=== PATIENT | male | born 1965 | race African-American/Black ===

== ENCOUNTER 2020-02-23 09:53 | Inpatient (IN) | payer OTHER ==
[2020-02-23] MEDS ORDERED: SODIUM CHLORIDE 1,000 ML IV STA (10:05)
--- NOTE | 2020-02-23 10:27 | PDOC ---
History of Present Illness - General Chief Complaint: Syncope/Near Syncope Stated Complaint: AMS Time Seen by Provider: 02/23/20 10:04 History Source: Patient, EMS Exam Limitations: No Limitations - History of Present Illness Initial Comments: 02/23/20 10:18 54M PMH HTN, CKD BIBEMS for dizziness and collapse. Pt states he was sitting at a bus stop when he experienced dizziness and nausea. Denies sob, chest pain. Denies f/c, cough, abd pain, vomiting. Per EMS, pt had collapsed. NKDA. Denies illicit drug use, etoh. PCP Dr. Lennon. Past History - Medical History Allergies/Adverse Reactions: Allergies Allergy/AdvReac Type Severity Reaction Status Date / Time No Known Allergies Allergy Verified 02/23/20 10:01 Home Medications: Ambulatory Orders Clopidogrel Bisulfate [Clopidogrel] 75 mg PO DAILY 01/20/20 Pravastatin Sodium [Pravachol -] 40 mg PO DAILY 01/20/20 Isosorbide Mononitrate [Imdur -] 30 mg PO DAILY #30 tab.sr.24h MDD one 01/24/20 hydrALAZINE HCL [Apresoline -] 25 mg PO TID #90 tablet MDD three 01/24/20 Metoprolol Succinate [Toprol Xl] 50 mg PO DAILY 02/23/20 COPD: No HTN: Yes Other medical history: CKD - Surgical History Abdominal Surgery: Yes - Immunization History Immunization Up to Date: No - Psycho-Social/Smoking History Smoking Status: No Smoking History: Current some day smoker Have you smoked in the past 12 months: Yes Number of Cigarettes Smoked Daily: 0 If you are a former smoker, when did you quit?: 2003 Information on smoking cessation initiated: No - Substance Abuse Hx (Audit-C & DAST Scrn) How often the patient has a drink containing alcohol: Never Score: In Men: 4 or > Positive; In Women: 3 or > Positive: 0 Screen Result (Pos requires Nsg. Audit-10AR): Negative In the last yr the pt used illegal drug/Rx for NonMed reason: No Score: Yes response is considered Positive: 0 Screen Result (Positive result requires Nsg. DAST-10): Negative Review of Systems - Review of Systems Comments:: 02/24/20 00:24 CONSTITUTIONAL: Denies F / C HEENT: endorses dizziness (unsteady). Denies changes in vision / hearing, diplopia, blurry vision, sore throat, rhinorrhea RESP: Denies cough, orthopnea, SLOAN. CARD: Denies chest pain GI: Endorses nausea. Denies V / D, abdominal pain, inability to tolerate PO : Denies dysuria NEURO: Denies new numbness, tingling, weakness. has chronic LE numbness x years. MSK: Denies back pain SKIN: Denies rashes *Physical Exam - Vital Signs Last Vital Signs Temp Pulse Resp BP Pulse Ox 98.1 F 83 18 106/68 98 02/23/20 10:02 02/23/20 10:02 02/23/20 10:02 02/23/20 10:02 02/23/20 10:02 - Physical Exam 02/24/20 00:24 GEN: Fatigued appearing but NAD, eyes closed, readily responsive. AAOx3. HEENT: NC/AT, CN II-XII intact, EOMI, PERRL. No facial asymmetry. Moist mucous membranes. Normal voice. Supple neck w/ FROM. CV: S1/S2, RRR, no m/r/g LUNG: CTAB, no wheezes, crackles, rales, rhonchi. GI: Old midline scar. Soft, ndnt, +BS, no guarding, no rebound. MSK: No LE edema. No obvious deformities of all extremities. SKIN: Warm, dry, no rashes appreciated. PSYCH: Normal mood and affect. NEURO: Moving all extremities well. 5/5 strength UE and LE b/l. ED Treatment Course - LABORATORY CBC & Chemistry Diagram: 02/23/20 10:05 02/23/20 10:05 - ADDITIONAL ORDERS Additional order review: Laboratory Results 02/23/20 10:02 POC Glucometer 117 02/23/20 10:02 POC Glucometer 117 Medical Decision Making - Medical Decision Making 02/24/20 00:24 54M BIBEMS for syncope and dizziness. Fatigued appearing in NAD, neuro intact. BP borderline low. - cbc, cmp, cardiac - cxr - ekg on arrival demonstrating HR 85, NSR, prolonged QTc 476, TWI V4-6, HEATH V2- 3; grossly unchanged when compared to prior EKG on - IVF - BGM 112 on arrival 02/23/20 11:01 Cardiac POCUS w/ reduced EF labs reviewed admit to tele-obs Discharge - Discharge Information Problems reviewed: Yes Clinical Impression/Diagnosis: Dizziness, Near syncope Condition: Fair - Admission Yes - Follow up/Referral - Patient Discharge Instructions - Post Discharge Activity
[2020-02-23 10:35] LABS: BASO % 0.7 % (0-2.0); EOS % 1.1 % (0-4.5); HEMATOCRIT 36.2 % (35.4-49); HEMOGLOBIN 11.8 GM/dL (11.7-16.9); LYMPH % 35.1 % (8-40); MCH 31.3 pg (25.7-33.7); MCHC 32.4 g/dl (32.0-35.9); MEAN CELL VOLUME 96.5 fl (80-96); MEAN PLT VOLUME 9.9 fl (7.5-11.1); MONO % 13.7 % (3.8-10.2); NEUT % 49.4 % (42.8-82.8); PLATELET COUNT 147 K/MM3 (134-434); RBC 3.76 M/mm3 (4.00-5.60); RDW 15.3 % (11.9-15.9); WHITE BLOOD COUNT 5.8 K/mm3 (4.0-10.0)
[2020-02-23 10:44] LABS: INR 0.97 (0.83-1.09); PROTHROMBIN TIME (PATIENT) 11.5 SEC (9.7-13.0)
[2020-02-23 10:47] LABS: ACTIVATED PTT 25.7 SECONDS (25.2-36.5)
[2020-02-23 11:06] LABS: ALBUMIN 3.3 g/dl (3.4-5.0); ALK PHOS 102 U/L (45-117); ANION GAP 8 MMOL/L (8-16); BILIRUBIN,TOTAL 0.3 mg/dL (0.2-1); BLOOD UREA NITROGEN 61.2 mg/dL (7-18); CHLORIDE 112 mmol/L (98-107); CO2 21 mmol/L (21-32); CREATININE 3.3 mg/dL (0.55-1.3); GLUCOSE,RANDOM 136 mg/dL (74-106); MAGNESIUM 1.8 mg/dL (1.8-2.4); POTASSIUM 5.4 mmol/L (3.5-5.1); SGOT/AST 18 U/L (15-37); SGPT/ALT 16 U/L (13-61); SODIUM 141 mmol/L (136-145); TOT PROT 6.8 g/dl (6.4-8.2)
[2020-02-23 11:11] LABS: EPI CELLS 3 /uL (0-25.1); HYALINE CASTS 1 /uL (0-3.1); URINE APPEARANCE CLEAR; URINE BACTERIA 2 /uL (0-1359); URINE BILIRUBIN NEGATIVE (NEGATIVE); URINE COLOR YELLOW; URINE GLUCOSE (UA) NEGATIVE (NEGATIVE); URINE KETONE NEGATIVE (NEGATIVE); URINE LEUK ESTERASE NEGATIVE (NEGATIVE); URINE NITRITE NEGATIVE (NEGATIVE); URINE PROTEIN 2+ (NEGATIVE); URINE RBC 10 /uL (0-23.9); URINE UROBILINOGEN 0.2 mg/dL (0.2-1.0); URINE WBC 5 /uL (0-25.8)
--- NOTE | 2020-02-23 11:17 | PDOC ---
Attending Attestation - Resident Resident Name: Diogenes Avila - ED Attending Attestation I have performed the following: I have examined & evaluated the patient, The case was reviewed & discussed with the resident, I agree w/resident's findings & plan - HPI HPI: 02/23/20 11:13 54 year old male with history of CAD s/p PCI and stenting, CHF, CVA (with residual right facial droop), peripheral artery disease, hypertension, gout who presented with dizziness, near syncope and diaphoresis this morning. he woke up in the AM with dizziness - Physicial Exam PE: 02/23/20 11:14 Agree with the resident's HPI and PE as documented in the electronic medical record. NAD, well appearing, EOMI, PERRL, nl conjunctiva, anicteric; neck supple. lungs clear, RRR, abdomen soft nontender. ex lap scar well healed. no rebound, guarding. Back nontender. PARADA x4, no focal neuro deficits. No peripheral edema. normal color for ethnicity, WWP. no calf tenderness - Medical Decision Making 02/23/20 11:15 Vital Signs Temp Pulse Resp BP Pulse Ox 98.1 F 86 20 120/75 100 02/23/20 10:02 02/23/20 10:20 02/23/20 10:20 02/23/20 10:20 02/23/20 10:27 DDx chest pain: ACS, coronary vasospasm, NSTEMI, arrhythmia, unstable angina, PE, dissection, PUD, esophageal spasm, GERD, gastritis, costochondritis, pneumonia, pleurisy, pericarditis/myocarditis. dehydration, electrolyte/metabolic derangements. Considered but clinically doubt based on HPI and PE: Low suspicion for pulmonary embolism or dissection. Interpreted by ED Physician: CXR (1 view): no acute abnormality: no infiltrates, bones appear intact and structures normal alignment, cardiac silhouette within normal limits. no free air under diaphragm, no pneumothorax. EKG normal sinus rhythm, no interval abnormalities, narrow QRS, ST and T wave segments and morphology normal. TWI in lateral leads. unchanged from prior Plan for admit observation for syncope, to r/o ischemia, serial trops and EKG/tele monitoring. no cp or sob. discussion with patient and family at bedside, made aware of impression and plan, questions answered. Heart Score/ECG Review #1 ECG reviewed & interpreted by me at: 10:10 General ECG Interpretation: Sinus Rhythm, Normal Rate, Normal Intervals Compared to previous ECG there are: No significant change 02/23/20 11:15 EKG normal sinus rhythm 85 bpm, no interval abnormalities, narrow QRS, ST and T wave segments and morphology normal. TWI in V4-6 and latearl leads I, AVL, unchanged from prior no ST elevations or depressions Discharge - Discharge Information Problems reviewed: Yes Clinical Impression/Diagnosis: Dizziness Condition: Fair - Admission Yes - Follow up/Referral - Patient Discharge Instructions - Post Discharge Activity
[2020-02-23] MEDS ORDERED: HEPARIN NA (PORCINE) 5,000 UNITS/ML 1ML VIAL ONE ×2 (13:15→22:38)
[2020-02-23] MEDS: HEPARIN NA (PORCINE) 5,000 UNITS/ML 1ML VIAL SQ SCH ×2 (13:18→22:42)
--- NOTE | 2020-02-23 13:29 | HP ---
CHIEF COMPLAINT: syncope PCP: Dr. Lennon HISTORY OF PRESENT ILLNESS: 54M w/ pmhx of CAD s/p PCI and stenting, CHF, CVA (with residual right facial droop), peripheral artery disease, hypertension presents in the ED after a syncopal episode. States he was sitting on the bus stop bench waiting for the bus, when he passed out. Only prior prodomal symptom was nausea. Denied berrios/d, f/c, n/v, blurry vision, chest pain, sob, abd pain, or urinary/bowel incontinence. Denies having an episode like this before. Says he did feel hot while waiting for the bus since it was hot outside. Denies hitting his head, but admits to loss of consciousness. Decent any recent changes to his medications. Was recently admitted here last month for MACY, but was not able to follow up with his PCP, cardio, nephro since then. States his next appt with is PCP is 04/08/20. ER course was notable for: (1) Hypotensive with systolic ~90s. HR 85, 100% on RA (2) IV NS x1L given, CXR neg, EKG showed HR 85, NSR, QTc 476, TWI V4-6, HEATH V2- 3; unchanged from previous EKG (3) Previous echo (01/30) showed EF 15-20%, severe global hypokinesis, LV mod dil, mod MR, trace TR, mild AR, trace pulm valv regurg Recent Travel: Denies PAST MEDICAL HISTORY: As per HPI PAST SURGICAL HISTORY: PAD-related surgery on abdomen (pt does not know specific procedure) Social History: Smoking: Denies Alcohol: Denies Drugs: Denies Allergies No Known Allergies Allergy (Verified 02/23/20 10:01) HOME MEDICATIONS: Home Medications Medication Instructions Recorded Allopurinol 300 mg PO DAILY 01/20/20 Clopidogrel Bisulfate [Clopidogrel] 75 mg PO DAILY 01/20/20 Metoprolol Tartrate [Lopressor -] 50 mg PO DAILY 01/20/20 Pravastatin Sodium [Pravachol -] 40 mg PO DAILY 01/20/20 Isosorbide Mononitrate [Imdur -] 30 mg PO DAILY #30 tab.sr.24h MDD 01/24/20 one hydrALAZINE HCL [Apresoline -] 25 mg PO TID #90 tablet MDD three 01/24/20 REVIEW OF SYSTEMS CONSTITUTIONAL: Absent: fever, chills, diaphoresis, generalized weakness, malaise, loss of appetite, weight change HEENT: Absent: rhinorrhea, nasal congestion, throat pain, throat swelling, difficulty swallowing, mouth swelling, ear pain, eye pain, visual changes CARDIOVASCULAR: Absent: chest pain, syncope, palpitations, irregular heart rate, lightheadedness, peripheral edema RESPIRATORY: Absent: cough, shortness of breath, dyspnea with exertion, orthopnea, wheezing, stridor, hemoptysis GASTROINTESTINAL: nausea Absent: abdominal pain, abdominal distension, vomiting, diarrhea, constipation, melena, hematochezia GENITOURINARY: Absent: dysuria, frequency, urgency, hesitancy, hematuria, flank pain, genital pain MUSCULOSKELETAL: Absent: myalgia, arthralgia, joint swelling, back pain, neck pain SKIN: Absent: rash, itching, pallor HEMATOLOGIC/IMMUNOLOGIC: Absent: easy bleeding, easy bruising, lymphadenopathy, frequent infections ENDOCRINE: Absent: unexplained weight gain, unexplained weight loss, heat intolerance, cold intolerance NEUROLOGIC: Absent: headache, focal weakness or paresthesias, dizziness, unsteady gait, seizure, mental status changes, bladder or bowel incontinence PSYCHIATRIC: Absent: anxiety, depression, suicidal or homicidal ideation, hallucinations. PHYSICAL EXAMINATION Vital Signs - 24 hr 02/23/20 02/23/20 02/23/20 10:02 10:20 10:27 Temperature 98.1 F Pulse Rate 83 Pulse Rate [ 86 Left Radial] Respiratory 18 20 Rate Blood Pressure 106/68 Blood Pressure 120/75 [Left Arm] O2 Sat by Pulse 98 100 100 Oximetry (%) 02/23/20 10:40 Temperature Pulse Rate Pulse Rate [ 85 Left Radial] Respiratory 18 Rate Blood Pressure Blood Pressure 123/75 [Left Arm] O2 Sat by Pulse 100 Oximetry (%) GENERAL: Pleasant, well-appearing -Swazi male, NAD. Resting comfortably in bed eating. HEENT: AT/NC. EOMI. MMM. Chronic R sided facial droop. NECK: Supple, no JVD. LUNGS: CTA B/L. No wheezes/rales noted. HEART: RRR. S1, S2. No murmurs noted. ABDOMEN: Soft, NT/ND. +well-healed vertical abdominal scar. normoactive bs. No rebound tenderess or guarding. MUSCULOSKELETAL: Moves all extremities. EXTREMITIES: No peripheral edema noted. NEUROLOGICAL: Cranial nerves II-XII intact. Normal speech. SKIN: Warm, dry, normal turgor, no rashes or lesions noted, normal capillary refill. CBCD WBC 5.8 K/mm3 (4.0-10.0) 02/23/20 10:05 RBC 3.76 M/mm3 (4.00-5.60) L 02/23/20 10:05 Hgb 11.8 GM/dL (11.7-16.9) 02/23/20 10:05 Hct 36.2 % (35.4-49) 02/23/20 10:05 MCV 96.5 fl (80-96) H 02/23/20 10:05 MCHC 32.4 g/dl (32.0-35.9) 02/23/20 10:05 RDW 15.3 % (11.9-15.9) 02/23/20 10:05 Plt Count 147 K/MM3 (134-434) D 02/23/20 10:05 MPV 9.9 fl (7.5-11.1) 02/23/20 10:05 CMP Sodium 141 mmol/L (136-145) 02/23/20 10:05 Potassium 5.4 mmol/L (3.5-5.1) H 02/23/20 10:05 Chloride 112 mmol/L (98-107) H 02/23/20 10:05 Carbon Dioxide 21 mmol/L (21-32) 02/23/20 10:05 Anion Gap 8 MMOL/L (8-16) 02/23/20 10:05 BUN 61.2 mg/dL (7-18) H 02/23/20 10:05 Creatinine 3.3 mg/dL (0.55-1.3) H 02/23/20 10:05 Calcium 9.0 mg/dL (8.5-10.1) 02/23/20 10:05 Total Bilirubin 0.3 mg/dL (0.2-1) 02/23/20 10:05 AST 18 U/L (15-37) 02/23/20 10:05 ALT 16 U/L (13-61) 02/23/20 10:05 Alkaline Phosphatase 102 U/L (45-117) 02/23/20 10:05 Total Protein 6.8 g/dl (6.4-8.2) 02/23/20 10:05 Albumin 3.3 g/dl (3.4-5.0) L 02/23/20 10:05 IMAGING: * Echo (01/30): LV mod dilated, LVSF severely reduced. EF 15-20%. LA mild dilated, mod MR, trace TR, mild AR, trace pulmonic valvular regurg ASSESSMENT/PLAN: 54M w/ pmhx of CAD s/p PCI and stenting, CHF, CVA (with residual right facial droop), peripheral artery disease, hypertension presents in the ED after a syncopal episode. #Syncope; likely 2/2 dehydration. -IV NS x1L given -Orthostatics neg -Trop neg x1, will repeat one more time -EKG showed HR 85, NSR, QTc 476, TWI V4-V6; unchanged from previous -Previous echo noted above. -Oral hydration -Monitor on tele #Hyperkalemia; 5.3 -No significant EKG changes (TWI), can cont to trend -If K continues to rise, can give Lokelma -Low potassium diet -OP follow up with nephro #Hx of systolic CHF; Euvolemic. No acute issues. Echo noted above. Cont home meds: Toprol XL 50, Hydralazine 25 TID -Entresto was recently discontinued due to MACY; will need close outpatient follow up with cardio #CKD; Cr 3.3 -Recently seen by nephro during last admission 01/30; ANCA, hepatitis, M-spike, HIV, RPR all neg -Will need OP follow up with nephro #CAD s/p PCI/stents. No acute issues. Cont home meds: Clopidogrel 75, Pravastatin 40 #HTN/HLD; Stable. Cont home meds: Pravastatin 40, Hydralazine 25 TID, Imdur 30, Toprol XL 50 #Hx of CVA. Stable, w/ residual R sided facial droop. No new deficits. Cont statin. #PAD. Stable. #Prophylaxis DVT: SQH #FEN -PO hydration -recheck lytes in AM -Low potassium diet Dispo -Admit to tele obs Visit type - Emergency Visit Emergency Visit: Yes ED Registration Date: 02/23/20 Care time: The patient presented to the Emergency Department on the above date and was hospitalized for further evaluation of their emergent condition. - New Patient This patient is new to me today: Yes Date on this admission: 02/23/20 - Critical Care Critical Care patient: No ATTENDING PHYSICIAN STATEMENT I saw and evaluated the patient. I reviewed the resident's note and discussed the case with the resident. I agree with the resident's findings and plan as documented. SUBJECTIVE: OBJECTIVE: ASSESSMENT AND PLAN:
--- NOTE | 2020-02-23 13:33 | EKG ---
Test Reason : Blood Pressure : / mmHG Vent. Rate : 085 BPM Atrial Rate : 085 BPM P-R Int : 164 ms QRS Dur : 094 ms QT Int : 400 ms P-R-T Axes : 035 003 115 degrees QTc Int : 476 ms POOR DATA QUALITY, INTERPRETATION MAY BE ADVERSELY AFFECTED NORMAL SINUS RHYTHM POSSIBLE LEFT ATRIAL ENLARGEMENT LEFT VENTRICULAR HYPERTROPHY with repolarization changes T WAVE ABNORMALITY, CONSIDER LATERAL ISCHEMIA PROLONGED QT ABNORMAL ECG WHEN COMPARED WITH ECG OF 20-JAN-2020 13:25, T WAVE INVERSION NO LONGER EVIDENT IN INFERIOR LEADS Confirmed by Ernestina Greene ([id number]) on 02/23/2020 1:32:36 PM Referred By: Confirmed By:Ernestina Greene
[2020-02-23] MEDS ORDERED: hydrALAZINE HCL 25 MG TABLET (FP) PO SCH (15:00)
--- NOTE | 2020-02-23 15:02 | PN ---
Teaching Attending Note Name of Resident: Stephany Alvarado ATTENDING PHYSICIAN STATEMENT I saw and evaluated the patient. I reviewed the resident's note and discussed the case with the resident. I agree with the resident's findings and plan as documented. SUBJECTIVE: This is a 54 y/o M with extensive PMH notable for CAD s/p PCI and stenting, CHF, CVA (with residual right facial droop), peripheral artery disease, hypertension presents in the ED after a syncopal episode. Patient states that he was sitting at a bus stop when he passed out; he reports experiencing some nausea, but did not vomit. Patient denies hitting his head. Currently patient feels well and has no complaints. Of note patient states that he did not eat anything this morning, which is not normal for him. Social Hx/ PSH / All as per residents note ROS: REVIEW OF SYSTEMS CONSTITUTIONAL: Absent: fever, chills, diaphoresis, generalized weakness, malaise, loss of appetite, weight change HEENT: Absent: rhinorrhea, nasal congestion, throat pain, throat swelling, difficulty swallowing, mouth swelling, ear pain, eye pain, visual changes CARDIOVASCULAR: Absent: chest pain, syncope, palpitations, irregular heart rate, lightheadedness, peripheral edema RESPIRATORY: Absent: cough, shortness of breath, dyspnea with exertion, orthopnea, wheezing, stridor, hemoptysis GASTROINTESTINAL: Absent: abdominal pain, abdominal distension, vomiting, diarrhea, constipation, melena, hematochezia GENITOURINARY: Absent: dysuria, frequency, urgency, hesitancy, hematuria, flank pain, genital pain MUSCULOSKELETAL: Absent: myalgia, arthralgia, joint swelling, back pain, neck pain SKIN: Absent: rash, itching, pallor HEMATOLOGIC/IMMUNOLOGIC: Absent: easy bleeding, easy bruising, lymphadenopathy, frequent infections ENDOCRINE: Absent: unexplained weight gain, unexplained weight loss, heat intolerance, cold intolerance NEUROLOGIC: Absent: headache, focal weakness or paresthesias, dizziness, unsteady gait, seizure, mental status changes, bladder or bowel incontinence PSYCHIATRIC: Absent: anxiety, depression, suicidal or homicidal ideation, hallucinations. OBJECTIVE: Vital Signs Period Temp Pulse Resp BP Sys/Adames Pulse Ox Last 24 Hr 98.1 F 83-99 18-20 106-141/68-88 98-100 GENERAL: Awake, alert, and fully oriented, in no acute distress. HEAD: Normal with no signs of trauma. EYES: Pupils equal, round and reactive to light, extraocular movements intact, sclera anicteric, conjunctiva clear. No lid lag. EARS, NOSE, THROAT: Ears normal, nares patent, oropharynx clear without exudates. Moist mucous membranes. NECK: Normal range of motion, supple without lymphadenopathy, JVD, or masses. LUNGS: Breath sounds equal, clear to auscultation bilaterally. No wheezes, and no crackles. No accessory muscle use. HEART: Regular rate and rhythm, normal S1 and S2 without murmur, rub or gallop. ABDOMEN: Soft, nontender, not distended, normoactive bowel sounds, no guarding, no rebound, no masses. No hepatomegaly or splenomegaly. MUSCULOSKELETAL: Normal range of motion at all joints. No bony deformities or tenderness. No CVA tenderness. UPPER EXTREMITIES: 2+ pulses, warm, well-perfused. No cyanosis. No clubbing. Cap refill <2 seconds. No peripheral edema. LOWER EXTREMITIES: 2+ pulses, warm, well-perfused. No calf tenderness. No peripheral edema. NEUROLOGICAL: R Facial droop noted, PEERLA, 5/5 x 4 PSYCHIATRIC: Cooperative. Good eye contact. Appropriate mood and affect. SKIN: Warm, dry, normal turgor, no rashes or lesions noted. ASSESSMENT AND PLAN: 54 y/o M with PMH as noted who presents after a syncopal episode: Syncope: Admit to Obs Monitor on Tele No signs of ACS on EKG Repeat Troponin Check Orthostatic Vitals Restart BP medications as BP allows Hyperkalemia in setting of CKD No EKG changes Continue to monitor Heart Failure w/ Reduced EF; CAD Patient appears Euvolemic Echo from 01/2020 reviewed Continue Plavix, Statin, B Magdalene Not on Entresto 2/2 MACY; patient needs outpatient Cardiology follow up Pt likely needs additional cardiac workup, however given his advanced kidney disease, he is a poor candidate for catheterization at this time Unclear why patient is on Aspirin or Diuretic Caution with Imdur/Hydralazine in setting of syncope Rest of plan as per resident note
[2020-02-23] MEDS ORDERED: hydrALAZINE HCL 25 MG TABLET (FP) ONE (22:37)
[2020-02-23] MEDS: hydrALAZINE HCL 25 MG TABLET (FP) PO SCH (22:41)
[2020-02-24] MEDS: HEPARIN NA (PORCINE) 5,000 UNITS/ML 1ML VIAL SQ SCH ×2 (05:32→13:35)
[2020-02-24] MEDS: hydrALAZINE HCL 25 MG TABLET (FP) PO SCH ×3 (05:32→21:02)
[2020-02-24 06:34] LABS: BASO % 0.7 % (0-2.0); EOS % 0.3 % (0-4.5); HEMATOCRIT 35.2 % (35.4-49); HEMOGLOBIN 11.7 GM/dL (11.7-16.9); LYMPH % 28.1 % (8-40); MCH 31.2 pg (25.7-33.7); MCHC 33.1 g/dl (32.0-35.9); MEAN CELL VOLUME 94.1 fl (80-96); MEAN PLT VOLUME 9.7 fl (7.5-11.1); MONO % 12.7 % (3.8-10.2); NEUT % 58.2 % (42.8-82.8); PLATELET COUNT 152 K/MM3 (134-434); RBC 3.74 M/mm3 (4.00-5.60); RDW 15.1 % (11.9-15.9); WHITE BLOOD COUNT 6.8 K/mm3 (4.0-10.0)
[2020-02-24 07:48] LABS: ALBUMIN 3.4 g/dl (3.4-5.0); BILIRUBIN,TOTAL 0.5 mg/dL (0.2-1); BLOOD UREA NITROGEN 52.1 mg/dL (7-18); CALCIUM 9.1 mg/dL (8.5-10.1); CREATININE 3.2 mg/dL (0.55-1.3); MAGNESIUM 1.7 mg/dL (1.8-2.4); POTASSIUM 4.5 mmol/L (3.5-5.1)
--- NOTE | 2020-02-24 09:52 | CON.CARD ---
Consult Consult Specialty:: cardiology Reason for Consultation:: dizziness, near-syncope - History of Present Illness Chief Complaint: Pt A&Ox3; denies chest pain; c/o right calf swelling and tightness when he walks more than 1/2 block (recurrent for months) History of Present Illness: 54 year old male with history of CAD s/p PCI and stent ([facility] ? 2018[facility] denies hx HI; systolic CHF (severely reduced LVEF on 01/2020 ECHO), CVA (with residual right facial droop), renal dysfunction (? acute as of early January,), peripheral artery disease, hypertension, gout, cigarettes, who presented with dizziness, near syncope and diaphoresis this morning. he woke up in the AM with dizziness - History Source History Provided By: Patient, Medical Record Limitations to Obtaining History: No Limitations - Past Medical History Cardio/Vascular: Yes: CAD, CHF, HTN. No: [place] Renal/: Yes: Renal Failure Psych: Yes: Anxiety Musculoskeletal: Yes: Other - Past Surgical History Past Surgical History: Yes: Bypass - Alcohol/Substance Use Hx Alcohol Use: No - Smoking History Smoking history: Current some day smoker Have you smoked in the past 12 months: Yes Aproximately how many cigarettes per day: 0 If you are a former smoker, when did you quit?: 2003 Home Medications - Allergies Allergies/Adverse Reactions: Allergies Allergy/AdvReac Type Severity Reaction Status Date / Time No Known Allergies Allergy Verified 02/23/20 10:01 - Home Medications Home Medications: Ambulatory Orders Clopidogrel Bisulfate [Clopidogrel] 75 mg PO DAILY 01/20/20 Pravastatin Sodium [Pravachol -] 40 mg PO DAILY 01/20/20 Isosorbide Mononitrate [Imdur -] 30 mg PO DAILY #30 tab.sr.24h MDD one 01/24/20 hydrALAZINE HCL [Apresoline -] 25 mg PO TID #90 tablet MDD three 01/24/20 Metoprolol Succinate [Toprol Xl] 50 mg PO DAILY 02/23/20 Allopurinol 300 mg PO DAILY 02/24/20 Ondansetron [Zofran -] 4 mg PO BID PRN 02/24/20 Family Medical History Family History: Denies Review of Systems - Review of Systems Constitutional: reports: Weakness Eyes: reports: No Symptoms Neck: reports: No Symptoms Cardiovascular: reports: Shortness of Breath Respiratory: reports: SOB Gastrointestinal: reports: No Symptoms Genitourinary: reports: No Symptoms Breasts: reports: No Symptoms Reported Musculoskeletal: reports: Muscle Weakness Integumentary: reports: No Symptoms Neurological: reports: Weakness Endocrine: reports: No Symptoms Hematology/Lymphatic: reports: No Symptoms Psychiatric: reports: Other - Risk Factors Known Risk Factors: Yes: Age, Gender, Hypercholesterolemia, Hypertension, Physical Inactivity, Race, Other Vital Signs: Vital Signs Temperature 98.9 F 02/24/20 06:00 Pulse Rate 116 H 02/24/20 06:00 Respiratory Rate 18 02/24/20 06:00 Blood Pressure 136/78 02/24/20 06:00 O2 Sat by Pulse Oximetry (%) 94 L 02/24/20 05:00 Abnormal Lab Results 02/25/20 02/26/20 02/26/20 23:45 06:20 06:20 RBC 3.94 L Monocytes % 12.7 H PTT (Actin FS) 55.7 H 117.7 H Chloride Carbon Dioxide BUN Creatinine Random Glucose Calcium Troponin I Albumin 02/26/20 06:20 RBC Monocytes % PTT (Actin FS) Chloride 112 H Carbon Dioxide 19 L BUN 52.0 H Creatinine 3.0 H Random Glucose 129 H Calcium 7.8 L Troponin I 0.34 H Albumin 3.1 L Constitutional: Yes: Anxious Eyes: Yes: WNL HENT: Yes: WNL Neck: Yes: WNL Respiratory: Yes: SOB on Exertion Gastrointestinal: Yes: Soft Renal/: No: Anuria Cardiovascular: Yes: Tachycardia JVD: No Carotid Bruit: No PMI: Displaced Heart Sounds: Yes: S1, Split S2 Murmur: Yes: Systolic Murmur, Grade 2 Musculoskeletal: Yes: Muscle Weakness Extremities: Yes: Cool Edema: No Peripheral Pulses WNL: Yes Integumentary: Yes: WNL Neurological: Yes: Alert, Oriented Psychiatric: Yes: Other - Other Data Labs, Other Data: CBC, BMP 02/24/20 06:15 02/24/20 06:15 INR, PTT INR 0.97 (0.83-1.09) 02/23/20 10:05 Troponin, BNP 02/23/20 02/23/20 10:05 23:45 Troponin I < 0.02 0.04 Troponin, BNP 02/23/20 02/23/20 10:05 23:45 Troponin I < 0.02 0.04 Abnormal Lab Results 02/25/20 02/26/20 02/26/20 23:45 06:20 06:20 RBC 3.94 L Monocytes % 12.7 H PTT (Actin FS) 55.7 H 117.7 H Chloride Carbon Dioxide BUN Creatinine Random Glucose Calcium Troponin I Albumin 02/26/20 06:20 RBC Monocytes % PTT (Actin FS) Chloride 112 H Carbon Dioxide 19 L BUN 52.0 H Creatinine 3.0 H Random Glucose 129 H Calcium 7.8 L Troponin I 0.34 H Albumin 3.1 L Echo: Report Reviewed Ejection Fraction %: LVEF < 40 % Imaging - Results Chest X-ray: Image Reviewed EKG: Image Reviewed Assessment/Plan Dilated ischemic cardiomyopathy: Acute/chronic systolic CHF (severely reduced LVEF) CAD-->coronary stent [facility] ? 2018 (denies hx HI) renal dysfunction s/p CVA right residual right facial droop ?hyperlipidemia HTN hyperkalemia; hypomagnesemia dizziness sinus tachycardia cigarettes (does not want patch or pill to help stop smoking) PAD;intermittent claudication Plan: Maintain hydration (though total daily fluids are limited due to dilated cardiomyopathy). Continue hydralazine + Imdur, metoprolol. Unable to use ARB, ACEI, Entresto, spironolactone, or SGLT-2 inhibitor unless renal function improves. Serial TNis BNP BUN/Cr, electrolytes, daily weight, Is and Os. Replete magnesium LE doppler; consider r/o PE F/u cardiac report regarding coronary stent (pt has not had a stress test since the procedure). Will require workup for ICD once medications are optimized. Addendum: pt's TNi brandyn from 0.04-->0.95. R/o NSTEMI: Start ASA, IV heparin Atorvastatin 80 mg daily Continue metoprolol Serial EKG (presently NSR: T wave inversions; prolonged QTc; telemetry. 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
[2020-02-24] MEDS: ISOSORBIDE MONONITRATE 30 MG TAB.SR.24H (FP) PO SCH (10:24)
[2020-02-24] MEDS: CLOPIDOGREL BISULFATE 75 MG TABLET (FP) PO SCH (10:24)
[2020-02-24] MEDS ORDERED: MAGNESIUM OXIDE 400 MG TABLET (FP) PO ONE (12:00)
--- NOTE | 2020-02-24 12:32 | PN ---
Physical Exam: SUBJECTIVE: Patient seen and examined at the bedside. Denies any chest pain, tells me he feels ok but when he walks, he gets chest discomfort and is unable to work long distances. Since recent admission on 01/2020 he has not followed up with loading dock hand or any PCP. He denies ETOH use, no drug use. does smoke a few cigarrettes per day, did not quantify. does not have a loading dock hand. OBJECTIVE: Patient is a 54 year old male with a significant past medical history of CAD s/p PCI and stenting, CHF, CVA (with residual right facial droop), peripheral artery disease, hypertension presents in the ED on 02/23/2020 after a syncopal episode. States he was sitting on the bus stop bench waiting for the bus, when he passed out. Only prior prodormal symptom was nausea. Denied berrios/d, f/c, n/v, blurry vision, chest pain, sob, abd pain, or urinary/bowel incontinence. Was recently admitted here last month at [facility] for MACY, but was not able to follow up with his PCP, cardio, nephro since then. echo with EF 15-20%, will likely need life vest, cardiology following ----- troponons now elevated to 0.95, ekg pending - heparin drip for NSTEMI continue to trend tropnins, ck, ckmb for head ct doppler of legs patient noted to be tachycardic while sleeping @ 111, metoprolol increased covid negative Vital Signs Period Temp Pulse Resp BP Sys/Adames Pulse Ox Last 24 Hr 98 F-99.8 F 98-119 18-18 132-148/73-105 94-99 GENERAL: The patient is awake, alert, and fully oriented, in no acute distress. HEAD: Normal with no signs of trauma. EYES: PERRL, extraocular movements intact, sclera anicteric, conjunctiva clear. No ptosis. ENT: Ears normal, nares patent, oropharynx clear without exudates, moist mucous membranes. NECK: Trachea midline, full range of motion, supple. LUNGS: Breath sounds equal, clear to auscultation bilaterally, no wheezes, no crackles, no accessory muscle use. HEART: sinus tachycardia 112s, repeating ekg ABDOMEN: Soft, nontender, nondistended, normoactive bowel sounds, no guarding, no rebound, no hepatosplenomegaly, no masses. EXTREMITIES: no edema. NEUROLOGICAL: Normal speech, gait not observed. Laboratory Results - last 24 hr 02/23/20 02/23/20 02/23/20 10:05 10:05 23:45 WBC RBC Hgb Hct MCV MCH MCHC RDW Plt Count MPV Absolute Neuts (auto) Neutrophils % Lymphocytes % Monocytes % Eosinophils % Basophils % Nucleated RBC % Sodium 141 Potassium 5.4 H Chloride 112 H Carbon Dioxide 21 Anion Gap 8 BUN 61.2 H Creatinine 3.3 H Est GFR (CKD-EPI)AfAm 22.92 Est GFR (CKD-EPI)NonAf 19.78 Random Glucose 136 H Calcium 9.0 Phosphorus Magnesium 1.8 Total Bilirubin 0.3 AST 18 ALT 16 Alkaline Phosphatase 102 Creatine Kinase 92 Troponin I < 0.02 0.04 B-Natriuretic Peptide Total Protein 6.8 Albumin 3.3 L Triglycerides Cholesterol Total LDL Cholesterol HDL Cholesterol TSH 0.62 COVID-19 (DIOMEDES) Not detected 02/24/20 02/24/20 06:15 06:15 WBC 6.8 RBC 3.74 L Hgb 11.7 Hct 35.2 L MCV 94.1 MCH 31.2 MCHC 33.1 RDW 15.1 Plt Count 152 MPV 9.7 Absolute Neuts (auto) 3.9 Neutrophils % 58.2 Lymphocytes % 28.1 Monocytes % 12.7 H Eosinophils % 0.3 Basophils % 0.7 Nucleated RBC % 0 Sodium 141 Potassium 4.5 Chloride 112 H Carbon Dioxide 21 Anion Gap 8 BUN 52.1 H Creatinine 3.2 H Est GFR (CKD-EPI)AfAm 23.79 Est GFR (CKD-EPI)NonAf 20.53 Random Glucose 107 H Calcium 9.1 Phosphorus 4.0 Magnesium 1.7 L Total Bilirubin 0.5 AST 16 ALT 18 Alkaline Phosphatase 106 Creatine Kinase Troponin I B-Natriuretic Peptide 6262.0 H Total Protein 7.0 Albumin 3.4 Triglycerides 98 Cholesterol 165 Total LDL Cholesterol 106 H HDL Cholesterol 47 TSH COVID-19 (DIOMEDES) Active Medications Generic Name Dose Route Start Last Admin Trade Name Freq PRN Reason Stop Dose Admin Atorvastatin Calcium 10 mg 02/24/20 22:00 Lipitor - PO HS HUI Clopidogrel Bisulfate 75 mg 02/24/20 10:00 02/24/20 10:24 Plavix - PO 75 mg DAILY HUI Administration Heparin Sodium (Porcine) 5,000 unit 02/23/20 14:00 02/24/20 05:32 Heparin - SQ 5,000 unit TID HUI Administration Hydralazine HCl 25 mg 02/23/20 15:14 02/24/20 05:32 Apresoline - PO 25 mg TID HUI Administration Isosorbide Mononitrate 30 mg 02/24/20 10:00 02/24/20 10:24 Imdur - PO 30 mg DAILY HUI Administration Metoprolol Succinate 50 mg 02/24/20 10:00 02/24/20 10:24 Toprol Xl - PO 50 mg DAILY HUI Administration ASSESSMENT/PLAN: Problem List - Problems (1) NSTEMI (non-ST elevated myocardial infarction) Assessment/Plan: troponins increased to 0.95 today, no shortness of breath, chest discomfort. discussed with loading dock hand, start heparin drip, trend troponins repeat ekg pending echo EF 15-20% will likely need life vest - echo shows lv severely reduced, severe global hypok. of LV, LV mod dilated, LA mildly dilated. start on low dose asa monitor on tele. Code(s): I21.4 - NON-ST ELEVATION (NSTEMI) MYOCARDIAL INFARCTION (2) CKD (chronic kidney disease) Assessment/Plan: creat 3.2, creatinine similar to recent admission on 01/2020 Code(s): N18.9 - CHRONIC KIDNEY DISEASE, UNSPECIFIED (3) Near syncope Assessment/Plan: for head ct physical therapy Code(s): R55 - SYNCOPE AND COLLAPSE (4) Hypertension Assessment/Plan: metoplol increased 2/2 to tachycardia Code(s): I10 - ESSENTIAL (PRIMARY) HYPERTENSION (5) Noncompliance w/medication treatment due to intermit use of medication Assessment/Plan: will need outpatient follow up Code(s): Z91.14 - PATIENT'S OTHER NONCOMPLIANCE WITH MEDICATION REGIMEN (6) CAD (coronary artery disease) Assessment/Plan: CAD s/p coronary stent [facility] ?2018 (denies hx [place]) on plavix, asa Code(s): I25.10 - ATHSCL HEART DISEASE OF [place] CORONARY ARTERY W/O ANG PCTRS (7) DVT prophylaxis Assessment/Plan: on heparin drip Code(s): Z29.9 - ENCOUNTER FOR PROPHYLACTIC MEASURES, UNSPECIFIED Visit type - Emergency Visit Emergency Visit: Yes ED Registration Date: 02/23/20 Care time: The patient presented to the Emergency Department on the above date and was hospitalized for further evaluation of their emergent condition. - New Patient This patient is new to me today: Yes Date on this admission: 02/24/20 - Critical Care Critical Care patient: No - Discharge Referral Referred to [facility] Med P.C.: No
[2020-02-24] MEDS ORDERED: HEPARIN NA (PORCINE) 5,000 UNITS/ML 1ML VIAL IVPUSH PRN (16:53)
--- NOTE | 2020-02-24 17:03 | CON.NEP ---
Consult Consult Specialty:: Nephrology Referred by:: Medicine Reason for Consultation:: acute kidney injury vs. CKD - History of Present Illness Chief Complaint: dizziness History of Present Illness: This is a 54 year old male with history of acute kidney injury/CKD (CR was 1.7 in 2019), CAD s/p PCI, systolic heart failure, CVA, PVD, hypertension who presented s/p dizziness and admitted for r/o CVA and ACS with Cr of 3.2. Seen and examined at the bedside. Awake and alert. He offers no acute complaints. Denies any fever, chills, N/V/D. No chest pain or palpitations. No flank pain, abd pain. No leg swelling. No cough or shortness of breath. Dizziness now resolved after being in the hospital. - History Source History Provided By: Patient Limitations to Obtaining History: No Limitations - Past Medical History Cardio/Vascular: Yes: CAD, CHF, HTN. No: [place] Renal/: Yes: Renal Failure Psych: Yes: Anxiety Musculoskeletal: Yes: Other - Past Surgical History Past Surgical History: Yes: Bypass - Alcohol/Substance Use Hx Alcohol Use: No - Smoking History Smoking history: Current some day smoker Have you smoked in the past 12 months: Yes Aproximately how many cigarettes per day: 0 If you are a former smoker, when did you quit?: 2003 Home Medications - Allergies Allergies/Adverse Reactions: Allergies Allergy/AdvReac Type Severity Reaction Status Date / Time No Known Allergies Allergy Verified 02/23/20 10:01 - Home Medications Home Medications: Ambulatory Orders Clopidogrel Bisulfate [Clopidogrel] 75 mg PO DAILY 01/20/20 Pravastatin Sodium [Pravachol -] 40 mg PO DAILY 01/20/20 Isosorbide Mononitrate [Imdur -] 30 mg PO DAILY #30 tab.sr.24h MDD one 01/24/20 hydrALAZINE HCL [Apresoline -] 25 mg PO TID #90 tablet MDD three 01/24/20 Metoprolol Succinate [Toprol Xl] 50 mg PO DAILY 02/23/20 Allopurinol 300 mg PO DAILY 02/24/20 Ondansetron [Zofran -] 4 mg PO BID PRN 02/24/20 Family Medical History Family History: Unremarkable Review of Systems - Review of Systems Constitutional: reports: No Symptoms Eyes: reports: No Symptoms HENT: reports: No Symptoms Neck: reports: No Symptoms Cardiovascular: reports: No Symptoms Respiratory: reports: No Symptoms Gastrointestinal: reports: No Symptoms Genitourinary: reports: No Symptoms Musculoskeletal: reports: No Symptoms Integumentary: reports: No Symptoms Neurological: reports: No Symptoms Endocrine: reports: No Symptoms Nephrology Consult - Height Height: 5 ft 5 in - Weight Weight: 66.134 kg - BMI Body Mass Index (BMI): 24.3 - Lab Results CBC,BMP: CBC, BMP 02/24/20 06:15 02/24/20 06:15 Anion Gap: Anion Gap Anion Gap 8 MMOL/L (8-16) 02/24/20 06:15 - Imaging Chest X-ray: Report Reviewed, Image Reviewed - Physical Examination Vital Signs: Vital Signs Temperature 99 F 02/24/20 13:00 Pulse Rate 110 H 02/24/20 13:00 Respiratory Rate 20 02/24/20 13:00 Blood Pressure 133/78 02/24/20 13:00 O2 Sat by Pulse Oximetry (%) 98 02/24/20 09:00 Constitutional: Yes: Well Nourished, No Distress, Calm Eyes: Yes: Conjunctiva Clear HENT: Yes: Atraumatic, Normocephalic Neck: Yes: Supple Cardiovascular: Yes: Tachycardia. No: Murmur, Rub Respiratory: Yes: Regular, CTA Bilaterally Gastrointestinal: Yes: Normal Bowel Sounds, Soft Extremities: No: Cold, Cool, Cyanosis Edema: No Neurological: Yes: Alert, Oriented Assessment/Plan 54 year old male with history of acute kidney injury/CKD (CR was 1.7 in 2019), CAD s/p PCI, systolic heart failure, CVA, PVD, hypertension who presented s/p dizziness and admitted for r/o CVA and ACS with Cr of 3.2. 1. Dizziness r/o CVA/ACS 2. Acute kidney injury vs. CKD 3. Hypertension 4. CAD s/p PCI 5. Systolic heart failure 6. Hx of CVA Renal function stable from last admission and from his recent outpatient visit in our office. No overt electrolyte or acid/base disturbances noted. 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 Can consider a renal biopsy as an outpatient to determine etiology of MACY/CKD but unlikely that he has a acute GN. Check CT of the head as pt had prior history of CVA. Cardiac enzymes up trending. Cardiology aware and likely will need anticoagulation. Check doppler of lower extremities to r/o thrombosis give persistent tachycardia Pt is euvolemic at the present time, no diuretics needed Would defer starting ANGELIA/ARB given low eGFR Case discussed with Cardiology and primary team. Thank you Piotr Junior DO
[2020-02-24] MEDS: HEPARIN - 25,000 UNIT in SODIUM CHLORIDE 495 ML IV SCH (18:14)
[2020-02-24] MEDS: ASPIRIN COATED 81 MG TABLET.EC PO SCH (18:14)
[2020-02-24] MEDS: ATORVASTATIN CA 40 MG TABLET (FP) PO SCH (21:02)
[2020-02-24] MEDS: HEPARIN NA (PORCINE) 5,000 UNITS/ML 1ML VIAL IVPUSH PRN (21:02)
[2020-02-24] MEDS ORDERED: ATORVASTATIN CA 10 MG TABLET (FP) PO SCH (22:00)
--- NOTE | 2020-02-25 01:15 | PN ---
Progress Note (short form) - Note Progress Note: @ 11pm Called by nurse that venous doppler of legs showed a RLE DVT from the common femoral down to popliteal vein with some flow seen. Report reviewed and noted as above in top portion of report by Radiologist, no mention of significant finding in Impression. Patient is continued on IV heparin gtt and likely will be transitioned to retirement oral anticoagulation upon discharge. Jorge WestN.Shivani. Visit type - Emergency Visit Emergency Visit: No - New Patient This patient is new to me today: Yes Date on this admission: 02/25/20 - Critical Care Critical Care patient: No - Discharge Referral Referred to [facility] Med P.C.: No
[2020-02-25] MEDS: HEPARIN NA (PORCINE) 5,000 UNITS/ML 1ML VIAL IVPUSH PRN ×3 (03:56→17:17)
[2020-02-25] MEDS: hydrALAZINE HCL 25 MG TABLET (FP) PO SCH ×3 (06:07→21:43)
--- NOTE | 2020-02-25 09:33 | PN ---
Progress Note, Physician History of Present Illness: 54 year old male with history of CAD s/p PCI and stent ([facility] 2018); denies hx [place]; systolic CHF (severely reduced LVEF on 01/2020 ECHO), CVA (with residual right facial droop), renal dysfunction (? acute as of early January,), peripheral artery disease, hypertension, gout, cigarettes, who presented with dizziness, near syncope and diaphoresis this morning. he woke up in the AM with dizziness - Current Medication List Current Medications: Active Medications Aspirin (Ecotrin -) 81 mg PO DAILY [facility] Last Admin: 02/24/20 18:14 Dose: 81 mg Documented by: Atorvastatin Calcium (Lipitor -) 40 mg PO HS [facility] Last Admin: 02/24/20 21:02 Dose: 40 mg Documented by: Clopidogrel Bisulfate (Plavix -) 75 mg PO DAILY [facility] Last Admin: 02/24/20 10:24 Dose: 75 mg Documented by: Heparin Sodium (Porcine) (Heparin -) 1,000 unit IVPUSH PRN PRN PRN Reason: Heparin Heparin Sodium (Porcine) (Heparin -) 5,000 unit IVPUSH PRN PRN PRN Reason: Heparin Last Admin: 02/25/20 03:56 Dose: 5,000 unit Documented by: Hydralazine HCl (Apresoline -) 25 mg PO TID [facility] Last Admin: 02/25/20 06:07 Dose: 25 mg Documented by: Heparin Sodium (Porcine) 25, (000 unit/ Sodium Chloride) 500 mls @ 16 mls/hr IV TITR [facility]; Protocol Last Titration: 02/25/20 03:56 Dose: 1,100 unit/hr, 22 mls/hr Documented by: Isosorbide Mononitrate (Imdur -) 30 mg PO DAILY [facility] Last Admin: 02/24/20 10:24 Dose: 30 mg Documented by: Metoprolol Succinate (Toprol Xl -) 100 mg PO DAILY [facility] - Objective Vital Signs: Vital Signs Temperature 98.4 F 02/25/20 06:00 Pulse Rate 99 H 02/25/20 06:00 Respiratory Rate 16 02/25/20 09:00 Blood Pressure 115/75 02/25/20 06:00 O2 Sat by Pulse Oximetry (%) 97 02/25/20 09:00 Eyes: Yes: WNL, Conjunctiva Clear, EOM Intact HENT: Yes: WNL, Atraumatic, Normocephalic Neck: Yes: WNL, Supple, Trachea Midline Cardiovascular: Yes: WNL, Regular Rate and Rhythm Respiratory: Yes: WNL, Regular, CTA Bilaterally Gastrointestinal: Yes: WNL, Normal Bowel Sounds Genitourinary: Yes: WNL Musculoskeletal: Yes: WNL Extremities: Yes: WNL Edema: No Integumentary: Yes: WNL Neurological: Yes: WNL, Alert, Oriented ...Motor Strength: WNL Psychiatric: Yes: WNL Labs: CBC, BMP 02/24/20 06:15 02/24/20 06:15 INR, PTT INR 0.97 (0.83-1.09) 02/23/20 10:05 Assessment/Plan Dilated ischemic cardiomyopathy: Acute/chronic systolic CHF (severely reduced LVEF) CAD-->coronary stent [facility] ? 2018 (denies hx [place]) renal dysfunction s/p CVA right residual right facial droop ?hyperlipidemia HTN hyperkalemia; hypomagnesemia dizziness sinus tachycardia cigarettes (does not want patch or pill to help stop smoking) PAD;intermittent claudication Plan: Maintain hydration (though total daily fluids are limited due to dilated cardiomyopathy). Continue hydralazine + Imdur, metoprolol. Unable to use ARB, ACEI, Entresto, spironolactone, or SGLT-2 inhibitor unless renal function improves. Serial TNis BNP BUN/Cr, electrolytes, daily weight, Is and Os. Replete magnesium LE doppler; consider r/o PE F/u cardiac report regarding coronary stent (pt has not had a stress test since the procedure). Will require workup for ICD once medications are optimized. TNi brandyn from 0.04-->0.95. R/o NSTEMI: Start ASA, IV heparin Atorvastatin 80 mg daily Continue metoprolol Serial EKG (presently NSR: T wave inversions; prolonged QTc; telemetry. 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
--- NOTE | 2020-02-25 09:39 | EKG ---
Test Reason : Blood Pressure : / mmHG Vent. Rate : 097 BPM Atrial Rate : 097 BPM P-R Int : 158 ms QRS Dur : 102 ms QT Int : 352 ms P-R-T Axes : 044 007 167 degrees QTc Int : 447 ms NORMAL SINUS RHYTHM LEFT VENTRICULAR HYPERTROPHY WITH REPOLARIZATION ABNORMALITY ABNORMAL ECG Confirmed by MD ENZO, REMINGTON ([id number]) on 02/25/2020 9:39:37 AM Referred By: Confirmed By:REMINGTON GIRALDO MD
[2020-02-25] MEDS: ASPIRIN COATED 81 MG TABLET.EC PO SCH (09:53)
[2020-02-25] MEDS: CLOPIDOGREL BISULFATE 75 MG TABLET (FP) PO SCH (09:53)
[2020-02-25] MEDS: ISOSORBIDE MONONITRATE 30 MG TAB.SR.24H (FP) PO SCH (09:53)
[2020-02-25 10:36] LABS: ALBUMIN 3.4 g/dl (3.4-5.0); BILIRUBIN,TOTAL 0.8 mg/dL (0.2-1); BLOOD UREA NITROGEN 48.6 mg/dL (7-18); CALCIUM 10.2 mg/dL (8.5-10.1); CREATININE 3.1 mg/dL (0.55-1.3); MAGNESIUM 1.9 mg/dL (1.8-2.4); POTASSIUM 4.8 mmol/L (3.5-5.1)
--- NOTE | 2020-02-25 10:44 | EKG ---
Test Reason : Blood Pressure : / mmHG Vent. Rate : 096 BPM Atrial Rate : 096 BPM P-R Int : 152 ms QRS Dur : 104 ms QT Int : 360 ms P-R-T Axes : 044 006 155 degrees QTc Int : 454 ms NORMAL SINUS RHYTHM LEFT ATRIAL ENLARGEMENT LEFT VENTRICULAR HYPERTROPHY WITH REPOLARIZATION ABNORMALITY ABNORMAL ECG WHEN COMPARED WITH ECG OF 24-FEB-2020 17:54, NO SIGNIFICANT CHANGE WAS FOUND Confirmed by MD ENZO, REMINGTON ([id number]) on 02/25/2020 10:43:40 AM Referred By: YIN BOOTHE DR Confirmed By:REMINGTON GIRALDO MD
--- NOTE | 2020-02-25 16:05 | PN ---
Progress Note, Physician Chief Complaint: Seen and examined at the bedside offers no acute complaints no sob, cp, fever, chills, abd pain making urine on IV heparin gtt - Current Medication List Current Medications: Active Medications Aspirin (Ecotrin -) 81 mg PO DAILY [facility] Last Admin: 02/25/20 09:53 Dose: 81 mg Documented by: Atorvastatin Calcium (Lipitor -) 40 mg PO HS [facility] Last Admin: 02/24/20 21:02 Dose: 40 mg Documented by: Clopidogrel Bisulfate (Plavix -) 75 mg PO DAILY [facility] Last Admin: 02/25/20 09:53 Dose: 75 mg Documented by: Heparin Sodium (Porcine) (Heparin -) 1,000 unit IVPUSH PRN PRN PRN Reason: Heparin Heparin Sodium (Porcine) (Heparin -) 5,000 unit IVPUSH PRN PRN PRN Reason: Heparin Last Admin: 02/25/20 03:56 Dose: 5,000 unit Documented by: Hydralazine HCl (Apresoline -) 25 mg PO TID [facility] Last Admin: 02/25/20 14:30 Dose: 25 mg Documented by: Heparin Sodium (Porcine) 25, (000 unit/ Sodium Chloride) 500 mls @ 16 mls/hr IV TITR [facility]; Protocol Last Titration: 02/25/20 03:56 Dose: 1,100 unit/hr, 22 mls/hr Documented by: Isosorbide Mononitrate (Imdur -) 30 mg PO DAILY [facility] Last Admin: 02/25/20 09:53 Dose: 30 mg Documented by: Metoprolol Succinate (Toprol Xl -) 100 mg PO DAILY [facility] Last Admin: 02/25/20 09:53 Dose: 100 mg Documented by: - Objective Vital Signs: Vital Signs Temperature 98.2 F 02/25/20 13:35 Pulse Rate 102 H 02/25/20 13:35 Respiratory Rate 18 02/25/20 13:35 Blood Pressure 127/71 02/25/20 13:35 O2 Sat by Pulse Oximetry (%) 99 02/25/20 10:00 Constitutional: Yes: No Distress, Calm HENT: Yes: Atraumatic Neck: Yes: Supple Cardiovascular: Yes: Regular Rate and Rhythm Respiratory: Yes: Regular, Diminished. No: Rales, Rhonchi Gastrointestinal: Yes: Soft. No: Tenderness Extremities: No: Cold, Cool, Cyanosis Edema: No Neurological: Yes: Alert, Oriented Labs: CBC, BMP 02/24/20 06:15 02/25/20 09:42 INR, PTT INR 0.97 (0.83-1.09) 02/23/20 10:05 Assessment/Plan 54 year old male with history of acute kidney injury/CKD (CR was 1.7 in 2019), CAD s/p PCI, systolic heart failure, CVA, PVD, hypertension who presented s/p dizziness and admitted for r/o CVA and ACS with Cr of 3.2. 1. Dizziness r/o CVA/ACS 2. Acute kidney injury vs. CKD 3. Hypertension 4. CAD s/p PCI 5. Systolic heart failure 6. Hx of CVA Renal function stable. No overt electrolyte or acid/base disturbances noted. No acute need for [employer] CT head shows leukomalacia and possible sub acute infarct. MRI was recommended. Cardiology follow up. May need cardiac cath. Will need fluids pre-cath as pt is at [place] of contrast nephropathy. Doppler of lower extremity showed no DVT. Pt is euvolemic at the present time, no diuretics needed Would defer starting ANGELIA/ARB given low eGFR Thank you Piotr Junior DO
--- NOTE | 2020-02-25 16:55 | PN ---
Physical Exam: SUBJECTIVE: Patient seen and examined. denies any pain, or malaise. OBJECTIVE: patient does have right leg dvt. clarification of us/vascular duplex, discussed with Dr. Acosta: Right leg DVT. LEFT leg, no DVT but occlusion of left sup fem. artery. radiology report to be amended ----- Patient is a 54 year old male with a significant past medical history of CAD s/p PCI and stenting, CHF, CVA (with residual right facial droop), peripheral artery disease, hypertension presents in the ED on 02/23/2020 after a syncopal episode. States he was sitting on the bus stop bench waiting for the bus, when he passed out. Only prior prodormal symptom was nausea. Denied berrios/d, f/c, n/v, blurry vision, chest pain, sob, abd pain, or urinary/bowel incontinence. Was recently admitted here last month at [facility] for MACY, but was not able to follow up with his PCP, cardio, nephro since then. echo with EF 15-20%, will likely need life vest, cardiology following ----- troponons now elevated to 0.95>70 - heparin drip for NSTEMI/DVT continue to trend tropnins, ck, ckmb covid negative Vital Signs Period Temp Pulse Resp BP Sys/Adames Pulse Ox Last 24 Hr 98.1 F-98.7 F 96-106 16-20 115-150/71-88 97-99 GENERAL: The patient is awake, alert, and fully oriented, in no acute distress. HEAD: Normal with no signs of trauma. EYES: PERRL, extraocular movements intact, sclera anicteric, conjunctiva clear. No ptosis. ENT: Ears normal, nares patent, oropharynx clear without exudates, moist mucous membranes. NECK: Trachea midline, full range of motion, supple. LUNGS: Breath sounds equal, clear to auscultation bilaterally, no wheezes, no crackles, no accessory muscle use. HEART: sinus tachycardia 100s, repeating ekg ABDOMEN: Soft, nontender, nondistended, normoactive bowel sounds, no guarding, no rebound, no hepatosplenomegaly, no masses. EXTREMITIES: no edema. NEUROLOGICAL: Normal speech, gait not observed. Laboratory Results - last 24 hr 02/24/20 02/24/20 02/24/20 18:15 18:15 21:15 PTT (Actin FS) 28.8 Sodium Potassium Chloride Carbon Dioxide Anion Gap BUN Creatinine Est GFR (CKD-EPI)AfAm Est GFR (CKD-EPI)NonAf Random Glucose Calcium Magnesium Total Bilirubin AST ALT Alkaline Phosphatase Creatine Kinase 86 CK-MB (CK-2) 2.7 Troponin I 0.70 H* Total Protein Albumin 02/25/20 02/25/20 02/25/20 02:45 09:42 09:42 PTT (Actin FS) 30.4 28.3 Sodium 141 Potassium 4.8 Chloride 111 H Carbon Dioxide 20 L Anion Gap 9 BUN 48.6 H Creatinine 3.1 H Est GFR (CKD-EPI)AfAm 24.72 Est GFR (CKD-EPI)NonAf 21.33 Random Glucose 146 H Calcium 10.2 H Magnesium 1.9 Total Bilirubin 0.8 AST 17 ALT 22 Alkaline Phosphatase 113 Creatine Kinase CK-MB (CK-2) Troponin I Total Protein 7.0 Albumin 3.4 Active Medications Generic Name Dose Route Start Last Admin Trade Name Freq PRN Reason Stop Dose Admin Aspirin 81 mg 02/24/20 17:00 02/25/20 09:53 Ecotrin - PO 81 mg DAILY [facility] Administration Atorvastatin Calcium 40 mg 02/24/20 22:00 02/24/20 21:02 Lipitor - PO 40 mg HS [facility] Administration Clopidogrel Bisulfate 75 mg 02/24/20 10:00 02/25/20 09:53 Plavix - PO 75 mg DAILY [facility] Administration Heparin Sodium (Porcine) 1,000 unit 02/24/20 16:53 Heparin - IVPUSH PRN PRN Heparin Heparin Sodium (Porcine) 5,000 unit 02/24/20 16:53 02/25/20 03:56 Heparin - IVPUSH 5,000 unit PRN PRN Administration Heparin Hydralazine HCl 25 mg 02/23/20 15:14 02/25/20 14:30 Apresoline - PO 25 mg TID [facility] Administration Heparin Sodium (Porcine) 25, 500 mls @ 16 mls/hr 02/24/20 17:00 02/25/20 0 3:56 000 unit/ Sodium Chloride IV 1,100 unit/hr TITR [facility] 22 mls/hr Titration Protocol 800 UNIT/HR Isosorbide Mononitrate 30 mg 02/24/20 10:00 02/25/20 09:53 Imdur - PO 30 mg DAILY [facility] Administration Metoprolol Succinate 100 mg 02/24/20 13:12 02/25/20 09:53 Toprol Xl - PO 100 mg DAILY [facility] Administration ASSESSMENT/PLAN: Problem List - Problems (1) NSTEMI (non-ST elevated myocardial infarction) Assessment/Plan: troponins increased to 0.95 today, no shortness of breath, chest discomfort. discussed with mainspring torque tester, start heparin drip, trend troponins repeat ekg pending echo EF 15-20% will likely need life vest - echo shows lv severely reduced, severe global hypok. of LV, LV mod dilated, LA mildly dilated. start on low dose asa monitor on tele. Code(s): I21.4 - NON-ST ELEVATION (NSTEMI) MYOCARDIAL INFARCTION (2) CKD (chronic kidney disease) Assessment/Plan: creat 3.2, creatinine similar to recent admission on 01/2020 Code(s): N18.9 - CHRONIC KIDNEY DISEASE, UNSPECIFIED (3) Near syncope Assessment/Plan: for head ct physical therapy Code(s): R55 - SYNCOPE AND COLLAPSE (4) Hypertension Assessment/Plan: metoplol increased 2/2 to tachycardia Code(s): I10 - ESSENTIAL (PRIMARY) HYPERTENSION (5) Noncompliance w/medication treatment due to intermit use of medication Assessment/Plan: will need outpatient follow up Code(s): Z91.14 - PATIENT'S OTHER NONCOMPLIANCE WITH MEDICATION REGIMEN (6) CAD (coronary artery disease) Assessment/Plan: CAD s/p coronary stent [facility] ?2018 (denies hx [place]) on plavix, asa Code(s): I25.10 - ATHSCL HEART DISEASE OF [place] CORONARY ARTERY W/O ANG PCTRS (7) DVT prophylaxis Assessment/Plan: on heparin drip Code(s): Z29.9 - ENCOUNTER FOR PROPHYLACTIC MEASURES, UNSPECIFIED (8) Right leg DVT Assessment/Plan: clarification of us/vascular duplex, discussed with Dr. Acosta: Right leg DVT. LEFT leg, no DVT but occlusion of left sup fem. artery. radiology report to be amended. on heparin gtt Code(s): I82.401 - ACUTE EMBOLISM AND THOMBOS UNSP DEEP VEINS OF R LOW EXTREM Visit type - Emergency Visit Emergency Visit: Yes ED Registration Date: 07/14/20 Care time: The patient presented to the Emergency Department on the above date and was hospitalized for further evaluation of their emergent condition. - New Patient This patient is new to me today: No - Critical Care Critical Care patient: No - Discharge Referral Referred to [facility] No
[2020-02-25] MEDS: HEPARIN - 25,000 UNIT in SODIUM CHLORIDE 495 ML IV SCH ×2 (17:17→18:30)
[2020-02-25] MEDS: ATORVASTATIN CA 40 MG TABLET (FP) PO SCH (21:43)
[2020-02-26] MEDS: hydrALAZINE HCL 25 MG TABLET (FP) PO SCH ×3 (05:44→21:26)
[2020-02-26 07:21] LABS: BASO % 0.6 % (0-2.0); EOS % 1.3 % (0-4.5); HEMATOCRIT 37.3 % (35.4-49); HEMOGLOBIN 12.4 GM/dL (11.7-16.9); MCH 31.4 pg (25.7-33.7); MCHC 33.1 g/dl (32.0-35.9); MEAN CELL VOLUME 94.8 fl (80-96); MONO % 12.7 % (3.8-10.2); NEUT % 63.4 % (42.8-82.8); PLATELET COUNT 151 K/MM3 (134-434); RBC 3.94 M/mm3 (4.00-5.60); RDW 14.9 % (11.9-15.9); WHITE BLOOD COUNT 7.6 K/mm3 (4.0-10.0)
[2020-02-26 08:34] LABS: ALBUMIN 3.1 g/dl (3.4-5.0); BILIRUBIN,TOTAL 0.4 mg/dL (0.2-1); CALCIUM 7.8 mg/dL (8.5-10.1); MAGNESIUM 1.8 mg/dL (1.8-2.4); POTASSIUM 4.6 mmol/L (3.5-5.1); TOT PROT 6.6 g/dl (6.4-8.2)
[2020-02-26] MEDS: ISOSORBIDE MONONITRATE 30 MG TAB.SR.24H (FP) PO SCH (10:10)
[2020-02-26] MEDS: ASPIRIN COATED 81 MG TABLET.EC PO SCH (10:10)
[2020-02-26] MEDS: CLOPIDOGREL BISULFATE 75 MG TABLET (FP) PO SCH (10:10)
--- NOTE | 2020-02-26 12:27 | PN ---
Physical Exam: SUBJECTIVE: Patient seen and examined OBJECTIVE: Patient is a 54 year old male with a significant past medical history of CAD s/p PCI and stenting, CHF, CVA (with residual right facial droop), peripheral artery disease, hypertension presents in the ED on 02/23/2020 after a syncopal episode. States he was sitting on the bus stop bench waiting for the bus, when he passed out. Only prior prodormal symptom was nausea. Denied berrios/d, f/c, n/v, blurry vision, chest pain, sob, abd pain, or urinary/bowel incontinence. Was recently admitted here last month at [facility] for MACY, but was not able to follow up with his PCP, cardio, nephro since then. echo with EF 15-20%, will likely need life vest, cardiology following ----- covid negative +dvt, for echo today. on heparin gtt pulm consulted as patient may need vq scan to rule out pe, unable to order cta due to elevated creatinine. Vital Signs Period Temp Pulse Resp BP Sys/Adames Pulse Ox Last 24 Hr 98.2 F-98.6 F 99-104 16-20 103-154/65-92 95-100 GENERAL: The patient is awake, alert, and fully oriented, in no acute distress. HEAD: Normal with no signs of trauma. EYES: PERRL, extraocular movements intact, sclera anicteric, conjunctiva clear. No ptosis. ENT: Ears normal, nares patent, oropharynx clear without exudates, moist mucous membranes. NECK: Trachea midline, full range of motion, supple. LUNGS: Breath sounds equal, clear to auscultation bilaterally, no wheezes, no crackles, no accessory muscle use. HEART: sinus tachycardia 100s ABDOMEN: Soft, nontender, nondistended, normoactive bowel sounds, no guarding, no rebound, no hepatosplenomegaly, no masses. EXTREMITIES: no edema. NEUROLOGICAL: Normal speech, gait not observed. Laboratory Results - last 24 hr 02/25/20 02/25/20 02/26/20 16:30 23:45 06:20 WBC RBC Hgb Hct MCV MCH MCHC RDW Plt Count MPV Absolute Neuts (auto) Neutrophils % Lymphocytes % Monocytes % Eosinophils % Basophils % Nucleated RBC % PTT (Actin FS) 29.3 55.7 H 117.7 H Sodium Potassium Chloride Carbon Dioxide Anion Gap BUN Creatinine Est GFR (CKD-EPI)AfAm Est GFR (CKD-EPI)NonAf Random Glucose Calcium Magnesium Total Bilirubin AST ALT Alkaline Phosphatase Troponin I Total Protein Albumin 02/26/20 02/26/20 06:20 06:20 WBC 7.6 RBC 3.94 L Hgb 12.4 Hct 37.3 MCV 94.8 MCH 31.4 MCHC 33.1 RDW 14.9 Plt Count 151 MPV 10.0 Absolute Neuts (auto) 4.8 Neutrophils % 63.4 Lymphocytes % 22.0 D Monocytes % 12.7 H Eosinophils % 1.3 D Basophils % 0.6 Nucleated RBC % 0 PTT (Actin FS) Sodium 141 Potassium 4.6 Chloride 112 H Carbon Dioxide 19 L Anion Gap 10 BUN 52.0 H Creatinine 3.0 H Est GFR (CKD-EPI)AfAm 25.72 Est GFR (CKD-EPI)NonAf 22.19 Random Glucose 129 H Calcium 7.8 L Magnesium 1.8 Total Bilirubin 0.4 AST 21 ALT 24 Alkaline Phosphatase 106 Troponin I 0.34 H Total Protein 6.6 Albumin 3.1 L Active Medications Generic Name Dose Route Start Last Admin Trade Name Freq PRN Reason Stop Dose Admin Aspirin 81 mg 02/24/20 17:00 02/26/20 10:10 Ecotrin - PO 81 mg DAILY [facility] Administration Atorvastatin Calcium 40 mg 02/24/20 22:00 02/25/20 21:43 Lipitor - PO 40 mg HS [facility] Administration Clopidogrel Bisulfate 75 mg 02/24/20 10:00 02/26/20 10:10 Plavix - PO 75 mg DAILY [facility] Administration Heparin Sodium (Porcine) 1,000 unit 02/24/20 16:53 Heparin - IVPUSH PRN PRN Heparin Heparin Sodium (Porcine) 5,000 unit 02/24/20 16:53 02/25/20 17:17 Heparin - IVPUSH 5,000 unit PRN PRN Administration Heparin Hydralazine HCl 25 mg 02/23/20 15:14 02/26/20 05:44 Apresoline - PO 25 mg TID [facility] Administration Heparin Sodium (Porcine) 25, 500 mls @ 16 mls/hr 02/24/20 17:00 02/26/20 10:13 000 unit/ Sodium Chloride IV 1,250 unit/hr TITR [facility] 25 mls/hr Titration Protocol 800 UNIT/HR Isosorbide Mononitrate 30 mg 02/24/20 10:00 02/26/20 10:10 Imdur - PO 30 mg DAILY [facility] Administration Metoprolol Succinate 100 mg 02/24/20 13:12 02/26/20 10:11 Toprol Xl - PO 100 mg DAILY [facility] Administration ASSESSMENT/PLAN: Problem List - Problems (1) NSTEMI (non-ST elevated myocardial infarction) Assessment/Plan: troponins peaked a 0.95, no shortness of breath, chest discomfort. on heparin drip echo EF 15-20% will likely need life vest - echo 01/22/2020 shows lv severely reduced, severe global hypok. of LV, LV mod dilated, LA mildly dilated. repeating echo to evaluate RV, LV to rule out PE start on low dose asa monitor on tele. Code(s): I21.4 - NON-ST ELEVATION (NSTEMI) MYOCARDIAL INFARCTION (2) CKD (chronic kidney disease) Assessment/Plan: creat 3.0, creatinine similar to recent admission on 01/2020 Code(s): N18.9 - CHRONIC KIDNEY DISEASE, UNSPECIFIED (3) Near syncope Assessment/Plan: physical therapy Code(s): R55 - SYNCOPE AND COLLAPSE (4) Hypertension Assessment/Plan: metoplol increased 2/2 to tachycardia Code(s): I10 - ESSENTIAL (PRIMARY) HYPERTENSION (5) Noncompliance w/medication treatment due to intermit use of medication Assessment/Plan: will need outpatient follow up Code(s): Z91.14 - PATIENT'S OTHER NONCOMPLIANCE WITH MEDICATION REGIMEN (6) CAD (coronary artery disease) Assessment/Plan: CAD s/p coronary stent [place] ?2018 (denies hx [place]) on plavix, asa Code(s): I25.10 - ATHSCL HEART DISEASE OF [place] CORONARY ARTERY W/O ANG PCTRS (7) DVT prophylaxis Assessment/Plan: on heparin drip Code(s): Z29.9 - ENCOUNTER FOR PROPHYLACTIC MEASURES, UNSPECIFIED (8) Right leg DVT Assessment/Plan: clarification of us/vascular duplex, discussed with Dr. Acosta: Right leg DVT. LEFT leg, no DVT but occlusion of left sup fem. artery. radiology report to be amended. on heparin gtt Code(s): I82.401 - ACUTE EMBOLISM AND THOMBOS UNSP DEEP VEINS OF R LOW EXTREM Visit type - Emergency Visit Emergency Visit: Yes ED Registration Date: 02/24/20 Care time: The patient presented to the Emergency Department on the above date and was hospitalized for further evaluation of their emergent condition. - New Patient This patient is new to me today: No - Critical Care Critical Care patient: No - Discharge Referral Referred to [facility] No
--- NOTE | 2020-02-26 12:44 | PN ---
Progress Note, Physician Chief Complaint: Pt ambulated slowly in the hallway with assistance. Weak; intermittent anterior chest pressure (mild-moderate) almost daily for the past few weeks. History of Present Illness: 54 year old male with history of CAD s/p PCI and stent ([facility] ? 2018); denies hx [place]; systolic CHF (severely reduced LVEF on 01/2020 ECHO), CVA (with residual right facial droop), renal dysfunction (? acute as of early January,), peripheral artery disease, hypertension, gout, cigarettes, who presented with dizziness, near syncope and diaphoresis this morning. he woke up in the AM with dizziness. - Current Medication List Current Medications: Active Medications Aspirin (Ecotrin -) 81 mg PO DAILY ON [facility] OF [facility] Last Admin: 02/26/20 10:10 Dose: 81 mg Documented by: Atorvastatin Calcium (Lipitor -) 40 mg PO HS ON [facility] OF [facility] Last Admin: 02/25/20 21:43 Dose: 40 mg Documented by: Clopidogrel Bisulfate (Plavix -) 75 mg PO DAILY ON [facility] OF [facility] Last Admin: 02/26/20 10:10 Dose: 75 mg Documented by: Heparin Sodium (Porcine) (Heparin -) 1,000 unit IVPUSH PRN PRN PRN Reason: Heparin Heparin Sodium (Porcine) (Heparin -) 5,000 unit IVPUSH PRN PRN PRN Reason: Heparin Last Admin: 02/25/20 17:17 Dose: 5,000 unit Documented by: Hydralazine HCl (Apresoline -) 25 mg PO TID ON LICENSE OF [facility] Last Admin: 02/26/20 05:44 Dose: 25 mg Documented by: Heparin Sodium (Porcine) 25, (000 unit/ Sodium Chloride) 500 mls @ 16 mls/hr IV TITR ON LICENSE OF [facility]; Protocol Last Titration: 02/26/20 10:13 Dose: 1,250 unit/hr, 25 mls/hr Documented by: Isosorbide Mononitrate (Imdur -) 30 mg PO DAILY ON [facility] OF [facility] Last Admin: 02/26/20 10:10 Dose: 30 mg Documented by: Metoprolol Succinate (Toprol Xl -) 100 mg PO DAILY ON [facility] OF [facility] Last Admin: 02/26/20 10:11 Dose: 100 mg Documented by: - Objective Vital Signs: Vital Signs Temperature 98.2 F 02/26/20 09:00 Pulse Rate 104 H 02/26/20 09:00 Respiratory Rate 18 02/26/20 09:00 Blood Pressure 134/81 02/26/20 09:00 O2 Sat by Pulse Oximetry (%) 95 02/26/20 09:00 Constitutional: Yes: Anxious Eyes: Yes: WNL HENT: Yes: WNL Neck: Yes: WNL Cardiovascular: Yes: S1, S2, S4 Respiratory: Yes: Regular Gastrointestinal: Yes: Soft ...Rectal Exam: Yes: Deferred Genitourinary: No: Anuria Breast(s): Yes: WNL Musculoskeletal: Yes: Muscle Weakness Extremities: Yes: Cool, Other (right calf tenderness) Edema: No Peripheral Pulses WNL: Yes Integumentary: Yes: WNL Neurological: Yes: Alert, Oriented Psychiatric: Yes: Alert, Oriented Labs: CBC, BMP 02/26/20 06:20 02/26/20 06:20 INR, PTT INR 0.97 (0.83-1.09) 02/23/20 10:05 Abnormal Lab Results 02/25/20 02/26/20 02/26/20 23:45 06:20 06:20 RBC 3.94 L Monocytes % 12.7 H PTT (Actin FS) 55.7 H 117.7 H Chloride Carbon Dioxide BUN Creatinine Random Glucose Calcium Troponin I Albumin 02/26/20 06:20 RBC Monocytes % PTT (Actin FS) Chloride 112 H Carbon Dioxide 19 L BUN 52.0 H Creatinine 3.0 H Random Glucose 129 H Calcium 7.8 L Troponin I 0.34 H Albumin 3.1 L - ....Imaging Chest X-ray: Image Reviewed EKG: Image Reviewed Assessment/Plan Dilated ischemic cardiomyopathy: Acute/chronic systolic CHF (severely reduced LVEF) + DVT CAD-->coronary stent [facility] ? 2018 (denies hx [place]) right carotid stent at ? [facility] renal dysfunction s/p CVA right residual right facial droop ?hyperlipidemia HTN hyperkalemia; hypomagnesemia dizziness sinus tachycardia: acute/chronic systolic CHF, anemia, respiatory compromise cigarettes (does not want patch or pill to help stop smoking) PAD;intermittent claudication Plan: COVID negative. On IV heparin; f/u pulmonary w/u regarding r/o PE (negative DVT). Continue hydralazine + Imdur, metoprolol (increase doses as tolerated: will i ncrease imdur and metoprolol today). 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 Unable to use ARB, ACEI, Entresto, spironolactone, or SGLT-2 inhibitor unless renal function improves. Serial TNis: 0.04-->0.95--> 0.7-->0.3 BNP 6,262. EKG noted; QT improved, and now WNL. BUN/Cr, electrolytes, daily weight, Is and Os. Repleted magnesium; now 1.8 (ideally, keep 2.0-2.4). Will require coronary artery evaluation when stable (stress MIBI and/or coronary angiogram). F/u renal, pulmonary w/u. ECHO for biventricular EF, size, wall motion; valve status. Contacted Dr. Beard, lab assistant:Pt had LVEF 10-20% on 08/2018; no ischemia on stress MIBI; Entresto started at that time; last seen 05/2019, when ECHO planned to see if qualified for ICD, but pt did not return for ECHO or further f/u.
[2020-02-26] MEDS ORDERED: ISOSORBIDE MONONITRATE 60 MG TAB.SR.24H (FP) PO ONE (12:49)
--- NOTE | 2020-02-26 12:57 | CON.PULM ---
Consult Consult Specialty:: PULMONARY Referred by:: HAWA De Los Santos Reason for Consultation:: r/o PE - History of Present Illness Chief Complaint: syncope History of Present Illness: 54yo male with h/o HTN, PAD, severe LV systolic dysfunction, h/o CVA who was admitted after syncopal event. Does report some anterior chest pain described as squeezing sensation. No shortness of breath or palpitations. No fever, chills or sweats. Denies cough or wheezing. He is a current smoker but denies history of asthma or COPD. - Past Medical History Cardio/Vascular: Yes: CAD, CHF, HTN. No: [place] Renal/: Yes: Renal Failure Psych: Yes: Anxiety Musculoskeletal: Yes: Other - Past Surgical History Past Surgical History: Yes: Bypass - Alcohol/Substance Use Hx Alcohol Use: No - Smoking History Smoking history: Current some day smoker Have you smoked in the past 12 months: Yes Aproximately how many cigarettes per day: 0 If you are a former smoker, when did you quit?: 2003 Home Medications - Allergies Allergies/Adverse Reactions: Allergies Allergy/AdvReac Type Severity Reaction Status Date / Time No Known Allergies Allergy Verified 02/23/20 10:01 - Home Medications Home Medications: Ambulatory Orders Clopidogrel Bisulfate [Clopidogrel] 75 mg PO DAILY 01/20/20 Pravastatin Sodium [Pravachol -] 40 mg PO DAILY 01/20/20 Isosorbide Mononitrate [Imdur -] 30 mg PO DAILY #30 tab.sr.24h MDD one 01/24/20 hydrALAZINE HCL [Apresoline -] 25 mg PO TID #90 tablet MDD three 01/24/20 Metoprolol Succinate [Toprol Xl] 50 mg PO DAILY 02/23/20 Allopurinol 300 mg PO DAILY 02/24/20 Ondansetron [Zofran -] 4 mg PO BID PRN 02/24/20 Review of Systems - Review of Systems Constitutional: denies: Chills, Fever Eyes: denies: Recent Change in Vision HENT: denies: Nasal Congestion, Throat Pain Neck: denies: Stiffness, Tenderness Cardiovascular: reports: Chest Pain. denies: Edema, Palpitations, Shortness of Breath Respiratory: denies: Cough, Wheezing Gastrointestinal: denies: Abdominal Pain, Nausea, Vomiting Genitourinary: denies: Dysuria, Hematuria Neurological: denies: Dizziness, Headache Endocrine: denies: Unexplained Weight Loss Physical Exam Vital Sings: Vital Signs Temperature 98.2 F 02/26/20 09:00 Pulse Rate 104 H 02/26/20 09:00 Respiratory Rate 18 02/26/20 09:00 Blood Pressure 134/81 02/26/20 09:00 O2 Sat by Pulse Oximetry (%) 95 02/26/20 09:00 Constitutional: Yes: Calm Eyes: Yes: Conjunctiva Clear, EOM Intact HENT: Yes: Atraumatic, Normocephalic Neck: Yes: Supple, Trachea Midline Cardiovascular: Yes: Regular Rate and Rhythm Respiratory: Yes: Diminished ...Clubbing: No Gastrointestinal: Yes: Normal Bowel Sounds, Soft. No: Tenderness Edema: No Neurological: Yes: Alert, Oriented Labs: CBC, BMP 02/26/20 06:20 02/26/20 06:20 Imaging - Results Chest X-ray: Report Reviewed, Image Reviewed (no infiltrates) Assessment/Plan Syncope Acute NSTEMI RLE DVT Likely PE Severe LV Systolic Dysfunction CAD PAD HTN CKD - continue anticoagulation - pt will need anticoagulation and V/Q at this time would not exchange specialist - check echocardiogram - if right heart changes, then will reconsider V/Q scan - if no right heart changes, can start DOAC Thank you for this consult Clifford Sinha MD
--- NOTE | 2020-02-26 13:10 | PN ---
Progress Note, Physician Chief Complaint: Seen and examined at the bedside offers no acute complaints no sob, cp, fever, chills, abd pain making urine on IV heparin gtt History of Present Illness: Seen and examined at the bedside. awake and alert offers no acute complaints no sob, cp, fever, chills, abd pain, N/V/D making urine Noted to have DVT - Current Medication List Current Medications: Active Medications Aspirin (Ecotrin -) 81 mg PO DAILY [facility] Last Admin: 02/26/20 10:10 Dose: 81 mg Documented by: Atorvastatin Calcium (Lipitor -) 80 mg PO HS [facility] Clopidogrel Bisulfate (Plavix -) 75 mg PO DAILY [facility] Last Admin: 02/26/20 10:10 Dose: 75 mg Documented by: Heparin Sodium (Porcine) (Heparin -) 1,000 unit IVPUSH PRN PRN PRN Reason: Heparin Heparin Sodium (Porcine) (Heparin -) 5,000 unit IVPUSH PRN PRN PRN Reason: Heparin Last Admin: 02/25/20 17:17 Dose: 5,000 unit Documented by: Hydralazine HCl (Apresoline -) 25 mg PO TID [facility] Last Admin: 02/26/20 05:44 Dose: 25 mg Documented by: Heparin Sodium (Porcine) 25, (000 unit/ Sodium Chloride) 500 mls @ 16 mls/hr IV TITR [facility]; Protocol Last Titration: 02/26/20 10:13 Dose: 1,250 unit/hr, 25 mls/hr Documented by: Isosorbide Mononitrate (Imdur -) 60 mg PO DAILY [facility] Isosorbide Mononitrate (Imdur -) 30 mg PO ONCE ONE Stop: 02/26/20 12:50 Metoprolol Succinate (Toprol Xl -) 150 mg PO DAILY [facility] Metoprolol Succinate (Toprol Xl -) 50 mg PO ONCE ONE Stop: 02/26/20 12:49 - Objective Vital Signs: Vital Signs Temperature 98.2 F 02/26/20 09:00 Pulse Rate 104 H 02/26/20 09:00 Respiratory Rate 18 02/26/20 09:00 Blood Pressure 134/81 02/26/20 09:00 O2 Sat by Pulse Oximetry (%) 95 02/26/20 09:00 Constitutional: Yes: No Distress Eyes: Yes: Conjunctiva Clear HENT: Yes: Atraumatic Neck: Yes: Supple Cardiovascular: Yes: Regular Rate and Rhythm Respiratory: Yes: Regular Extremities: No: Cyanosis Edema: No Labs: CBC, BMP 02/26/20 06:20 02/26/20 06:20 INR, PTT INR 0.97 (0.83-1.09) 02/23/20 10:05 Assessment/Plan 54 year old male with history of acute kidney injury/CKD (CR was 1.7 in 2019), CAD s/p PCI, systolic heart failure, CVA, PVD, hypertension who presented s/p dizziness and admitted for r/o CVA and ACS with Cr of 3.2. 1. Dizziness r/o CVA/ACS 2. Acute kidney injury vs. CKD 3. Hypertension 4. CAD s/p PCI 5. Systolic heart failure 6. Hx of CVA Renal function stable. No overt electrolyte or acid/base disturbances noted. No acute need for [employer] at this time CT head shows leukomalacia and possible sub acute infarct. MRI was recommended. Cardiac cath being deferred for now. Check VQ Scan as LE doppler did show DVT (negatvie DVT report was a error) Pt is euvolemic at the present time, no diuretics needed Would defer starting ANGELIA/ARB given low eGFR Thank you Piotr Junior DO
--- NOTE | 2020-02-26 16:31 | ECHO ---
Name: AUGIE MORALES Exam:Adult Echocardiogram Study Date: 02/26/2020 02:25 PM Age: 54 yrs Reason For Study: r/o PE; look at RV/LV Height: 65 in Weight: 142 lb BSA: 1.7 m2 MMode/2D Measurements & Calculations RVDd: 2.9 cm Ao root diam: 3.3 cm IVSd: 1.2 cm LA dimension: 3.7 cm LVIDd: 5.7 cm ACS: 1.8 cm LVIDs: 5.0 cm LVPWd: 1.3 cm EDV(Teich): 162.3 ml EPSS: 2.3 cm ESV(Teisac): 119.0 ml LVOT diam: 2.1 cm LVLd ap4: 8.4 cm EDV(MOD-sp4): 153.0 ml LVLs ap4: 8.0 cm ESV(MOD-sp4): 117.0 ml SV(MOD-sp4): 36.0 ml LAV (MOD-bp): 42.0 ml TAPSE: 1.7 cm RV S [place]: 11.2 cm/sec Doppler Measurements & Calculations MV E max chino: 39.5 cm/sec Ao V2 max: 97.7 cm/sec MV A max chino: 95.3 cm/sec Ao max P.8 mmHg MV E/A: 0.41 Ao V2 mean: 67.1 cm/sec MV dec time: 0.16 sec Ao mean P.1 mmHg Ao V2 VTI: 13.9 cm THAD(I,D): 2.5 cm2 THAD(V,D): 2.7 cm2 LV V1 max P.2 mmHg SV(LVOT): 35.6 ml LV V1 mean P.1 mmHg LV V1 max: 74.0 cm/sec LV V1 mean: 46.7 cm/sec LV V1 VTI: 9.9 cm PA V2 max: 73.3 cm/sec PI end-d chino: 141.2 cm/sec PA max P.1 mmHg PA acc slope: 585.1 cm/sec2 PA acc time: 0.08 sec Med Peak E' [place]: 6.6 cm/sec PA pr(Accel): 42.6 mmHg Med E/e': 6.0 Lat Peak E' [place]: 7.0 cm/sec Lat E/e': 5.6 Procedure A complete two-dimensional transthoracic echocardiogram was performed (2D, M-mode, Doppler and color flow Doppler). Left Ventricle The left ventricle is moderately dilated. Left ventricular systolic function is severely reduced. Eje ction Fraction = 15-20%. There is severe global hypokinesis of the left ventricle. Right Ventricle The right ventricle is normal in size and function. Atria Normal left and right atrial size and function. Mitral Valve There is no mitral regurgitation noted. Tricuspid Valve There is trace tricuspid regurgitation. There was insufficient TR detected to calculate RV systolic p ressure. Aortic Valve The aortic valve is trileaflet. No hemodynamically significant valvular aortic stenosis. No aortic regurgitation is present. Pulmonic Valve There is no pulmonic valvular regurgitation. Great Vessels The aortic root is normal size. Pericardium/Pleura There is no pericardial effusion. Interpretation Summary The left ventricle is moderately dilated. Left ventricular systolic function is severely reduced. The right ventricle is normal in size and function. There is trace tricuspid regurgitation. MD Augie Benson 02/26/2020 04:31 PM
[2020-02-26] MEDS: HEPARIN - 25,000 UNIT in SODIUM CHLORIDE 495 ML IV SCH ×2 (18:11→21:27)
[2020-02-26] MEDS: ATORVASTATIN CA 80 MG TABLET (FP) PO SCH (21:26)
[2020-02-27] MEDS: hydrALAZINE HCL 25 MG TABLET (FP) PO SCH ×3 (06:42→21:30)
[2020-02-27 07:11] LABS: BASO % 0.8 % (0-2.0); EOS % 1.6 % (0-4.5); HEMATOCRIT 36.2 % (35.4-49); LYMPH % 36.7 % (8-40); MCH 31.2 pg (25.7-33.7); MCHC 33.1 g/dl (32.0-35.9); MEAN CELL VOLUME 94.4 fl (80-96); MONO % 19.8 % (3.8-10.2); NEUT % 41.1 % (42.8-82.8); PLATELET COUNT 157 K/MM3 (134-434); RBC 3.84 M/mm3 (4.00-5.60); WHITE BLOOD COUNT 4.9 K/mm3 (4.0-10.0)
[2020-02-27 08:37] LABS: BILIRUBIN,TOTAL 0.3 mg/dL (0.2-1); BLOOD UREA NITROGEN 54.4 mg/dL (7-18); CALCIUM 9.6 mg/dL (8.5-10.1); CREATININE 3.1 mg/dL (0.55-1.3); MAGNESIUM 1.9 mg/dL (1.8-2.4); POTASSIUM 4.7 mmol/L (3.5-5.1); TOT PROT 6.5 g/dl (6.4-8.2)
--- NOTE | 2020-02-27 10:33 | PN ---
Progress Note, Physician History of Present Illness: PULMONARY ALERT,COMFORTABLE,-SOB,-CP.ECHO SEVERE LV SYSTOLIC DYSFUNCTION WITH GLOBAL HYPOKINESIA,LVEF 15-20%.RV NORMAL - Current Medication List Current Medications: Active Medications Aspirin (Ecotrin -) 81 mg PO DAILY [facility] Last Admin: 02/26/20 10:10 Dose: 81 mg Documented by: Atorvastatin Calcium (Lipitor -) 80 mg PO HS [facility] Last Admin: 02/26/20 21:26 Dose: 80 mg Documented by: Clopidogrel Bisulfate (Plavix -) 75 mg PO DAILY [facility] Last Admin: 02/26/20 10:10 Dose: 75 mg Documented by: Heparin Sodium (Porcine) (Heparin -) 1,000 unit IVPUSH PRN PRN PRN Reason: Heparin Heparin Sodium (Porcine) (Heparin -) 5,000 unit IVPUSH PRN PRN PRN Reason: Heparin Last Admin: 02/25/20 17:17 Dose: 5,000 unit Documented by: Hydralazine HCl (Apresoline -) 25 mg PO TID [facility] Last Admin: 02/27/20 06:42 Dose: 25 mg Documented by: Heparin Sodium (Porcine) 25, (000 unit/ Sodium Chloride) 500 mls @ 16 mls/hr IV TITR [facility]; Protocol Last Titration: 02/27/20 00:39 Dose: 1,100 unit/hr, 22 mls/hr Documented by: Isosorbide Mononitrate (Imdur -) 60 mg PO DAILY [facility] Metoprolol Succinate (Toprol Xl -) 150 mg PO DAILY [facility] - Objective Vital Signs: Vital Signs Temperature 98.3 F 02/27/20 06:00 Pulse Rate 90 02/27/20 06:00 Respiratory Rate 19 02/27/20 06:00 Blood Pressure 130/72 02/27/20 06:00 O2 Sat by Pulse Oximetry (%) 98 02/26/20 23:00 Constitutional: Yes: Well Nourished, Calm Eyes: Yes: WNL HENT: Yes: WNL Neck: Yes: WNL Cardiovascular: Yes: Regular Rate and Rhythm, S1, S2 Respiratory: Yes: Diminished Gastrointestinal: Yes: Normal Bowel Sounds, Soft Extremities: Yes: WNL Edema: No Labs: CBC, BMP 02/27/20 05:52 02/27/20 05:52 INR, PTT INR 0.97 (0.83-1.09) 02/23/20 10:05 Problem List - Problems (1) CAD (coronary artery disease) Code(s): I25.10 - ATHSCL HEART DISEASE OF [place] CORONARY ARTERY W/O ANG PCTRS (2) CKD (chronic kidney disease) Code(s): N18.9 - CHRONIC KIDNEY DISEASE, UNSPECIFIED (3) NSTEMI (non-ST elevated myocardial infarction) Code(s): I21.4 - NON-ST ELEVATION (NSTEMI) MYOCARDIAL INFARCTION (4) Heart failure with reduced ejection fraction Code(s): I50.20 - UNSPECIFIED SYSTOLIC (CONGESTIVE) HEART FAILURE (5) History of CVA (cerebrovascular accident) Code(s): Z86.73 - PRSNL HX OF TIA (TIA), AND CEREB INFRC W/O RESID DEFICITS (6) Syncope Code(s): R55 - SYNCOPE AND COLLAPSE (7) Near syncope Code(s): R55 - SYNCOPE AND COLLAPSE (8) Right leg DVT Code(s): I82.401 - ACUTE EMBOLISM AND THOMBOS UNSP DEEP VEINS OF R LOW EXTREM Assessment/Plan Assessment/Plan Syncope Acute NSTEMI RLE DVT Likely PE Severe LV Systolic Dysfunction LVEF 15-20% CAD PAD HTN CKD - anticoagulation - pt will need anticoagulation and V/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
[2020-02-27] MEDS: CLOPIDOGREL BISULFATE 75 MG TABLET (FP) PO SCH (10:42)
[2020-02-27] MEDS: ASPIRIN COATED 81 MG TABLET.EC PO SCH (10:42)
[2020-02-27] MEDS: ISOSORBIDE MONONITRATE 60 MG TAB.SR.24H (FP) PO SCH (10:42)
--- NOTE | 2020-02-27 13:49 | PN ---
Progress Note, Physician History of Present Illness: 54 year old male with history of CAD s/p PCI and stent ([facility] ? 2018); denies hx [place]; systolic CHF (severely reduced LVEF on 01/2020 ECHO), CVA (with residual right facial droop), renal dysfunction (? acute as of early January,), peripheral artery disease, hypertension, gout, cigarettes, who presented with dizziness, near syncope and diaphoresis this morning. he woke up in the AM with dizziness - Current Medication List Current Medications: Active Medications Aspirin (Ecotrin -) 81 mg PO DAILY [facility] Last Admin: 02/27/20 10:42 Dose: 81 mg Documented by: Atorvastatin Calcium (Lipitor -) 80 mg PO HS [facility] Last Admin: 02/26/20 21:26 Dose: 80 mg Documented by: Clopidogrel Bisulfate (Plavix -) 75 mg PO DAILY [facility] Last Admin: 02/27/20 10:42 Dose: 75 mg Documented by: Heparin Sodium (Porcine) (Heparin -) 1,000 unit IVPUSH PRN PRN PRN Reason: Heparin Heparin Sodium (Porcine) (Heparin -) 5,000 unit IVPUSH PRN PRN PRN Reason: Heparin Last Admin: 02/25/20 17:17 Dose: 5,000 unit Documented by: Hydralazine HCl (Apresoline -) 25 mg PO TID [facility] Last Admin: 02/27/20 06:42 Dose: 25 mg Documented by: Heparin Sodium (Porcine) 25, (000 unit/ Sodium Chloride) 500 mls @ 16 mls/hr IV TITR [facility]; Protocol Last Titration: 02/27/20 00:39 Dose: 1,100 unit/hr, 22 mls/hr Documented by: Isosorbide Mononitrate (Imdur -) 60 mg PO DAILY [facility] Last Admin: 02/27/20 10:42 Dose: 60 mg Documented by: Metoprolol Succinate (Toprol Xl -) 150 mg PO DAILY [facility] Last Admin: 02/27/20 10:42 Dose: 150 mg Documented by: - Objective Vital Signs: Vital Signs Temperature 98.3 F 02/27/20 06:00 Pulse Rate 90 02/27/20 06:00 Respiratory Rate 19 02/27/20 06:00 Blood Pressure 130/72 02/27/20 06:00 O2 Sat by Pulse Oximetry (%) 98 02/26/20 23:00 Eyes: Yes: WNL, Conjunctiva Clear, EOM Intact HENT: Yes: WNL, Atraumatic, Normocephalic Neck: Yes: WNL, Supple, Trachea Midline Cardiovascular: Yes: WNL, Regular Rate and Rhythm Respiratory: Yes: WNL, Regular, CTA Bilaterally Gastrointestinal: Yes: WNL, Normal Bowel Sounds Genitourinary: Yes: WNL Musculoskeletal: Yes: WNL Extremities: Yes: WNL Edema: No Integumentary: Yes: WNL Neurological: Yes: WNL, Alert, Oriented ...Motor Strength: WNL Psychiatric: Yes: WNL Labs: CBC, BMP 02/27/20 05:52 02/27/20 05:52 INR, PTT INR 0.97 (0.83-1.09) 02/23/20 10:05 Assessment/Plan Dilated ischemic cardiomyopathy: Acute/chronic systolic CHF (severely reduced LVEF) + DVT CAD-->coronary stent [facility] ? 2018 (denies hx [place]) right carotid stent at ? [facility] renal dysfunction s/p CVA right residual right facial droop ?hyperlipidemia HTN hyperkalemia; hypomagnesemia dizziness sinus tachycardia: acute/chronic systolic CHF, anemia, respiatory compromise cigarettes (does not want patch or pill to help stop smoking) PAD;intermittent claudication Plan: COVID negative. On IV heparin; f/u pulmonary w/u regarding r/o PE (negative DVT). Continue hydralazine + Imdur, metoprolol (increase doses as tolerated: will increase imdur and metoprolol today). 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 Unable to use ARB, ACEI, Entresto, spironolactone, or SGLT-2 inhibitor unless renal function improves. Serial TNis: 0.04-->0.95--> 0.7-->0.3 BNP 6,262. EKG noted; QT improved, and now WNL. BUN/Cr, electrolytes, daily weight, Is and Os. Repleted magnesium; now 1.8 (ideally, keep 2.0-2.4). Will require coronary artery evaluation when stable (stress MIBI and/or coronary angiogram). F/u renal, pulmonary w/u. ECHO for biventricular EF, size, wall motion; valve status. 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
--- NOTE | 2020-02-27 13:56 | PN ---
Progress Note (short form) - Note Progress Note: 1. Dizziness r/o CVA/ACS 2. Acute kidney injury vs. CKD 3. Hypertension 4. CAD s/p PCI 5. Systolic heart failure 6. Hx of CVA Active Medications Aspirin (Ecotrin -) 81 mg PO DAILY [facility] Last Admin: 02/27/20 10:42 Dose: 81 mg Documented by: Atorvastatin Calcium (Lipitor -) 80 mg PO HS [facility] Last Admin: 02/26/20 21:26 Dose: 80 mg Documented by: Clopidogrel Bisulfate (Plavix -) 75 mg PO DAILY [facility] Last Admin: 02/27/20 10:42 Dose: 75 mg Documented by: Heparin Sodium (Porcine) (Heparin -) 1,000 unit IVPUSH PRN PRN PRN Reason: Heparin Heparin Sodium (Porcine) (Heparin -) 5,000 unit IVPUSH PRN PRN PRN Reason: Heparin Last Admin: 02/25/20 17:17 Dose: 5,000 unit Documented by: Hydralazine HCl (Apresoline -) 25 mg PO TID [facility] Last Admin: 02/27/20 06:42 Dose: 25 mg Documented by: Heparin Sodium (Porcine) 25, (000 unit/ Sodium Chloride) 500 mls @ 16 mls/hr IV TITR [facility]; Protocol Last Titration: 02/27/20 00:39 Dose: 1,100 unit/hr, 22 mls/hr Documented by: Isosorbide Mononitrate (Imdur -) 60 mg PO DAILY [facility] Last Admin: 02/27/20 10:42 Dose: 60 mg Documented by: Metoprolol Succinate (Toprol Xl -) 150 mg PO DAILY [facility] Last Admin: 02/27/20 10:42 Dose: 150 mg Documented by: Last Vital Signs Temp Pulse Resp BP Pulse Ox 98.3 F 90 19 130/72 98 02/27/20 06:00 02/27/20 06:00 02/27/20 06:00 02/27/20 06:00 02/26/20 23:00 CBC, BMP 02/27/20 05:52 02/27/20 05:52 IMP Syncope r/o PE DVT +TNI Plan- monitor renal function
--- NOTE | 2020-02-27 16:55 | PN ---
Physical Exam: SUBJECTIVE: Patient seen and examined. feels well, ambulating without leg pain. denies shortness of breath or chest pain. OBJECTIVE: Patient is a 54 year old male with a significant past medical history of CAD s/p PCI and stenting, CHF, CVA (with residual right facial droop), peripheral artery disease, hypertension presents in the ED on 02/23/2020 after a syncopal episode. States he was sitting on the bus stop bench waiting for the bus, when he passed out. Only prior prodormal symptom was nausea. Denied berrios/d, f/c, n/v, blurry vision, chest pain, sob, abd pain, or urinary/bowel incontinence. echo with EF 15-20%, will likely need life vest, cardiology following. He was found to have NSTEM and right leg DVT. on heparin gtt. ----- covid negative pulm following for possible vq scan to rule out pe, unable to order cta due to elevated creatinine. Vital Signs Period Temp Pulse Resp BP Sys/Adames Pulse Ox Last 24 Hr 97.7 F-99.2 F 83-100 16-19 113-132/61-78 97-100 GENERAL: The patient is awake, alert, and fully oriented, in no acute distress. HEAD: Normal with no signs of trauma. EYES: PERRL, extraocular movements intact, sclera anicteric, conjunctiva clear. No ptosis. ENT: Ears normal, nares patent, oropharynx clear without exudates, moist mucous membranes. NECK: Trachea midline, full range of motion, supple. LUNGS: Breath sounds equal, clear to auscultation bilaterally, no wheezes, no crackles, no accessory muscle use. HEART: sinus tachycardia 100s ABDOMEN: Soft, nontender, nondistended, normoactive bowel sounds, no guarding, no rebound, no hepatosplenomegaly, no masses. EXTREMITIES: no edema. NEUROLOGICAL: Normal speech, gait not observed. Laboratory Results - last 24 hr 02/26/20 02/26/20 02/27/20 16:25 23:30 05:52 WBC RBC Hgb Hct MCV MCH MCHC RDW Plt Count MPV Absolute Neuts (auto) Neutrophils % Lymphocytes % Monocytes % Eosinophils % Basophils % Nucleated RBC % PTT (Actin FS) 88.8 H 81.8 H 49.7 H Sodium Potassium Chloride Carbon Dioxide Anion Gap BUN Creatinine Est GFR (CKD-EPI)AfAm Est GFR (CKD-EPI)NonAf Random Glucose Calcium Magnesium Total Bilirubin AST ALT Alkaline Phosphatase Total Protein Albumin 02/27/20 02/27/20 05:52 05:52 WBC 4.9 RBC 3.84 L Hgb 12.0 Hct 36.2 MCV 94.4 MCH 31.2 MCHC 33.1 RDW 15.0 Plt Count 157 MPV 10.0 Absolute Neuts (auto) 2.0 Neutrophils % 41.1 L D Lymphocytes % 36.7 D Monocytes % 19.8 H Eosinophils % 1.6 Basophils % 0.8 Nucleated RBC % 0 PTT (Actin FS) Sodium 141 Potassium 4.7 Chloride 113 H Carbon Dioxide 17 L Anion Gap 11 BUN 54.4 H Creatinine 3.1 H Est GFR (CKD-EPI)AfAm 24.72 Est GFR (CKD-EPI)NonAf 21.33 Random Glucose 111 H Calcium 9.6 Magnesium 1.9 Total Bilirubin 0.3 AST 20 ALT 28 Alkaline Phosphatase 108 Total Protein 6.5 Albumin 3.0 L Active Medications Generic Name Dose Route Start Last Admin Trade Name Freq PRN Reason Stop Dose Admin Aspirin 81 mg 02/24/20 17:00 02/27/20 10:42 Ecotrin - PO 81 mg DAILY [facility] Administration Atorvastatin Calcium 80 mg 02/26/20 12:54 02/26/20 21:26 Lipitor - PO 80 mg HS [facility] Administration Clopidogrel Bisulfate 75 mg 02/24/20 10:00 02/27/20 10:42 Plavix - PO 75 mg DAILY [facility] Administration Heparin Sodium (Porcine) 1,000 unit 02/24/20 16:53 Heparin - IVPUSH PRN PRN Heparin Heparin Sodium (Porcine) 5,000 unit 02/24/20 16:53 02/25/20 17:17 Heparin - IVPUSH 5,000 unit PRN PRN Administration Heparin Hydralazine HCl 25 mg 02/23/20 15:14 02/27/20 15:39 Apresoline - PO 25 mg TID [facility] Administration Heparin Sodium (Porcine) 25, 500 mls @ 16 mls/hr 02/24/20 17:00 02/27/20 00:39 000 unit/ Sodium Chloride IV 1,100 unit/hr TITR [facility] 22 mls/hr Titration Protocol 800 UNIT/HR Isosorbide Mononitrate 60 mg 02/26/20 12:49 02/27/20 10:42 Imdur - PO 60 mg DAILY [facility] Administration Metoprolol Succinate 150 mg 02/26/20 12:47 02/27/20 10:42 Toprol Xl - PO 150 mg DAILY [facility] Administration ASSESSMENT/PLAN: Problem List - Problems (1) NSTEMI (non-ST elevated myocardial infarction) Assessment/Plan: troponins peaked a 0.95, no shortness of breath, chest discomfort. on heparin drip echo EF 15-20% will likely need life vest - echo 01/22/2020 shows lv severely reduced, severe global hypok. of LV, LV mod dilated, LA mildly dilated. repeat echo 02/26/2020 shows LV mod dilated, lv systolic fx severely reduced. rv normal in size and function. ef 15-20% on low dose asa monitor on tele. Code(s): I21.4 - NON-ST ELEVATION (NSTEMI) MYOCARDIAL INFARCTION (2) CKD (chronic kidney disease) Assessment/Plan: creat 3.0, creatinine similar to recent admission on 01/2020 Code(s): N18.9 - CHRONIC KIDNEY DISEASE, UNSPECIFIED (3) Near syncope Assessment/Plan: physical therapy Code(s): R55 - SYNCOPE AND COLLAPSE (4) Hypertension Assessment/Plan: metoplol increased 2/2 to tachycardia Code(s): I10 - ESSENTIAL (PRIMARY) HYPERTENSION (5) Noncompliance w/medication treatment due to intermit use of medication Assessment/Plan: will need outpatient follow up Code(s): Z91.14 - PATIENT'S OTHER NONCOMPLIANCE WITH MEDICATION REGIMEN (6) CAD (coronary artery disease) Assessment/Plan: CAD s/p coronary stent [facility] ?2018 (denies hx [place]) on plavix, asa Code(s): I25.10 - ATHSCL HEART DISEASE OF [place] CORONARY ARTERY W/O ANG PCTRS (7) DVT prophylaxis Assessment/Plan: on heparin drip Code(s): Z29.9 - ENCOUNTER FOR PROPHYLACTIC MEASURES, UNSPECIFIED (8) Right leg DVT Assessment/Plan: clarification of us/vascular duplex, discussed with Dr. Acosta: Right leg DVT. LEFT leg, no DVT but occlusion of left sup fem. artery. radiology report to be amended. on heparin gtt Code(s): I82.401 - ACUTE EMBOLISM AND THOMBOS UNSP DEEP VEINS OF R LOW EXTREM Visit type - Emergency Visit Emergency Visit: Yes ED Registration Date: 02/24/20 Care time: The patient presented to the Emergency Department on the above date and was hospitalized for further evaluation of their emergent condition. - New Patient This patient is new to me today: No - Critical Care Critical Care patient: No - Discharge Referral Referred to [facility] Med [facility] No
[2020-02-27] MEDS: HEPARIN - 25,000 UNIT in SODIUM CHLORIDE 495 ML IV SCH ×2 (19:47→21:30)
[2020-02-27] MEDS: ATORVASTATIN CA 80 MG TABLET (FP) PO SCH (21:30)
[2020-02-28] MEDS: hydrALAZINE HCL 25 MG TABLET (FP) PO SCH ×3 (06:12→21:06)
--- NOTE | 2020-02-28 06:27 | PN ---
Progress Note (short form) - Note Progress Note: Coverage for Dr. Jeramy Montgomery Chief Complaint: Events noted, notes reviewed, resting comfortably in bed denies any chest discomfort or dyspnea History of Present Illness: Seen and examined on telemetry. Events noted, notes reviewed, resting comfortably in bed denies any chest discomfort or dyspnea Medications: Current Medications Generic Name Dose Route Start Last Admin Trade Name Freq PRN Reason Stop Dose Admin Aspirin 81 mg 02/24/20 17:00 02/28/20 10:27 Ecotrin - PO 81 mg DAILY [facility] Administration Atorvastatin Calcium 80 mg 02/26/20 12:54 02/27/20 21:30 Lipitor - PO 80 mg HS [facility] Administration Clopidogrel Bisulfate 75 mg 02/24/20 10:00 02/28/20 10:27 Plavix - PO 75 mg DAILY [facility] Administration Heparin Sodium (Porcine) 1,000 unit 02/24/20 16:53 Heparin - IVPUSH PRN PRN Heparin Heparin Sodium (Porcine) 5,000 unit 02/24/20 16:53 02/25/20 17:17 Heparin - IVPUSH 5,000 unit PRN PRN Administration Heparin Hydralazine HCl 25 mg 02/23/20 15:14 02/28/20 06:12 Apresoline - PO 25 mg TID [facility] Administration Heparin Sodium (Porcine) 25, 500 mls @ 16 mls/hr 02/24/20 17:00 02/27/20 21:30 000 unit/ Sodium Chloride IV 1,200 unit/hr TITR [facility] 24 mls/hr Administration Protocol 800 UNIT/HR Isosorbide Mononitrate 60 mg 02/26/20 12:49 02/28/20 10:27 Imdur - PO 60 mg DAILY [facility] Administration Metoprolol Succinate 150 mg 02/26/20 12:47 02/28/20 10:28 Toprol Xl - PO 150 mg DAILY [facility] Administration Review of Systems Constitutional: denies Chills or Fever Respiratory: denies: Dyspnea Cardiovascular: As noted above Gastrointestinal: denies Nausea, Vomiting, Diarrhea or Constipation or Abdominal Discomfort Genitourinary: No Symptoms Reported Musculoskeletal: No Symptoms Reported Vital Signs: Last Vital Signs Temp Pulse Resp BP Pulse Ox 90 F L 90 19 132/78 98 02/28/20 02:00 02/28/20 02:00 02/28/20 02:00 02/28/20 02:00 02/27/20 23:00 Intake & Output 02/25/20 02/26/20 02/27/20 02/28/20 23:59 23:59 23:59 23:59 Intake Total 1784 1563 756 Output Total 1075 1050 575 Balance 709 513 181 Weight 145 lb 142 lb Neck: Supple Negative JVD Respiratory: Diminished Breath Sounds at the Bases Cardiovascular: S1 S2 Regular Rate Rhythm Gastrointestinal: Soft Benign Normal Bowel Sounds Ext: Trace Edema Bilaterally Labs: CBC, BMP 02/28/20 05:35 02/28/20 05:35 CBC, BMP 02/27/20 05:52 02/27/20 05:52 Hepatic Panel Total Bilirubin 0.3 mg/dL (0.2-1) 02/27/20 05:52 AST 20 U/L (15-37) 02/27/20 05:52 ALT 28 U/L (13-61) 02/27/20 05:52 Alkaline Phosphatase 108 U/L (45-117) 02/27/20 05:52 Albumin 3.0 g/dl (3.4-5.0) L 02/27/20 05:52 INR, PTT INR 0.97 (0.83-1.09) 02/23/20 10:05 Assessment/Plan ASSESSMENT: 1. Clinical presentation consistent with acute on chronic class II-III NYHA classification related to severe systolic LV dysfunction/Dilated ischemic cardiomyopathy 2. CAD post PCI/stent angina pectoris 3. HTN 4. Hypercholesterolemia 5. History of CVA with residual deficit 6. Carotid stenosis post intervention/post carotid stent 7. PAD/symptomatic 8. DVT, pulmonary thromboembolism to be excluded 9. CKD 10. Tobacco abuse PLAN: 1. Continue B-Blockers/Toprol XL or consider Coreg, dose titration hemodynamics permitting 2. Continue Hydralazine, dose titration hemodynamics permitting 3. Continue Imdur 4. Diuretics as per renal service with close monitoring of renal function and electrolytes 5. Ideally patient should be initiated on Entresto and Spironolactone once renal function at baseline unless absolutely contraindicated, hemodynamics permitting 6. Heparin Pending further evaluation of the above noted possible pulmonary thromboembolism 7. Continue Ecotrin and Plavix therapies Sydnie Rai MD
[2020-02-28 07:02] LABS: BASO % 0.9 % (0-2.0); EOS % 2.5 % (0-4.5); HEMATOCRIT 37.3 % (35.4-49); HEMOGLOBIN 12.2 GM/dL (11.7-16.9); LYMPH % 33.1 % (8-40); MCH 30.9 pg (25.7-33.7); MCHC 32.8 g/dl (32.0-35.9); MEAN CELL VOLUME 94.2 fl (80-96); MEAN PLT VOLUME 10.1 fl (7.5-11.1); MONO % 17.9 % (3.8-10.2); NEUT % 45.6 % (42.8-82.8); PLATELET COUNT 166 K/MM3 (134-434); RBC 3.96 M/mm3 (4.00-5.60); WHITE BLOOD COUNT 5.2 K/mm3 (4.0-10.0)
[2020-02-28 07:48] LABS: ALBUMIN 3.1 g/dl (3.4-5.0); BILIRUBIN,TOTAL 0.2 mg/dL (0.2-1); CALCIUM 9.8 mg/dL (8.5-10.1); CREATININE 2.8 mg/dL (0.55-1.3); MAGNESIUM 2.1 mg/dL (1.8-2.4); POTASSIUM 5.3 mmol/L (3.5-5.1); TOT PROT 6.9 g/dl (6.4-8.2)
[2020-02-28] MEDS: ISOSORBIDE MONONITRATE 60 MG TAB.SR.24H (FP) PO SCH (10:27)
[2020-02-28] MEDS: CLOPIDOGREL BISULFATE 75 MG TABLET (FP) PO SCH (10:27)
[2020-02-28] MEDS: ASPIRIN COATED 81 MG TABLET.EC PO SCH (10:27)
--- NOTE | 2020-02-28 13:43 | PN ---
Progress Note, Physician Chief Complaint: Stable no acute events overnight History of Present Illness: 54 year old male with a significant past medical history of CAD s/p PCI and stenting, CHF, CVA (with residual right facial droop), peripheral artery disease, hypertension presents in the ED on 02/23/2020 after a syncopal episode. States he was sitting on the bus stop bench waiting for the bus, when he passed out. Only prior prodormal symptom was nausea. Denied headache, fevers/chills, n/v, blurry vision, chest pain, sob, abd pain, or urinary/bowel incontinence. 2D Echo with EF 15-20%, will likely need life vest, cardiology following. He was found to have NSTEM and right leg DVT. on heparin gtt. ----- pulm following for possible vq scan to rule out pe, unable to order cta due to elevated creatinine. - Current Medication List Current Medications: Active Medications Aspirin (Ecotrin -) 81 mg PO DAILY [facility] Last Admin: 02/28/20 10:27 Dose: 81 mg Documented by: Atorvastatin Calcium (Lipitor -) 80 mg PO HS [facility] Last Admin: 02/27/20 21:30 Dose: 80 mg Documented by: Clopidogrel Bisulfate (Plavix -) 75 mg PO DAILY [facility] Last Admin: 02/28/20 10:27 Dose: 75 mg Documented by: Heparin Sodium (Porcine) (Heparin -) 1,000 unit IVPUSH PRN PRN PRN Reason: Heparin Heparin Sodium (Porcine) (Heparin -) 5,000 unit IVPUSH PRN PRN PRN Reason: Heparin Last Admin: 02/25/20 17:17 Dose: 5,000 unit Documented by: Hydralazine HCl (Apresoline -) 25 mg PO TID [facility] Last Admin: 02/28/20 06:12 Dose: 25 mg Documented by: Heparin Sodium (Porcine) 25, (000 unit/ Sodium Chloride) 500 mls @ 16 mls/hr IV TITR [facility]; Protocol Last Admin: 02/27/20 21:30 Dose: 1,200 unit/hr, 24 mls/hr Documented by: Isosorbide Mononitrate (Imdur -) 60 mg PO DAILY [facility] Last Admin: 02/28/20 10:27 Dose: 60 mg Documented by: Metoprolol Succinate (Toprol Xl -) 150 mg PO DAILY [facility] Last Admin: 02/28/20 10:28 Dose: 150 mg Documented by: - Objective Vital Signs: Vital Signs Temperature 98.7 F 02/28/20 09:00 Pulse Rate 92 H 02/28/20 09:00 Respiratory Rate 18 02/28/20 09:00 Blood Pressure 145/84 02/28/20 09:00 O2 Sat by Pulse Oximetry (%) 99 02/28/20 09:00 Constitutional: Yes: Well Nourished, No Distress, Calm Eyes: Yes: WNL, Conjunctiva Clear, EOM Intact HENT: Yes: WNL, Atraumatic, Normocephalic Neck: Yes: WNL, Supple, Trachea Midline Cardiovascular: Yes: WNL, Regular Rate and Rhythm Respiratory: Yes: WNL, Regular, CTA Bilaterally Gastrointestinal: Yes: WNL, Normal Bowel Sounds, Soft Musculoskeletal: Yes: WNL Extremities: Yes: WNL Edema: No Peripheral Pulses WNL: Yes Integumentary: Yes: WNL Neurological: Yes: WNL, Alert, Oriented ...Motor Strength: WNL Psychiatric: Yes: WNL, Alert, Oriented Labs: CBC, BMP 02/28/20 05:35 02/28/20 05:35 INR, PTT INR 0.97 (0.83-1.09) 02/23/20 10:05 Impression/Plan Impression/Plan: - Problems (1) NSTEMI (non-ST elevated myocardial infarction) Assessment/Plan: Cardiology following troponins peaked a 0.95, no shortness of breath, chest discomfort. on heparin drip echo EF 15-20% will likely need life vest - echo 01/22/2020 shows lv severely reduced, severe global hypok. of LV, LV mod dilated, LA mildly dilated. repeat echo 02/26/2020 shows LV mod dilated, lv systolic fx severely reduced. Right Ventricle normal in size and function. EF 15-20% on low dose asa as well sa plavix As per cardiology continue B-Blockers/Toprol XL or consider Coreg, dose titration hemodynamics permitting Continue Hydralazine, dose titration hemodynamics permitting Continue Imdur Diuretics as per renal service with close monitoring of renal function and electrolytes As per cardiolgoy Ideally patient should be initiated on Entresto and Spironolactone once renal function at baseline unless absolutely contraindicated, hemodynamics permitting Heparin Pending further evaluation of the above noted possible pulmonary thromboembolism monitor on tele. Code(s): I21.4 - NON-ST ELEVATION (NSTEMI) MYOCARDIAL INFARCTION (2) CKD (chronic kidney disease) Assessment/Plan: creat 3.0, creatinine similar to recent admission on 01/2020 Code(s): N18.9 - CHRONIC KIDNEY DISEASE, UNSPECIFIED (3) Near syncope Assessment/Plan: physical therapy Code(s): R55 - SYNCOPE AND COLLAPSE (4) Noncompliance w/medication treatment due to intermit use of medication Assessment/Plan: will need outpatient follow up Code(s): Z91.14 - PATIENT'S OTHER NONCOMPLIANCE WITH MEDICATION REGIMEN (5) CAD (coronary artery disease) Assessment/Plan: CAD s/p coronary stent [place] ?2018 (denies hx [place]) on plavix, asa Code(s): I25.10 - ATHSCL HEART DISEASE OF [place] CORONARY ARTERY W/O ANG PCTRS (6) DVT prophylaxis Assessment/Plan: on heparin drip Code(s): Z29.9 - ENCOUNTER FOR PROPHYLACTIC MEASURES, UNSPECIFIED (7) Right leg DVT Assessment/Plan: clarification of us/vascular duplex, discussed with Dr. Acosta: Right leg DVT. LEFT leg, no DVT but occlusion of left sup fem. artery. radiology report to be amended. on heparin gtt Code(s): I82.401 - ACUTE EMBOLISM AND THOMBOS UNSP DEEP VEINS OF R LOW EXTREM V Visit type - Emergency Visit Emergency Visit: Yes ED Registration Date: 02/24/20 Care time: The patient presented to the Emergency Department on the above date and was hospitalized for further evaluation of their emergent condition. - New Patient This patient is new to me today: Yes Date on this admission: 02/28/20 - Critical Care Critical Care patient: No - Discharge Referral Referred to [facility] No
--- NOTE | 2020-02-28 14:15 | PN ---
Progress Note (short form) - Note Progress Note: 1. Dizziness r/o CVA/ACS 2. Acute kidney injury vs. CKD 3. Hypertension 4. CAD s/p PCI 5. Systolic heart failure 6. Hx of CVA Active Medications Aspirin (Ecotrin -) 81 mg PO DAILY [facility] Last Admin: 02/28/20 10:27 Dose: 81 mg Documented by: Atorvastatin Calcium (Lipitor -) 80 mg PO HS [facility] Last Admin: 02/27/20 21:30 Dose: 80 mg Documented by: Clopidogrel Bisulfate (Plavix -) 75 mg PO DAILY [facility] Last Admin: 02/28/20 10:27 Dose: 75 mg Documented by: Heparin Sodium (Porcine) (Heparin -) 1,000 unit IVPUSH PRN PRN PRN Reason: Heparin Heparin Sodium (Porcine) (Heparin -) 5,000 unit IVPUSH PRN PRN PRN Reason: Heparin Last Admin: 02/25/20 17:17 Dose: 5,000 unit Documented by: Hydralazine HCl (Apresoline -) 25 mg PO TID [facility] Last Admin: 02/28/20 13:48 Dose: 25 mg Documented by: Heparin Sodium (Porcine) 25, (000 unit/ Sodium Chloride) 500 mls @ 16 mls/hr IV TITR [facility]; Protocol Last Admin: 02/27/20 21:30 Dose: 1,200 unit/hr, 24 mls/hr Documented by: Isosorbide Mononitrate (Imdur -) 60 mg PO DAILY [facility] Last Admin: 02/28/20 10:27 Dose: 60 mg Documented by: Metoprolol Succinate (Toprol Xl -) 150 mg PO DAILY [facility] Last Admin: 02/28/20 10:28 Dose: 150 mg Documented by: Last Vital Signs Temp Pulse Resp BP Pulse Ox 98.2 F 79 18 123/77 99 02/28/20 14:00 02/28/20 14:00 02/28/20 14:00 02/28/20 14:00 02/28/20 14:00 CBC, BMP 02/28/20 05:35 02/28/20 05:35 CBC, BMP 02/27/20 05:52 02/27/20 05:52 IMP Syncope r/o PE DVT +TNI Plan- monitor renal function
--- NOTE | 2020-02-28 14:42 | PN ---
Progress Note (short form) - Note Progress Note: Reports breathing feels little better today. Still with some SLOAN. No acute events overnight. Intake & Output 02/25/20 02/26/20 02/27/20 02/28/20 23:59 23:59 23:59 23:59 Intake Total 1784 7280 800 2775 Output Total 1075 1050 575 Balance 709 742 604 5830 Weight 145 lb 142 lb Last Vital Signs Temp Pulse Resp BP Pulse Ox 98.2 F 79 18 123/77 99 02/28/20 14:00 02/28/20 14:00 02/28/20 14:00 02/28/20 14:00 02/28/20 14:00 Active Medications Aspirin (Ecotrin -) 81 mg PO DAILY [facility] Last Admin: 02/28/20 10:27 Dose: 81 mg Documented by: Atorvastatin Calcium (Lipitor -) 80 mg PO HS [facility] Last Admin: 02/27/20 21:30 Dose: 80 mg Documented by: Clopidogrel Bisulfate (Plavix -) 75 mg PO DAILY [facility] Last Admin: 02/28/20 10:27 Dose: 75 mg Documented by: Heparin Sodium (Porcine) (Heparin -) 1,000 unit IVPUSH PRN PRN PRN Reason: Heparin Heparin Sodium (Porcine) (Heparin -) 5,000 unit IVPUSH PRN PRN PRN Reason: Heparin Last Admin: 02/25/20 17:17 Dose: 5,000 unit Documented by: Hydralazine HCl (Apresoline -) 25 mg PO TID [facility] Last Admin: 02/28/20 13:48 Dose: 25 mg Documented by: Heparin Sodium (Porcine) 25, (000 unit/ Sodium Chloride) 500 mls @ 16 mls/hr IV TITR [facility]; Protocol Last Admin: 02/27/20 21:30 Dose: 1,200 unit/hr, 24 mls/hr Documented by: Isosorbide Mononitrate (Imdur -) 60 mg PO DAILY [facility] Last Admin: 02/28/20 10:27 Dose: 60 mg Documented by: Metoprolol Succinate (Toprol Xl -) 150 mg PO DAILY [facility] Last Admin: 02/28/20 10:28 Dose: 150 mg Documented by: Constitutional: Yes: Well Nourished, Calm Eyes: Yes: WNL HENT: Yes: WNL Neck: Yes: WNL Cardiovascular: Yes: Regular Rate and Rhythm, S1, S2 Respiratory: Yes: Diminished Gastrointestinal: Yes: Normal Bowel Sounds, Soft Extremities: Yes: WNL Edema: No Labs: Laboratory Results - last 24 hr 02/26/20 02/27/20 02/28/20 06:20 17:25 05:35 WBC RBC Hgb Hct MCV MCH MCHC RDW Plt Count MPV Absolute Neuts (auto) Neutrophils % Lymphocytes % Monocytes % Eosinophils % Basophils % Nucleated RBC % PTT (Actin FS) 62.3 H 70.0 H Sodium Potassium Chloride Carbon Dioxide Anion Gap BUN Creatinine Est GFR (CKD-EPI)AfAm Est GFR (CKD-EPI)NonAf Random Glucose Calcium Magnesium Total Bilirubin AST ALT Alkaline Phosphatase Total Protein Albumin PTH Intact 133 H 02/28/20 02/28/20 05:35 05:35 WBC 5.2 RBC 3.96 L Hgb 12.2 Hct 37.3 MCV 94.2 MCH 30.9 MCHC 32.8 RDW 15.0 Plt Count 166 MPV 10.1 Absolute Neuts (auto) 2.4 Neutrophils % 45.6 Lymphocytes % 33.1 Monocytes % 17.9 H Eosinophils % 2.5 Basophils % 0.9 Nucleated RBC % 0 PTT (Actin FS) Sodium 140 Potassium 5.3 H Chloride 112 H Carbon Dioxide 17 L Anion Gap 11 BUN 59.0 H Creatinine 2.8 H Est GFR (CKD-EPI)AfAm 27.96 Est GFR (CKD-EPI)NonAf 24.12 Random Glucose 112 H Calcium 9.8 Magnesium 2.1 Total Bilirubin 0.2 AST 23 ALT 32 Alkaline Phosphatase 117 Total Protein 6.9 Albumin 3.1 L PTH Intact Problem List - Problems (1) CAD (coronary artery disease) Code(s): I25.10 - ATHSCL HEART DISEASE OF [place] CORONARY ARTERY W/O ANG PCTRS (2) CKD (chronic kidney disease) Code(s): N18.9 - CHRONIC KIDNEY DISEASE, UNSPECIFIED (3) NSTEMI (non-ST elevated myocardial infarction) Code(s): I21.4 - NON-ST ELEVATION (NSTEMI) MYOCARDIAL INFARCTION (4) Heart failure with reduced ejection fraction Code(s): I50.20 - UNSPECIFIED SYSTOLIC (CONGESTIVE) HEART FAILURE (5) History of CVA (cerebrovascular accident) Code(s): Z86.73 - PRSNL HX OF TIA (TIA), AND CEREB INFRC W/O RESID DEFICITS (6) Syncope Code(s): R55 - SYNCOPE AND COLLAPSE (7) Near syncope Code(s): R55 - SYNCOPE AND COLLAPSE (8) Right leg DVT Code(s): I82.401 - ACUTE EMBOLISM AND THOMBOS UNSP DEEP VEINS OF R LOW EXTREM Assessment/Plan Assessment/Plan Syncope Acute NSTEMI RLE DVT Likely PE Severe LV Systolic Dysfunction LVEF 15-20% CAD PAD HTN CKD - AC - Cardiac wokup ongoing - monitor lytes,renal function Dr Leigh
[2020-02-28] MEDS: HEPARIN - 25,000 UNIT in SODIUM CHLORIDE 495 ML IV SCH ×2 (17:15→21:06)
[2020-02-28] MEDS: ATORVASTATIN CA 80 MG TABLET (FP) PO SCH (21:06)
[2020-02-29] MEDS: hydrALAZINE HCL 25 MG TABLET (FP) PO SCH ×3 (06:31→21:17)
--- NOTE | 2020-02-29 06:40 | PN ---
Progress Note (short form) - Note Progress Note: Coverage for Dr. Jeramy Montgomery Chief Complaint: Events noted, notes reviewed, resting comfortably in bed denies any chest discomfort or dyspnea History of Present Illness: Seen and examined on telemetry. 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, patient has to demonstrate compliance with medical therapy administration and follow-up prior to planning further evaluation/intervention specifically proceeding with a prophylactic ICD implantation Medications: Current Medications Generic Name Dose Route Start Last Admin Trade Name Freq PRN Reason Stop Dose Admin Aspirin 81 mg 02/24/20 17:00 02/28/20 10:27 Ecotrin - PO 81 mg DAILY [facility] Administration Atorvastatin Calcium 80 mg 02/26/20 12:54 02/28/20 21:06 Lipitor - PO 80 mg HS [facility] Administration Clopidogrel Bisulfate 75 mg 02/24/20 10:00 02/28/20 10:27 Plavix - PO 75 mg DAILY [facility] Administration Heparin Sodium (Porcine) 1,000 unit 02/24/20 16:53 Heparin - IVPUSH PRN PRN Heparin Heparin Sodium (Porcine) 5,000 unit 02/24/20 16:53 02/25/20 17:17 Heparin - IVPUSH 5,000 unit PRN PRN Administration Heparin Hydralazine HCl 25 mg 02/23/20 15:14 02/29/20 06:31 Apresoline - PO 25 mg TID [facility] Administration Heparin Sodium (Porcine) 25, 500 mls @ 16 mls/hr 02/24/20 17:00 02/28/20 21:06 000 unit/ Sodium Chloride IV 1,200 unit/hr TITR [facility] 24 mls/hr Administration Protocol 800 UNIT/HR Isosorbide Mononitrate 60 mg 02/26/20 12:49 02/28/20 10:27 Imdur - PO 60 mg DAILY [facility] Administration Metoprolol Succinate 150 mg 02/26/20 12:47 02/28/20 10:28 Toprol Xl - PO 150 mg DAILY [facility] Administration Review of Systems Constitutional: denies Chills or Fever Respiratory: denies: Dyspnea Cardiovascular: As noted above Gastrointestinal: denies Nausea, Vomiting, Diarrhea or Constipation or Abdominal Discomfort Genitourinary: No Symptoms Reported Musculoskeletal: No Symptoms Reported Vital Signs: Last Vital Signs Temp Pulse Resp BP Pulse Ox 98.2 F 89 20 163/95 97 02/28/20 22:00 02/28/20 22:00 02/28/20 22:00 02/28/20 22:00 02/29/20 01:00 Intake & Output 02/26/20 02/27/20 02/28/20 02/29/20 23:59 23:59 23:59 23:59 Intake Total 9097 776 3786 Output Total 1050 575 500 Balance 513 181 777 Weight 142 lb Neck: Supple Negative JVD Respiratory: Diminished Breath Sounds at the Bases Cardiovascular: S1 S2 Regular Rate Rhythm Gastrointestinal: Soft Benign Normal Bowel Sounds Ext: Trace Edema Bilaterally Labs: CBC, BMP 02/29/20 07:15 02/29/20 07:15 CBC, BMP 02/28/20 05:35 02/28/20 18:05 Hepatic Panel Total Bilirubin 0.2 mg/dL (0.2-1) 02/28/20 05:35 AST 23 U/L (15-37) 02/28/20 05:35 ALT 32 U/L (13-61) 02/28/20 05:35 Alkaline Phosphatase 117 U/L (45-117) 02/28/20 05:35 Albumin 3.1 g/dl (3.4-5.0) L 02/28/20 05:35 INR, PTT INR 0.97 (0.83-1.09) 02/23/20 10:05 Assessment/Plan ASSESSMENT: 1. Clinical presentation consistent with acute on chronic class II-III NYHA classification related to severe systolic LV dysfunction/Dilated ischemic cardiomyopathy 2. CAD post PCI/stent angina pectoris 3. HTN 4. Hypercholesterolemia 5. History of CVA with residual deficit 6. Carotid stenosis post intervention/post carotid stent 7. PAD/symptomatic 8. DVT, pulmonary thromboembolism to be excluded 9. CKD with Hyperkalemia 10. Tobacco abuse PLAN: 1. Continue B-Blockers/Toprol XL or consider Coreg, dose titration hemodynamics permitting 2. Continue Hydralazine, dose titration hemodynamics permitting 3. Continue Imdur 4. Diuretics as per renal service with close monitoring of renal function and electrolytes 5. Ideally patient should be initiated on Entresto and Spironolactone once renal function at baseline unless absolutely contraindicated, hemodynamics permitting 6. Heparin Pending further evaluation of the above noted possible pulmonary thromboembolism 7. Continue Ecotrin and Plavix therapies Sydnie Rai MD
--- NOTE | 2020-02-29 07:36 | PN ---
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 Found to have elevated troponins in ER, started on Heparin drip. Sleeping at the moment - Current Medication List Current Medications: Active Medications Aspirin (Ecotrin -) 81 mg PO DAILY [facility] Last Admin: 02/28/20 10:27 Dose: 81 mg Documented by: Atorvastatin Calcium (Lipitor -) 80 mg PO HS [facility] Last Admin: 02/28/20 21:06 Dose: 80 mg Documented by: Clopidogrel Bisulfate (Plavix -) 75 mg PO DAILY [facility] Last Admin: 02/28/20 10:27 Dose: 75 mg Documented by: Heparin Sodium (Porcine) (Heparin -) 1,000 unit IVPUSH PRN PRN PRN Reason: Heparin Heparin Sodium (Porcine) (Heparin -) 5,000 unit IVPUSH PRN PRN PRN Reason: Heparin Last Admin: 02/25/20 17:17 Dose: 5,000 unit Documented by: Hydralazine HCl (Apresoline -) 25 mg PO TID [facility] Last Admin: 02/29/20 06:31 Dose: 25 mg Documented by: Heparin Sodium (Porcine) 25, (000 unit/ Sodium Chloride) 500 mls @ 16 mls/hr IV TITR [facility]; Protocol Last Admin: 02/28/20 21:06 Dose: 1,200 unit/hr, 24 mls/hr Documented by: Isosorbide Mononitrate (Imdur -) 60 mg PO DAILY [facility] Last Admin: 02/28/20 10:27 Dose: 60 mg Documented by: Metoprolol Succinate (Toprol Xl -) 150 mg PO DAILY [facility] Last Admin: 02/28/20 10:28 Dose: 150 mg Documented by: - Objective Vital Signs: Vital Signs Temperature 97.6 F 02/29/20 06:48 Pulse Rate 83 02/29/20 06:48 Respiratory Rate 20 02/29/20 06:48 Blood Pressure 137/83 02/29/20 06:48 O2 Sat by Pulse Oximetry (%) 97 02/29/20 01:00 Constitutional: Yes: Well Nourished, No Distress, Calm Cardiovascular: Yes: Regular Rate and Rhythm Respiratory: Yes: Regular, CTA Bilaterally Gastrointestinal: Yes: Normal Bowel Sounds, Soft Genitourinary: Yes: WNL Musculoskeletal: Yes: WNL Extremities: Yes: WNL Edema: No Peripheral Pulses WNL: Yes Neurological: Yes: Alert, Oriented Psychiatric: Yes: Alert, Oriented Labs: CBC, BMP 02/28/20 05:35 02/28/20 18:05 INR, PTT INR 0.97 (0.83-1.09) 02/23/20 10:05 Problem List - Problems (1) Right leg DVT Assessment/Plan: -On Heparin Drip -Seen by Pulmonary -V/Q scan would not meter changes records clerk -Echo done and reviewed Problems reviewed: Yes Code(s): I82.401 - ACUTE EMBOLISM AND THOMBOS UNSP DEEP VEINS OF R LOW EXTREM (2) Renal impairment Assessment/Plan: -Seen by Nephrology -Monitor trend -U/S renal- medical renal disease Problems reviewed: Yes Code(s): N28.9 - DISORDER OF KIDNEY AND URETER, UNSPECIFIED (3) Near syncope Assessment/Plan: -Seen by Cardiology -Pt is non compliant outpatient -Ideally needs to have a ICD Problems reviewed: Yes Code(s): R55 - SYNCOPE AND COLLAPSE (4) CAD (coronary artery disease) Problems reviewed: Yes Code(s): I25.10 - ATHSCL HEART DISEASE OF [place] CORONARY ARTERY W/O ANG PCTRS (5) Heart failure with reduced ejection fraction Assessment/Plan: -Continue BB -Cardiology on board -Echo reviewed -Unable to start ANGELIA or ARB due to renal function Problems reviewed: Yes Code(s): I50.20 - UNSPECIFIED SYSTOLIC (CONGESTIVE) HEART FAILURE (6) Noncompliance w/medication treatment due to intermit use of medication Problems reviewed: Yes Code(s): Z91.14 - PATIENT'S OTHER NONCOMPLIANCE WITH MEDICATION REGIMEN (7) Ischemic dilated cardiomyopathy Assessment/Plan: -as above Problems reviewed: Yes Code(s): I25.5 - ISCHEMIC CARDIOMYOPATHY; I42.0 - DILATED CARDIOMYOPATHY Assessment/Plan See problem list
[2020-02-29 08:26] LABS: BASO % 0.8 % (0-2.0); EOS % 2.1 % (0-4.5); HEMATOCRIT 35.8 % (35.4-49); HEMOGLOBIN 11.8 GM/dL (11.7-16.9); LYMPH % 37.2 % (8-40); MCH 30.9 pg (25.7-33.7); MCHC 32.9 g/dl (32.0-35.9); MEAN CELL VOLUME 93.7 fl (80-96); MEAN PLT VOLUME 9.9 fl (7.5-11.1); MONO % 12.4 % (3.8-10.2); NEUT % 47.5 % (42.8-82.8); PLATELET COUNT 163 K/MM3 (134-434); RBC 3.82 M/mm3 (4.00-5.60); WHITE BLOOD COUNT 4.9 K/mm3 (4.0-10.0)
[2020-02-29] MEDS: HEPARIN - 25,000 UNIT in SODIUM CHLORIDE 495 ML IV SCH ×2 (08:40→21:17)
[2020-02-29 09:29] LABS: BILIRUBIN,TOTAL 0.3 mg/dL (0.2-1); BLOOD UREA NITROGEN 57.3 mg/dL (7-18); CALCIUM 9.7 mg/dL (8.5-10.1); CREATININE 2.9 mg/dL (0.55-1.3); MAGNESIUM 1.9 mg/dL (1.8-2.4); POTASSIUM 5.6 mmol/L (3.5-5.1); TOT PROT 6.3 g/dl (6.4-8.2)
[2020-02-29] MEDS: ISOSORBIDE MONONITRATE 60 MG TAB.SR.24H (FP) PO SCH (10:25)
[2020-02-29] MEDS: CLOPIDOGREL BISULFATE 75 MG TABLET (FP) PO SCH (10:25)
[2020-02-29] MEDS: ASPIRIN COATED 81 MG TABLET.EC PO SCH (10:25)
[2020-02-29] MEDS: SODIUM ZIRCONIUM CYCLOSILICATE (LOKELMA) 5 GM PACKET PO SCH (10:25)
--- NOTE | 2020-02-29 13:15 | PN ---
Progress Note (short form) - Note Progress Note: 1. Dizziness r/o CVA/ACS 2. Acute kidney injury vs. CKD 3. Hypertension 4. CAD s/p PCI 5. Systolic heart failure 6. Hx of CVA Active Medications Aspirin (Ecotrin -) 81 mg PO DAILY [facility] Last Admin: 02/29/20 10:25 Dose: 81 mg Documented by: Atorvastatin Calcium (Lipitor -) 80 mg PO HS [facility] Last Admin: 02/28/20 21:06 Dose: 80 mg Documented by: Clopidogrel Bisulfate (Plavix -) 75 mg PO DAILY [facility] Last Admin: 02/29/20 10:25 Dose: 75 mg Documented by: Heparin Sodium (Porcine) (Heparin -) 1,000 unit IVPUSH PRN PRN PRN Reason: Heparin Heparin Sodium (Porcine) (Heparin -) 5,000 unit IVPUSH PRN PRN PRN Reason: Heparin Last Admin: 02/25/20 17:17 Dose: 5,000 unit Documented by: Hydralazine HCl (Apresoline -) 50 mg PO TID [facility] Heparin Sodium (Porcine) 25, (000 unit/ Sodium Chloride) 500 mls @ 16 mls/hr IV TITR [facility]; Protocol Last Admin: 02/29/20 08:40 Dose: 1,200 unit/hr, 24 mls/hr Documented by: Isosorbide Mononitrate (Imdur -) 60 mg PO DAILY [facility] Last Admin: 02/29/20 10:25 Dose: 60 mg Documented by: Metoprolol Succinate (Toprol Xl -) 200 mg PO DAILY [facility] Sodium Zirconium Cyclosilicate (Lokelma) 5 gm PO DAILY [facility] Last Admin: 02/29/20 10:25 Dose: 5 gm Documented by: Last Vital Signs Temp Pulse Resp BP Pulse Ox 97.9 F 79 18 121/79 98 02/29/20 08:52 02/29/20 08:52 02/29/20 09:00 02/29/20 08:52 02/29/20 09:00 alert in nad Lungs clear Heart reg Abd soft nontender Ext no edema CBC, BMP 02/29/20 07:15 02/29/20 07:15 CBC, BMP 02/28/20 05:35 02/28/20 05:35 CBC, BMP 02/27/20 05:52 02/27/20 05:52 IMP CKD fluctuating azotemia related to fluid status metabolic acidosis hyperkalemia started on lokelma Syncope r/o PE DVT +TNI Plan- starte sodium bicarbonate monitor renal function
--- NOTE | 2020-02-29 14:15 | PN ---
Progress Note (short form) - Note Progress Note: Reports breathing feels better today. Still with some SLOAN. No acute events overnight. Intake & Output 02/26/20 02/27/20 02/28/20 02/29/20 23:59 23:59 23:59 23:59 Intake Total 2602 389 4255 918 Output Total 1050 575 500 500 Balance 513 181 777 418 Weight 142 lb Last Vital Signs Temp Pulse Resp BP Pulse Ox 97.9 F 79 18 121/79 98 02/29/20 08:52 02/29/20 08:52 02/29/20 09:00 02/29/20 08:52 02/29/20 09:00 Active Medications Aspirin (Ecotrin -) 81 mg PO DAILY [facility] Last Admin: 02/29/20 10:25 Dose: 81 mg Documented by: Atorvastatin Calcium (Lipitor -) 80 mg PO HS [facility] Last Admin: 02/28/20 21:06 Dose: 80 mg Documented by: Clopidogrel Bisulfate (Plavix -) 75 mg PO DAILY [facility] Last Admin: 02/29/20 10:25 Dose: 75 mg Documented by: Heparin Sodium (Porcine) (Heparin -) 1,000 unit IVPUSH PRN PRN PRN Reason: Heparin Heparin Sodium (Porcine) (Heparin -) 5,000 unit IVPUSH PRN PRN PRN Reason: Heparin Last Admin: 02/25/20 17:17 Dose: 5,000 unit Documented by: Hydralazine HCl (Apresoline -) 50 mg PO TID [facility] Last Admin: 02/29/20 13:30 Dose: 50 mg Documented by: Heparin Sodium (Porcine) 25, (000 unit/ Sodium Chloride) 500 mls @ 16 mls/hr IV TITR [facility]; Protocol Last Admin: 02/29/20 08:40 Dose: 1,200 unit/hr, 24 mls/hr Documented by: Isosorbide Mononitrate (Imdur -) 60 mg PO DAILY [facility] Last Admin: 02/29/20 10:25 Dose: 60 mg Documented by: Metoprolol Succinate (Toprol Xl -) 200 mg PO DAILY [facility] Sodium Bicarbonate (Sodium Bicarbonate -) 650 mg PO BID [facility] Sodium Zirconium Cyclosilicate (Lokelma) 5 gm PO DAILY [facility] Last Admin: 02/29/20 10:25 Dose: 5 gm Documented by: Constitutional: Yes: Well Nourished, Calm Eyes: Yes: WNL HENT: Yes: WNL Neck: Yes: WNL Cardiovascular: Yes: Regular Rate and Rhythm, S1, S2 Respiratory: Yes: Diminished Gastrointestinal: Yes: Normal Bowel Sounds, Soft Extremities: Yes: WNL Edema: No Labs: Laboratory Results - last 24 hr 02/28/20 02/29/20 02/29/20 18:05 07:15 07:15 WBC 4.9 RBC 3.82 L Hgb 11.8 Hct 35.8 MCV 93.7 MCH 30.9 MCHC 32.9 RDW 15.0 Plt Count 163 MPV 9.9 Absolute Neuts (auto) 2.3 Neutrophils % 47.5 Lymphocytes % 37.2 Monocytes % 12.4 H Eosinophils % 2.1 Basophils % 0.8 Nucleated RBC % 0 PTT (Actin FS) 68.2 H Sodium Potassium 5.3 H Chloride Carbon Dioxide Anion Gap BUN Creatinine Est GFR (CKD-EPI)AfAm Est GFR (CKD-EPI)NonAf Random Glucose Calcium Magnesium Total Bilirubin AST ALT Alkaline Phosphatase Total Protein Albumin 02/29/20 07:15 WBC RBC Hgb Hct MCV MCH MCHC RDW Plt Count MPV Absolute Neuts (auto) Neutrophils % Lymphocytes % Monocytes % Eosinophils % Basophils % Nucleated RBC % PTT (Actin FS) Sodium 141 Potassium 5.6 H Chloride 114 H Carbon Dioxide 17 L Anion Gap 9 BUN 57.3 H Creatinine 2.9 H Est GFR (CKD-EPI)AfAm 26.80 Est GFR (CKD-EPI)NonAf 23.12 Random Glucose 103 Calcium 9.7 Magnesium 1.9 Total Bilirubin 0.3 AST 26 ALT 33 Alkaline Phosphatase 103 Total Protein 6.3 L Albumin 3.0 L Problem List - Problems (1) CAD (coronary artery disease) Code(s): I25.10 - ATHSCL HEART DISEASE OF [place] CORONARY ARTERY W/O ANG PCTRS (2) CKD (chronic kidney disease) Code(s): N18.9 - CHRONIC KIDNEY DISEASE, UNSPECIFIED (3) NSTEMI (non-ST elevated myocardial infarction) Code(s): I21.4 - NON-ST ELEVATION (NSTEMI) MYOCARDIAL INFARCTION (4) Heart failure with reduced ejection fraction Code(s): I50.20 - UNSPECIFIED SYSTOLIC (CONGESTIVE) HEART FAILURE (5) History of CVA (cerebrovascular accident) Code(s): Z86.73 - PRSNL HX OF TIA (TIA), AND CEREB INFRC W/O RESID DEFICITS (6) Syncope Code(s): R55 - SYNCOPE AND COLLAPSE (7) Near syncope Code(s): R55 - SYNCOPE AND COLLAPSE (8) Right leg DVT Code(s): I82.401 - ACUTE EMBOLISM AND THOMBOS UNSP DEEP VEINS OF R LOW EXTREM Assessment/Plan Syncope Acute NSTEMI RLE DVT Likely PE Severe LV Systolic Dysfunction LVEF 15-20% CAD PAD HTN CKD - AC - Cardiac wokup ongoing - monitor lytes,renal function Dr Leigh
[2020-02-29] MEDS ORDERED: PT OWN MED DRAWER 7, Y5N ONE (20:18)
[2020-02-29] MEDS: ATORVASTATIN CA 80 MG TABLET (FP) PO SCH (21:17)
[2020-02-29] MEDS: SODIUM BICARBONATE 650 MG TABLET PO SCH (21:17)
[2020-03-01] MEDS: hydrALAZINE HCL 25 MG TABLET (FP) PO SCH ×3 (06:57→20:59)
[2020-03-01 07:44] LABS: HEMATOCRIT 35.9 % (35.4-49); HEMOGLOBIN 11.7 GM/dL (11.7-16.9); MCH 30.9 pg (25.7-33.7); MCHC 32.7 g/dl (32.0-35.9); MEAN CELL VOLUME 94.5 fl (80-96); PLATELET COUNT 176 K/MM3 (134-434); RDW 14.6 % (11.9-15.9)
[2020-03-01 08:15] LABS: BLOOD UREA NITROGEN 58.2 mg/dL (7-18); CALCIUM 9.6 mg/dL (8.5-10.1); CREATININE 2.8 mg/dL (0.55-1.3); POTASSIUM 5.2 mmol/L (3.5-5.1)
--- NOTE | 2020-03-01 09:16 | PN ---
Progress Note, Physician History of Present Illness: 54 year old male with history of CAD s[facility]p [facility]; systolic CHF (severely reduced LVEF on 01/2020 ECHO), CVA (with residual right facial droop), renal dysfunction (? acute as of early January,), peripheral artery disease, hypertension, gout, cigarettes, who presented with dizziness, near syncope and diaphoresis this morning. he woke up in the AM with dizziness - Current Medication List Current Medications: Active Medications Aspirin (Ecotrin -) 81 mg PO DAILY [facility] Last Admin: 02/29/20 10:25 Dose: 81 mg Documented by: Atorvastatin Calcium (Lipitor -) 80 mg PO HS [facility] Last Admin: 02/29/20 21:17 Dose: 80 mg Documented by: Clopidogrel Bisulfate (Plavix -) 75 mg PO DAILY [facility] Last Admin: 02/29/20 10:25 Dose: 75 mg Documented by: Heparin Sodium (Porcine) (Heparin -) 1,000 unit IVPUSH PRN PRN PRN Reason: Heparin Heparin Sodium (Porcine) (Heparin -) 5,000 unit IVPUSH PRN PRN PRN Reason: Heparin Last Admin: 02/25/20 17:17 Dose: 5,000 unit Documented by: Hydralazine HCl (Apresoline -) 50 mg PO TID [facility] Last Admin: 03/01/20 06:57 Dose: 50 mg Documented by: Heparin Sodium (Porcine) 25, (000 unit/ Sodium Chloride) 500 mls @ 16 mls/hr IV TITR [facility]; Protocol Last Admin: 02/29/20 21:17 Dose: 1,200 unit/hr, 24 mls/hr Documented by: Isosorbide Mononitrate (Imdur -) 60 mg PO DAILY [facility] Last Admin: 02/29/20 10:25 Dose: 60 mg Documented by: Metoprolol Succinate (Toprol Xl -) 200 mg PO DAILY [facility] Sodium Bicarbonate (Sodium Bicarbonate -) 650 mg PO BID [facility] Last Admin: 02/29/20 21:17 Dose: 650 mg Documented by: Sodium Zirconium Cyclosilicate (Lokelma) 5 gm PO DAILY [facility] Last Admin: 02/29/20 10:25 Dose: 5 gm Documented by: - Objective Vital Signs: Vital Signs Temperature 98.0 F 03/01/20 06:59 Pulse Rate 79 03/01/20 06:59 Respiratory Rate 20 03/01/20 06:59 Blood Pressure 149/90 03/01/20 06:59 O2 Sat by Pulse Oximetry (%) 97 02/29/20 23:00 Eyes: Yes: WNL, Conjunctiva Clear, EOM Intact HENT: Yes: WNL, Atraumatic, Normocephalic Neck: Yes: WNL, Supple, Trachea Midline Cardiovascular: Yes: WNL, Regular Rate and Rhythm Respiratory: Yes: WNL, Regular, CTA Bilaterally Gastrointestinal: Yes: WNL, Normal Bowel Sounds Genitourinary: Yes: WNL Musculoskeletal: Yes: WNL Extremities: Yes: WNL Edema: No Integumentary: Yes: WNL Neurological: Yes: WNL, Alert, Oriented ...Motor Strength: WNL Psychiatric: Yes: WNL Labs: CBC, BMP 03/01/20 06:13 03/01/20 06:13 INR, PTT INR 0.97 (0.83-1.09) 02/23/20 10:05 Assessment/Plan Dilated ischemic cardiomyopathy: Acute/chronic systolic CHF (severely reduced LVEF) + DVT CAD-->coronary stent [facility] ? 2018 ([facility]ies [facility]) Negative [facility]IBI right carotid stent at ? [facility] renal dysfunction s/p CVA right residual right facial droop ?hyperlipidemia HTN hyperkalemia; hypomagnesemia dizziness sinus tachycardia: acute/chronic systolic CHF, anemia, respiatory compromise cigarettes (does not want patch or pill to help stop smoking) PAD;intermittent claudication Plan: COVID negative. On IV heparin; f/u pulmonary w/u regarding r/o PE (negative DVT). Continue hydralazine + Imdur, metoprolol (increase doses as tolerated: will increase imdur and metoprolol today). Diuretics per silicator. Unable to use ARB, ACEI, Entresto, spironolactone, or SGLT-2 inhibitor unless renal function improves. Serial TNis: 0.04-->0.95--> 0.7-->0.3 BNP 6,262. EKG noted; QT improved, and now WNL. BUN/Cr, electrolytes, daily weight, Is and Os. Repleted magnesium; now 1.8 (ideally, keep 2.0-2.4). Will require coronary artery evaluation when stable (stress MIBI and/or coronary angiogram). F/u renal, pulmonary w/u. ECHO severely reduced EF 15-20% NSVT on Telemetry Will transfer to [facility] for AICD placement. C
[2020-03-01] MEDS: ASPIRIN COATED 81 MG TABLET.EC PO SCH (09:30)
[2020-03-01] MEDS: CLOPIDOGREL BISULFATE 75 MG TABLET (FP) PO SCH (09:30)
[2020-03-01] MEDS: ISOSORBIDE MONONITRATE 60 MG TAB.SR.24H (FP) PO SCH (09:30)
[2020-03-01] MEDS: SODIUM BICARBONATE 650 MG TABLET PO SCH ×2 (09:31→20:59)
[2020-03-01] MEDS: SODIUM ZIRCONIUM CYCLOSILICATE (LOKELMA) 5 GM PACKET PO SCH (09:31)
--- NOTE | 2020-03-01 13:04 | PN ---
Physical Exam: SUBJECTIVE: Patient seen and examined at bedside, denies chest pain or dyspnea OBJECTIVE: Vital Signs Period Temp Pulse Resp BP Sys/Adames Pulse Ox Last 24 Hr 97.6 F-98.1 F 78-82 19-20 110-149/69-90 97-99 GENERAL: The patient is awake, alert, and fully oriented, in no acute distress. HEAD: Normal with no signs of trauma. EYES: PERRL, extraocular movements intact, sclera anicteric, conjunctiva clear. No ptosis. ENT: Ears normal, nares patent, oropharynx clear without exudates, moist mucous membranes. NECK: Trachea midline, full range of motion, supple. LUNGS: Breath sounds equal, clear to auscultation bilaterally, no wheezes, no crackles, no accessory muscle use. HEART: Regular rate and rhythm, S1, S2 without murmur, rub or gallop. ABDOMEN: Soft, nontender, nondistended, normoactive bowel sounds, no guarding, no rebound, no hepatosplenomegaly, no masses. EXTREMITIES: 2+ pulses, warm, well-perfused, no edema. NEUROLOGICAL: Cranial nerves II through XII grossly intact. Normal speech, gait not observed. PSYCH: Normal mood, normal affect. SKIN: Warm, dry, normal turgor, no rashes or lesions noted Laboratory Results - last 24 hr 03/01/20 03/01/20 03/01/20 06:13 06:13 06:13 WBC 6.0 RBC 3.80 L Hgb 11.7 Hct 35.9 MCV 94.5 MCH 30.9 MCHC 32.7 RDW 14.6 Plt Count 176 MPV 10.0 PTT (Actin FS) 71.5 H Sodium 141 Potassium 5.2 H Chloride 113 H Carbon Dioxide 19 L Anion Gap 10 BUN 58.2 H Creatinine 2.8 H Est GFR (CKD-EPI)AfAm 27.96 Est GFR (CKD-EPI)NonAf 24.12 Random Glucose 88 Calcium 9.6 Active Medications Generic Name Dose Route Start Last Admin Trade Name Freq PRN Reason Stop Dose Admin Aspirin 81 mg 02/24/20 17:00 03/01/20 09:30 Ecotrin - PO 81 mg DAILY [facility] Administration Atorvastatin Calcium 80 mg 02/26/20 12:54 02/29/20 21:17 Lipitor - PO 80 mg HS [facility] Administration Clopidogrel Bisulfate 75 mg 02/24/20 10:00 03/01/20 09:30 Plavix - PO 75 mg DAILY [facility] Administration Heparin Sodium (Porcine) 1,000 unit 02/24/20 16:53 Heparin - IVPUSH PRN PRN Heparin Heparin Sodium (Porcine) 5,000 unit 02/24/20 16:53 02/25/20 17:17 Heparin - IVPUSH 5,000 unit PRN PRN Administration Heparin Hydralazine HCl 50 mg 02/29/20 14:00 03/01/20 06:57 Apresoline - PO 50 mg TID [facility] Administration Heparin Sodium (Porcine) 25, 500 mls @ 16 mls/hr 02/24/20 17:00 02/29/20 21:17 000 unit/ Sodium Chloride IV 1,200 unit/hr TITR [facility] 24 mls/hr Administration Protocol 800 UNIT/HR Isosorbide Mononitrate 60 mg 02/26/20 12:49 03/01/20 09:30 Imdur - PO 60 mg DAILY [facility] Administration Metoprolol Succinate 200 mg 03/01/20 10:00 03/01/20 09:30 Toprol Xl - PO 200 mg DAILY [facility] Administration Sodium Bicarbonate 650 mg 02/29/20 22:00 03/01/20 09:31 Sodium Bicarbonate - PO 650 mg BID [facility] Administration Sodium Zirconium Cyclosilicate 5 gm 02/29/20 10:00 03/01/20 09:31 Lokelma PO 5 gm DAILY [facility] Administration ASSESSMENT/PLAN: 54 YOM BIBA after syncope, HFrEF, # Rt LE DVT: - confirmed by US, started on heparin drip - no dyspnea, but plan to rule out PE - CTA not possible due to poor kidney function, will discuss V/Q scan with pulmonary - ECHO reviewed # MACY vs MACY on CKD - trend creatinine, monitor I/O - Nephrology consult # Syncope with acute on chronic HFrEF - CT head noted - pt non compliant with meds, will need to demonstrate compliance prior to ICD placement - will continue BB, ACEi if creatinine improves - not volume overloaded today # hyperkalemia - likely due to heparin - 5.2 today, will monitor closely Visit type - Emergency Visit Emergency Visit: Yes ED Registration Date: 02/24/20 Care time: The patient presented to the Emergency Department on the above date and was hospitalized for further evaluation of their emergent condition. - New Patient This patient is new to me today: Yes Date on this admission: 03/01/20 - Critical Care Critical Care patient: No - Discharge Referral Referred to [facility] Med P.C.: No
--- NOTE | 2020-03-01 13:21 | PN ---
Progress Note, Physician Chief Complaint: Seen and examined at the bedside offers no acute complaints no sob, cp, fever, chills, abd pain making urine on IV heparin gtt History of Present Illness: Seen and examined at the bedside. awake and alert offers no acute complaints no sob, cp, fever, chills, abd pain, N/V/D wants to go home - Current Medication List Current Medications: Active Medications Aspirin (Ecotrin -) 81 mg PO DAILY [facility] Last Admin: 03/01/20 09:30 Dose: 81 mg Documented by: Atorvastatin Calcium (Lipitor -) 80 mg PO HS [facility] Last Admin: 02/29/20 21:17 Dose: 80 mg Documented by: Clopidogrel Bisulfate (Plavix -) 75 mg PO DAILY [facility] Last Admin: 03/01/20 09:30 Dose: 75 mg Documented by: Heparin Sodium (Porcine) (Heparin -) 1,000 unit IVPUSH PRN PRN PRN Reason: Heparin Heparin Sodium (Porcine) (Heparin -) 5,000 unit IVPUSH PRN PRN PRN Reason: Heparin Last Admin: 02/25/20 17:17 Dose: 5,000 unit Documented by: Hydralazine HCl (Apresoline -) 50 mg PO TID [facility] Last Admin: 03/01/20 06:57 Dose: 50 mg Documented by: Heparin Sodium (Porcine) 25, (000 unit/ Sodium Chloride) 500 mls @ 16 mls/hr IV TITR [facility]; Protocol Last Admin: 02/29/20 21:17 Dose: 1,200 unit/hr, 24 mls/hr Documented by: Isosorbide Mononitrate (Imdur -) 60 mg PO DAILY [facility] Last Admin: 03/01/20 09:30 Dose: 60 mg Documented by: Metoprolol Succinate (Toprol Xl -) 200 mg PO DAILY [facility] Last Admin: 03/01/20 09:30 Dose: 200 mg Documented by: Sodium Bicarbonate (Sodium Bicarbonate -) 650 mg PO BID [facility] Last Admin: 03/01/20 09:31 Dose: 650 mg Documented by: Sodium Zirconium Cyclosilicate (Lokelma) 5 gm PO DAILY [facility] Last Admin: 03/01/20 09:31 Dose: 5 gm Documented by: - Objective Vital Signs: Vital Signs Temperature 97.6 F 03/01/20 09:29 Pulse Rate 80 03/01/20 09:29 Respiratory Rate 19 03/01/20 09:29 Blood Pressure 139/86 03/01/20 09:29 O2 Sat by Pulse Oximetry (%) 99 03/01/20 09:29 Constitutional: Yes: No Distress, Calm Eyes: Yes: Conjunctiva Clear HENT: Yes: Atraumatic Neck: Yes: Supple Cardiovascular: Yes: Regular Rate and Rhythm Respiratory: Yes: Regular. No: Rales, Rhonchi Gastrointestinal: Yes: Soft Extremities: No: Cyanosis Edema: No Neurological: Yes: Alert, Oriented Labs: CBC, BMP 03/01/20 06:13 03/01/20 06:13 INR, PTT INR 0.97 (0.83-1.09) 02/23/20 10:05 Assessment/Plan 54 year old male with history of acute kidney injury/CKD (CR was 1.7 in 2019), CAD s/p PCI, systolic heart failure, CVA, PVD, hypertension who presented s/p dizziness and admitted for r/o CVA and ACS with Cr of 3.2. 1. Dizziness r/o CVA/ACS 2. Acute kidney injury vs. CKD 3. Hypertension 4. CAD s/p PCI 5. Systolic heart failure 6. Hx of CVA Renal function remains stable. Hyperkalemia noted, etiology likely multifactorial (CKD +/- heparin) Continue kelar for now Will prescribe it as an outpatient, will typically need prior authorzation (will have office sent [place]) Would defer starting Aldactone and Entresto until potassium is controlled No acute need for [facility] at this time CT head shows leukomalacia and possible sub acute infarct. Cardiac cath being deferred for now. Continue anticoagulation as per primary team for DVT. Pt is euvolemic at the present time Thank you Piotr Junior DO
--- NOTE | 2020-03-01 13:57 | PN ---
Progress Note (short form) - Note Progress Note: Reports breathing continues to improve. No CP or SOB. No acute events overnight. Intake & Output 02/27/20 02/28/20 02/29/20 03/01/20 23:59 23:59 23:59 23:59 Intake Total 756 1277 1422 638 Output Total 730 678 1822 1500 Balance 181 777 422 -862 Weight 143 lb 3.2 oz Last Vital Signs Temp Pulse Resp BP Pulse Ox 98.2 F 79 19 111/45 L 98 03/01/20 13:00 03/01/20 13:00 03/01/20 13:00 03/01/20 13:00 03/01/20 13:00 Active Medications Aspirin (Ecotrin -) 81 mg PO DAILY [facility] Last Admin: 03/01/20 09:30 Dose: 81 mg Documented by: Atorvastatin Calcium (Lipitor -) 80 mg PO HS [facility] Last Admin: 02/29/20 21:17 Dose: 80 mg Documented by: Clopidogrel Bisulfate (Plavix -) 75 mg PO DAILY [facility] Last Admin: 03/01/20 09:30 Dose: 75 mg Documented by: Heparin Sodium (Porcine) (Heparin -) 1,000 unit IVPUSH PRN PRN PRN Reason: Heparin Heparin Sodium (Porcine) (Heparin -) 5,000 unit IVPUSH PRN PRN PRN Reason: Heparin Last Admin: 02/25/20 17:17 Dose: 5,000 unit Documented by: Hydralazine HCl (Apresoline -) 50 mg PO TID [facility] Last Admin: 03/01/20 13:26 Dose: 50 mg Documented by: Heparin Sodium (Porcine) 25, (000 unit/ Sodium Chloride) 500 mls @ 16 mls/hr IV TITR [facility]; Protocol Last Admin: 02/29/20 21:17 Dose: 1,200 unit/hr, 24 mls/hr Documented by: Isosorbide Mononitrate (Imdur -) 60 mg PO DAILY [facility] Last Admin: 03/01/20 09:30 Dose: 60 mg Documented by: Metoprolol Succinate (Toprol Xl -) 200 mg PO DAILY [facility] Last Admin: 03/01/20 09:30 Dose: 200 mg Documented by: Sodium Bicarbonate (Sodium Bicarbonate -) 650 mg PO BID [facility] Last Admin: 03/01/20 09:31 Dose: 650 mg Documented by: Sodium Zirconium Cyclosilicate (Lokelma) 5 gm PO DAILY [facility] Last Admin: 03/01/20 09:31 Dose: 5 gm Documented by: Constitutional: Yes: Well Nourished, Calm Eyes: Yes: WNL HENT: Yes: WNL Neck: Yes: WNL Cardiovascular: Yes: Regular Rate and Rhythm, S1, S2 Respiratory: Yes: Diminished Gastrointestinal: Yes: Normal Bowel Sounds, Soft Extremities: Yes: WNL Edema: No Labs: Laboratory Results - last 24 hr 03/01/20 03/01/20 03/01/20 06:13 06:13 06:13 WBC 6.0 RBC 3.80 L Hgb 11.7 Hct 35.9 MCV 94.5 MCH 30.9 MCHC 32.7 RDW 14.6 Plt Count 176 MPV 10.0 PTT (Actin FS) 71.5 H Sodium 141 Potassium 5.2 H Chloride 113 H Carbon Dioxide 19 L Anion Gap 10 BUN 58.2 H Creatinine 2.8 H Est GFR (CKD-EPI)AfAm 27.96 Est GFR (CKD-EPI)NonAf 24.12 Random Glucose 88 Calcium 9.6 Problem List - Problems (1) CAD (coronary artery disease) Code(s): I25.10 - ATHSCL HEART DISEASE OF [place] CORONARY ARTERY W/O ANG PCTRS (2) CKD (chronic kidney disease) Code(s): N18.9 - CHRONIC KIDNEY DISEASE, UNSPECIFIED (3) NSTEMI (non-ST elevated myocardial infarction) Code(s): I21.4 - NON-ST ELEVATION (NSTEMI) MYOCARDIAL INFARCTION (4) Heart failure with reduced ejection fraction Code(s): I50.20 - UNSPECIFIED SYSTOLIC (CONGESTIVE) HEART FAILURE (5) History of CVA (cerebrovascular accident) Code(s): Z86.73 - PRSNL HX OF TIA (TIA), AND CEREB INFRC W/O RESID DEFICITS (6) Syncope Code(s): R55 - SYNCOPE AND COLLAPSE (7) Near syncope Code(s): R55 - SYNCOPE AND COLLAPSE (8) Right leg DVT Code(s): I82.401 - ACUTE EMBOLISM AND THOMBOS UNSP DEEP VEINS OF R LOW EXTREM Assessment/Plan Syncope Acute NSTEMI RLE DVT Likely PE Severe LV Systolic Dysfunction LVEF 15-20% CAD PAD HTN CKD - AC - Cardiac wokup ongoing - monitor lytes,renal function Dr Leigh
[2020-03-01] MEDS: HEPARIN - 25,000 UNIT in SODIUM CHLORIDE 495 ML IV SCH (18:58)
[2020-03-01] MEDS: ATORVASTATIN CA 80 MG TABLET (FP) PO SCH (20:59)
[2020-03-02] MEDS: hydrALAZINE HCL 25 MG TABLET (FP) PO SCH ×3 (06:06→21:28)
[2020-03-02 08:08] LABS: BLOOD UREA NITROGEN 62.4 mg/dL (7-18); CALCIUM 9.5 mg/dL (8.5-10.1); MAGNESIUM 1.9 mg/dL (1.8-2.4); PHOSPHOROUS 3.6 mg/dL (2.5-4.9)
[2020-03-02] MEDS ORDERED: PT OWN MED DRAWER 7, Y5N ONE ×2 (09:02→09:04)
[2020-03-02] MEDS: ASPIRIN COATED 81 MG TABLET.EC PO SCH (09:30)
[2020-03-02] MEDS: CLOPIDOGREL BISULFATE 75 MG TABLET (FP) PO SCH ×2 (09:30→09:53)
[2020-03-02] MEDS: SODIUM ZIRCONIUM CYCLOSILICATE (LOKELMA) 5 GM PACKET PO SCH (09:30)
[2020-03-02] MEDS: SODIUM BICARBONATE 650 MG TABLET PO SCH ×2 (09:31→21:28)
[2020-03-02] MEDS: ISOSORBIDE MONONITRATE 60 MG TAB.SR.24H (FP) PO SCH (09:31)
--- NOTE | 2020-03-02 09:53 | PN ---
Progress Note, Physician History of Present Illness: pulmonary alert,comfortable,-resp distress,-cp - Current Medication List Current Medications: Active Medications Aspirin (Ecotrin -) 81 mg PO DAILY [facility] Last Admin: 03/02/20 09:30 Dose: 81 mg Documented by: Atorvastatin Calcium (Lipitor -) 80 mg PO HS [facility] Last Admin: 03/01/20 20:59 Dose: 80 mg Documented by: Clopidogrel Bisulfate (Plavix -) 75 mg PO DAILY [facility] Last Admin: 03/02/20 09:30 Dose: 75 mg Documented by: Heparin Sodium (Porcine) (Heparin -) 1,000 unit IVPUSH PRN PRN PRN Reason: Heparin Heparin Sodium (Porcine) (Heparin -) 5,000 unit IVPUSH PRN PRN PRN Reason: Heparin Last Admin: 02/25/20 17:17 Dose: 5,000 unit Documented by: Hydralazine HCl (Apresoline -) 50 mg PO TID [facility] Last Admin: 03/02/20 06:06 Dose: 50 mg Documented by: Heparin Sodium (Porcine) 25, (000 unit/ Sodium Chloride) 500 mls @ 16 mls/hr IV TITR [facility]; Protocol Last Titration: 03/02/20 07:17 Dose: 1,150 unit/hr, 23 mls/hr Documented by: Isosorbide Mononitrate (Imdur -) 60 mg PO DAILY [facility] Last Admin: 03/02/20 09:31 Dose: 60 mg Documented by: Metoprolol Succinate (Toprol Xl -) 200 mg PO DAILY [facility] Last Admin: 03/02/20 09:31 Dose: 200 mg Documented by: Sodium Bicarbonate (Sodium Bicarbonate -) 650 mg PO BID [facility] Last Admin: 03/02/20 09:31 Dose: 650 mg Documented by: Sodium Zirconium Cyclosilicate (Lokelma) 5 gm PO DAILY [facility] Last Admin: 03/02/20 09:30 Dose: 5 gm Documented by: - Objective Vital Signs: Vital Signs Temperature 98.0 F 03/02/20 09:37 Pulse Rate 69 03/02/20 09:37 Respiratory Rate 16 03/02/20 09:37 Blood Pressure 135/77 03/02/20 09:37 O2 Sat by Pulse Oximetry (%) 99 03/02/20 09:37 Constitutional: Yes: Well Nourished, Calm Eyes: Yes: WNL HENT: Yes: WNL Neck: Yes: WNL Cardiovascular: Yes: Regular Rate and Rhythm, S1, S2 Respiratory: Yes: CTA Bilaterally Gastrointestinal: Yes: Normal Bowel Sounds, Soft Extremities: Yes: WNL Edema: No Labs: CBC, BMP 03/01/20 06:13 03/02/20 05:40 INR, PTT INR 0.97 (0.83-1.09) 02/23/20 10:05 Problem List - Problems (1) CAD (coronary artery disease) Code(s): I25.10 - ATHSCL HEART DISEASE OF [place] CORONARY ARTERY W/O ANG PCTRS (2) CKD (chronic kidney disease) Code(s): N18.9 - CHRONIC KIDNEY DISEASE, UNSPECIFIED (3) NSTEMI (non-ST elevated myocardial infarction) Code(s): I21.4 - NON-ST ELEVATION (NSTEMI) MYOCARDIAL INFARCTION (4) Heart failure with reduced ejection fraction Code(s): I50.20 - UNSPECIFIED SYSTOLIC (CONGESTIVE) HEART FAILURE (5) History of CVA (cerebrovascular accident) Code(s): Z86.73 - PRSNL HX OF TIA (TIA), AND CEREB INFRC W/O RESID DEFICITS (6) Syncope Code(s): R55 - SYNCOPE AND COLLAPSE (7) Near syncope Code(s): R55 - SYNCOPE AND COLLAPSE (8) Right leg DVT Code(s): I82.401 - ACUTE EMBOLISM AND THOMBOS UNSP DEEP VEINS OF R LOW EXTREM Assessment/Plan Assessment/Plan Syncope Acute NSTEMI RLE DVT Likely PE Severe LV Systolic Dysfunction LVEF 15-20% CAD PAD HTN CKD - anticoagulation - further w/u as per Cardiology - monitor lytes,renal function - AICD as per cardiology DR STALEY
--- NOTE | 2020-03-02 10:01 | PN ---
Progress Note, Physician Chief Complaint: Pt ambulated hallway with assistance today; no chest pain or dyspnea. History of Present Illness: 54 year old male with history of CAD s/p PCI and stent ([facility] ? 2018); [place]x [place]; systolic CHF (severely reduced LVEF on 01/2020 ECHO), CVA (with residual right facial droop), renal dysfunction (? acute as of early January,), peripheral artery disease, hypertension, gout, cigarettes, who presented with dizziness, near syncope and diaphoresis this morning. he woke up in the AM with dizziness. - Current Medication List Current Medications: Active Medications Aspirin (Ecotrin -) 81 mg PO DAILY [facility] Last Admin: 03/02/20 09:30 Dose: 81 mg Documented by: Atorvastatin Calcium (Lipitor -) 80 mg PO HS [facility] Last Admin: 03/01/20 20:59 Dose: 80 mg Documented by: Clopidogrel Bisulfate (Plavix -) 75 mg PO DAILY [facility] Last Admin: 03/02/20 09:53 Dose: Not Given Documented by: Heparin Sodium (Porcine) (Heparin -) 1,000 unit IVPUSH PRN PRN PRN Reason: Heparin Heparin Sodium (Porcine) (Heparin -) 5,000 unit IVPUSH PRN PRN PRN Reason: Heparin Last Admin: 02/25/20 17:17 Dose: 5,000 unit Documented by: Hydralazine HCl (Apresoline -) 50 mg PO TID [facility] Last Admin: 03/02/20 06:06 Dose: 50 mg Documented by: Heparin Sodium (Porcine) 25, (000 unit/ Sodium Chloride) 500 mls @ 16 mls/hr IV TITR [facility]; Protocol Last Titration: 03/02/20 07:17 Dose: 1,150 unit/hr, 23 mls/hr Documented by: Isosorbide Mononitrate (Imdur -) 60 mg PO DAILY [facility] Last Admin: 03/02/20 09:31 Dose: 60 mg Documented by: Metoprolol Succinate (Toprol Xl -) 200 mg PO DAILY [facility] Last Admin: 03/02/20 09:31 Dose: 200 mg Documented by: Sodium Bicarbonate (Sodium Bicarbonate -) 650 mg PO BID [facility] Last Admin: 03/02/20 09:31 Dose: 650 mg Documented by: Sodium Zirconium Cyclosilicate (Lokelma) 5 gm PO DAILY [facility] Last Admin: 03/02/20 09:30 Dose: 5 gm Documented by: - Objective Vital Signs: Vital Signs Temperature 98.0 F 03/02/20 09:37 Pulse Rate 69 03/02/20 09:37 Respiratory Rate 16 03/02/20 09:37 Blood Pressure 135/77 03/02/20 09:37 O2 Sat by Pulse Oximetry (%) 99 03/02/20 09:37 Constitutional: Yes: Calm Eyes: Yes: WNL HENT: Yes: WNL Neck: Yes: WNL Cardiovascular: Yes: S1, S2 Respiratory: Yes: Regular Gastrointestinal: Yes: Soft ...Rectal Exam: Yes: Deferred Genitourinary: No: Anuria Musculoskeletal: Yes: Muscle Weakness Extremities: Yes: Cool Edema: No Peripheral Pulses WNL: Yes Integumentary: Yes: WNL Neurological: Yes: Alert, Oriented, Unsteady Gait Psychiatric: Yes: WNL Labs: CBC, BMP 03/01/20 06:13 03/02/20 05:40 INR, PTT INR 0.97 (0.83-1.09) 02/23/20 10:05 Abnormal Lab Results 03/02/20 03/02/20 05:40 05:40 PTT (Actin FS) 82.1 H Chloride 114 H Carbon Dioxide 20 L BUN 62.4 H Creatinine 3.0 H - ....Imaging Chest X-ray: Image Reviewed EKG: Image Reviewed Assessment/Plan Dilated ischemic cardiomyopathy: Acute/chronic systolic CHF (severely reduced LVEF) + DVT CAD-->coronary stent [facility] ? 2018 ([place]ies [place]) Stress MIBI 08/2018: no myocardial ischemia right carotid stent at ? [place] renal dysfunction s/p CVA right residual right facial droop ?hyperlipidemia HTN hyperkalemia; hypomagnesemia dizziness sinus tachycardia: acute/chronic systolic CHF, anemia, respiatory compromise cigarettes (does not want patch or pill to help stop smoking) PAD;intermittent claudication Plan: Pt agrees for transfer to [facility] for ICD implantation. I spoke with Dr. Charly Gil, who will arrange the transfer. Repeat COVID test is necessary prior to him being given a floor bed there. Contacted Dr. Beard, rn maternal child:Pt had LVEF 10-20% on 08/2018 and no ischemia on stress MIBI 08/2018; Entresto started at that time; last seen in o [place] by him 05/2019, when ECHO planned to see if qualified for ICD, but pt did not return for ECHO or further f/u. Received documents from [facility] regarding these tests. EKG this admission is essentially unchanged from
--- NOTE | 2020-03-02 11:47 | PN ---
Physical Exam: SUBJECTIVE: Patient seen and examined at the bedside. resting, on room air, no chest pain. feel well. smiling and conversive. OBJECTIVE: Patient is a 54 year old male with a significant past medical history of CAD s/p PCI and stenting, CHF, CVA (with residual right facial droop), peripheral artery disease, hypertension presents in the ED on 02/23/2020 after a syncopal episode. States he was sitting on the bus stop bench waiting for the bus, when he passed out. Only prior prodormal symptom was nausea. Denied berrios/d, f/c, n/v, blurry vision, chest pain, sob, abd pain, or urinary/bowel incontinence. ------- echo with EF 15-20%, will likely need life vest, cardiology following. He was found to have NSTEM and right leg DVT. on heparin gtt. will need repeat covid 19 testing. patient for icd at [facility] pending transfer. Vital Signs Period Temp Pulse Resp BP Sys/Adames Pulse Ox Last 24 Hr 98.0 F-98.5 F 69-86 16-20 111-138/45-82 98-99 GENERAL: The patient is awake, alert, and fully oriented, in no acute distress. HEAD: Normal with no signs of trauma. EYES: PERRL, extraocular movements intact, sclera anicteric, conjunctiva clear. No ptosis. ENT: Ears normal, nares patent, oropharynx clear without exudates, moist mucous membranes. NECK: Trachea midline, full range of motion, supple. LUNGS: Breath sounds equal, clear to auscultation bilaterally, no wheezes, no crackles, no accessory muscle use. HEART: sinus tachycardia 100s ABDOMEN: Soft, nontender, nondistended, normoactive bowel sounds, no guarding, no rebound, no hepatosplenomegaly, no masses. EXTREMITIES: no edema. NEUROLOGICAL: Normal speech, gait not observed. Laboratory Results - last 24 hr 03/02/20 03/02/20 05:40 05:40 PTT (Actin FS) 82.1 H Sodium 142 Potassium 5.0 Chloride 114 H Carbon Dioxide 20 L Anion Gap 8 BUN 62.4 H Creatinine 3.0 H Est GFR (CKD-EPI)AfAm 25.72 Est GFR (CKD-EPI)NonAf 22.19 Random Glucose 94 Calcium 9.5 Phosphorus 3.6 Magnesium 1.9 Active Medications Generic Name Dose Route Start Last Admin Trade Name Freq PRN Reason Stop Dose Admin Aspirin 81 mg 02/24/20 17:00 03/02/20 09:30 Ecotrin - PO 81 mg DAILY [facility] Administration Atorvastatin Calcium 80 mg 02/26/20 12:54 03/01/20 20:59 Lipitor - PO 80 mg HS [facility] Administration Heparin Sodium (Porcine) 1,000 unit 02/24/20 16:53 Heparin - IVPUSH PRN PRN Heparin Heparin Sodium (Porcine) 5,000 unit 02/24/20 16:53 02/25/20 17:17 Heparin - IVPUSH 5,000 unit PRN PRN Administration Heparin Hydralazine HCl 50 mg 02/29/20 14:00 03/02/20 06:06 Apresoline - PO 50 mg TID [facility] Administration Heparin Sodium (Porcine) 25, 500 mls @ 16 mls/hr 02/24/20 17:00 03/02/20 07:17 000 unit/ Sodium Chloride IV 1,150 unit/hr TITR [facility] 23 mls/hr Titration Protocol 800 UNIT/HR Isosorbide Mononitrate 60 mg 02/26/20 12:49 03/02/20 09:31 Imdur - PO 60 mg DAILY [facility] Administration Metoprolol Succinate 200 mg 03/01/20 10:00 03/02/20 09:31 Toprol Xl - PO 200 mg DAILY [facility] Administration Sodium Bicarbonate 650 mg 02/29/20 22:00 03/02/20 09:31 Sodium Bicarbonate - PO 650 mg BID [facility] Administration Sodium Zirconium Cyclosilicate 5 gm 02/29/20 10:00 03/02/20 09:30 Lokelma PO 5 gm DAILY [facility] Administration ASSESSMENT/PLAN: Problem List - Problems (1) NSTEMI (non-ST elevated myocardial infarction) Assessment/Plan: troponins peaked a 0.95, no shortness of breath, or chest discomfort. on heparin drip echo EF 15-20% will likely need life vest - echo 01/22/2020 shows lv severely reduced, severe global hypok. of LV, LV mod dilated, LA mildly dilated. repeat echo 02/26/2020 shows LV mod dilated, lv systolic fx severely reduced. rv normal in size and function. ef 15-20% on low dose asa monitor on tele. Code(s): I21.4 - NON-ST ELEVATION (NSTEMI) MYOCARDIAL INFARCTION (2) CKD (chronic kidney disease) Assessment/Plan: creat 3.0, creatinine similar to recent admission on 01/2020 Code(s): N18.9 - CHRONIC KIDNEY DISEASE, UNSPECIFIED (3) Near syncope Assessment/Plan: physical therapy Code(s): R55 - SYNCOPE AND COLLAPSE (4) Hypertension Assessment/Plan: metoplol increased 2/2 to tachycardia Code(s): I10 - ESSENTIAL (PRIMARY) HYPERTENSION (5) Noncompliance w/medication treatment due to intermit use of medication Assessment/Plan: will need outpatient follow up Code(s): Z91.14 - PATIENT'S OTHER NONCOMPLIANCE WITH MEDICATION REGIMEN (6) CAD (coronary artery disease) Assessment/Plan: CAD s/p coronary stent [place] ?2017 (denies hx [place]) on plavix, asa Code(s): I25.10 - ATHSCL HEART DISEASE OF [place] CORONARY ARTERY W/O ANG PCTRS (7) DVT prophylaxis Assessment/Plan: on heparin drip Code(s): Z29.9 - ENCOUNTER FOR PROPHYLACTIC MEASURES, UNSPECIFIED (8) Right leg DVT Assessment/Plan: clarification of us/vascular duplex, discussed with Dr. Acosta: Right leg DVT. LEFT leg, no DVT but occlusion of left sup fem. artery. radiology report to be amended. on heparin gtt Code(s): I82.401 - ACUTE EMBOLISM AND THOMBOS UNSP DEEP VEINS OF R LOW EXTREM Visit type - Emergency Visit Emergency Visit: Yes ED Registration Date: 02/24/20 Care time: The patient presented to the Emergency Department on the above date and was hospitalized for further evaluation of their emergent condition. - New Patient This patient is new to me today: No - Critical Care Critical Care patient: No - Discharge Referral Referred to [facility] No
[2020-03-02 14:56] VITALS: BMI 23.8
--- NOTE | 2020-03-02 16:06 | PN ---
Progress Note, Physician Chief Complaint: Seen and examined at the bedside offers no acute complaints no sob, cp, fever, chills, abd pain making urine on IV heparin gtt History of Present Illness: Seen and examined at the bedside. awake and alert offers no acute complaints no sob, cp, fever, chills, abd pain, N/V/D - Current Medication List Current Medications: Active Medications Aspirin (Ecotrin -) 81 mg PO DAILY [facility] Last Admin: 03/02/20 09:30 Dose: 81 mg Documented by: Atorvastatin Calcium (Lipitor -) 80 mg PO HS [facility] Last Admin: 03/01/20 20:59 Dose: 80 mg Documented by: Heparin Sodium (Porcine) (Heparin -) 1,000 unit IVPUSH PRN PRN PRN Reason: Heparin Heparin Sodium (Porcine) (Heparin -) 5,000 unit IVPUSH PRN PRN PRN Reason: Heparin Last Admin: 02/25/20 17:17 Dose: 5,000 unit Documented by: Hydralazine HCl (Apresoline -) 50 mg PO TID [facility] Last Admin: 03/02/20 14:01 Dose: 50 mg Documented by: Heparin Sodium (Porcine) 25, (000 unit/ Sodium Chloride) 500 mls @ 16 mls/hr IV TITR [facility]; Protocol Last Titration: 03/02/20 07:17 Dose: 1,150 unit/hr, 23 mls/hr Documented by: Isosorbide Mononitrate (Imdur -) 60 mg PO DAILY [facility] Last Admin: 03/02/20 09:31 Dose: 60 mg Documented by: Metoprolol Succinate (Toprol Xl -) 200 mg PO DAILY [facility] Last Admin: 03/02/20 09:31 Dose: 200 mg Documented by: Sodium Bicarbonate (Sodium Bicarbonate -) 650 mg PO BID [facility] Last Admin: 03/02/20 09:31 Dose: 650 mg Documented by: Sodium Zirconium Cyclosilicate (Lokelma) 5 gm PO DAILY [facility] Last Admin: 03/02/20 09:30 Dose: 5 gm Documented by: - Objective Vital Signs: Vital Signs Temperature 97.8 F 03/02/20 13:00 Pulse Rate 129 H 03/02/20 13:00 Respiratory Rate 18 03/02/20 13:00 Blood Pressure 117/91 03/02/20 13:00 O2 Sat by Pulse Oximetry (%) 99 03/02/20 10:00 Constitutional: Yes: No Distress HENT: Yes: Atraumatic Neck: Yes: Supple Cardiovascular: Yes: Regular Rate and Rhythm Respiratory: Yes: Regular Extremities: No: Cyanosis Edema: No Labs: CBC, BMP 03/01/20 06:13 03/02/20 05:40 INR, PTT INR 0.97 (0.83-1.09) 02/23/20 10:05 Assessment/Plan 54 year old male with history of acute kidney injury/CKD (CR was 1.7 in 2019), CAD s/p PCI, systolic heart failure, CVA, PVD, hypertension who presented s/p dizziness and admitted for r/o CVA and ACS with Cr of 3.2. 1. Dizziness r/o CVA/ACS 2. Acute kidney injury vs. CKD 3. Hypertension 4. CAD s/p PCI 5. Systolic heart failure 6. Hx of CVA Renal function stable. Hyperkalemia noted, etiology likely multifactorial (CKD +/- heparin) Continue Lokelma for now as K is improved Would defer starting Aldactone and Entresto until potassium is controlled No acute need for [employer] at this time CT head shows leukomalacia and possible sub acute infarct. Cardiac cath being deferred for now. awaiting transfer for AICD Continue anticoagulation as per primary team for DVT. Pt is euvolemic at the present time Thank you Piotr Junior DO
[2020-03-02] MEDS: ATORVASTATIN CA 80 MG TABLET (FP) PO SCH (21:28)
[2020-03-03] MEDS: hydrALAZINE HCL 25 MG TABLET (FP) PO SCH ×3 (05:52→22:17)
[2020-03-03] MEDS ORDERED: HEPARIN NA (PORCINE) 5,000 UNITS/ML 1ML VIAL IVPUSH PRN ×2 (08:20)
[2020-03-03 08:24] LABS: BLOOD UREA NITROGEN 57.8 mg/dL (7-18); CALCIUM 9.2 mg/dL (8.5-10.1); MAGNESIUM 1.8 mg/dL (1.8-2.4); PHOSPHOROUS 3.2 mg/dL (2.5-4.9); POTASSIUM 4.7 mmol/L (3.5-5.1)
[2020-03-03] MEDS ORDERED: PT OWN MED DRAWER 7, Y5N ONE (08:43)
[2020-03-03 08:56] LABS: HEMATOCRIT 33.8 % (35.4-49); HEMOGLOBIN 11.2 GM/dL (11.7-16.9); MCH 31.5 pg (25.7-33.7); MCHC 33.1 g/dl (32.0-35.9); MEAN CELL VOLUME 95.1 fl (80-96); MEAN PLT VOLUME 10.7 fl (7.5-11.1); PLATELET COUNT 180 K/MM3 (134-434); RBC 3.55 M/mm3 (4.00-5.60); RDW 14.6 % (11.9-15.9); WHITE BLOOD COUNT 5.8 K/mm3 (4.0-10.0)
[2020-03-03] MEDS: HEPARIN - 25,000 UNIT in SODIUM CHLORIDE 495 ML IV SCH (09:17)
[2020-03-03] MEDS: SODIUM BICARBONATE 650 MG TABLET PO SCH ×2 (09:18→22:17)
[2020-03-03] MEDS: ASPIRIN COATED 81 MG TABLET.EC PO SCH (09:18)
[2020-03-03] MEDS: ISOSORBIDE MONONITRATE 60 MG TAB.SR.24H (FP) PO SCH (09:18)
[2020-03-03] MEDS: SODIUM ZIRCONIUM CYCLOSILICATE (LOKELMA) 5 GM PACKET PO SCH (09:18)
--- NOTE | 2020-03-03 10:02 | PN ---
Progress Note, Physician History of Present Illness: PULMONARY ALERT,COMFORTABLE,-RESP DISTRESS,-CP,-COUGH - Current Medication List Current Medications: Active Medications Aspirin (Ecotrin -) 81 mg PO DAILY [facility] Last Admin: 03/03/20 09:18 Dose: 81 mg Documented by: Atorvastatin Calcium (Lipitor -) 80 mg PO HS [facility] Last Admin: 03/02/20 21:28 Dose: 80 mg Documented by: Heparin Sodium (Porcine) (Heparin -) 1,000 unit IVPUSH PRN PRN PRN Reason: Heparin Heparin Sodium (Porcine) (Heparin -) 5,000 unit IVPUSH PRN PRN PRN Reason: Heparin Hydralazine HCl (Apresoline -) 50 mg PO TID [facility] Last Admin: 03/03/20 05:52 Dose: 50 mg Documented by: Heparin Sodium (Porcine) 25, (000 unit/ Sodium Chloride) 500 mls @ 16 mls/hr IV TITR [facility]; Protocol Last Admin: 03/03/20 09:17 Dose: 800 unit/hr, 16 mls/hr Documented by: Isosorbide Mononitrate (Imdur -) 60 mg PO DAILY [facility] Last Admin: 03/03/20 09:18 Dose: 60 mg Documented by: Metoprolol Succinate (Toprol Xl -) 200 mg PO DAILY [facility] Last Admin: 03/03/20 09:18 Dose: 200 mg Documented by: Sodium Bicarbonate (Sodium Bicarbonate -) 650 mg PO BID [facility] Last Admin: 03/03/20 09:18 Dose: 650 mg Documented by: Sodium Zirconium Cyclosilicate (Lokelma) 5 gm PO DAILY [facility] Last Admin: 03/03/20 09:18 Dose: 5 gm Documented by: - Objective Vital Signs: Vital Signs Temperature 98.1 F 03/03/20 09:21 Pulse Rate 81 03/03/20 09:21 Respiratory Rate 16 03/03/20 09:21 Blood Pressure 127/75 03/03/20 09:21 O2 Sat by Pulse Oximetry (%) 99 03/03/20 09:21 Constitutional: Yes: Well Nourished, Calm Eyes: Yes: WNL HENT: Yes: WNL Neck: Yes: WNL Cardiovascular: Yes: Regular Rate and Rhythm, S1, S2 Respiratory: Yes: CTA Bilaterally Gastrointestinal: Yes: Normal Bowel Sounds, Soft Extremities: Yes: WNL Edema: No Labs: CBC, BMP 03/03/20 06:25 03/03/20 06:25 INR, PTT INR 0.97 (0.83-1.09) 02/23/20 10:05 Problem List - Problems (1) CAD (coronary artery disease) Code(s): I25.10 - ATHSCL HEART DISEASE OF [place] CORONARY ARTERY W/O ANG PCTRS (2) CKD (chronic kidney disease) Code(s): N18.9 - CHRONIC KIDNEY DISEASE, UNSPECIFIED (3) NSTEMI (non-ST elevated myocardial infarction) Code(s): I21.4 - NON-ST ELEVATION (NSTEMI) MYOCARDIAL INFARCTION (4) Heart failure with reduced ejection fraction Code(s): I50.20 - UNSPECIFIED SYSTOLIC (CONGESTIVE) HEART FAILURE (5) History of CVA (cerebrovascular accident) Code(s): Z86.73 - PRSNL HX OF TIA (TIA), AND CEREB INFRC W/O RESID DEFICITS (6) Syncope Code(s): R55 - SYNCOPE AND COLLAPSE (7) Near syncope Code(s): R55 - SYNCOPE AND COLLAPSE (8) Right leg DVT Code(s): I82.401 - ACUTE EMBOLISM AND THOMBOS UNSP DEEP VEINS OF R LOW EXTREM Assessment/Plan Assessment/Plan Syncope Acute NSTEMI RLE DVT Likely PE Severe LV Systolic Dysfunction LVEF 15-20% CAD PAD HTN CKD - anticoagulation - w/u as per Cardiology - monitor lytes,renal function - AICD as per cardiology DR STALEY
--- NOTE | 2020-03-03 11:02 | PN ---
Progress Note, Physician History of Present Illness: 54 year old male with history of CAD s/p PCI and stent ([facility] ? 2018); denies hx [place]; systolic CHF (severely reduced LVEF on 01/2020 ECHO), CVA (with residual right facial droop), renal dysfunction (? acute as of early January,), peripheral artery disease, hypertension, gout, cigarettes, who presented with dizziness, near syncope and diaphoresis this morning. he woke up in the AM with dizziness - Current Medication List Current Medications: Active Medications Aspirin (Ecotrin -) 81 mg PO DAILY [facility] Last Admin: 03/03/20 09:18 Dose: 81 mg Documented by: Atorvastatin Calcium (Lipitor -) 80 mg PO HS [facility] Last Admin: 03/02/20 21:28 Dose: 80 mg Documented by: Heparin Sodium (Porcine) (Heparin -) 1,000 unit IVPUSH PRN PRN PRN Reason: Heparin Heparin Sodium (Porcine) (Heparin -) 5,000 unit IVPUSH PRN PRN PRN Reason: Heparin Hydralazine HCl (Apresoline -) 50 mg PO TID [facility] Last Admin: 03/03/20 05:52 Dose: 50 mg Documented by: Heparin Sodium (Porcine) 25, (000 unit/ Sodium Chloride) 500 mls @ 16 mls/hr IV TITR [facility]; Protocol Last Admin: 03/03/20 09:17 Dose: 800 unit/hr, 16 mls/hr Documented by: Isosorbide Mononitrate (Imdur -) 60 mg PO DAILY [facility] Last Admin: 03/03/20 09:18 Dose: 60 mg Documented by: Metoprolol Succinate (Toprol Xl -) 200 mg PO DAILY [facility] Last Admin: 03/03/20 09:18 Dose: 200 mg Documented by: Sodium Bicarbonate (Sodium Bicarbonate -) 650 mg PO BID [facility] Last Admin: 03/03/20 09:18 Dose: 650 mg Documented by: Sodium Zirconium Cyclosilicate (Lokelma) 5 gm PO DAILY [facility] Last Admin: 03/03/20 09:18 Dose: 5 gm Documented by: - Objective Vital Signs: Vital Signs Temperature 98.1 F 03/03/20 09:21 Pulse Rate 81 03/03/20 09:21 Respiratory Rate 16 03/03/20 09:21 Blood Pressure 127/75 03/03/20 09:21 O2 Sat by Pulse Oximetry (%) 99 03/03/20 09:21 Eyes: Yes: WNL, Conjunctiva Clear, EOM Intact HENT: Yes: WNL, Atraumatic, Normocephalic Neck: Yes: WNL, Supple, Trachea Midline Cardiovascular: Yes: WNL, Regular Rate and Rhythm Respiratory: Yes: WNL, Regular, CTA Bilaterally Gastrointestinal: Yes: WNL, Normal Bowel Sounds Genitourinary: Yes: WNL Musculoskeletal: Yes: WNL Extremities: Yes: WNL Edema: No Integumentary: Yes: WNL Neurological: Yes: WNL, Alert, Oriented ...Motor Strength: WNL Psychiatric: Yes: WNL Labs: CBC, BMP 03/03/20 06:25 03/03/20 06:25 INR, PTT INR 0.97 (0.83-1.09) 02/23/20 10:05 Assessment/Plan Dilated ischemic cardiomyopathy: Acute/chronic systolic CHF (severely reduced LVEF) + DVT CAD-->coronary stent [facility] ? 2017 (denies hx [place]) Stress MIBI 08/2018: no myocardial ischemia right carotid stent at ? [facility] renal dysfunction s/p CVA right residual right facial droop ?hyperlipidemia HTN hyperkalemia; hypomagnesemia dizziness sinus tachycardia: acute/chronic systolic CHF, anemia, respiatory compromise cigarettes (does not want patch or pill to help stop smoking) PAD;intermittent claudication Plan: Pt agrees for transfer to [facility] for ICD implantation. I spoke with Dr. Charly Gil, who will arrange the transfer. Repeat COVID test is necessary prior to him being given a floor bed there. Contacted Dr. Beard, roll cleaner:Pt had LVEF 10-20% on 08/2018 and no ischemia on stress MIBI 08/2018; Entresto started at that time; last seen in office by him 05/2019, when ECHO planned to see if qualified for ICD, but pt did not return for ECHO or further f/u. Received documents from [facility] regarding these tests. EKG this admission is essentially unchanged from
--- NOTE | 2020-03-03 12:28 | PN ---
Physical Exam: SUBJECTIVE: Patient seen and examined at bedside, lying comfortably in bed denies any complaints, denies SLOAN, sob, chest pain, dizziness OBJECTIVE: Patient is a 54 year old male with a significant past medical history of CAD s/p PCI and stenting, CHF, CVA (with residual right facial droop), peripheral artery disease, hypertension presents in the ED on 02/23/2020 after a syncopal episode. States he was sitting on the bus stop bench waiting for the bus, when he passed out. Only prior prodormal symptom was nausea. Denied berrios/d, f/c, n/v, blurry vision, chest pain, sob, abd pain, or urinary/bowel incontinence. ------- echo with EF 15-20%, will likely need life vest, cardiology following. He was found to have NSTEM and right leg DVT. on heparin gtt. Repeat covid 19 testing needed for transfer - pending. patient for icd at [facility] pending transfer. Vital Signs Period Temp Pulse Resp BP Sys/Adames Pulse Ox Last 24 Hr 97.8 F-98.3 F 67-129 16-20 117-148/75-91 99-99 GENERAL: The patient is awake, alert, and fully oriented, in no acute distress. HEAD: Normal with no signs of trauma. EYES: PERRL, extraocular movements intact, sclera anicteric, conjunctiva clear. No ptosis. ENT: Ears normal, nares patent, oropharynx clear without exudates, moist mucous membranes. NECK: Trachea midline, full range of motion, supple. LUNGS: Breath sounds equal, clear to auscultation bilaterally, no wheezes, no crackles, no accessory muscle use. HEART: Regular rate and rhythm, S1, S2 without murmur, rub or gallop. ABDOMEN: Soft, nontender, nondistended, normoactive bowel sounds, no guarding, no rebound, no hepatosplenomegaly, no masses. EXTREMITIES: 2+ pulses, warm, well-perfused, no edema. NEUROLOGICAL: Cranial nerves II through XII grossly intact. Normal speech, gait not observed. PSYCH: Normal mood, flat affect, guarded SKIN: Warm, dry, normal turgor, no rashes or lesions noted Laboratory Results - last 24 hr 03/03/20 03/03/20 03/03/20 06:25 06:25 06:25 WBC 5.8 RBC 3.55 L Hgb 11.2 L Hct 33.8 L MCV 95.1 MCH 31.5 MCHC 33.1 RDW 14.6 Plt Count 180 MPV 10.7 PTT (Actin FS) 69.6 H Sodium 142 Potassium 4.7 Chloride 115 H Carbon Dioxide 20 L Anion Gap 7 L BUN 57.8 H Creatinine 3.0 H Est GFR (CKD-EPI)AfAm 25.72 Est GFR (CKD-EPI)NonAf 22.19 Random Glucose 107 H Calcium 9.2 Phosphorus 3.2 Magnesium 1.8 Active Medications Generic Name Dose Route Start Last Admin Trade Name Freq PRN Reason Stop Dose Admin Aspirin 81 mg 02/24/20 17:00 03/03/20 09:18 Ecotrin - PO 81 mg DAILY HUI Administration Atorvastatin Calcium 80 mg 02/26/20 12:54 03/02/20 21:28 Lipitor - PO 80 mg HS HUI Administration Heparin Sodium (Porcine) 1,000 unit 03/03/20 08:20 Heparin - IVPUSH PRN PRN Heparin Heparin Sodium (Porcine) 5,000 unit 03/03/20 08:20 Heparin - IVPUSH PRN PRN Heparin Hydralazine HCl 50 mg 02/29/20 14:00 03/03/20 05:52 Apresoline - PO 50 mg TID HUI Administration Heparin Sodium (Porcine) 25, 500 mls @ 16 mls/hr 03/03/20 08:30 03/03/20 09:17 000 unit/ Sodium Chloride IV 800 unit/hr TITR HUI 16 mls/hr Administration Protocol 800 UNIT/HR Isosorbide Mononitrate 60 mg 02/26/20 12:49 03/03/20 09:18 Imdur - PO 60 mg DAILY HUI Administration Metoprolol Succinate 200 mg 03/01/20 10:00 03/03/20 09:18 Toprol Xl - PO 200 mg DAILY HUI Administration Sodium Bicarbonate 650 mg 02/29/20 22:00 03/03/20 09:18 Sodium Bicarbonate - PO 650 mg BID HUI Administration Sodium Zirconium Cyclosilicate 5 gm 02/29/20 10:00 03/03/20 09:18 Lokelma PO 5 gm DAILY HUI Administration ASSESSMENT/PLAN: Problem List - Problems (1) NSTEMI (non-ST elevated myocardial infarction) Assessment/Plan: troponins peaked a 0.95, last trop 0.34 no shortness of breath, or chest discomfort. on heparin drip echo EF 15-20% will likely need life vest - echo 01/22/2020 shows lv severely reduced, severe global hypok. of LV, LV mod dilated, LA mildly dilated. repeat echo 02/26/2020 shows LV mod dilated, lv systolic fx severely reduced. rv normal in size and function. ef 15-20% on low dose asa monitor on tele. Code(s): I21.4 - NON-ST ELEVATION (NSTEMI) MYOCARDIAL INFARCTION (2) CKD (chronic kidney disease) Assessment/Plan: creat 3.0, creatinine similar to recent admission on 01/2020 Code(s): N18.9 - CHRONIC KIDNEY DISEASE, UNSPECIFIED (3) Near syncope Assessment/Plan: physical therapy Code(s): R55 - SYNCOPE AND COLLAPSE (4) Hypertension Assessment/Plan: continue metoprolol continue hydralizine continue imdur Code(s): I10 - ESSENTIAL (PRIMARY) HYPERTENSION (5) Noncompliance w/medication treatment due to intermit use of medication Assessment/Plan: will need outpatient follow up Code(s): Z91.14 - PATIENT'S OTHER NONCOMPLIANCE WITH MEDICATION REGIMEN (6) CAD (coronary artery disease) Assessment/Plan: CAD s/p coronary stent [place] ?2017 (denies hx [place]) on plavix, asa Code(s): I25.10 - ATHSCL HEART DISEASE OF [place] CORONARY ARTERY W/O ANG PCTRS (7) DVT prophylaxis Assessment/Plan: on heparin drip Code(s): Z29.9 - ENCOUNTER FOR PROPHYLACTIC MEASURES, UNSPECIFIED (8) Right leg DVT Assessment/Plan: clarification of us/vascular duplex, discussed with Dr. Acosta: Right leg DVT. LEFT leg, no DVT but occlusion of left sup fem. artery. radiology report to be amended. on heparin gtt, continue per protocol Code(s): I82.401 - ACUTE EMBOLISM AND THOMBOS UNSP DEEP VEINS OF R LOW EXTREM Visit type - Emergency Visit Emergency Visit: Yes ED Registration Date: 02/24/20 Care time: The patient presented to the Emergency Department on the above date and was hospitalized for further evaluation of their emergent condition. - New Patient This patient is new to me today: No - Critical Care Critical Care patient: No - Discharge Referral Referred to [facility] No
--- NOTE | 2020-03-03 17:08 | PN ---
Progress Note, Physician Chief Complaint: Seen and examined at the bedside offers no acute complaints no sob, cp, fever, chills, abd pain making urine on IV heparin gtt History of Present Illness: Seen and examined at the bedside. awake and alert offers no acute complaints no sob, cp, fever, chills, abd pain, N/V/D awaiting transfer - Current Medication List Current Medications: Active Medications Aspirin (Ecotrin -) 81 mg PO DAILY [facility] Last Admin: 03/03/20 09:18 Dose: 81 mg Documented by: Atorvastatin Calcium (Lipitor -) 80 mg PO HS [facility] Last Admin: 03/02/20 21:28 Dose: 80 mg Documented by: Heparin Sodium (Porcine) (Heparin -) 1,000 unit IVPUSH PRN PRN PRN Reason: Heparin Heparin Sodium (Porcine) (Heparin -) 5,000 unit IVPUSH PRN PRN PRN Reason: Heparin Hydralazine HCl (Apresoline -) 50 mg PO TID [facility] Last Admin: 03/03/20 13:36 Dose: 50 mg Documented by: Heparin Sodium (Porcine) 25, (000 unit/ Sodium Chloride) 500 mls @ 16 mls/hr IV TITR [facility]; Protocol Last Admin: 03/03/20 09:17 Dose: 800 unit/hr, 16 mls/hr Documented by: Isosorbide Mononitrate (Imdur -) 60 mg PO DAILY [facility] Last Admin: 03/03/20 09:18 Dose: 60 mg Documented by: Metoprolol Succinate (Toprol Xl -) 200 mg PO DAILY [facility] Last Admin: 03/03/20 09:18 Dose: 200 mg Documented by: Sodium Bicarbonate (Sodium Bicarbonate -) 650 mg PO BID [facility] Last Admin: 03/03/20 09:18 Dose: 650 mg Documented by: Sodium Zirconium Cyclosilicate (Lokelma) 5 gm PO DAILY [facility] Last Admin: 03/03/20 09:18 Dose: 5 gm Documented by: - Objective Vital Signs: Vital Signs Temperature 98.3 F 03/03/20 13:52 Pulse Rate 74 03/03/20 13:52 Respiratory Rate 16 03/03/20 13:52 Blood Pressure 124/71 03/03/20 13:52 O2 Sat by Pulse Oximetry (%) 98 03/03/20 13:52 Constitutional: Yes: No Distress HENT: Yes: Atraumatic Neck: Yes: Supple Cardiovascular: Yes: Regular Rate and Rhythm Respiratory: Yes: Regular Gastrointestinal: Yes: Soft Extremities: No: Cyanosis Edema: No Labs: CBC, BMP 03/03/20 06:25 03/03/20 06:25 INR, PTT INR 0.97 (0.83-1.09) 02/23/20 10:05 Assessment/Plan 54 year old male with history of acute kidney injury/CKD (CR was 1.7 in 2019), CAD s/p PCI, systolic heart failure, CVA, PVD, hypertension who presented s/p dizziness and admitted for r/o CVA and ACS with Cr of 3.2. 1. Dizziness r/o CVA/ACS 2. Acute kidney injury vs. CKD 3. Hypertension 4. CAD s/p PCI 5. Systolic heart failure 6. Hx of CVA Renal function stable. Continue Lokelma for now as K is improved Would defer starting Aldactone and Entresto until potassium is controlled No acute need for ORIENTOR at this time CT head shows leukomalacia and possible sub acute infarct. Cardiac cath being deferred for now. awaiting transfer for AICD Continue anticoagulation as per primary team for DVT. Pt is euvolemic at the present time Thank you Piotr Junior DO
[2020-03-03] MEDS: ATORVASTATIN CA 80 MG TABLET (FP) PO SCH (22:17)
[2020-03-04] MEDS: hydrALAZINE HCL 25 MG TABLET (FP) PO SCH (05:43)
[2020-03-04 07:29] LABS: HEMATOCRIT 37.1 % (35.4-49); HEMOGLOBIN 12.2 GM/dL (11.7-16.9); MCH 30.8 pg (25.7-33.7); MCHC 32.8 g/dl (32.0-35.9); MEAN CELL VOLUME 93.9 fl (80-96); MEAN PLT VOLUME 10.2 fl (7.5-11.1); PLATELET COUNT 204 K/MM3 (134-434); RBC 3.96 M/mm3 (4.00-5.60); RDW 14.1 % (11.9-15.9); WHITE BLOOD COUNT 7.7 K/mm3 (4.0-10.0)
[2020-03-04] MEDS: HEPARIN - 25,000 UNIT in SODIUM CHLORIDE 495 ML IV SCH (07:39)
[2020-03-04 07:47] VITALS: BP 124/82; PULSE 70; TEMP 98
--- NOTE | 2020-03-04 17:13 | DS ---
Physical Exam: SUBJECTIVE: Patient seen and examined OBJECTIVE: patient transferred to [facility] before I was able to examine him. reason for transfer to [facility]: patient for AICD placement, arranged by cardiology Later in day received called from Dr. Vera, [facility]. Spoke to Dr. Vera [facility] and all questions on patient answered. Patient is a 54 year old male with a significant past medical history of CAD s/p PCI and stenting, CHF, CVA (with residual right facial droop), peripheral artery disease, hypertension presents in the ED on 02/23/2020 after a syncopal episode. States he was sitting on the bus stop bench waiting for the bus, when he passed out. Only prior prodormal symptom was nausea. Denied berrios/d, f/c, n/v, blurry vision, chest pain, sob, abd pain, or urinary/bowel incontinence. ------- echo with EF 15-20%, will likely need life vest, cardiology following. He was found to have NSTEM and right leg DVT. on heparin gtt. covid 19 negative. patient for AICD at [facility], transferred today. Vital Signs Period Temp Pulse Resp BP Sys/Adames Pulse Ox Last 24 Hr 97.7 F-98.9 F 65-70 16-18 124-146/67-83 96-100 PHYSICAL EXAM patient left before PE was able to be performed. LABS Laboratory Results - last 24 hr 03/02/20 03/04/20 03/04/20 12:35 05:40 05:40 WBC 7.7 RBC 3.96 L Hgb 12.2 Hct 37.1 MCV 93.9 MCH 30.8 MCHC 32.8 RDW 14.1 Plt Count 204 MPV 10.2 PTT (Actin FS) 69.5 H COVID-19 (DIOMEDES) Not detected HOSPITAL COURSE: Date of Admission:02/24/20 Date of Discharge: 03/04/20 Patient d/c to [facility] for AICD Minutes to complete discharge: 45 Discharge Summary Problems reviewed: Yes Reason For Visit: PRE SYNCOPE Condition: Fair - Instructions Disposition: TRANSFER ACUTE CARE/OTHER HOSP - Home Medications Comprehensive Discharge Medication List: Ambulatory Orders Clopidogrel Bisulfate [Clopidogrel] 75 mg PO DAILY 01/20/20 Pravastatin Sodium [Pravachol -] 40 mg PO DAILY 01/20/20 Isosorbide Mononitrate [Imdur -] 30 mg PO DAILY #30 tab.sr.24h MDD one 01/24/20 hydrALAZINE HCL [Apresoline -] 25 mg PO TID #90 tablet MDD three 01/24/20 Metoprolol Succinate [Toprol Xl] 50 mg PO DAILY 02/23/20 Allopurinol 300 mg PO DAILY 02/24/20 Ondansetron [Zofran -] 4 mg PO BID PRN 02/24/20 Problem List - Problems (1) NSTEMI (non-ST elevated myocardial infarction) Code(s): I21.4 - NON-ST ELEVATION (NSTEMI) MYOCARDIAL INFARCTION (2) CKD (chronic kidney disease) Code(s): N18.9 - CHRONIC KIDNEY DISEASE, UNSPECIFIED (3) Near syncope Code(s): R55 - SYNCOPE AND COLLAPSE (4) Hypertension Code(s): I10 - ESSENTIAL (PRIMARY) HYPERTENSION (5) Noncompliance w/medication treatment due to intermit use of medication Code(s): Z91.14 - PATIENT'S OTHER NONCOMPLIANCE WITH MEDICATION REGIMEN (6) CAD (coronary artery disease) Code(s): I25.10 - ATHSCL HEART DISEASE OF [place] CORONARY ARTERY W/O ANG PCTRS (7) DVT prophylaxis Code(s): Z29.9 - ENCOUNTER FOR PROPHYLACTIC MEASURES, UNSPECIFIED (8) Right leg DVT Code(s): I82.401 - ACUTE EMBOLISM AND THOMBOS UNSP DEEP VEINS OF R LOW EXTREM This patient is new to me today: No Emergency Visit: Yes ED Registration Date: 02/24/20 Care time: The patient presented to the Emergency Department on the above date and was hospitalized for further evaluation of their emergent condition. Critical Care patient: No - Discharge Referral Referred to [facility] No
== END 2020-03-04 07:53 | disposition short-term general hospital (02) | DRG 190 ==
LOC: JER 09:53 → INTOOBSV 12:20 → UNDOADMOB 12:20 → JERBED 12:20 → J4S 22:58 → OBSVTOIN 02-24 17:41 → J4S 02-25 14:03
PROVIDERS: ADMIT Internal Medicine; ATTEND Nurse Practitioner Family
DX: I21.4 Non-ST elevation (NSTEMI) myocardial infarction (principal); I69.392 Facial weakness following cerebral infarction; I82.431 Acute embolism and thrombosis of right popliteal vein; E78.5 Hyperlipidemia, unspecified; F17.210 Nicotine dependence, cigarettes, uncomplicated; R94.31 Abnormal electrocardiogram [ECG] [EKG]; I73.9 Peripheral vascular disease, unspecified; E87.5 Hyperkalemia; E86.0 Dehydration; I13.0 Hypertensive heart and chronic kidney disease with heart failure and stage 1 through stage 4 chronic kidney disease, or unspecified chronic kidney disease; I50.23 Acute on chronic systolic (congestive) heart failure; I82.411 Acute embolism and thrombosis of right femoral vein; N17.9 Acute kidney failure, unspecified; I95.9 Hypotension, unspecified; I42.0 Dilated cardiomyopathy; E83.42 Hypomagnesemia; I25.10 Atherosclerotic heart disease of native coronary artery without angina pectoris; Z95.5 Presence of coronary angioplasty implant and graft; N18.9 Chronic kidney disease, unspecified; Z91.14 Patient's other noncompliance with medication regimen; R55 Syncope and collapse; R42 Dizziness and giddiness; E87.2 Acidosis; I25.5 Ischemic cardiomyopathy; R00.0 Tachycardia, unspecified
CPT/HCPCS: 36415; 70450-TC; 71045-TC-FY; 80048; 80053; 80061; 81003; 82550; 82553; 82962; 83036; 83721; 83735; 83880; 83970; 84100; 84132; 84443; 84484; 85025; 85027; 85610; 85730; 93005; 93010; 93306-TC; 93308; 93970-TC; 97116-GP; 97161-GP; 99285-25; G0378; J1644; U0003

== ENCOUNTER 2020-05-06 11:00 | Emergency (ER) | payer OTHER ==
[2020-05-06 11:33] VITALS: BMI 25.0
--- OUTSIDE RECORDS SUMMARY | 2020-05-06 11:59 | XMS ---
:1965 Author Organization [facility] Care Team Providers Name Role Phone Clyde Corcoran MD Unavailable Unavailable MD Kisha Unavailable Unavailable MD Kisha Unavailable Unavailable MD Kisha Unavailable Unavailable MD Kisha Unavailable Unavailable MD Kisha Unavailable Unavailable MD Kisha Unavailable Unavailable MD Kisha Unavailable Unavailable MD Kisha Unavailable Unavailable MD Kiel Unavailable Unavailable MD Chuy Unavailable Unavailable Vasquez Unavailable [phone] MD Cuco Unavailable Unavailable MD Dainel Unavailable Unavailable Luis Metcalf MD Unavailable Unavailable Re-disclosure Warning The records that you are about to access may contain information from federally- assisted alcohol or drug abuse programs. If such information is present, then the following federally mandated warning applies: This information has been disclosed to you from records protected by federal confidentiality rules (42 CFR part 2). The federal rules prohibit you from making any further disclosure of this information unless further disclosure is expressly permitted by the written consent of the person to whom it pertains or as otherwise permitted by 42 CFR part 2. A general authorization for the release of medical or other information is NOT sufficient for this purpose. The Federal rules restrict any use of the information to criminally investigate or prosecute any alcohol or drug abuse patient.The records that you are about to access may contain highly sensitive health information, the redisclosure of which is protected by Article 27-F of the [facility] Public Health law. If you continue you may haveaccess to information: Regarding HIV / AIDS; Provided by facilities licensed or operated by the [facility] Office of Mental Health; or Provided by the [facility] Office for People With Developmental Disabilities. If such information is present, then the following [facility] mandated warning applies: This information has been disclosed to you from confidential records which are protected by state law. State law prohibits you from making any further disclosure of this information without the specific written consent of the person to whom it pertains, or as otherwise permitted by law. Any unauthorized further disclosure in violation of state law may result in a fine or custodial sentence or both. A general authorization for the release of medical or other information is NOT sufficient authorization for further disclosure. 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 Status Observation Data S ource(s) Description Advance No [facility] Advance No [facility] Advance No completed [place] [facility] [facility] Allergies and Adverse Reactions Type Description Substance Reaction Status Data Source(s ) Drug allergy No Known Drug No Known Drug NO KNOWN [place] [facility] Drug allergy No Known Drug No Known Drug [facility] Allergies Allergies [facility] No Known No Known Allergies No Known eCW1 ( [facility] No Known No Known Allergies No Known eCW1 ( [facility]) Encounters Encounter Providers Location Date Indications Data Source(s ) Outpatient Attender: Clifford Copeland 05/05/2020 [facility] 08:27:00 AM Emmanuel barber MDAdmitter: EDT Clifford Beard MDReferrer: Clifford Beard MD Outpatient Attender: Clifford Copeland 03/30/2020 [facility] 08:36:00 AM Medical Cent[facility] r MDAdmitter: EDT Clifford Beard MDReferrer: Clifford Beard MD Attender: Adan 03/30/2020 [facility] ( [facility] 08:36:00 AM [facility] EDT - [place]) 03/30/2020 08:36:00 AM EDT 03/30/2020 [facility] 12:00:00 AM Medical Cente r EDT - 08/28/2018 12:00:00 AM EST Outpatient [id number] 03/30/2020 eCW1 ([facility] 12:00:00 AM [facility] EDT Practice ) Outpatient 03/24/2020 [facility] 03:05:00 PM Medical Cente r EDT Outpatient Attender: Clifford Copeland 03/24/2020 [facility] 09:36:00 AM Medical Cente r MDAdmitter: EDT Clifford Beard MDReferrer: Clifford Beard MD Attender: Adan 03/24/2020 [facility] ( [facility] 09:36:00 AM [facility] EDT - [place]) 03/24/2020 09:36:00 AM EDT Outpatient [id number] 03/24/2020 eCW1 ([facility] 12:00:00 AM [facility] EDT Practice ) Outpatient 03/24/2020 [facility] 12:00:00 AM Medical Cente r EDT Outpatient 03/19/2020 [facility] 11:39:00 AM Medical Cente r EDT Outpatient 03/19/2020 [facility] 11:37:00 AM Medical Cente r EDT Outpatient 03/19/2020 [facility] 12:00:00 AM Medical Cente r EDT Inpatient Attender: Ami 03/04/2020 CARDIOMYOPATHY [place] [facility] 05:35:00 AM Hospital MDAttender: AGATHAT - Debbi Sanchez 03/17/2020 MDAttender: 05:20:00 PM Marissa Metcalf EDT MDAttender: Pippa Vera MDAttender: Damion Dyson MDAdmitter: Pippa Vera MDConsultant: Clyde Corcoran MD CARDIOMYOPATHY Patient discharged. Outpatient 01/19/2020 11:20:00 [facility] AM EDT Medical Center Outpatient [facility] Attender: Clifford Copeland 06/09/2019 09:26:00 [facility] EDT Medical Center MDAdmitter: Clifford Beard MDReferrer: Clifford Beard MD Attender: [facility] 06/09/2019 09:26:00 NEXTGEN ([facility] AM EDT - 06/09/2019 [facility] 09:26:00 AM EDT Center) Outpatient Admitter: Clifford Copeland 06/09/2019 08:59:00 [facility] MDReferrer: Clifford Beard MD Outpatient Admitter: Clifford Copeland 06/09/2019 12:00:00 [facility] EDT - 08/28/2018 Medic al Center MDReferrer: 12:00:00 AM EST Clifford Beard MD Attender: [facility] 03/07/2017 12:56:00 NEXTGEN ([facility] PM EDT - 03/07/2017 [facility] 12:56:00 PM EDT Center) Functional Status Medications Medication Brand Start Product Dose Route Administrative Pharm[facility] Indications Reaction Description Data Name Date Form Instructions Instructions Source(s) Hydralazine HydrAL .0 active HydrALA ZINE eCW1 Hydrochlori AZINE 2019 {tabl HCl 50 MG ( [facility] de 50 MG HCl 50 12:00: et_wi Wil s Oral Tablet MG 00 AM th_fo Medica l HydrALAZINE EDT od} Practice HCl 50 MG PC) Hydralazine HydrAL .0 active HydrALA ZINE eCW1 Hydrochlori AZINE 2019 {tabl HCl 100 MG ([facility] de 100 MG HCl 12:00: et} [facility] Oral Tablet 100 MG 00 AM Medic al HydrALAZINE EDT Practice HCl 100 MG PC) Sodium Sodium 03/17/ ORAL 15 g ORAL active [facility] polystyrene Polyst [address] ains sulfonate adrienne 02:32: ON Hospita l Sodium Sulfon 00 PM Polystyrene ate EDT Sulfonate apixaban Apixab 03/17/ TABLET 2.5 ORAL active Whi te 2.5 MG Oral an 2020 mg [place] Tablet 01:09: Hospital [Eliquis] 00 PM Apixaban EDT 24 HR Metopr 08/05/ TABLET, 50 mg ORAL active Whit e metoprolol olol 2020 EXTENDED [place] succinate Succin 12:52: RELEASE Hos pital 50 MG ate 00 PM Extended EDT Release Oral Tablet Metoprolol Succinate clopidogrel Clopid 03/17/ TABLET 75 mg ORAL active [facility] 75 MG Oral ogrel 2020 [place] Tablet Bisulf 12:52: Hospital Clopidogrel ate 00 PM Bisulfate EDT Aspirin 81 Aspiri 03/17/ TABLET, 81 mg ORAL active White MG Delayed n 2020 DELAYED [place] Release 12:52: RELEASE Hospita l Oral Tablet 00 PM EDT Allopurinol Allopu 03/17/ TABLET 200 ORAL active White 100 MG Oral rinol 2020 mg [place] Tablet 12:52: Hospital 00 PM EDT 24 HR Isosor 03/17/ TABLET, 30 mg ORAL active Whit e Isosorbide bide 2019 EXTENDED Plain s Mononitrate Mononi 12:52: RELEASE H ospital 30 MG trate 00 PM Extended EDT Release Oral Tablet POLYETHYLEN Polyet 03/17/ POWDER 17 g ORAL active White E GLYCOL hylene 2020 [place] 3350 142 Glycol 12:52: Hospita l MG/ML Oral 3350 00 PM Solution EDT [HealthyLax ] Polyethylen e Glycol 3350 Hydralazine Hydral 03/17/ TABLET 50 mg ORAL active [facility] Hydrochlori azine 2020 [place] de 50 MG Hcl 12:52: Hospital Oral Tablet 00 PM Hydralazine EDT Hcl atorvastati Atorva 03/17/ TABLET 80 mg ORAL active White n 80 MG statin 2020 [place] Oral Tablet Calciu 12:52: Hosp ital [Lipitor] m 00 PM Atorvastati EDT n Calcium apixaban Apixab 03/13/ TABLET 2.5 ORAL complet Wh ite 2.5 MG Oral an 2020 mg ed [place] Tablet 01:46: Hospital [Eliquis] 00 PM Apixaban EDT Allopurinol Allopu 03/12/ TABLET 200 ORAL complet White 100 MG Oral rinol 2020 mg ed [place] Tablet 02:57: Hospital 00 PM EDT apixaban Apixab 03/12/ 5 mg ORAL complet Whit e Apixaban an 2020 ed [place] 02:57: Hospital 00 PM EDT Allopurinol Allopu 03/12/ TABLET 200 ORAL complet White 100 MG Oral rinol 2020 mg ed [place] Tablet 02:55: Hospital 00 PM EDT Patiromer 03/12/ POWDER 8.4 g ORAL complet Wh ite Calcium 2019 ed [place] Sorbitex 02:55: Hospital 00 PM EDT apixaban Apixab 03/12/ 5 mg ORAL complet Whit e Apixaban an 2019 ed [place] 02:53: Hospital 00 PM EDT Hydralazine Hydral 03/04/ TABLET 50 mg ORAL active [facility] Hydrochlori azine 2019 [place] de 25 MG Hcl 06:47: Hospital Oral Tablet 00 PM Hydralazine EDT Hcl Allopurinol Allopu 1.0 active Allopurin ol eCW1 300 MG Oral rinol {tabl 300 MG (Vic nt Tablet 300 MG et} [facility] Medical Practice ) Pravastatin Pravas 1.0 active Pravastat in eCW1 Sodium 40 tatin {tabl Sodium 40 MG (Saint MG Oral Sodium et} [facility] Tablet 40 MG Medical Practice ) 24 HR Metopr TABLET, active White metoprolol olol EXTENDED Plain s succinate Succin RELEASE Hospi rhea 50 MG ate Extended Release Oral Tablet Metoprolol Succinate clopidogrel Clopid 1.0 active Clopidogr el eCW1 75 MG Oral ogrel {tabl Bisulfate 75 (Saint Tablet Bisulf et} MG [facility] Clopidogrel ate 75 Medica l Bisulfate MG Practice 75 MG ) Hydralazine Hydral TABLET complet W rosalind Hydrochlori azine ed [place] de 25 MG H[facility] Hospital Oral Tablet Hydralazine Hcl Allopurinol Allopu TABLET 300 ORAL complet W rosalind 300 MG Oral rinol mg ed [place] Tablet Hospital 24 HR Metopr 1.0 active Metoprolol eCW1 metoprolol olol {tabl Succinate ER (Saint succinate Succin et} 50 MG [facility] 50 MG ate ER Medical Extended 50 MG Practice Release PC) Oral Tablet Metoprolol Succinate ER 50 MG clopidogrel Clopid 1.0 active Clopidogr el eCW1 75 MG Oral ogrel {tabl Bisulfate 75 (Saint Tablet Bisulf et} MG [facility] Clopidogrel ate 75 Medica l Bisulfate MG Practice 75 MG ) clopidogrel Clopid TABLET active ite 75 MG Oral ogrel [place] Tablet [facility] Clopidogrel ate Bisulfate atorvastati Atorva 1.0 active Atorvasta tin eCW1 n 80 MG statin {tabl Calcium 80 (Sa int Oral Tablet Calciu et} MG Wil s Atorvastati m 80 Medical n Calcium MG Practice 80 MG ) Aspirin 81 Aspiri 1.0 active Aspirin 81 eCW1 MG Delayed n 81 {tabl MG (Saint Release MG et} [facility] Oral Tablet [facility] Practice [facility]) Hydralazine HydrAL 1.0 active HydrALAZI NE eCW1 Hydrochlori AZINE {tabl HCl 50 MG ( [facility] de 50 MG HCl 50 et_wi [facility] Oral Tablet MG th_fo Medical HydrALAZINE od} Practice HCl 50 MG PC) Pravastatin Pravas 1.0 active Pravastat in eCW1 Sodium 40 tatin {tabl Sodium 40 MG (Saint MG Oral Sodium et} [facility] Tablet 40 MG Medical Practice PC) sacubitril Entres 1.0 suspend Entresto eCW1 97 MG / to {tabl ed 97-103 MG (Saint valsartan 97-103 et} [facility] 103 MG Oral MG Medical Tablet Practice [Entresto] PC) Entresto 97-103 MG 24 HR Metopr 1.0 active Metoprolol eCW1 metoprolol olol {tabl Succinate ER (Saint succinate Succin et} 50 MG [facility] 50 MG ate ER Medical Extended 50 MG Practice Release PC) Oral Tablet Metoprolol Succinate ER 50 MG Pravastatin Pravas TABLET complet W rosalind Sodium 40 tatin ed [place] MG Oral Sodium Hospital Tablet acetaminoph 2 complet Pain and S aint en (Pain ed Fever [facility] and Fever) Medical 325 mg Center TabletDirec tions: 2 tablet oral every six hours PRN pain colchicine 1 complet Colcrys Vic nt (Colcrys) ed [facility] 0.6 mg Medical TabletDirec Center tions: 1 tablet oral twice a day lisinopril 1 complet Prinivil Sa int (Prinivil) ed [facility] 10 mg Medical TabletDirec Center tions: 1 tablet oral daily Aspirin 81 aspiri 1 complet An t MG Delayed n 81 ed [facility] Release mg Medical Oral Tablet tablet Center aspirin 81 ,delay mg ed tablet,thais jorgeas yed release e (/EC), (/EC Ordered By: )Brian d By: Chris Torres s: 1 tablet Villa oral daily , JOHNire ctions : 1 tablet oral daily clopidogrel clopid 1 complet Vic nt 75 MG Oral ogrel ed [facility] Tablet 75 mg Medical clopidogrel Tablet Center 75 mg , Tablet, Hector Ordered By: d By: Allen Lockeirection , s: 1 tablet MDDire oral daily ctions : 1 tablet oral daily Pravastatin pravas 1 complet Vic nt Sodium 40 tatin ed [facility] MG Oral 40 mg Medical Tablet Tablet Center pravastatin , 40 mg Ordere Tablet, d By: Ordered By: Brian Villa, JOHNirection MDDire s: 1 tablet ctions oral daily : 1 at bedtime tablet oral daily at bedtim e sacubitril sacubi 1 complet Entresto Saint 24 MG / tril-v ed [facility] valsartan alsart Medical 26 MG Oral an Center Tablet (Entre [Entresto] sto) sacubitril- 24 valsartan mg-26 (Entresto) mg 24 mg-26 mg Tablet Tablet, , Ordered By: Hector Torres d By: Brian Villa s: 1 tablet , oral twice MDDire a day ctions : 1 tablet oral twice a day 24 HR metopr 1 complet Saint metoprolol olol ed [facility] succinate succin Medical 50 MG ate 50 Center Extended mg Release Tablet Oral Tablet Extend metoprolol ed succinate Releas 50 mg e 24 Tablet hr, Extended Ordere Release 24 d By: hr, Ordered Brian By: Brian Villa, JOHNirection MDDire s: 1 tablet ctions oral daily : 1 tablet oral daily Allopurinol allopu 1 complet Vic nt 300 MG Oral rinol ed [facility] Tablet 300 mg Medical allopurinol Tablet Center 300 mg , Tablet, Ordere Ordered By: d By: Allen Locke MDDirection , s: 1 tablet MDDire oral daily ctions : 1 tablet oral daily Allopurinol Allopu 1.0 active Allopurin ol eCW1 300 MG Oral rinol {tabl 300 MG (Vic nt Tablet 300 MG et} [facility]) sacubitril Entres 1.0 active Entresto e CW1 97 MG / to {tabl 97-103 MG (Saint valsartan 97-103 et} [facility]el 103 MG Oral MG Medical Tablet Practice [Entresto] PC) Entresto 97-103 MG clopidogrel Clopid 1.0 active Clopidogr el eCW1 75 MG Oral ogrel {tabl Bisulfate 75 (Saint Tablet Bisulf et} MG [facility] Clopidogrel ate 75 Medica l Bisulfate MG Practice 75 MG PC) apixaban Eliqui active Eliquis 2.5 eCW1 2.5 MG Oral s 2.5 MG (Saint Tablet MG [facility] [Eliquis] Medical Eliquis 2.5 Practice MG PC) 24 HR Isosor 1.0 active Isosorbide eCW1 Isosorbide bide {tabl Mononitrate ( Saint Mononitrate Mononi et_in ER 30 MG J osephs 30 MG trate _the_ Medical Extended ER 30 morni Practice Release MG ng} PC) Oral Tablet Isosorbide Mononitrate ER 30 MG 24 HR Isosor TABLET, active White Isosorbide bide EXTENDED Plain s Mononitrate Mononi RELEASE Hos pital 30 MG trate Extended Release Oral Tablet Insurance Providers Payer name Policy type Policy ID Covered Covered republican's Policy P brandon / Coverage republican ID relationship to Cormier Inf ormation type cormier RONALD CARE [id number] 01 [id number] [place] [employer] [id number] 01 [id number] [facility] [id number] 01 [id number] MEDICAID [id number] PT [id number] [facility] [id number] O [id number] MEDICAID [id number] SP [id number] [facility] [id number] SP [id number] [facility] SELF PAY SP INSURANCE Problems, Conditions, and Diagnoses Code Display Name Description Problem Type Effective Data Dates Source(s) N18.9 [id number] Chronic kidney Problem 03/30/2020 eCW1 (An t disease, 12:00:00 AM [facility] unspecified CKD EDT Medical stage Practice ) Z95.810 [id number] ICD (implantable Problem 03/24/2020 eCW1 (Sa int cardioverter-defib 12:00:00 AM Cam barry rillator) in place EDT Medica l Practice ) I10 Hypertension Uncontrolled Problem 09/04/2018 eCW1 (An t hypertension 12:00:00 AM [facility]) I10 [id number] Essential Problem 09/04/2018 eCW1 ([facility] hypertension 12:00:00 AM [facility]) N18.9 Chronic kidney CHRONIC KIDNEY Diagnosis 03/30/2020 [facility] disease, unspecified DISEASE, 08:36:00 AM Med ical UNSPECIFIED EDT Center Z95.810 Presence of PRESENCE OF Diagnosis 03/30/2020 [facility] Wil bauer automatic AUTOMATIC 08:36:00 AM Medical (implantable) (IMPLANTABLE) EDT Center cardiac CARDIAC defibrillator DEFIBRILLATOR I25.811 Atherosclerosis of ATHSCL [place] [facility] Diagnosis 03/30/2020 [facility] 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 pectoris I63.9 Cerebral infarction, CEREBRAL Diagnosis 03/30/2020 An [facility] unspecified INFARCTION, 08:36:00 AM Medical UNSPECIFIED EDT Center E78.5 Hyperlipidemia, HYPERLIPIDEMIA, Diagnosis 03/30/2020 An [facility] unspecified UNSPECIFIED 08:36:00 AM Medical EDT Center I12.9 Hypertensive chronic HYPERTENSIVE Diagnosis 03/30/2020 Sa karyn Neal kidney disease with CHRONIC KIDNEY 08:36:00 AM Medical stage 1 through DISEASE W STG EDT Center stage 4 chronic 1-4/UNSP CHR KDNY kidney disease, or unspecified chronic kidney disease I50.20 Unspecified systolic UNSPECIFIED Diagnosis 03/30/2020 Vic nt [facility]el (congestive) heart SYSTOLIC 08:36:00 AM Medic al failure (CONGESTIVE) HEART EDT Center FAILURE I10 Essential (primary) ESSENTIAL Diagnosis 03/24/2020 [facility] hypertension (PRIMARY) 09:36:00 AM Medical HYPERTENSION EDT Center Surgeries/Procedures Procedure Description Date Indications Data Source(s) Electrocardiographic procedure 03/11/2020 [place] (procedure) 12:00:00 AM Hospital EDT Plain chest X-ray (procedure) 03/10/2020 [place] 12:00:00 AM Hospital EDT Echography of kidney 03/10/2020 Kang miranda (procedure) 12:00:00 AM Hospital EDT Physical therapy procedure 03/09/2020 W rosalind Sandersons (regime/therapy) 12:00:00 AM Hospital EDT Ultrasound scan of lower limb 03/07/2020 [place] vessels (procedure) 12:00:00 AM Hospital EDT Doppler ultrasound of vessels 03/04/2020 [place] of both lower extremities 12:00:00 AM Ho spital EDT Electrocardiographic procedure 03/04/2020 [place] (procedure) 12:00:00 AM Hospital EDT POSTOP FOLLOW-UP VISIT 03/07/2017 NEXTG EN (Saint 12:00:00 AM [facility] EDT - Center) 03/07/2017 12:00:00 AM EDT Results ID Date Data Source GFR(Creatinine).[id number] 03/30/2020 10:30:00 AM EDT [facility] 0-0400 Name Value Range Interpretation Code Description Data Meka rce(s) Supporting Document(s ) UNK > 60 Below low normal <content [facility] styleCode="Bold"> Medical Cent er EGFR </content>23 GFR L<content styleCode="Italic s"> (> 60 GFR)</content> ID Date Data Source [id number] 03/30/2020 10:30:00 AM EDT [facility] Name Value Range Interpretation Description Data Sup porting Code Source(s) Document(s ) Potassium 3.5-5.3 Above high normal <content [facility] [Moles/volume] styleCode="Lyn Ángel in Serum or d">Potassium Medical Plasma </content>5.7 Center MEQ/L H<content styleCode="Lashawn lics"> (3.5-5.3 MEQ/L)</conten t> Sodium 137-145 <content [facility] [Moles/volume] styleCode="Lyn Ángel in Serum or d">Sodium Medical Plasma </content>140 Center MEQ/L<content styleCode="Lashawn lics"> (137-145 MEQ/L)</conten t> Chloride 98-107 Above high normal <content [facility] [Moles/volume] styleCode="Lyn Ángel in Serum or d">Chloride Medical Plasma </content>111 Center MEQ/L H<content styleCode="Lashawn lics"> (98-107 MEQ/L)</conten t> Carbon 22-30 <content Saint dioxide, total styleCode="Lyn Ángel [Moles/volume] d">Carbon Medical in Serum or Dioxide Center Plasma </content>23 MEQ/L<content styleCode="Lashawn lics"> (22-30 MEQ/L)</conten t> UNK 9-20 Above high normal <content Saint styleCode="Lyn De La Torres d">BUN Medical </content>53 Center MG/DL H<content styleCode="Lashawn lics"> (9-20 MG/DL)</conten t> Glucose 74-106 Above high normal <content Saint [Mass/volume] styleCode="Lyn De La Torres in Serum or d">Glucose Medical Plasma </content>156 Center MG/DL H<content styleCode="Lashawn lics"> (74-106 MG/DL)</conten t> Creatinine 0.5-1.3 Above high normal <content [facility] [Mass/volume] styleCode="Lyn Ángel in Serum or d">Creatinine Medical Plasma </content>3.6 Center MG/DL H<content styleCode="Lashawn lics"> (0.5-1.3 MG/DL)</conten t> Calcium 8.4-10.2 <content [facility] [Mass/volume] styleCode="Lyn De La Torres in Serum or d">Calcium Medical Plasma </content>9.9 Center MG/DL<content styleCode="Lashawn lics"> (8.4-10.2 MG/DL)</conten t> UNK > 60 Below low normal <content Saint styleCode="Lyn De La Torres d">EGFR Medical </content>23 Center GFR L<content styleCode="Lashawn lics"> (> 60 GFR)</content> ID Date Data Source GFR(Creatinine).[id number] 03/24/2020 10:15:00 AM EDT [facility] 0-0400 Name Value Range Interpretation Code Description Data Meka rce(s) Supporting Document(s ) UNK > 60 Below low normal <content [facility] styleCode="Bold"> Medical Cent er EGFR </content>26 GFR L<content styleCode="Italic s"> (> 60 GFR)</content> ID Date Data Source [id number] 03/24/2020 10:15:00 AM EDT [facility] Name Value Range Interpretation Description Data Sup porting Code Source(s) Document(s ) Sodium 137-145 <content [facility] [Moles/volume] styleCode="Lyn Ángel in Serum or d">Sodium Medical Plasma </content>141 Center MEQ/L<content styleCode="Lashawn lics"> (137-145 MEQ/L)</conten t> Potassium 3.5-5.3 Above high normal <content [facility] [Moles/volume] styleCode="Lyn Ángel in Serum or d">Potassium Medical Plasma </content>5.8 Center MEQ/L H<content styleCode="Lashawn lics"> (3.5-5.3 MEQ/L)</conten t> Chloride 98-107 Above high normal <content [facility] [Moles/volume] styleCode="Lyn Ángel in Serum or d">Chloride Medical Plasma </content>111 Center MEQ/L H<content styleCode="Lashawn lics"> (98-107 MEQ/L)</conten t> UNK 9-20 Above high normal <content Saint styleCode="Lyn Ángel d">BUN Medical </content>45 Center MG/DL H<content styleCode="Lashawn lics"> (9-20 MG/DL)</conten t> Carbon 22-30 <content Saint dioxide, total styleCode="Lyn De La Torres [Moles/volume] d">Carbon Medical in Serum or Dioxide Center Plasma </content>24 MEQ/L<content styleCode="Lashawn lics"> (22-30 MEQ/L)</conten t> Creatinine 0.5-1.3 Above high normal <content [facility] [Mass/volume] styleCode="Lyn Ángel in Serum or d">Creatinine Medical Plasma </content>3.2 Center MG/DL H<content styleCode="Lashawn lics"> (0.5-1.3 MG/DL)</conten t> Glucose 74-106 Above high normal <content [facility] [Mass/volume] styleCode="Lyn Ángel in Serum or d">Glucose Medical Plasma </content>150 Center MG/DL H<content styleCode="Lashawn lics"> (74-106 MG/DL)</conten t> UNK > 60 Below low normal <content Saint styleCode="Lyn Ángel d">EGFR Medical </content>26 Center GFR L<content styleCode="Lashawn lics"> (> 60 GFR)</content> Calcium 8.4-10.2 <content [facility] [Mass/volume] styleCode="Lyn Ángel in Serum or d">Calcium Medical Plasma </content>9.9 Center MG/DL<content styleCode="Lashawn lics"> (8.4-10.2 MG/DL)</conten t> ID Date Data Source [id number] 03/16/2020 06:15:00 AM EDT [facility] Name Value Range Interpretation Description Data Sup porting Code Source(s) Document(s ) Magnesium 1.8 mg/dL [place] [Mass/volume] Hospital in Serum or Plasma ID Date Data Source [id number] 03/16/2020 06:15:00 AM EDT [facility] Value Range Interpretation Description Data Sup porting Code Source(s) Document(s ) Calcium 9.0 mg/dL [place] [Mass/volume Hospital ] in Serum or Plasma ID Date Data Source [id number] 03/16/2020 06:15:00 AM [facility] Value Range Interpretation Code Description Data Meka rce(s) Supporting Document(s ) Urea 18.6 [place] nitrogen/[facility] atinine [Mass Ratio] in Serum or Plasma ID Date Data Source [id number] 03/16/2020 06:15:00 AM EDT [facility] Name Value Range Interpretation Description Data Sup porting Code Source(s) Document(s ) Creatinine 3.6 mg/dL [place] [Mass/volume] Hospital in Serum or Plasma ID Date Data Source [id number] 03/16/2020 06:15:00 AM EDT [facility] Value Range Interpretation Description Data Sup porting Code Source(s) Document(s ) Urea 67 mg/dL [place] nitrogen Hospital [Mass/volume ] in Serum or Plasma ID Date Data Source [id number] 03/16/2020 06:15:00 AM EDT [facility] Name Value Range Interpretation Code Description Data Meka rce(s) Supporting Document(s ) Anion gap in 12 [place] Serum or [facility] Plasma ID Date Data Source [id number] 03/16/2020 06:15:00 AM EDT [facility] Name Value Range Interpretation Description Data Sup porting Code Source(s) Document(s ) Carbon 23 mmol/L [place] dioxide, Hospital total [Moles/volu me] in Serum or Plasma ID Date Data Source [id number] 03/16/2020 06:15:00 AM EDT [facility] Value Range Interpretation Description Data Sup porting Code Source(s) Document(s ) Chloride 111 [place] [Moles/volum mmol/L Hospital e] in Serum or Plasma ID Date Data Source [id number] 03/16/2020 06:15:00 AM EDT [facility] Name Value Range Interpretation Description Data Sup porting Code Source(s) Document(s ) Potassium 4.9 [place] [Moles/volume mmol/L Hospital ] in Serum or Plasma ID Date Data Source [id number] 03/16/2020 06:15:00 AM EDT [facility] Name Value Range Interpretation Description Data Sup porting Code Source(s) Document(s ) Sodium 141 mmol/L [place] [Moles/volu Hospital me] in Serum or Plasma ID Date Data Source [id number] 03/16/2020 06:15:00 AM EDT [facility] Name Value Range Interpretation Description Data Sup porting Code Source(s) Document(s ) Glucose 110 mg/dL [place] [Mass/volume Hospital ] in Serum or Plasma ID Date Data Source [id number] 03/[facility] Interpretation Code Description Data Supporting Source(s) Document(s ) NUCLEATED RBCS 0.0 % [place] (AUTO Hospital DIFF%)DIS ID Date Data Source [id number] 03/16[facility]2020 [facility] Interpretation Description Data Sup porting Code Source(s) Document(s ) Differential AUTOMATED [place] cell count [facility] method - Blood ID Date Data Source [id number] 03/16/2020 06:15:00 AM [facility] Value Range Interpretation Description Data Sup porting Code Source(s) Document(s ) Immature 0.02 [place] granulocytes 10*3/uL Hospital [#/volume] in Blood by Automated count ID Date Data Source [id number] 03/16/2020 [facility] Interpretation Description Data Sup porting Code Source(s) Document(s ) Basophils 0.03 [place] [#/volume] in 10*3/uL Hospital Blood by Automated count ID Date Data Source [id number] 03/16/2020 [facility] Interpretation Description Data Sup porting Code Source(s) Document(s ) Eosinophils 0.22 [place] [#/volume] in 10*3/uL Hospital Blood by Automated count ID Date Data Source [id number] 03/16/2020 [facility] Value Range Interpretation Description Data Sup porting Code Source(s) Document(s ) Monocytes 0.94 [place] [#/volume] in 10*3/uL Hospital Blood by Automated count ID Date Data Source [id number] 03/16/2020 06:15:00 AM EDT [facility] Value Range Interpretation Description Data Sup porting Code Source(s) Document(s ) Lymphocytes 2.09 [place] [#/volume] in 10*3/uL Hospital Blood by Automated count ID Date Data Source [id number] 03/16/2020 06:15:00 AM EDT [facility] Value Range Interpretation Description Data Sup porting Code Source(s) Document(s ) Neutrophils 3.66 [place] [#/volume] in 10*3/uL Hospital Blood by Automated count ID Date Data Source [id number] 03/16/2020 06:15:00 AM EDT [facility] Value Range Interpretation Description Data Sup porting Code Source(s) Document(s ) Nucleated 0.0 % [place] erythrocytes/10 Hospital 0 leukocytes [Ratio] in Blood by Automated count ID Date Data Source [id number] 03/16/2020 06:15:00 AM EDT [facility] Value Range Interpretation Description Data Sup porting Code Source(s) Document(s ) Immature 0.3 % [place] granulocytes/10 Hospital 0 leukocytes in Blood by Automated count ID Date Data Source [id number] 03/16/2020 06:15:00 AM EDT [facility] Value Range Interpretation Description Data Sup porting Code Source(s) Document(s ) Basophils/100 0.4 % [place] leukocytes in Hospital Blood by Automated count ID Date Data Source [id number] 03/16/2020 06:15:00 AM EDT [facility] Value Range Interpretation Description Data Sup porting Code Source(s) Document(s ) Eosinophils/100 3.2 % [place] leukocytes in Hospital Blood by Automated count ID Date Data Source [id number] 03/16/2020 06:15:00 AM EDT [facility] Value Range Interpretation Description Data Sup porting Code Source(s) Document(s ) Monocytes/100 13.5 % [place] leukocytes in Hospital Blood by Automated count ID Date Data Source [id number] 03/16/2020 06:15:00 AM EDT [facility] Value Range Interpretation Description Data Sup porting Code Source(s) Document(s ) Lymphocytes/10 30.0 % [place] 0 leukocytes Hospital in Blood by Automated count ID Date Data Source [id number] 03/16/2020 06:15:00 AM EDT [facility] Value Range Interpretation Description Data Sup porting Code Source(s) Document(s ) Neutrophils/10 52.6 % [place] 0 leukocytes Hospital in Blood by Automated count ID Date Data Source [id number] 03/16/2020 06:15:00 AM EDT [facility] Value Range Interpretation Description Data Sup porting Code Source(s) Document(s ) Platelet mean 11.0 fL [place] volume Hospital [Entitic volume] in Blood by Automated count ID Date Data Source [id number] 03/16/2020 06:15:00 AM EDT [facility] Value Range Interpretation Description Data Sup porting Code Source(s) Document(s ) Platelets 190 [place] [#/volume] in 10*3/uL Hospital Blood by Automated count ID Date Data Source [id number] 03/16/2020 06:15:00 AM EDT [facility] Value Range Interpretation Description Data Sup porting Code Source(s) Document(s ) Erythrocyte 12.8 % [place] distribution Hospital width [Ratio] by Automated count ID Date Data Source [id number] 03/16/2020 06:15:00 AM EDT [facility] Value Range Interpretation Description Data Sup porting Code Source(s) Document(s ) Erythrocyte mean 32.6 [place] corpuscular g/dL Hospital hemoglobin concentration [Mass/volume] by Automated count ID Date Data Source [id number] 03/16/2020 06:15:00 AM EDT [facility] Value Range Interpretation Description Data Sup porting Code Source(s) Document(s ) Erythrocyte 30.5 pg [facility] corpuscular hemoglobin [Entitic mass] by Automated count ID Date Data Source [id number] 03/16/2020 06:15:00 AM EDT [facility] Value Range Interpretation Description Data Sup porting Code Source(s) Document(s ) Erythrocyte 93.7 fL [facility] corpuscular volume [Entitic volume] by Automated count ID Date Data Source [id number] 03/16/2020 06:15:00 AM EDT [facility] Value Range Interpretation Description Data Sup porting Code Source(s) Document(s ) Hematocrit 34.1 % [place] [Volume Hospital Fraction] of Blood by Automated count ID Date Data Source [id number] 03/16/2020 [facility] Interpretation Description Data Sup porting Code Source(s) Document(s ) Hemoglobin 11.1 g/dL [place] [Mass/volume] Hospital in Blood ID Date Data Source [id number] 03/16/2020 06:15:00 AM EDT [facility] Value Range Interpretation Description Data Sup porting Code Source(s) Document(s ) Erythrocytes 3.64 [place] [#/volume] in 10*6/uL Hospital Blood by Automated count ID Date Data Source [id number] 03/16/2020 06:15:00 AM EDT [place] [facility] Name Value Range Interpretation Description Data Sup porting Code Source(s) Document(s ) Leukocytes 7.0 [place] [#/volume] in 10*3/uL Hospital Blood by Automated count ID Date Data Source [id number] 03/14/2020 [facility]44[facility] THERAPEUTIC RANGE FOR STANDARD ORALANTIC OAGULANT THERAPY: 2.0-3.0THERAPEUTIC RANGE FOR HIGH DOSE ORALANTICOAGULANT THERAPY (MECHANICAL HEARTVALVE REPLACEMENT): 2.5-3.5 Name Value Range Interpretation Description Data Sup porting Code Source(s) Document(s ) INR in Platelet 2.1 [place] poor plasma by Hospital Coagulation assay ID Date Data Source [id number] 03/14/2020 [facility]44[facility] Name Value Range Interpretation Description Data Sup porting Code Source(s) Document(s ) PT panel - 24.3 s [place] Platelet poor [facility] plasma by Coagulation assay ID Date Data Source [id number] 03/11/2020 02:26:00 [facility] Toppiece Cutter:CARMEN MILNER Name Value Range Interpretation Description Data Sup porting Code Source(s) Document(s ) Glucose 104 mg/dL [place] [Mass/volume] [facility] in Capillary blood by Glucometer ID Date Data Source [id number] 03/11/2020 12:30:00 [facility] This test was developed and its analytic al performancecharacteristics have been determined by [facility]. It has not beencleared or approved by FDA. This ass ay has been validatedpursuant to the CLIA regulations and is used for clinicalpurp oses. Test performed by: [facility] [id number] [id number] Continuous Improvement Manager: Севтлана Muniz MD Name Value Range Interpretation Code Description Data Meka rce(s) Supporting Document(s ) Renin 0.54 [place] [Enzymatic Hospital activity/vol ume] in Plasma ID Date Data Source [id number] 03/11/2020 08:40:00 AM [facility] Name Value Range Interpretation Description Data Sup porting Code Source(s) Document(s ) URINE TP/CR 0.78 [place] RANDOM {ratio} Hospital RATIO ID Date Data Source [id number] 03/11/2020 08:40:00 AM [facility] THERE ARE NO REFERENCE RANGES FOR RANDOM URINES. Name Value Range Interpretation Description Data Sup porting Code Source(s) Document(s ) Creatinine 100.0 [place] [Mass/volume] mg/dL Hospital in Urine ID Date Data Source [id number] 03/11/2020 08:40:00 AM [facility] THERE ARE NO REFERENCE RANGES FOR RANDOM URINES. Name Value Range Interpretation Description Data Sup porting Code Source(s) Document(s ) Protein 78.3 [place] [Mass/volume mg/dL Hospital ] in Urine ID Date Data Source [id number] 03/11/2020 07:22:00 AM [facility] REVIEWED BY MINDA WILSON MD Name Value Range Interpretation Description Data Sup porting Code Source(s) Document(s ) BREANA SESAY NO White INTERPRETATION MONOCLONAL [place] IDENT Hospital ID Date Data Source [id number] 03/11/2020 07:22:00 AM [facility] Name Value Range Interpretation Code Description Data Supporting Source(s) Document(s ) IgM 85 mg/dL [place] [Mass/volum Hospital e] in Serum or Plasma ID Date Data Source [id number] 03/11/2020 07:22:00 AM [facility] Name Value Range Interpretation Description Data Sup porting Code Source(s) Document(s ) IgA 301 mg/dL [place] [Mass/volum Hospital e] in Serum or Plasma ID Date Data Source [id number] 03/11/2020 [facility] Name Value Range Interpretation Description Data Sup porting Code Source(s) Document(s ) IgG 1260 mg/dL [place] [Mass/volum Hospital e] in Serum or Plasma ID Date Data Source [id number] 03/11/2020 07:22:00 AM EDT [facility] REVIEWED BY MINDA WILSON MD Name Value Range Interpretation Description Data Sup porting Code Source(s) Document(s ) SPE MD NORMAL [place] INTP/ABN PATTERN Hospital REFLEX TO SIF ID Date Data Source [id number] 03/11/2020 [facility] Name Value Range Interpretation Description Data Sup porting Code Source(s) Document(s ) GAMMA 1.2 g/dL [place] GLOBULIN Hospital ID Date Data Source [id number] 03/11/2020 [facility] Name Value Range Interpretation Description Data Sup porting Code Source(s) Document(s ) BETA 1.1 g/dL [place] GLOBULIN Hospital ID Date Data Source [id number] 03/11/2020 [facility] Name Value Range Interpretation Description Data Sup porting Code Source(s) Document(s ) ALPHA-2 0.8 g/dL [place] GLOBULIN Hospital ID Date Data Source [id number] 03/11/2020 07[facility]22[facility] Name Value Range Interpretation Description Data Sup porting Code Source(s) Document(s ) ALPHA-1 0.2 g/dL [place] GLOBULIN Hospital ID Date Data Source [id number] 03/11/2020 07:22:00 AM EDT [facility] Name Value Range Interpretation Description Data Sup porting Code Source(s) Document(s ) ALBUMIN 3.2 g/dL [place] (GM/DL) Hospital ID Date Data Source [id number] 03/11/2020 07:22:00 AM EDT [facility] Value Range Interpretation Code Description Data Supporting Source(s) Document(s ) A:G RATIO 1.0 [place] (ELECTROPH {ratio} Hospital [facility]) ID Date Data Source [id number] 03/11/2020 07:22:00 AM EDT [facility] Value Range Interpretation Code Description Data Supporting Source(s) Document(s ) GAMMA 18.3 % [place] GLOBULIN % Hospital ID Date Data Source [id number] 03/11/2020 07:22:00 AM EDT [facility] Value Range Interpretation Code Description Data Supporting Source(s) Document(s ) BETA GLOBULIN 16.5 % [place] % Hospital ID Date Data Source [id number] 03/11/2020 07:22:00 AM EDT [facility] Value Range Interpretation Code Description Data Meka rce(s) Supporting Document(s ) ALPHA-2 % 12.8 % [place] Hospital ID Date Data Source [id number] 03/11/2020 07:22:00 AM EDT [facility] Name Value Range Interpretation Code Description Data Meka rce(s) Supporting Document(s ) ALPHA-1 % 3.7 % [place] Hospital ID Date Data Source [id number] 03/11/2020 07:22:00 AM EDT [facility] Value Range Interpretation Code Description Data Meka rce(s) Supporting Document(s ) ALBUMIN 48.7 % [place] (SPE) % Hospital ID Date Data Source [id number] 03/11/2020 07:22:00 AM EDT [facility] Name Value Range Interpretation Description Data Sup porting Code Source(s) Document(s ) Protein 6.5 g/dL [place] [Mass/volume Hospital ] in Serum or Plasma ID Date Data Source [id number] 03/10/2020 05:52:00 AM EDT [facility] Name Value Range Interpretation Description Data Sup porting Code Source(s) Document(s ) Parathyrin. 82.7 pg/mL [facility] [Mass/volum e] in Serum or Plasma ID Date Data Source [id number] 03/10/2020 05:52[facility] Name Value Range Interpretation Description Data Sup porting Code Source(s) Document(s ) Phosphate 5.4 mg/dL [place] [Mass/volume] Hospital in Serum or Plasma ID Date Data Source [id number] 03/10/2020 05:52:00 AM [facility] THERAPEUTIC RANGES:UNFRACTIONATED HEPARI N THERAPY: 60-90 SECONDSARGATROBAN THERAPY: 49-99 SECONDS Name Value Range Interpretation Description Data Sup porting Code Source(s) Document(s ) aPTT in 74.7 s [place] Platelet poor [facility] plasma by Coagulation assay ID Date Data Source [id number] 03/07/2020 06:20:00 AM [facility] SEE NOTERESULT: NEGATIVEInterpretation: DNA testing indicates that this individualis negative for the C282Y and H63D pathogen ic variants inthe HFE gene. This negative result significantly reduces thelikeliho od of hereditary hemochromatosis (HH) in this individual. However, it does not rule ou t the presence of other pathogenic variants within the HFE gene or a diagnosis of HH . The risk of this individual to carry an HFE pathogenic variant other than those test ed in this assay depends greatly on family and clinical history as well as ethnicit y. This assay does not test for other primary or secondary iron overload disorders.Lab oratory results and submitted clinical information reviewed by Trang Tinsley MD, PhD, [facility], [facility].DETAILED ASSAY INFORMATION: Hereditary hemochromatosis (HH) is an au tosomal recessive disorder of iron metabolism that can result in iron overload and pot ential organ failure. It is one of the most common genetic disorders in individuals of - ancestry, with an estimated carrier frequency of 10%. HH i s caused by pathogenic variants in the HFE gene. Most individuals with HH (60-90%) are homozygous for the C282Y pathogenic variant. A smaller percentage of affecte d individuals are either compound heterozygous for the C282Y and H63D path ogenic variants (3%-8%), or homozygous for the H63D pathogenic variant (approximate ly 1%).METHODOLOGY: This assay detects two pathogenic variants in the HFE gene, C28 2Y (NM 952814.2: c.845G>A, p.Vze037Vdj) and H63D (NM 467740.2: c.187C>G, p.Vsx26Hwa) , that are commonly associated with HH. These variants are detected by multiplex-polym erase chain reaction (PCR) amplification, followed by restriction enzyme digestion and capillary electrophoresis.LIMITATIONS: This assay does not detect other pathoge james variants in the HFE gene that may be associated with HH. Although rare, false positive or false negative results may occur. All results should be interpreted in the context of clinical findings, relevant history, and other laboratory d enrique.Health care providers, please contact your local [facility] genetic co unselor or call [phone] ( [phone] for assistance with the interpretation of these results.This test was developed and its analytical perform ance characteristics have been determined by [facility]. It has not been cleared or approved by FDA. This assay has been marybeth idated pursuant to the CLIA regulations and is used for clinical purposes.For more i nformation, please refer to http://education.[employer]/fa q/hemochromatos (This link is being provided for informational/educational purposes o nly.)Test performed by:[facility], [place] [id number] Director: Светлана Muniz MD Name Value Range Interpretation Description Data Sup porting Code Source(s) Document(s ) DNA MUTATION SEE NOTE [place] ANALYSIS Hospital ID Date Data Source [id number] 03/07/2020 06:20:00 AM EDT [facility] Name Value Range Interpretation Description Data Sup porting Code Source(s) Document(s ) Folate 7.4 ng/mL [place] [Mass/volum Hospital e] in Serum or Plasma ID Date Data Source [id number] 03/07/2020 06:20:00 AM EDT [facility] Name Value Range Interpretation Description Data Sup porting Code Source(s) Document(s ) Cobalamin 512 pg/mL [place] (Vitamin B12) Hospital [Mass/volume] in Serum or Plasma ID Date Data Source [id number] 03/05/2020 06:24:00 AM EDT [facility] Name Value Range Interpretation Description Data Sup porting Code Source(s) Document(s ) Ferritin 315.0 [place] [Mass/volume ng/mL Hospital ] in Serum or Plasma ID Date Data Source [id number] 03/05/2020 06:24:00 AM EDT [facility] Name Value Range Interpretation Description Data Sup porting Code Source(s) Document(s ) Iron saturation 57 % [place] [Mass Fraction] Hospital in Serum or Plasma ID Date Data Source [id number] 03/05/2020 06:24:00 AM EDT [facility] Name Value Range Interpretation Description Data Sup porting Code Source(s) Document(s ) UNSAT IRON 104 ug/dL [place] BINDING Hospital CAPACITY ID Date Data Source [id number] 03/05/2020 06:24:00 AM EDT [facility] Name Value Range Interpretation Description Data Sup porting Code Source(s) Document(s ) Iron binding 246 ug/dL [facility] [Mass/volume ] in Serum or Plasma ID Date Data Source [id number] 03/05/2020 06:24:00 AM EDT [facility] Name Value Range Interpretation Description Data Sup porting Code Source(s) Document(s ) Iron 142 ug/dL [place] [Mass/volum Hospital e] in Serum or Plasma ID Date Data Source [id number] 03/02/2020 12:35:00 PM EDT [facility] Name Value Range Interpretation Description Data Sup porting Code Source(s) Document(s ) SARS [facility] coronavirus 2 RNA This lab was ordered by [facility] and reported by [facility]. ID Date Data Source [id number] 02/23/2020 10:05:00 AM EDT [facility] Name Value Range Interpretation Description Data Sup porting Code Source(s) Document(s ) SARS [facility] coronavirus 2 RNA This lab was ordered by [facility] and reported by [facility]. ID Date Data Source [id number] 01/20/2020 03:30:00 PM EDT [facility] Name Value Range Interpretation Description Data Sup porting Code Source(s) Document(s ) SARS [facility] CORONAVIRUS 2 RNA This lab was ordered by [facility] and reported by [facility]. ID Date Data Source Liver Profile 08/25/2018 05:52:00 AM [facility] Name Value Range Interpretation Description Data Sup porting Code Source(s) Document(s ) Alanine 7-50 <content [facility] aminotransferase styleCode="Bold"> [facility] [Enzymatic Alanine Medical activity/volume] Aminotransferase Center in Serum or Plasma (ALT) </content>16 IU/L<content styleCode="Italic s"> (7-50 IU/L)</content> Aspartate 17-59 <content [facility] aminotransferase styleCode="Bold"> [facility] [Enzymatic Aspartate Medical activity/volume] Aminotransferase Center in Serum or Plasma (AST) </content>17 IU/L<content styleCode="Italic s"> (17-59 IU/L)</content> Bilirubin.total 0.2-1.3 <content [facility] [Mass/volume] in styleCode="Bold"> [facility] Serum or Plasma Bilirubin Total Medical </content>0.6 Center MG/DL<content styleCode="Italic s"> (0.2-1.3 MG/DL)</content> Alkaline 38-126 <content [facility] phosphatase styleCode="Bold"> [place] [Enzymatic Alkaline Medical activity/volume] Phosphatase (ALP) Cente r in Serum or Plasma </content>116 IU/L<content styleCode="Italic s"> (38-126 IU/L)</content> Albumin 3.5-5.0 <content [facility] [Mass/volume] in styleCode="Bold"> [facility] Serum or Plasma Albumin Medical </content>3.5 Center G/DL<content styleCode="Italic s"> (3.5-5.0 G/DL)</content> Alanine 7-50 <content [facility] aminotransferase styleCode="Bold"> [facility] [Enzymatic Alanine Medical activity/volume] Aminotransferase Center in Serum or Plasma (ALT) </content>24 IU/L<content styleCode="Italic s"> (7-50 IU/L)</content> Aspartate 17-59 <content [facility] aminotransferase styleCode="Bold"> Cam hs [Enzymatic Aspartate Medical activity/volume] Aminotransferase Center in Serum or Plasma (AST) </content>48 IU/L<content styleCode="Italic s"> (17-59 IU/L)</content> Albumin 3.5-5.0 Below low <content [facility] [Mass/volume] in normal styleCode="Bold"> Cam hs Serum or Plasma Albumin Medical </content>3.4 Center G/DL L<content styleCode="Italic s"> (3.5-5.0 G/DL)</content> Bilirubin.total 0.2-1.3 <content [facility] [Mass/volume] in styleCode="Bold"> Cam hs Serum or Plasma Bilirubin Total Medical </content>0.7 Center MG/DL<content styleCode="Italic s"> (0.2-1.3 MG/DL)</content> Alkaline 38-126 <content [facility] phosphatase styleCode="Bold"> Ángel [Enzymatic Alkaline Medical activity/volume] Phosphatase (ALP) Cente r in Serum or Plasma </content>102 IU/L<content styleCode="Italic s"> (38-126 IU/L)</content> ID Date Data Source HematologyRou 08/25/2018 05:52:00 AM EST [facility] Name Value Range Interpretation Description Data Sup porting Code Source(s) Document(s ) Leukocytes 4.4-11.0 <content [facility] [#/volume] in styleCode="Bold Ángel Blood by ">White Blood Medical Automated count Cell Count Center </content>7.07 KCUMM<content styleCode="Ital ics"> (4.4-11.0 KCUMM)</content > Erythrocytes 4.4-5.9 <content [facility] [#/volume] in styleCode="Bold Ángel Blood by ">Red Blood Medical Automated count Cell Count Center </content>4.82 MCUMM<content styleCode="Ital ics"> (4.4-5.9 MCUMM)</content > Hemoglobin 13.5-17. <content [facility] [Mass/volume] in 5 styleCode="Bold Ángel Blood ">Hemoglobin Medical </content>15.3 Center G/DL<content styleCode="Ital ics"> (13.5-17.5 G/DL)</content> Erythrocyte mean 26.0-34. <content [facility] corpuscular 0 styleCode="Bold Ángel hemoglobin ">Mean Medical [Entitic mass] Corposcular Center by Automated Hemoglobin count </content>31.7 PG<content styleCode="Ital ics"> (26.0-34.0 PG)</content> Erythrocyte mean 32.0-37. <content [facility] corpuscular 0 styleCode="Bold Ángel hemoglobin ">Mean Corpus. Medical concentration Hgb Center [Mass/volume] by Concentration Automated count (MCHC) </content>34.8 G/DL<content styleCode="Ital ics"> (32.0-37.0 G/DL)</content> Erythrocyte mean 80.0-100 <content [facility] corpuscular .0 styleCode="Bold Ángel volume [Entitic ">Mean Medical volume] by Corpuscular Center Automated count Volume </content>91.3 FL<content styleCode="Ital ics"> (80.0-100.0 FL)</content> Hematocrit 41.0-53. <content [facility] [Volume 0 styleCode="Bold Ángel Fraction] of ">Hematocrit Medical Blood by </content>44.0 Center Automated count %<content styleCode="Ital ics"> (41.0-53.0 %)</content> Platelet mean 8.0-11.0 Above high <content [facility] volume [Entitic normal styleCode="Bold Ángel volume] in Blood ">Mean Platelet Medical by Automated Volume Center count </content>13.0 FL H<content styleCode="Ital ics"> (8.0-11.0 FL)</content> Neutrophils 36-66 <content [facility] [#/volume] in styleCode="Bold Ángel Blood by ">Neutrophil Medical Automated count </content>53.2 Center %<content styleCode="Ital ics"> (36-66 %)</content> Platelets 130-400 <content [facility] [#/volume] in styleCode="Bold Ángel Blood by ">Platelet Medical Automated count Count Center </content>135 KCUMM<content styleCode="Ital ics"> (130-400 KCUMM)</content > Erythrocyte 11.5-14. <content [facility] distribution 5 styleCode="Bold Ángel width [Ratio] by ">Red Cell Medical Automated count Distribution Center Width </content>12.3 %<content styleCode="Ital ics"> (11.5-14.5 %)</content> UNK 1.6-7.3 <content [facility] styleCode="Bold Ángel ">Neutrophil Medical Count Center </content>3.76 KCUMM<content styleCode="Ital ics"> (1.6-7.3 KCUMM)</content > Lymphocytes 24.0-44. <content [facility] [#/volume] in 0 styleCode="Bold Ángel Blood by ">Lymphocyte Medical Automated count </content>30.6 Center %<content styleCode="Ital ics"> (24.0-44.0 %)</content> UNK 1.0-4.8 <content [facility] styleCode="Bold Ángel ">Lymphocyte Medical Count Center </content>2.16 KCUMM<content styleCode="Ital ics"> (1.0-4.8 KCUMM)</content > Eosinophils 0-5.0 <content [facility] [#/volume] in styleCode="Bold [facility]el Blood by ">Eosinophil Medical Automated count </content>1.1 Center %<content styleCode="Ital ics"> (0-5.0 %)</content> UNK 0.0-0.6 <content [facility] styleCode="Bold Ángel ">Eosinophil Medical Count Center </content>0.08 KCUMM<content styleCode="Ital ics"> (0.0-0.6 KCUMM)</content > UNK 0.2-0.9 Above high <content [facility] normal styleCode="Bold Ángel ">Monocyte Medical Count Center </content>1.02 KCUMM H<content styleCode="Ital ics"> (0.2-0.9 KCUMM)</content > Monocytes 3.0-10.0 Above high <content [facility] [#/volume] in normal styleCode="Bold Ángel Blood by ">Monocyte Medical Automated count </content>14.4 Center % H<content styleCode="Ital ics"> (3.0-10.0 %)</content> UNK 0.0 <content [facility] styleCode="Bold Ángel ">Nucleated Red Medical Blood Cell Center Count </content>0.00 KCUMM<content styleCode="Ital ics"> (0.0 KCUMM)</content > Basophils 0.0-1.0 <content [facility] [#/volume] in styleCode="Bold Ángel Blood by ">Basophil Medical Automated count </content>0.6 Center %<content styleCode="Ital ics"> (0.0-1.0 %)</content> UNK 0 <content [facility] styleCode="Bold Ángel ">Nucleated Red Medical Blood Cell Center </content>0.0 /100<content styleCode="Ital ics"> (0 /100)</content> UNK 0.0-0.3 <content [facility] styleCode="Bold Ángel ">Basophil Medical Count Center </content>0.04 KCUMM<content styleCode="Ital ics"> (0.0-0.3 KCUMM)</content > UNK 1.6-7.1 Above high <content [facility] normal styleCode="Bold Ángel ">Immature Medical Platelet Center Fraction </content>8.7 % H<content styleCode="Ital ics"> (1.6-7.1 %)</content> UNK < 1 <content [facility] styleCode="Bold Ángel ">Immature Medical Granulocyte Center Ratio </content>0.1 %<content styleCode="Ital ics"> (< 1 %)</content> UNK 0-0.1 <content [facility] styleCode="Bold Ángel ">Immature Medical Granulocyte Center Count </content>0.01 KCUMM<content styleCode="Ital ics"> (0-0.1 KCUMM)</content > Erythrocytes 4.4-5.9 <content [facility] [#/volume] in styleCode="Bold Ángel Blood by ">Red Blood Medical Automated count Cell Count Center </content>4.89 MCUMM<content styleCode="Ital ics"> (4.4-5.9 MCUMM)</content > Leukocytes 4.4-11.0 <content [facility] [#/volume] in styleCode="Bold Ángel Blood by ">White Blood Medical Automated count Cell Count Center </content>6.96 KCUMM<content styleCode="Ital ics"> (4.4-11.0 KCUMM)</content > Erythrocyte mean 32.0-37. <content [facility] corpuscular 0 styleCode="Bold Ángel hemoglobin ">Mean Corpus. Medical concentration Hgb Center [Mass/volume] by Concentration Automated count (MCHC) </content>34.2 G/DL<content styleCode="Ital ics"> (32.0-37.0 G/DL)</content> Erythrocyte mean 26.0-34. <content [facility] corpuscular 0 styleCode="Bold Ángel hemoglobin ">Mean Medical [Entitic mass] Corposcular Center by Automated Hemoglobin count </content>30.9 PG<content styleCode="Ital ics"> (26.0-34.0 PG)</content> Erythrocyte mean 80.0-100 <content [facility] corpuscular .0 styleCode="Bold Ángel volume [Entitic ">Mean Medical volume] by Corpuscular Center Automated count Volume </content>90.2 FL<content styleCode="Ital ics"> (80.0-100.0 FL)</content> Hematocrit 41.0-53. <content [facility] [Volume 0 styleCode="Bold Ángel Fraction] of ">Hematocrit Medical Blood by </content>44.1 Center Automated count %<content styleCode="Ital ics"> (41.0-53.0 %)</content> Hemoglobin 13.5-17. <content [facility] [Mass/volume] in 5 styleCode="Bold Ángel Blood ">Hemoglobin Medical </content>15.1 Center G/DL<content styleCode="Ital ics"> (13.5-17.5 G/DL)</content> UNK 0 <content [facility] styleCode="Bold Ángel ">Nucleated Red Medical Blood Cell Center </content>0.0 /100<content styleCode="Ital ics"> (0 /100)</content> Platelet mean 8.0-11.0 Above high <content [facility] volume [Entitic normal styleCode="Bold Ángel volume] in Blood ">Mean Platelet Medical by Automated Volume Center count </content>12.6 FL H<content styleCode="Ital ics"> (8.0-11.0 FL)</content> Platelets 130-400 <content [facility] [#/volume] in styleCode="Bold Ángel Blood by ">Platelet Medical Automated count Count Center </content>134 KCUMM<content styleCode="Ital ics"> (130-400 KCUMM)</content > Erythrocyte 11.5-14. <content [facility] distribution 5 styleCode="Bold Ángel width [Ratio] by ">Red Cell Medical Automated count Distribution Center Width </content>12.5 %<content styleCode="Ital ics"> (11.5-14.5 %)</content> UNK 0.0 <content [facility] styleCode="Bold Ángel ">Nucleated Red Medical Blood Cell Center Count </content>0.00 KCUMM<content styleCode="Ital ics"> (0.0 KCUMM)</content > ID Date Data Source GFR(Creatinine) 08/25/2018 05:52:00 AM [facility] Name Value Range Interpretation Code Description Data Meka rce(s) Supporting Document(s ) UNK > 60 <content [facility] styleCode="Bold"> Medical Cent er EGFR </content>63 GFR<content styleCode="Italic s"> (> 60 GFR)</content> UNK > 60 <content [facility] styleCode="Bold"> Medical Cent er EGFR </content>68 GFR<content styleCode="Italic s"> (> 60 GFR)</content> ID Date Data Source Coagulation Rout 08/25/2018 05:52:00 AM [facility] Name Value Range Interpretation Description Data Sup porting Code Source(s) Document(s ) UNK 9.0-13.0 <content [facility] styleCode="Bold" Ángel >Protime Medical </content>11.7 Center SEC<content styleCode="Itali cs"> (9.0-13.0 SEC)</content> aPTT in 25.1-36. <content [facility] Platelet poor 5 styleCode="Bold" Ángel plasma by >Partial Medical Coagulation Thromboplastin Center assay Time </content>31.1 SEC<content styleCode="Itali cs"> (25.1-36.5 SEC)</content> INR in 0.80-1.2 <content [facility] Platelet poor 0 styleCode="Bold" Ángel plasma by >INR Medical Coagulation </content>1.03 Center assay #<content styleCode="Itali cs"> (0.80-1.20 #)</content> aPTT in 25.1-36. <content [facility] Platelet poor 5 styleCode="Bold" Ángel plasma by >Partial Medical Coagulation Thromboplastin Center assay Time </content>31.8 SEC<content styleCode="Itali cs"> (25.1-36.5 SEC)</content> INR in 0.80-1.2 <content [facility] Platelet poor 0 styleCode="Bold" Ángel plasma by >INR Medical Coagulation </content>1.12 Center assay #<content styleCode="Itali cs"> (0.80-1.20 #)</content> UNK 9.0-13.0 <content [facility] styleCode="Bold" Ángel >Protime Medical </content>12.7 Center SEC<content styleCode="Itali cs"> (9.0-13.0 SEC)</content> ID Date Data Source CHMROUTINECCDA 08/25/2018 05:52:00 AM EST [facility] Name Value Range Interpretation Description Data Sup porting Code Source(s) Document(s ) UNK 2.3-3.5 <content [facility] styleCode="Lyn De La Torres d">Globulin Medical </content>2.8 Center G/DL<content styleCode="Lashawn lics"> (2.3-3.5 G/DL)</content > UNK >= 1.0 <content [facility] styleCode="Lyn De La Torres d">AG Ratio Medical </content>1.2 Center NM<content styleCode="Lashawn lics"> (>= 1.0 NM)</content> Phosphate 2.5-4.5 <content [facility] [Mass/volume] styleCode="Lyn Ángel in Serum or d">Phosphorus Medical Plasma </content>3.3 Center MG/DL<content styleCode="Lashawn lics"> (2.5-4.5 MG/DL)</conten t> Magnesium 1.6-2.3 <content [facility] [Mass/volume] styleCode="Lyn Ángel in Serum or d">Magnesium Medical Plasma </content>1.9 Center MG/DL<content styleCode="Lashawn lics"> (1.6-2.3 MG/DL)</conten t> Protein 6.3-8.2 <content [facility] [Mass/volume] styleCode="Lyn Ángel in Serum or d">Total Medical Plasma Protein Center </content>6.3 G/DL<content styleCode="Lashawn lics"> (6.3-8.2 G/DL)</content > UNK >= 1.0 <content [facility] styleCode="Lyn Ángel d">AG Ratio Medical </content>1.4 Center NM<content styleCode="Lashawn lics"> (>= 1.0 NM)</content> Protein 6.3-8.2 Below low normal <content [facility] [Mass/volume] styleCode="Lyn Ángel in Serum or d">Total Medical Plasma Protein Center </content>5.9 G/DL L<content styleCode="Lashawn lics"> (6.3-8.2 G/DL)</content > Phosphate 2.5-4.5 <content [facility] [Mass/volume] styleCode="Lyn Ángel in Serum or d">Phosphorus Medical Plasma </content>3.3 Center MG/DL<content styleCode="Lashawn lics"> (2.5-4.5 MG/DL)</conten t> Magnesium 1.6-2.3 <content [facility] [Mass/volume] styleCode="Lyn De La Torres in Serum or d">Magnesium Medical Plasma </content>1.8 Center MG/DL<content styleCode="Lashawn lics"> (1.6-2.3 MG/DL)</conten t> UNK 2.3-3.5 <content [facility] styleCode="Lyn De La Torres d">Globulin Medical </content>2.5 Center G/DL<content styleCode="Lashawn lics"> (2.3-3.5 G/DL)</content > ID Date Data Source CardiacMarkers 08/25/2018 05:52:00 AM EST [facility] Name Value Range Interpretation Description Data Sup porting Code Source(s) Document(s ) Troponin 0-0.034 Above upper panic <content [facility] I.cardiac limits styleCode="Erick Ángel [Mass/volume ">Troponin I Medical ] in Serum </content><cont Center or Plasma ent styleCode="Bold ">0.989 NG/ML HH</content><co ntent styleCode="Ital ics"> (0-0.034 NG/ML)</content > Troponin 0-0.034 Above upper panic <content [facility] I.cardiac limits styleCode="Bold Ángel [Mass/volume ">Troponin I Medical ] in Serum </content><cont Center or Plasma ent styleCode="Bold ">3.72 NG/ML HH</content><co ntent styleCode="Ital ics"> (0-0.034 NG/ML)</content > ID Date Data Source BMP 08/25/2018 05:52:00 AM EST [facility] Name Value Range Interpretation Description Data Sup porting Code Source(s) Document(s ) Sodium 137-145 <content [facility] [Moles/volume] in styleCode="Bold"> [facility] Serum or Plasma Sodium Medical </content>138 Center MEQ/L<content styleCode="Italic s"> (137-145 MEQ/L)</content> Chloride 98-107 Above high <content [facility] [Moles/volume] in normal styleCode="Bold"> [facility] Serum or Plasma Chloride Medical </content>109 Center MEQ/L H<content styleCode="Italic s"> (98-107 MEQ/L)</content> Carbon dioxide, 22-30 <content [facility] total styleCode="Bold"> Ángel [Moles/volume] in Carbon Dioxide Medical Serum or Plasma </content>22 Center MEQ/L<content styleCode="Italic s"> (22-30 MEQ/L)</content> Potassium 3.5-5.3 <content [facility] [Moles/volume] in styleCode="Bold"> [facility] Serum or Plasma Potassium Medical </content>4.6 Center MEQ/L<content styleCode="Italic s"> (3.5-5.3 MEQ/L)</content> Calcium 8.4-10. <content [facility] [Mass/volume] in 2 styleCode="Bold"> Cam hs Serum or Plasma Calcium Medical </content>9.3 Center MG/DL<content styleCode="Italic s"> (8.4-10.2 MG/DL)</content> Creatinine 0.5-1.3 Above high <content [facility] [Mass/volume] in normal styleCode="Bold"> Cam hs Serum or Plasma Creatinine Medical </content>1.5 Center MG/DL H<content styleCode="Italic s"> (0.5-1.3 MG/DL)</content> UNK 9-20 Above high <content [facility] normal styleCode="Bold"> Ángel BUN </content>36 Medical MG/DL H<content Center styleCode="Italic s"> (9-20 MG/DL)</content> UNK > 60 <content [facility] styleCode="Bold"> Ángel EGFR </content>63 Medical GFR<content Center styleCode="Italic s"> (> 60 GFR)</content> Glucose 74-106 Above high <content [facility] [Mass/volume] in normal styleCode="Bold"> Cam hs Serum or Plasma Glucose Medical </content>117 Center MG/DL H<content styleCode="Italic s"> (74-106 MG/DL)</content> Alkaline 38-126 <content [facility] phosphatase styleCode="Bold"> Ángel [Enzymatic Alkaline Medical activity/volume] Phosphatase (ALP) Cente r in Serum or Plasma </content>116 IU/L<content styleCode="Italic s"> (38-126 IU/L)</content> Bilirubin.total 0.2-1.3 <content [facility] [Mass/volume] in styleCode="Bold"> Cam hs Serum or Plasma Bilirubin Total Medical </content>0.6 Center MG/DL<content styleCode="Italic s"> (0.2-1.3 MG/DL)</content> Aspartate 17-59 <content [facility] aminotransferase styleCode="Bold"> Cam hs [Enzymatic Aspartate Medical activity/volume] Aminotransferase Center in Serum or Plasma (AST) </content>17 IU/L<content styleCode="Italic s"> (17-59 IU/L)</content> Alanine 7-50 <content [facility] aminotransferase styleCode="Bold"> Cam hs [Enzymatic Alanine Medical activity/volume] Aminotransferase Center in Serum or Plasma (ALT) </content>16 IU/L<content styleCode="Italic s"> (7-50 IU/L)</content> Albumin 3.5-5.0 <content [facility] [Mass/volume] in styleCode="Bold"> Cam hs Serum or Plasma Albumin Medical </content>3.5 Center G/DL<content styleCode="Italic s"> (3.5-5.0 G/DL)</content> Potassium 3.5-5.3 <content [facility] [Moles/volume] in styleCode="Bold"> [facility] Serum or Plasma Potassium Medical </content>4.4 Center MEQ/L<content styleCode="Italic s"> (3.5-5.3 MEQ/L)</content> Sodium 137-145 <content [facility] [Moles/volume] in styleCode="Bold"> [facility] Serum or Plasma Sodium Medical </content>140 Center MEQ/L<content styleCode="Italic s"> (137-145 MEQ/L)</content> Creatinine 0.5-1.3 Above high <content [facility] [Mass/volume] in normal styleCode="Bold"> Cam hs Serum or Plasma Creatinine Medical </content>1.4 Center MG/DL H<content styleCode="Italic s"> (0.5-1.3 MG/DL)</content> UNK 9-20 Above high <content [facility] normal styleCode="Bold"> Ángel BUN </content>30 Medical MG/DL H<content Center styleCode="Italic s"> (9-20 MG/DL)</content> Carbon dioxide, 22-30 <content [facility] total styleCode="Bold"> Ángel [Moles/volume] in Carbon Dioxide Medical Serum or Plasma </content>24 Center MEQ/L<content styleCode="Italic s"> (22-30 MEQ/L)</content> Chloride 98-107 Above high <content [facility] [Moles/volume] in normal styleCode="Bold"> [facility] Serum or Plasma Chloride Medical </content>108 Center MEQ/L H<content styleCode="Italic s"> (98-107 MEQ/L)</content> Alanine 7-50 <content [facility] aminotransferase styleCode="Bold"> Cam hs [Enzymatic Alanine Medical activity/volume] Aminotransferase Center in Serum or Plasma (ALT) </content>24 IU/L<content styleCode="Italic s"> (7-50 IU/L)</content> Aspartate 17-59 <content [facility] aminotransferase styleCode="Bold"> Cam hs [Enzymatic Aspartate Medical activity/volume] Aminotransferase Center in Serum or Plasma (AST) </content>48 IU/L<content styleCode="Italic s"> (17-59 IU/L)</content> UNK > 60 <content [facility] styleCode="Bold"> [facility]el EGFR </content>68 Medical GFR<content Center styleCode="Italic s"> (> 60 GFR)</content> Calcium 8.4-10. <content [facility] [Mass/volume] in 2 styleCode="Bold"> Cam hs Serum or Plasma Calcium Medical </content>8.9 Center MG/DL<content styleCode="Italic s"> (8.4-10.2 MG/DL)</content> Glucose 74-106 Above high <content [facility] [Mass/volume] in normal styleCode="Bold"> Cam hs Serum or Plasma Glucose Medical </content>124 Center MG/DL H<content styleCode="Italic s"> (74-106 MG/DL)</content> Albumin 3.5-5.0 Below low <content [facility] [Mass/volume] in normal styleCode="Bold"> Cam hs Serum or Plasma Albumin Medical </content>3.4 Center G/DL L<content styleCode="Italic s"> (3.5-5.0 G/DL)</content> Bilirubin.total 0.2-1.3 <content [facility] [Mass/volume] in styleCode="Bold"> Cam hs Serum or Plasma Bilirubin Total Medical </content>0.7 Center MG/DL<content styleCode="Italic s"> (0.2-1.3 MG/DL)</content> Alkaline 38-126 <content [facility] phosphatase styleCode="Bold"> Ángel [Enzymatic Alkaline Medical activity/volume] Phosphatase (ALP) Cente r in Serum or Plasma </content>102 IU/L<content styleCode="Italic s"> (38-126 IU/L)</content> ID Date Data Source LIPID 08/24/2018 12:20:00 PM [facility] Name Value Range Interpretation Description Data Sup porting Code Source(s) Document(s ) Triglyceride < 150 <content [facility] [Mass/volume] in styleCode="[facility] Serum or Plasma d">Triglycerid [facility] </content>126 MG/DL<content styleCode="Lashawn lics"> (< 150 MG/DL)</conten t> Cholesterol -<200 Above high normal <content [facility] [Mass/volume] in styleCode="[facility] Serum or Plasma d">Cholesterol Medical </content>261 Center MG/DL H<content styleCode="Lashawn lics"> (-<200 MG/DL)</conten t> UNK > 60 <content [facility] styleCode="[facility] d">HDL- Medical Cholesterol [place] </content>66 MG/DL<content styleCode="Lashawn lics"> (> 60 MG/DL)</conten t> UNK < 100 Above high normal <content [facility] styleCode="Lyn Ángel d">LDL-Cholest [facility] </content>170 MG/DL H<content styleCode="Lashawn lics"> (< 100 MG/DL)</conten t> ID Date Data Source BloodBank 08/24/2018 12:20:00 PM [facility] Name Value Range Interpretation Code Description Data Meka rce(s) Supporting Document(s ) UNK NEGATIVE <content [facility] styleCode="Bold" Medical Cente r >Antibody Screen </content>NEGATI VE <content styleCode="Itali cs"> (NEGATIVE )</content> UNK <content [facility] styleCode="Bold" Medical Cente r >Blood Type </content>GROUP B (Reference Range: not available)
UNK <content [facility] styleCode="Bold" Medical Cente r >RH Type </content>POSITI VE (Reference Range: not available)
Procedure Social History Code Duration Value Status Description Data Source(s ) Smoking 03/29/2020 Never Smoker completed Never Smoker eCW1 (An t 12:00:00 AM EDT [facility]) Smoking 03/24/2020 Never Smoker completed Never Smoker eCW1 (An t 12:00:00 AM EDT [facility]) Smoking 03/04/2020 Current some completed Current some day [place] 04:22:00 PM EDT day smoker smoker Hospital Smoking 08/24/2018 Denies Ever completed Denies Ever Smoked [facility] 04:52:00 PM EST Smoked Medical C enter Smoking 08/24/2018 Denies Ever completed Denies Ever Smoked [facility] 02:50:00 PM EST Smoked Medical C enter Smoking 08/24/2018 Former Smoker completed Former Smoker [facility] 12:50:00 PM EST Medical C enter Smoking 08/24/2018 Former Smoker completed Former Smoker [facility] 12:00:00 PM EST Medical C enter Smoking 08/24/2018 Former Smoker completed Former Smoker [facility] 11:45:00 AM EST Medical C enter Smoking Unknown if ever completed Unknown if ever An [place] smoked smoked Medical Center Never Smoker completed Never Smoker eCW1 [facility] Never Smoker completed Never Smoker [facility]) Vital Signs ID Date Data Source UNK Name Value Range Interpretation Code Description Data Source(s) Diastolic blood 79 mm[Hg] 79 mm[Hg] eCW1 ([facility]) Systolic blood 148 mm[Hg] 148 mm[Hg] eCW1 ([facility] t pressure [facility] ) Oxygen saturation 98 % 98 % eCW1 (S aint in Arterial blood [facility] by Pulse oxim[facility]) Body temperature 98.9 [degF] 98.9 [degF] eCW1 ( [facility]) Respiratory rate 18 /min 18 /min eCW1 ([facility] int [facility]) Heart rate 74 /min 74 /min eCW1 ([facility]) Body mass index 25.79 kg/m2 25.79 kg/m2 eCW1 (S aint (BMI) [Ratio] [facility]) Body weight 155 [lb_av] 155 [lb_av] eCW1 ([facility]) Body height 65 [in_i] 65 [in_i] eCW1 ([facility]) Diastolic blood 84 mm[Hg] 84 mm[Hg] eCW1 (Vic nt pressure [facility]) Systolic blood 145 mm[Hg] 145 mm[Hg] eCW1 (An t pressure [facility]) Oxygen saturation 100 % 100 % eCW1 (S aint in Arterial blood [facility] by [facility]ulse [facility]xim[facility]) Body temperature 97.6 [degF] 97.6 [degF] eCW1 ( [facility]) Respiratory rate 18 /min 18 /min eCW1 ( int [facility]) Heart rate 77 /min 77 /min eCW1 ([facility]) Body mass index 25.79 kg/m2 25.79 kg/m2 eCW1 (S aint (BMI) [Ratio] [facility]) Body weight 155 [lb_av] 155 [lb_av] eCW1 ([facility]) Body height 65 [in_i] 65 [in_i] eCW1 ([facility]) Diastolic blood 69 mm[Hg] 69 mm[Hg] [facility] pressure Hospital Systolic blood 107 mm[Hg] 107 mm[Hg] [facility] Respiratory rate 18 /min 18 /min [facility] Heart rate 74 /min 74 /min [facility] Body temperature 36.24691 36.23428 [facility] Body temperature 98.4 [degF] 98.4 [degF] [facility] Body mass index 24.0 kg/m2 24.0 kg/m2 [facility] (BMI) [Ratio] Hospital Body weight 146.30 146.30 [lb_av] [facility] [lb_av] Hospital Systolic blood 122 mm[Hg] 122 mm[Hg] [facility] Diastolic blood 76 mm[Hg] 76 mm[Hg] [facility] pressure Hospital Respiratory rate 18 /min 18 /min [facility] Heart rate 66 /min 66 /min [facility] Body weight 64.281242 64.864680 kg [facility] Measured kg [facility] Center Body temperature 36.696871 36.651405 [facility] Respiratory rate 20 /min 20 /min [facility] Heart rate 85 /min 85 /min [facility] Diastolic blood 94 mm[Hg] 94 mm[Hg] [facility] pressure [facility] Systolic blood 132 mm[Hg] 132 mm[Hg] [facility] [place] Body temperature 36.069060 36.576441 [facility] Respiratory rate 20 /min 20 /min [facility] Heart rate 82 /min 82 /min [facility] Diastolic blood 70 mm[Hg] 70 mm[Hg] [facility] [place] Systolic blood 120 mm[Hg] 120 mm[Hg] [facility] Body temperature 36.494284 36.707278 [facility] Respiratory rate 20 /min 20 /min [facility] Heart rate 90 /min 90 /min [facility] Diastolic blood 70 mm[Hg] 70 mm[Hg] [facility] Systolic blood 116 mm[Hg] 116 mm[Hg] [facility] Body temperature 36.828606 36.366772 [facility] Respiratory rate 20 /min 20 /min [facility] Heart rate 83 /min 83 /min [facility] Diastolic blood 73 mm[Hg] 73 mm[Hg] [facility] Systolic blood 118 mm[Hg] 118 mm[Hg] [facility] Body weight 66.608068 66.952056 [facility] Body height 165.296688 165.094002 cm [facility] Medical [place] Body mass index 24.2 kg/m2 24.2 kg/m2 [facility] (BMI) [Ratio] Medical [facility] ter Body temperature 37.549609 37.321181 [facility] Respiratory rate 20 /min 20 /min [facility] Heart rate 75 /min 75 /min [facility] Diastolic blood 84 mm[Hg] 84 mm[Hg] [facility] Medical [place] Systolic blood 129 mm[Hg] 129 mm[Hg] [facility] Body temperature 36.108585 36.930529 [facility] Respiratory rate 20 /min 20 /min [facility] Heart rate 95 /min 95 /min [facility] Diastolic blood 86 mm[Hg] 86 mm[Hg] [facility] Systolic blood 145 mm[Hg] 145 mm[Hg] [facility] Body temperature 36.659921 36.539184 [facility] Respiratory rate 20 /min 20 /min [facility] Heart rate 93 /min 93 /min [facility] Diastolic blood 80 mm[Hg] 80 mm[Hg] [facility] Systolic blood 122 mm[Hg] 122 mm[Hg] [facility] Body temperature 36.116919 36.705842 [facility] Respiratory rate 20 /min 20 /min [facility] Heart rate 91 /min 91 /min [facility] Diastolic blood 74 mm[Hg] 74 mm[Hg] [facility] Systolic blood 114 mm[Hg] 114 mm[Hg] [facility] Body weight 66.355365 66.675896 kg [facility] Measured kg [facility] Body temperature 36.852353 36.599235 [facility] Respiratory rate 18 /min 18 /min [facility] Heart rate 98 /min 98 /min [facility] Body height 165.845948 165.545353 cm [facility] Medical [place] Diastolic blood 85 mm[Hg] 85 mm[Hg] [facility] Systolic blood 121 mm[Hg] 121 mm[Hg] [facility] Body mass index 24.21 kg/m2 24.21 [facility]Ratio[facility] Medical [facility] Body temperature 36.507142 36.916212 [facility] Respiratory rate 18 /min 18 /min [facility] Oxygen saturation 98 % 98 % [facility] in Arterial blood [facility] by Pulse oximetry Heart rate 98 /min 98 /min [facility] Diastolic blood 99 mm[Hg] 99 mm[Hg] [facility] Systolic blood 148 mm[Hg] 148 mm[Hg] [facility] pressure [facility] Center Oxygen saturation 94 % 94 % [facility] in Arterial blood [facility] by Pulse oximetry Body weight 69.289303 69.700245 kg [facility] Measured kg [facility] Oxygen saturation 95 % 95 % [facility] in Arterial blood [facility] by Pulse oximetry Body height 165.245787 165.808907 cm [facility] cm [facility] Body mass index 25.6 kg/m2 25.6 kg/m2 [facility] (BMI) [Ratio] Medical [facility] Patient Treatment Plan of Care Planned Activity Planned Date Details Description Data Source (s) Hydralazine Hydrochloride 03/30/2020 12:00:00 eCW1 ([facility] 50 MG Oral Tablet AM EDT [facility]) Hydralazine Hydrochloride 03/30/2020 12:00:00 eCW1 ([facility] 100 MG Oral Tablet AM EDT [facility]) clopidogrel 75 MG Oral eCW1 ([facility] Tablet [facility]) 24 HR metoprolol eCW1 ([facility] succinate 50 MG Extended [facility]) Release Oral Tablet Pravastatin Sodium 40 MG eCW 1 ([facility] Oral Tablet [facility]) clopidogrel 75 MG Oral eCW1 ([facility] Tablet [facility]) sacubitril 97 MG / eCW1 ([facility] valsartan 103 MG Oral [facility]) Tablet [Entresto] Pravastatin Sodium 40 MG eCW 1 ([facility] Oral Tablet [facility]) 24 HR metoprolol eCW1 ([facility] succinate 50 MG Extended Med [facility]) Release Oral Tablet acetaminophen ([facility] Fever) 325 mg Center TabletDirections: 2 tablet oral every six hours PRN pain colchicine (Colcrys) 0.6 [facility] mg TabletDirections: 1 Cente r tablet oral twice a day lisinopril (Prinivil) 10 [facility] mg TabletDirections: 1 Cente r tablet oral daily clopidogrel 75 MG Oral [facility] Tablet Center Aspirin 81 MG Delayed [facility] Release Oral Tablet Center sacubitril 24 MG / [facility] valsartan 26 MG Oral Center Tablet [Entresto] Pravastatin Sodium 40 MG Vic [facility] Oral Tablet [place] 24 HR metoprolol [facility] hs Medical succinate [address] Release Oral Tablet Allopurinol 300 MG Oral An [facility] Tablet [place]
[2020-05-06] MEDS ORDERED: methylPREDNISolone NA SUCC 125 MG/2 ML VIAL IVPUSH ONE (12:05)
[2020-05-06] MEDS ORDERED: ACETAMINOPHEN 1000 MG/100 ML VIAL (NON FORMULARY) IVPB ONE (12:05)
[2020-05-06] MEDS ORDERED: SODIUM CHLORIDE 1,000 ML IV STA (12:05)
[2020-05-06] MEDS ORDERED: ACETAMINOPHEN INJECTION 100 ML IVPB ONE (12:22)
[2020-05-06] MEDS ORDERED: methylPREDNISolone NA SUCC 125 MG/2 ML VIAL ONE (12:23)
--- NOTE | 2020-05-06 12:23 | PDOC ---
History of Present Illness - General Chief Complaint: Edema Stated Complaint: SWOLLEN NECK/THROAT Time Seen by Provider: 05/06/20 11:44 History Source: Patient Exam Limitations: No Limitations Past History - Travel History Traveled outside of the country in the last 30 days: No Close contact w/someone who was outside of country & ill: No - Medical History Allergies/Adverse Reactions: Allergies Allergy/AdvReac Type Severity Reaction Status Date / Time No Known Allergies Allergy Verified 05/06/20 16:53 Home Medications: Ambulatory Orders Clopidogrel Bisulfate [Clopidogrel] 75 mg PO DAILY 01/20/20 Pravastatin Sodium [Pravachol -] 40 mg PO DAILY 01/20/20 Isosorbide Mononitrate [Imdur -] 30 mg PO DAILY #30 tab.sr.24h MDD one 01/24/20 hydrALAZINE HCL [Apresoline -] 25 mg PO TID #90 tablet MDD three 01/24/20 Metoprolol Succinate [Toprol Xl] 50 mg PO DAILY 02/23/20 Allopurinol 300 mg PO DAILY 02/24/20 Ondansetron [Zofran -] 4 mg PO BID PRN 02/24/20 Anemia: No Asthma: No Cancer: No Cardiac Disorders: Yes (CAD, stent) CVA: Yes COPD: No CHF: Yes Dementia: No Diabetes: No GI Disorders: No Disorders: No HTN: Yes Hypercholesterolemia: Yes Liver Disease: No Seizures: No Thyroid Disease: No - Surgical History Abdominal Surgery: Yes Appendectomy: No Cardiac Surgery: No Cholecystectomy: No Lung Surgery: No Neurologic Surgery: No Orthopedic Surgery: No - Immunization History Immunization Up to Date: No - Psycho-Social/Smoking History Smoking Status: No Smoking History: Never smoked Have you smoked in the past 12 months: No Number of Cigarettes Smoked Daily: 0 If you are a former smoker, when did you quit?: 2004 Cigars Per Day: 0 'Breaking Loose' booklet given: 02/24/20 - Substance Abuse Hx (Audit-C & DAST Scrn) How often the patient has a drink containing alcohol: Never Score: In Men: 4 or > Positive; In Women: 3 or > Positive: 0 Screen Result (Pos requires Nsg. Audit-10AR): Negative In the last yr the pt used illegal drug/Rx for NonMed reason: No Score: Yes response is considered Positive: 0 Screen Result (Positive result requires Nsg. DAST-10): Negative Review of Systems - Review of Systems Able to Perform ROS?: Yes Comments:: 05/06/20 12:23 CONSTITUTIONAL: Absent: fever, chills, diaphoresis, generalized weakness, malaise, loss of appetite HEENT: Present: neck pain and swelling Absent: rhinorrhea, nasal congestion, throat pain, throat swelling, difficulty swallowing, mouth swelling, ear pain, eye pain, visual Changes CARDIOVASCULAR: Absent: chest pain, loss of consciousness, palpitations, irregular heart rate, peripheral edema RESPIRATORY: Absent: cough, shortness of breath, dyspnea with exertion, orthopnea, wheezing, stridor, hemoptysis GASTROINTESTINAL: Absent: abdominal pain, abdominal distension, nausea, vomiting, diarrhea, constipation, melena, hematochezia GENITOURINARY: Absent: dysuria, frequency, urgency, hesitancy, hematuria, flank pain, genital pain MUSCULOSKELETAL: Absent: myalgia, arthralgia, joint swelling SKIN: Absent: rash, itching, pallor HEMATOLOGIC/IMMUNOLOGIC: Absent: easy bleeding, easy bruising, lymphadenopathy, frequent infections ENDOCRINE: Absent: unexplained weight gain, unexplained weight loss, heat intolerance, cold intolerance NEUROLOGIC: Absent: headache, focal weakness or paresthesias, dizziness, unsteady gait, seizure, mental status changes, bladder or bowel incontinence PSYCHIATRIC: Absent: anxiety, depression, suicidal or homicidal ideation, hallucinations. Is the patient limited Vietnamese proficient: No *Physical Exam - Vital Signs Last Vital Signs Temp Pulse Resp BP Pulse Ox 98.7 F 90 18 141/92 98 05/06/20 11:28 05/06/20 11:28 05/06/20 11:28 05/06/20 11:28 05/06/20 11:28 - Physical Exam 05/06/20 12:24 GENERAL: Well developed, well nourished. Awake and alert. No acute distress. HEENT: Normocephalic, atraumatic. PERRLA, EOMI. No conjunctival pallor. Sclera are non- icteric. Moist mucous membranes. Oropharynx is clear. NECK: Supple. Full ROM. No JVD. Carotid pulses 2+ and symmetric, without bruits. Unable to evaluate the thyroid and lymphadenopathy on the left side as patient recoils in pain. There is obvious swelling to the left anterior neck. CARDIOVASCULAR: Regular rate and rhythm. No murmurs, rubs, or gallops. Distal pulses are 2+ and symmetric. PULMONARY: No evidence of respiratory distress. Lungs clear to auscultation bilaterally. No wheezing, rales or rhonchi. ABDOMINAL: Soft. Non-tender. Non-distended. No rebound or guarding. No organomegaly. Normoactive bowel sounds. MUSCULOSKELETAL Normal range of motion at all joints. No bony deformities or tenderness. No CVA tenderness. EXTREMITIES: No cyanosis. No clubbing. No edema. No calf tenderness. SKIN: Warm and dry. Normal capillary refill. No rashes. No jaundice. NEUROLOGICAL: Alert, awake, appropriate. Cranial nerves 2-12 intact. No deficits to light touch and temperature in face, upper extremities and lower extremities. No motor deficits in the in face, upper extremities and lower extremities. Normoreflexic in the upper and lower extremities. Normal speech. Toes are down-going bilaterally. Gait is normal without ataxia. PSYCHIATRIC: Cooperative. Good eye contact. Appropriate mood and affect. ED Treatment Course - LABORATORY CBC & Chemistry Diagram: 05/06/20 12:16 05/06/20 12:16 Medical Decision Making - Medical Decision Making 05/06/20 12:23 The patient is a 54-year-old male with past medical history of hyperlipidemia, hypertension, CAD, , chronic kidney disease, ICD, CVA, CHF presents to the ER today for left-sided neck swelling. He states that it started 2 days ago. He notes that his neck is very painful. He states he was sleeping when the pain started. He denies any trauma or heavy lifting. Denies numbness and tingling and weakness to the upper extremities, difficulty swallowing, throat pain and fever. A/P: Neck pain On exam patient has a swollen left anterior neck with pain out of proportion to exam. Will order basic labs, fluids, meds, CT soft neck tissue ordered to rule out RPA. Reevaluate 05/06/20 17:59 CT shows a probable left internal jugular vein thrombosis, there is also a small amount of retropharyngeal fluid accumulation which could be secondary to IVIG thrombosis. A very small abscess is less likely on the basis of current exam however cannot be ruled out at this time. Nonspecific mildly enlarged posterior triangle lymph nodes are noted. Marked C3-C4 central canal stenosis with resultant spinal cord impingement noted Given results from CT scan duplex of the left IVJ was ordered. There is left IPJ and subclavian vein thrombosis. Given the sudden onset likely a new thrombosis or worsening thrombosis patient will need admission for evaluation of this new thrombosis and RP fluid. Dr. Nolen paged. 05/06/20 20:[address] Nolen. Recommend starting a heparin drip at this time for new IV J thrombosis. Given RP fluid, recommending to consult ENT. Dr. Humphreys, Dr. Ayala unavailable for consult will transfer the patient for I V J thrombosis with RP fluid, needing ENT to clear her airway. But I suspect this fluid is secondary to the thrombosis. Heparin drip protocol started for patient weighing greater than 67 kg. Started in the ER. Patient placed on surveillance monitor. Patient moved to room 11 a. Patient accepted to transfer at months of your ED to ED per Dr. Mcarthur Discharge - Discharge Information Problems reviewed: Yes Clinical Impression/Diagnosis: Internal jugular (IJ) vein thromboembolism, acute Qualifiers: Laterality: left Qualified Code(s): I82.C12 - Acute embolism and thrombosis of left internal jugular vein Condition: Guarded Disposition: TRANSFER ACUTE CARE/OTHER HOSP - Follow up/Referral Referrals: Abelardo Boogie MD [Primary Care Provider] - - Patient Discharge Instructions - Post Discharge Activity
[2020-05-06 12:30] LABS: BASO % 1.2 % (0-2.0); EOS % 1.4 % (0-4.5); HEMATOCRIT 36.3 % (35.4-49); HEMOGLOBIN 11.9 GM/dL (11.7-16.9); LYMPH % 17.4 % (8-40); MCHC 32.9 g/dl (32.0-35.9); MEAN CELL VOLUME 94.3 fl (80-96); MEAN PLT VOLUME 9.3 fl (7.5-11.1); PLATELET COUNT 130 K/MM3 (134-434); RBC 3.85 M/mm3 (4.00-5.60); RDW 14.5 % (11.9-15.9); WHITE BLOOD COUNT 8.5 K/mm3 (4.0-10.0)
[2020-05-06 12:36] LABS: INR 1.05 (0.83-1.09); PROTHROMBIN TIME (PATIENT) 12.4 SEC (9.7-13.0)
[2020-05-06 13:18] LABS: ALBUMIN 3.4 g/dl (3.4-5.0); BILIRUBIN,TOTAL 0.4 mg/dL (0.2-1); BLOOD UREA NITROGEN 43.4 mg/dL (7-18); CALCIUM 9.4 mg/dL (8.5-10.1); POTASSIUM 4.9 mmol/L (3.5-5.1); TOT PROT 7.4 g/dl (6.4-8.2)
[2020-05-06 17:42] VITALS: TEMP 98.6
--- NOTE | 2020-05-06 18:51 | PDOC ---
*Physical Exam - Vital Signs Last Vital Signs Temp Pulse Resp BP Pulse Ox 98.6 F 81 18 154/88 97 05/06/20 17:41 05/06/20 17:41 05/06/20 17:41 05/06/20 17:41 05/06/20 17:41 ED Treatment Course - LABORATORY CBC & Chemistry Diagram: 05/06/20 12:16 05/06/20 12:16 - ADDITIONAL ORDERS Additional order review: Laboratory Results 05/06/20 05/06/20 12:16 12:16 PT with INR 12.40 INR 1.05 Sodium 138 Potassium 4.9 Chloride 104 Carbon Dioxide 27 Anion Gap 7 L BUN 43.4 H Creatinine 3.0 H Est GFR (CKD-EPI)AfAm 25.72 Est GFR (CKD-EPI)NonAf 22.19 Random Glucose 121 H Calcium 9.4 Total Bilirubin 0.4 AST 20 ALT 30 Alkaline Phosphatase 159 H Total Protein 7.4 Albumin 3.4 TSH 1.95 D 05/06/20 12:16 RBC 3.85 L MCV 94.3 MCHC 32.9 RDW 14.5 MPV 9.3 Neutrophils % 68.0 D Lymphocytes % 17.4 D Monocytes % 12.0 H Eosinophils % 1.4 Basophils % 1.2 - Medications Given in the ED: ED Medications Discontinued Medications Generic Name Dose Route Start Last Admin Trade Name Davis PRN Reason Stop Dose Admin Acetaminophen 1,000 mg 05/06/20 12:05 05/06/20 12:38 Ofirmev Injection - IVPB 05/06/20 12:06 1,000 mg ONCE ONE Administration Sodium Chloride 1,000 mls @ 1,000 mls/hr 05/06/20 12:05 05/06/20 12:38 Normal Saline - IV 05/06/20 13:04 1,000 mls/hr ASDIR STA Administration Methylprednisolone Sodium Succinate 125 mg 05/06/20 12:05 05/06/20 12:38 Solu-Medrol - IVPUSH 05/06/20 12:06 125 mg ONCE ONE Administration Medical Decision Making - Medical Decision Making 05/06/20 18:52 The patient was seen and evaluated in conjunction with DARYL Mcgowan under my direct supervision, ancillary studies were reviewed. I independently evaluated the patient and I agree with the plan as outlined by DARYL Mcgowan . 54-year-old gentleman hx of HL, HTN, CAD, ckd, cva, chf presents with 2 days of left-sided neck swelling and pain, denies any recent trauma or manipulation, pain started overnight. No associated headache, fever, chills, difficulties swallowing, change in voice, sore throat. On exam patient does have tenderness on his left anterior neck, there is no erythema, induration, his posterior pharynx is clear his tongue is mobile without any signs of swelling. CT of the neck consistent with athrombosis in L in the IJ. There is some fluid in the surrounding area likely reactive from the thrombosis. Case discussed with vascular, recommend starting heparin, will consult ENT. Discharge - Discharge Information Problems reviewed: Yes Clinical Impression/Diagnosis: Neck swelling Condition: Guarded Disposition: TRANSFER ACUTE CARE/OTHER HOSP - Admission No - Follow up/Referral Referrals: Abelardo Boogie MD [Primary Care Provider] - - Patient Discharge Instructions - Post Discharge Activity
[2020-05-06] MEDS ORDERED: HEPARIN NA (PORCINE) 5,000 UNITS/ML 1ML VIAL IVPUSH ONE (19:27)
[2020-05-06] MEDS ORDERED: HEPARIN NA (PORCINE) 5,000 UNITS/ML 1ML VIAL IVPUSH PRN ×2 (19:31)
[2020-05-06] MEDS ORDERED: HEPARIN - 25,000 UNIT in SODIUM CHLORIDE 495 ML IV SCH (19:45)
[2020-05-06 19:47] VITALS: BP 179/94; PULSE 84
[2020-05-06 20:19] LABS: INR 1.05 (0.83-1.09); PROTHROMBIN TIME (PATIENT) 12.4 SEC (9.7-13.0)
[2020-05-06 20:22] LABS: ACTIVATED PTT 28.5 SECONDS (25.2-36.5)
[2020-05-06] MEDS ORDERED: HEPARIN NA (PORCINE) 5,000 UNITS/ML 1ML VIAL ONE (20:59)
[2020-05-06] MEDS ORDERED: HEPARIN INFUSION - 25,000 UNITS/500 ML INFUS.BAG IVPB ONE (20:59)
--- NOTE | 2020-05-07 10:38 | EKG ---
Test Reason : Blood Pressure : / mmHG Vent. Rate : 087 BPM Atrial Rate : 087 BPM P-R Int : 158 ms QRS Dur : 094 ms QT Int : 384 ms P-R-T Axes : 042 -02 077 degrees QTc Int : 462 ms NORMAL SINUS RHYTHM POSSIBLE LEFT ATRIAL ENLARGEMENT LEFT VENTRICULAR HYPERTROPHY T WAVE ABNORMALITY, CONSIDER LATERAL ISCHEMIA PROLONGED QT ABNORMAL ECG WHEN COMPARED WITH ECG OF 25-FEB-2020 10:37, T WAVE INVERSION LESS EVIDENT IN LATERAL LEADS Confirmed by LOW DEAL MD ([id number]) on 05/07/2020 10:38:32 AM Referred By: Confirmed By:LOW DEAL MD
== END 2020-05-06 23:11 | disposition short-term general hospital (02) ==
LOC: JER 11:00
PROC: 3E0333Z Introduction of Anti-inflammatory into Peripheral Vein, Percutaneous Approach (ICD-10-PCS; principal; 2020-05-06)
PROC: 3E033GC Introduction of Other Therapeutic Substance into Peripheral Vein, Percutaneous Approach (ICD-10-PCS; 2020-05-06)
PROC: 3E0337Z Introduction of Electrolytic and Water Balance Substance into Peripheral Vein, Percutaneous Approach (ICD-10-PCS; 2020-05-06)
DX: I82.C12 Acute embolism and thrombosis of left internal jugular vein (principal)
CPT/HCPCS: 36415; 70490-TC; 80053; 84443; 85025; 85610; 85730; 93005; 93010; 93971; 99285-25; J0131; J1644

== ENCOUNTER 2020-10-22 16:26 | Inpatient (IN) | payer OTHER ==
[2020-10-22 16:46] VITALS: BMI 23.6
[2020-10-22 17:15] LABS: BASO % 0.9 % (0-2.0); EOS % 1.4 % (0-4.5); HEMATOCRIT 42.6 % (35.4-49); HEMOGLOBIN 13.9 GM/dL (11.7-16.9); LYMPH % 24.8 % (8-40); MCH 30.6 pg (25.7-33.7); MCHC 32.7 g/dl (32.0-35.9); MEAN CELL VOLUME 93.6 fl (80-96); MEAN PLT VOLUME 10.2 fl (7.5-11.1); MONO % 9.5 % (3.8-10.2); NEUT % 63.4 % (42.8-82.8); PLATELET COUNT 144 K/MM3 (134-434); RBC 4.55 M/mm3 (4.00-5.60); RDW 14.6 % (11.9-15.9); WHITE BLOOD COUNT 6.6 K/mm3 (4.0-10.0)
[2020-10-22 17:22] LABS: INR 0.95 (0.83-1.09); PROTHROMBIN TIME (PATIENT) 11.5 SEC (9.7-13.0)
[2020-10-22 17:25] LABS: ACTIVATED PTT 28.8 SECONDS (25.2-36.5)
[2020-10-22 17:34] LABS: CHLORIDE 111 mmol/L (98-107); POTASSIUM 4.8 mmol/L (3.5-5.1); SODIUM 141 mmol/L (136-145)
[2020-10-22 17:36] LABS: ALBUMIN 3.7 g/dl (3.4-5.0); ANION GAP 6 MMOL/L (8-16); BLOOD UREA NITROGEN 36.6 mg/dL (7-18); CALCIUM 9.2 mg/dL (8.5-10.1); CO2 24 mmol/L (21-32); GLUCOSE,RANDOM 98 mg/dL (74-106); MAGNESIUM 2.1 mg/dL (1.8-2.4)
[2020-10-22 17:39] LABS: CREATININE 2.8 mg/dL (0.55-1.3); SGOT/AST 17 U/L (15-37); SGPT/ALT 18 U/L (13-61)
[2020-10-22 17:41] LABS: BILIRUBIN,TOTAL 0.3 mg/dL (0.2-1); TOT PROT 7.6 g/dl (6.4-8.2)
[2020-10-22 17:42] LABS: ALK PHOS 124 U/L (45-117)
[2020-10-22 19:00] LABS: URINE BARBITURATES NEGATIVE ng/ml (CUTOFF=200); URINE BENZODIAZEPINES NEGATIVE ng/ml (CUTOFF=200)
[2020-10-22 19:01] LABS: METHADONE, UR NEGATIVE ng/ml (CUTOFF=300); OPIATES, URI NEGATIVE ng/ml (CUTOFF=300); PHENCYCLIDINE,URINE NEGATIVE ng/ml (CUTOFF=25)
[2020-10-22 19:03] LABS: COCAINE, UR NEGATIVE ng/ml (CUTOFF=300); URINE AMPHETAMINES NEGATIVE ng/ml (CUTOFF=500)
[2020-10-22 19:17] LABS: EPI CELLS 2 /uL (0-25.1); HYALINE CASTS 0 /uL (0-3.1); URINE APPEARANCE CLEAR; URINE BACTERIA 18 /uL (0-1359); URINE BILIRUBIN NEGATIVE (NEGATIVE); URINE COLOR YELLOW; URINE GLUCOSE (UA) NEGATIVE (NEGATIVE); URINE KETONE NEGATIVE (NEGATIVE); URINE LEUK ESTERASE NEGATIVE (NEGATIVE); URINE NITRITE NEGATIVE (NEGATIVE); URINE PROTEIN 1+ (NEGATIVE); URINE RBC 3 /uL (0-23.9); URINE UROBILINOGEN 0.2 mg/dL (0.2-1.0); URINE WBC 2 /uL (0-25.8)
[2020-10-22] MEDS ORDERED: ONDANSETRON 4 MG TABLET PO PRN (23:14)
[2020-10-23] MEDS ORDERED: hydrALAZINE HCL 25 MG TABLET (FP) ONE ×2 (06:09→13:29)
[2020-10-23] MEDS: hydrALAZINE HCL 25 MG TABLET (FP) PO SCH ×3 (06:13→22:10)
[2020-10-23 08:01] LABS: BASO % 0.8 % (0-2.0); EOS % 1.9 % (0-4.5); HEMATOCRIT 39.4 % (35.4-49); HEMOGLOBIN 13.2 GM/dL (11.7-16.9); LYMPH % 30.2 % (8-40); MCH 31.3 pg (25.7-33.7); MCHC 33.5 g/dl (32.0-35.9); MEAN CELL VOLUME 93.4 fl (80-96); MEAN PLT VOLUME 10.6 fl (7.5-11.1); MONO % 10.8 % (3.8-10.2); NEUT % 56.3 % (42.8-82.8); PLATELET COUNT 138 K/MM3 (134-434); RBC 4.21 M/mm3 (4.00-5.60); RDW 14.3 % (11.9-15.9); WHITE BLOOD COUNT 5.4 K/mm3 (4.0-10.0)
[2020-10-23 08:33] LABS: CHLORIDE 110 mmol/L (98-107); POTASSIUM 4.9 mmol/L (3.5-5.1); SODIUM 139 mmol/L (136-145)
[2020-10-23 08:44] LABS: ALK PHOS 116 U/L (45-117); HDL CHOLESTEROL 45 mg/dL (40-60)
[2020-10-23 08:45] LABS: ALBUMIN 3.3 g/dl (3.4-5.0); SGOT/AST 16 U/L (15-37); SGPT/ALT 15 U/L (13-61)
[2020-10-23 08:46] LABS: BILIRUBIN,TOTAL 0.4 mg/dL (0.2-1); LDL CHOLESTEROL (ONLY SJRH) 115 mg/dL (5-100); TOT PROT 6.7 g/dl (6.4-8.2)
[2020-10-23 08:48] LABS: ANION GAP 5 MMOL/L (8-16); BLOOD UREA NITROGEN 34.8 mg/dL (7-18); CHOLESTEROL 174 mg/dL (50-200); CO2 24 mmol/L (21-32); CREATININE 2.7 mg/dL (0.55-1.3); GLUCOSE,RANDOM 93 mg/dL (74-106); MAGNESIUM 1.8 mg/dL (1.8-2.4); PHOSPHOROUS 2.6 mg/dL (2.5-4.9)
[2020-10-23 08:49] LABS: TRIGLYCERIDES 110 mg/dL (0-150)
[2020-10-23] MEDS ORDERED: APIXABAN 2.5 MG TABLET ONE (09:50)
[2020-10-23] MEDS ORDERED: CLOPIDOGREL BISULFATE 75 MG TABLET (FP) ONE (09:50)
[2020-10-23] MEDS ORDERED: ISOSORBIDE MONONITRATE 60 MG TAB.SR.24H (FP) PO ONE (09:50)
[2020-10-23] MEDS: CLOPIDOGREL BISULFATE 75 MG TABLET (FP) PO SCH (09:54)
[2020-10-23] MEDS: ISOSORBIDE MONONITRATE 30 MG TAB.SR.24H (FP) PO SCH (09:54)
[2020-10-23] MEDS: APIXABAN 2.5 MG TABLET PO SCH ×2 (09:54→22:10)
[2020-10-23] MEDS: ALLOPURINOL 300 MG TABLET (FP) PO SCH (09:55)
[2020-10-23] MEDS ORDERED: PATIENT'S OWN MEDICATION (NON-FORMULARY) (Pravastatin Sodium 40 MG Tablet) PO SCH (10:00)
[2020-10-23] MEDS: ATORVASTATIN CA 10 MG TABLET (FP) PO SCH (22:10)
[2020-10-24] MEDS: hydrALAZINE HCL 25 MG TABLET (FP) PO SCH ×3 (06:01→21:32)
[2020-10-24 07:12] LABS: BASO % 0.9 % (0-2.0); EOS % 2.2 % (0-4.5); HEMATOCRIT 37.6 % (35.4-49); HEMOGLOBIN 12.7 GM/dL (11.7-16.9); LYMPH % 36.8 % (8-40); MCH 31.3 pg (25.7-33.7); MCHC 33.7 g/dl (32.0-35.9); MEAN CELL VOLUME 92.8 fl (80-96); MEAN PLT VOLUME 10.4 fl (7.5-11.1); MONO % 12.4 % (3.8-10.2); NEUT % 47.7 % (42.8-82.8); PLATELET COUNT 145 K/MM3 (134-434); RBC 4.06 M/mm3 (4.00-5.60); RDW 14.4 % (11.9-15.9); WHITE BLOOD COUNT 5.8 K/mm3 (4.0-10.0)
[2020-10-24 07:37] LABS: POTASSIUM 5.1 mmol/L (3.5-5.1)
[2020-10-24 07:38] LABS: POTASSIUM 5.1 mmol/L (3.5-5.1)
[2020-10-24 07:42] LABS: CALCIUM 8.7 mg/dL (8.5-10.1)
[2020-10-24 07:43] LABS: ALBUMIN 3.2 g/dl (3.4-5.0); BLOOD UREA NITROGEN 51.4 mg/dL (7-18); CALCIUM 8.8 mg/dL (8.5-10.1)
[2020-10-24 07:44] LABS: BLOOD UREA NITROGEN 53.1 mg/dL (7-18)
[2020-10-24 07:46] LABS: BILIRUBIN,TOTAL 0.3 mg/dL (0.2-1); CREATININE 3.2 mg/dL (0.55-1.3)
[2020-10-24 07:47] LABS: CREATININE 3.1 mg/dL (0.55-1.3); TOT PROT 6.5 g/dl (6.4-8.2)
[2020-10-24] MEDS: APIXABAN 2.5 MG TABLET PO SCH ×2 (10:47→21:32)
[2020-10-24] MEDS: CLOPIDOGREL BISULFATE 75 MG TABLET (FP) PO SCH (10:47)
[2020-10-24] MEDS: ISOSORBIDE MONONITRATE 30 MG TAB.SR.24H (FP) PO SCH (10:47)
[2020-10-24] MEDS: ALLOPURINOL 300 MG TABLET (FP) PO SCH (10:47)
[2020-10-24] MEDS: ATORVASTATIN CA 10 MG TABLET (FP) PO SCH (21:32)
[2020-10-25] MEDS: hydrALAZINE HCL 25 MG TABLET (FP) PO SCH ×2 (05:51→13:06)
[2020-10-25 08:03] LABS: BASO % 0.9 % (0-2.0); EOS % 2.4 % (0-4.5); HEMATOCRIT 37.8 % (35.4-49); HEMOGLOBIN 12.6 GM/dL (11.7-16.9); LYMPH % 34.6 % (8-40); MCH 31.4 pg (25.7-33.7); MCHC 33.3 g/dl (32.0-35.9); MEAN CELL VOLUME 94.3 fl (80-96); MEAN PLT VOLUME 10.6 fl (7.5-11.1); MONO % 12.3 % (3.8-10.2); NEUT % 49.8 % (42.8-82.8); PLATELET COUNT 140 K/MM3 (134-434); RDW 14.5 % (11.9-15.9); WHITE BLOOD COUNT 6.6 K/mm3 (4.0-10.0)
[2020-10-25 08:13] LABS: POTASSIUM 5.3 mmol/L (3.5-5.1)
[2020-10-25 08:15] LABS: ALBUMIN 3.3 g/dl (3.4-5.0)
[2020-10-25 08:16] LABS: CALCIUM 9.1 mg/dL (8.5-10.1)
[2020-10-25 08:18] LABS: CREATININE 3.1 mg/dL (0.55-1.3)
[2020-10-25 08:20] LABS: BILIRUBIN,TOTAL 0.3 mg/dL (0.2-1); TOT PROT 6.4 g/dl (6.4-8.2)
[2020-10-25] MEDS: CLOPIDOGREL BISULFATE 75 MG TABLET (FP) PO SCH (09:00)
[2020-10-25] MEDS: ISOSORBIDE MONONITRATE 30 MG TAB.SR.24H (FP) PO SCH (09:00)
[2020-10-25] MEDS: APIXABAN 2.5 MG TABLET PO SCH (09:00)
[2020-10-25] MEDS: ALLOPURINOL 300 MG TABLET (FP) PO SCH (09:00)
[2020-10-25 16:13] VITALS: BP 119/73; PULSE 67; TEMP 97.6
== END 2020-10-25 18:39 | disposition home or self-care (01) | DRG 204 ==
LOC: JER 16:26 → JERBED 20:41 → J4W 10-23 18:15
PROVIDERS: ADMIT Internal Medicine; ATTEND Internal Medicine
DX: R55 Syncope and collapse (principal); I25.10 Atherosclerotic heart disease of native coronary artery without angina pectoris; R29.810 Facial weakness; I73.9 Peripheral vascular disease, unspecified; E78.00 Pure hypercholesterolemia, unspecified; I10 Essential (primary) hypertension; I25.2 Old myocardial infarction; F12.10 Cannabis abuse, uncomplicated; I82.C21 Chronic embolism and thrombosis of right internal jugular vein; I13.0 Hypertensive heart and chronic kidney disease with heart failure and stage 1 through stage 4 chronic kidney disease, or unspecified chronic kidney disease; I50.20 Unspecified systolic (congestive) heart failure; N18.4 Chronic kidney disease, stage 4 (severe); I65.22 Occlusion and stenosis of left carotid artery; E87.5 Hyperkalemia; Z95.810 Presence of automatic (implantable) cardiac defibrillator; Z86.718 Personal history of other venous thrombosis and embolism; Z95.5 Presence of coronary angioplasty implant and graft; Z86.73 Personal history of transient ischemic attack (TIA), and cerebral infarction without residual deficits; Z91.19 Patient's noncompliance with other medical treatment and regimen
CPT/HCPCS: 36415; 70450-TC; 71045-TC-FY; 72125-TC; 80048; 80053; 80061; 80307; 81003; 82310; 82550; 83036; 83721; 83735; 83970; 84100; 84155; 84165; 84443; 84484; 85025; 85610; 85730; 87804; 93005; 93010; 93306-TC; 93880-TC; 97116-GP; 97161-GP; 99285-25; C9803; U0003

== ENCOUNTER 2021-06-21 14:11 | Inpatient (IN) | payer OTHER ==
[2021-06-21 16:36] LABS: BASO % 0.7 % (0-2.0); EOS % 1.1 % (0-4.5); HEMATOCRIT 43.9 % (35.4-49); HEMOGLOBIN 14.6 GM/dL (11.7-16.9); LYMPH % 22.2 % (8-40); MCH 31.6 pg (25.7-33.7); MCHC 33.3 g/dl (32.0-35.9); MEAN CELL VOLUME 94.8 fl (80-96); MEAN PLT VOLUME 8.8 fl (7.5-11.1); MONO % 10.3 % (3.8-10.2); NEUT % 65.7 % (42.8-82.8); PLATELET COUNT 190 10^3/uL (134-434); RBC 4.63 M/mm3 (4.00-5.60); RDW 14.7 % (11.9-15.9)
[2021-06-21 16:43] LABS: INR 1.04 (0.83-1.09); PROTHROMBIN TIME (PATIENT) 12.2 SEC (9.7-13.0)
[2021-06-21 16:46] LABS: ACTIVATED PTT 33.3 SECONDS (25.2-36.5)
[2021-06-21 17:05] LABS: CHLORIDE 115 mmol/L (98-107); SODIUM 145 mmol/L (136-145)
[2021-06-21 17:07] LABS: ALBUMIN 3.4 g/dl (3.4-5.0); ANION GAP 5 MMOL/L (8-16); BLOOD UREA NITROGEN 35.2 mg/dL (7-18); CALCIUM 9.7 mg/dL (8.5-10.1); CO2 25 mmol/L (21-32)
[2021-06-21 17:08] LABS: GLUCOSE,RANDOM 88 mg/dL (74-106); MAGNESIUM 2.3 mg/dL (1.8-2.4)
[2021-06-21 17:10] LABS: CREATININE 3.1 mg/dL (0.55-1.3); PHOSPHOROUS 2.8 mg/dL (2.5-4.9); SGPT/ALT 13 U/L (13-61)
[2021-06-21 17:11] LABS: SGOT/AST 12 U/L (15-37)
[2021-06-21 17:12] LABS: BILIRUBIN,TOTAL 0.5 mg/dL (0.2-1); TOT PROT 7.2 g/dl (6.4-8.2)
[2021-06-21 17:13] LABS: ALK PHOS 167 U/L (45-117)
[2021-06-21 17:16] LABS: N-TERMINAL BNP 798.3 pg/ml (5-125)
[2021-06-21 21:10] LABS: EPI CELLS 4 /uL (0-25.1); HYALINE CASTS 1 /uL (0-3.1); PH,URINE 5.5 (5.0-8.0); URINE APPEARANCE CLEAR; URINE BACTERIA 2 /uL (0-1359); URINE BILIRUBIN 1+ (NEGATIVE); URINE COLOR DK YELLOW; URINE GLUCOSE (UA) NEGATIVE (NEGATIVE); URINE KETONE NEGATIVE (NEGATIVE); URINE LEUK ESTERASE TRACE (NEGATIVE); URINE NITRITE NEGATIVE (NEGATIVE); URINE PROTEIN 2+ (NEGATIVE); URINE RBC 3 /uL (0-23.9); URINE WBC 5 /uL (0-25.8)
[2021-06-21 21:23] LABS: CHLORIDE 110 mmol/L (98-107); SODIUM 136 mmol/L (136-145)
[2021-06-21 21:24] LABS: CALCIUM 8.7 mg/dL (8.5-10.1)
[2021-06-21 21:25] LABS: CO2 27 mmol/L (21-32); GLUCOSE,RANDOM 137 mg/dL (74-106)
[2021-06-21 21:28] LABS: CREATININE 3.1 mg/dL (0.55-1.3)
[2021-06-21 21:39] LABS: ANION GAP 0 MMOL/L (8-16)
[2021-06-21] MEDS ORDERED: CALCIUM GLUCONATE 10% - 1,000 MG/10 ML VIAL IVPUSH ONE (21:45)
[2021-06-21] MEDS ORDERED: INSULIN REGULAR HUMAN 100 UNITS/ML *VIAL IVPUSH ONE (21:45)
[2021-06-21] MEDS ORDERED: SODIUM ZIRCONIUM CYCLOSILICATE (LOKELMA) 5 GM PACKET ONE (22:19)
[2021-06-21] MEDS ORDERED: CALCIUM GLUCONATE 10% - 1,000 MG/10 ML VIAL ONE (22:19)
[2021-06-21] MEDS ORDERED: INSULIN REGULAR HUMAN 100 UNITS/ML *VIAL ONE ×2 (22:21→22:42)
[2021-06-21] MEDS: SODIUM ZIRCONIUM CYCLOSILICATE (LOKELMA) 5 GM PACKET PO SCH (22:54)
[2021-06-21 23:19] LABS: METHADONE, UR NEGATIVE (NEGATIVE); OPIATES, URI NEGATIVE (NEGATIVE); URINE BENZODIAZEPINES NEGATIVE (NEGATIVE)
[2021-06-21 23:20] LABS: PHENCYCLIDINE,URINE NEGATIVE (NEGATIVE); URINE BARBITURATES NEGATIVE (NEGATIVE)
[2021-06-21 23:38] LABS: COCAINE, UR NEGATIVE (NEGATIVE); URINE AMPHETAMINES NEGATIVE (NEGATIVE)
[2021-06-22 01:15] LABS: BLOOD UREA NITROGEN 38.2 mg/dL (7-18)
[2021-06-22 01:18] LABS: CREATININE 3.1 mg/dL (0.55-1.3)
[2021-06-22] MEDS: SODIUM ZIRCONIUM CYCLOSILICATE (LOKELMA) 5 GM PACKET PO SCH (01:50)
[2021-06-22 04:22] VITALS: BMI 21.9
[2021-06-22 07:23] LABS: HEMOGLOBIN 13.4 GM/dL (11.7-16.9); MCH 31.9 pg (25.7-33.7); MCHC 33.5 g/dl (32.0-35.9); MEAN CELL VOLUME 95.3 fl (80-96); MEAN PLT VOLUME 9.2 fl (7.5-11.1); PLATELET COUNT 178 10^3/uL (134-434); RBC 4.19 M/mm3 (4.00-5.60); RDW 14.2 % (11.9-15.9); WHITE BLOOD COUNT 5.1 K/mm3 (4.0-10.0)
[2021-06-22 07:37] LABS: INR 1.02 (0.83-1.09); PROTHROMBIN TIME (PATIENT) 11.9 SEC (9.7-13.0)
[2021-06-22 07:40] LABS: ACTIVATED PTT 28.1 SECONDS (25.2-36.5)
[2021-06-22 07:46] LABS: MAGNESIUM 2.2 mg/dL (1.8-2.4)
[2021-06-22 07:49] LABS: PHOSPHOROUS 3.4 mg/dL (2.5-4.9)
[2021-06-22] MEDS: APIXABAN 2.5 MG TABLET PO SCH ×2 (12:34→21:07)
[2021-06-23] MEDS: ISOSORBIDE MONONITRATE 30 MG TAB.SR.24H (FP) PO SCH (09:57)
[2021-06-23] MEDS: CLOPIDOGREL BISULFATE 75 MG TABLET (FP) PO SCH (09:57)
[2021-06-23] MEDS: APIXABAN 2.5 MG TABLET PO SCH ×2 (09:58→21:34)
[2021-06-23] MEDS: ASPIRIN COATED 81 MG TABLET.EC PO SCH (09:58)
[2021-06-23 09:59] LABS: BASO % 1.1 % (0-2.0); EOS % 3.4 % (0-4.5); HEMATOCRIT 41.6 % (35.4-49); LYMPH % 33.5 % (8-40); MCH 31.7 pg (25.7-33.7); MCHC 33.6 g/dl (32.0-35.9); MEAN CELL VOLUME 94.5 fl (80-96); MONO % 9.2 % (3.8-10.2); NEUT % 52.8 % (42.8-82.8); PLATELET COUNT 179 10^3/uL (134-434); RBC 4.41 M/mm3 (4.00-5.60); RDW 14.5 % (11.9-15.9); WHITE BLOOD COUNT 4.4 K/mm3 (4.0-10.0)
[2021-06-23 10:34] LABS: ALBUMIN 3.2 g/dl (3.4-5.0); BLOOD UREA NITROGEN 35.7 mg/dL (7-18)
[2021-06-23 10:35] LABS: CALCIUM 9.3 mg/dL (8.5-10.1)
[2021-06-23 10:36] LABS: BILIRUBIN,TOTAL 0.2 mg/dL (0.2-1); TOT PROT 6.6 g/dl (6.4-8.2)
[2021-06-23 10:38] LABS: CREATININE 2.7 mg/dL (0.55-1.3)
[2021-06-23] MEDS ORDERED: PATIENT'S OWN MEDICATION (NON-FORMULARY) (Hydralazine Hcl [Hydralazine Hcl] 100 MG Tablet) PO SCH (14:00)
[2021-06-23] MEDS ORDERED: amLODIPine BESYLATE 2.5 MG TABLET (FP) PO SCH (22:00)
[2021-06-23] MEDS ORDERED: ATORVASTATIN CA 80 MG TABLET (FP) PO SCH (22:00)
[2021-06-24 07:45] LABS: BASO % 1.3 % (0-2.0); EOS % 3.7 % (0-4.5); HEMATOCRIT 39.7 % (35.4-49); HEMOGLOBIN 13.7 GM/dL (11.7-16.9); LYMPH % 39.7 % (8-40); MCH 31.9 pg (25.7-33.7); MCHC 34.4 g/dl (32.0-35.9); MEAN CELL VOLUME 92.5 fl (80-96); MEAN PLT VOLUME 8.8 fl (7.5-11.1); MONO % 10.2 % (3.8-10.2); NEUT % 45.1 % (42.8-82.8); PLATELET COUNT 181 10^3/uL (134-434); RBC 4.29 M/mm3 (4.00-5.60); RDW 14.5 % (11.9-15.9)
[2021-06-24 07:54] LABS: ALBUMIN 3.1 g/dl (3.4-5.0); BLOOD UREA NITROGEN 41.5 mg/dL (7-18); CALCIUM 8.9 mg/dL (8.5-10.1)
[2021-06-24 07:55] LABS: MAGNESIUM 2.4 mg/dL (1.8-2.4)
[2021-06-24 07:56] LABS: BILIRUBIN,TOTAL 0.2 mg/dL (0.2-1); TOT PROT 6.6 g/dl (6.4-8.2)
[2021-06-24 07:57] LABS: CREATININE 2.9 mg/dL (0.55-1.3)
[2021-06-24] MEDS: ISOSORBIDE MONONITRATE 30 MG TAB.SR.24H (FP) PO SCH (12:21)
[2021-06-24] MEDS: CLOPIDOGREL BISULFATE 75 MG TABLET (FP) PO SCH (12:21)
[2021-06-24] MEDS: ASPIRIN COATED 81 MG TABLET.EC PO SCH (12:21)
[2021-06-24] MEDS: APIXABAN 2.5 MG TABLET PO SCH (12:22)
[2021-06-24 14:16] VITALS: BP 154/59; PULSE 69; TEMP 98.5
== END 2021-06-24 16:46 | disposition home or self-care (01) | DRG 204 ==
LOC: JER 14:11 → JERBED 18:21 → OBSVTOIN 21:30 → J4W 06-22 01:28
PROVIDERS: ADMIT Internal Medicine
DX: R55 Syncope and collapse (principal); I48.91 Unspecified atrial fibrillation; I42.0 Dilated cardiomyopathy; I73.9 Peripheral vascular disease, unspecified; F12.90 Cannabis use, unspecified, uncomplicated; I65.22 Occlusion and stenosis of left carotid artery; E87.5 Hyperkalemia; R73.03 Prediabetes; I25.10 Atherosclerotic heart disease of native coronary artery without angina pectoris; I13.0 Hypertensive heart and chronic kidney disease with heart failure and stage 1 through stage 4 chronic kidney disease, or unspecified chronic kidney disease; I50.22 Chronic systolic (congestive) heart failure; N18.4 Chronic kidney disease, stage 4 (severe); F41.9 Anxiety disorder, unspecified; Z86.718 Personal history of other venous thrombosis and embolism; Z95.810 Presence of automatic (implantable) cardiac defibrillator; Z86.73 Personal history of transient ischemic attack (TIA), and cerebral infarction without residual deficits; Z95.1 Presence of aortocoronary bypass graft; Z91.14 Patient's other noncompliance with medication regimen
CPT/HCPCS: 36415; 70450-TC; 71045-TC-FY; 76700-TC; 80048; 80053; 80061; 80307; 81003; 82550; 83036; 83735; 83880; 84100; 84443; 84484; 84550; 85025; 85027; 85610; 85730; 93005; 93010; 93306-TC; 93880-TC; 99285-25; C9803; G0378; U0003; U0005

== ENCOUNTER 2021-09-21 16:54 | Observation (INO) | payer OTHER ==
[2021-09-21 17:43] VITALS: BMI 22.8
[2021-09-21 18:47] LABS: BASO % 0.8 % (0-2.0); EOS % 0.9 % (0-4.5); HEMATOCRIT 40.2 % (35.4-49); HEMOGLOBIN 13.4 GM/dL (11.7-16.9); LYMPH % 15.8 % (8-40); MCH 31.8 pg (25.7-33.7); MCHC 33.3 g/dl (32.0-35.9); MEAN CELL VOLUME 95.3 fl (80-96); MEAN PLT VOLUME 8.6 fl (7.5-11.1); MONO % 8.9 % (3.8-10.2); NEUT % 73.6 % (42.8-82.8); PLATELET COUNT 165 10^3/uL (134-434); RBC 4.21 M/mm3 (4.00-5.60); RDW 14.8 % (11.9-15.9); WHITE BLOOD COUNT 8.5 K/mm3 (4.0-10.0)
[2021-09-21 18:50] LABS: EPI CELLS 6 /uL (0-25.1); HYALINE CASTS 1 /uL (0-3.1); PH,URINE 5.5 (5.0-8.0); URINE APPEARANCE CLEAR; URINE BACTERIA 5 /uL (0-1359); URINE BILIRUBIN NEGATIVE (NEGATIVE); URINE COLOR YELLOW; URINE GLUCOSE (UA) NEGATIVE (NEGATIVE); URINE KETONE TRACE (NEGATIVE); URINE LEUK ESTERASE TRACE (NEGATIVE); URINE NITRITE NEGATIVE (NEGATIVE); URINE PROTEIN 1+ (NEGATIVE); URINE RBC 2 /uL (0-23.9); URINE UROBILINOGEN 0.2 mg/dL (0.2-1.0); URINE WBC 6 /uL (0-25.8)
[2021-09-21 18:54] LABS: INR 1.03 (0.83-1.09); PROTHROMBIN TIME (PATIENT) 11.8 SEC (9.7-13.0)
[2021-09-21 18:56] LABS: ACTIVATED PTT 25.4 SECONDS (25.2-36.5)
[2021-09-21 19:10] LABS: COCAINE, UR NEGATIVE (NEGATIVE); METHADONE, UR NEGATIVE (NEGATIVE); OPIATES, URI NEGATIVE (NEGATIVE); PHENCYCLIDINE,URINE NEGATIVE (NEGATIVE); URINE AMPHETAMINES NEGATIVE (NEGATIVE); URINE BARBITURATES NEGATIVE (NEGATIVE); URINE BENZODIAZEPINES NEGATIVE (NEGATIVE)
[2021-09-21 19:14] LABS: CALCIUM 9.5 mg/dL (8.5-10.1)
[2021-09-21 19:15] LABS: ALBUMIN 3.5 g/dl (3.4-5.0); BLOOD UREA NITROGEN 42.7 mg/dL (7-18); MAGNESIUM 2.1 mg/dL (1.8-2.4)
[2021-09-21 19:18] LABS: CREATININE 3.4 mg/dL (0.55-1.3)
[2021-09-21 19:20] LABS: BILIRUBIN,TOTAL 0.4 mg/dL (0.2-1); TOT PROT 7.2 g/dl (6.4-8.2)
[2021-09-21 19:23] LABS: N-TERMINAL BNP 332.4 pg/ml (5-125)
[2021-09-22] MEDS ORDERED: SODIUM CHLORIDE 500 ML IV ONE (00:14)
[2021-09-22] MEDS ORDERED: MELATONIN 5 MG TABLETS PO PRN (01:08)
[2021-09-22] MEDS ORDERED: HEPARIN NA (PORCINE) 5,000 UNITS/ML 1ML VIAL ONE ×2 (06:30→16:04)
[2021-09-22] MEDS: HEPARIN NA (PORCINE) 5,000 UNITS/ML 1ML VIAL SQ SCH ×2 (06:34→16:00)
[2021-09-22 07:12] LABS: BASO % 0.8 % (0-2.0); EOS % 2.2 % (0-4.5); HEMATOCRIT 40.4 % (35.4-49); HEMOGLOBIN 13.6 GM/dL (11.7-16.9); LYMPH % 35.7 % (8-40); MCH 32.2 pg (25.7-33.7); MCHC 33.7 g/dl (32.0-35.9); MEAN CELL VOLUME 95.7 fl (80-96); MEAN PLT VOLUME 8.8 fl (7.5-11.1); MONO % 9.4 % (3.8-10.2); NEUT % 51.9 % (42.8-82.8); PLATELET COUNT 164 10^3/uL (134-434); RBC 4.22 M/mm3 (4.00-5.60); RDW 14.7 % (11.9-15.9)
[2021-09-22] MEDS: INSULIN SLIDING SCALE (NOVOLOG) 1 VIAL SQ SCH ×4 (07:28→22:22)
[2021-09-22 07:35] LABS: ALBUMIN 3.5 g/dl (3.4-5.0); BLOOD UREA NITROGEN 43.1 mg/dL (7-18); CALCIUM 9.4 mg/dL (8.5-10.1)
[2021-09-22 07:36] LABS: MAGNESIUM 1.9 mg/dL (1.8-2.4)
[2021-09-22 07:38] LABS: CHOLESTEROL 136 mg/dL (50-200); CREATININE 3.1 mg/dL (0.55-1.3); PHOSPHOROUS 3.5 mg/dL (2.5-4.9)
[2021-09-22 07:39] LABS: TRIGLYCERIDES 94 mg/dL (0-150)
[2021-09-22 07:40] LABS: BILIRUBIN,TOTAL 0.4 mg/dL (0.2-1); LDL CHOLESTEROL (ONLY SJRH) 74 mg/dL (5-100)
[2021-09-22 07:42] LABS: HDL CHOLESTEROL 43 mg/dL (40-60)
[2021-09-22] MEDS ORDERED: SODIUM ZIRCONIUM CYCLOSILICATE (LOKELMA) 5 GM PACKET PO ONE (10:11)
[2021-09-22] MEDS ORDERED: SODIUM ZIRCONIUM CYCLOSILICATE (LOKELMA) 5 GM PACKET ONE (10:36)
[2021-09-22 14:24] VITALS: TEMP 97.6
[2021-09-22] MEDS ORDERED: CLOPIDOGREL BISULFATE 75 MG TABLET (FP) PO SCH (15:45)
[2021-09-22] MEDS ORDERED: ALLOPURINOL 100 MG TABLET (FP) PO SCH (15:45)
[2021-09-22] MEDS ORDERED: ASPIRIN COATED 81 MG TABLET.EC PO SCH (15:45)
[2021-09-22] MEDS ORDERED: ERGOCALCIFEROL (VIT D2) 50,000 UNIT (1.25 MG) CAPSULE PO SCH (15:45)
[2021-09-22] MEDS ORDERED: ENOXAPARIN NA (PORCINE) 80 MG/0.8 ML DISP.SYRIN SQ SCH (15:45)
[2021-09-22] MEDS ORDERED: amLODIPine BESYLATE 2.5 MG TABLET (FP) PO SCH (15:45)
[2021-09-22] MEDS ORDERED: ISOSORBIDE DINITRATE 20 MG TABLET PO SCH (15:45)
[2021-09-22] MEDS ORDERED: SODIUM BICARBONATE 650 MG TABLET PO SCH (15:45)
[2021-09-22] MEDS ORDERED: amLODIPine BESYLATE 2.5 MG TABLET (FP) ONE (16:03)
[2021-09-22] MEDS ORDERED: ASPIRIN COATED 81 MG TABLET.EC ONE (16:03)
[2021-09-22] MEDS ORDERED: CLOPIDOGREL BISULFATE 75 MG TABLET (FP) ONE (16:04)
[2021-09-22] MEDS: hydrALAZINE HCL 25 MG TABLET (FP) PO SCH ×2 (16:09→22:22)
[2021-09-22 21:32] VITALS: BP 158/81; PULSE 74
[2021-09-22] MEDS ORDERED: ATORVASTATIN CA 80 MG TABLET (FP) PO SCH (22:00)
[2021-09-22] MEDS ORDERED: levETIRAcetam 500 MG TABLET (FP) PO SCH (22:00)
[2021-09-22] MEDS ORDERED: hydrALAZINE HCL 25 MG TABLET (FP) ONE (22:14)
== END 2021-09-22 22:51 | disposition home or self-care (01) ==
LOC: JER 16:54 → JERBED 23:24
PROVIDERS: ADMIT Hospitalist
PROC: 3E023GC Introduction of Other Therapeutic Substance into Muscle, Percutaneous Approach (ICD-10-PCS; principal; 2021-09-21)
PROC: 3E0337Z Introduction of Electrolytic and Water Balance Substance into Peripheral Vein, Percutaneous Approach (ICD-10-PCS; 2021-09-21)
DX: I13.10 Hypertensive heart and chronic kidney disease without heart failure, with stage 1 through stage 4 chronic kidney disease, or unspecified chronic kidney disease (principal); E11.22 Type 2 diabetes mellitus with diabetic chronic kidney disease; R41.82 Altered mental status, unspecified; I25.10 Atherosclerotic heart disease of native coronary artery without angina pectoris; N18.4 Chronic kidney disease, stage 4 (severe); M10.9 Gout, unspecified; A15.9 Respiratory tuberculosis unspecified; Z86.73 Personal history of transient ischemic attack (TIA), and cerebral infarction without residual deficits; Z87.891 Personal history of nicotine dependence
CPT/HCPCS: 36415; 70450-TC; 71045-TC-FY; 80053; 80061; 80307; 81003; 82550; 82607; 82962; 83036; 83735; 83880; 84100; 84443; 84484; 85025; 85610; 85730; 86850; 86900; 86901; 87086; 87804; 93005; 93010; 96360; 96372; 99285-25; C9803; G0378; J1644; U0003; U0005

== ENCOUNTER 2022-02-21 15:22 | Inpatient (IN) | payer OTHER ==
[2022-02-21 20:33] LABS: BASO % 0.6 % (0-2.0); EOS % 1.2 % (0-4.5); HEMATOCRIT 41.9 % (35.4-49); HEMOGLOBIN 13.9 GM/dL (11.7-16.9); LYMPH % 16.3 % (8-40); MCH 31.5 pg (25.7-33.7); MCHC 33.1 g/dl (32.0-35.9); MEAN CELL VOLUME 95.2 fl (80-96); MEAN PLT VOLUME 8.7 fl (7.5-11.1); MONO % 7.5 % (3.8-10.2); NEUT % 74.4 % (42.8-82.8); PLATELET COUNT 346 10^3/uL (134-434); RDW 14.2 % (11.9-15.9); WHITE BLOOD COUNT 8.3 K/mm3 (4.0-10.0)
[2022-02-21 20:53] LABS: CALCIUM 9.6 mg/dL (8.5-10.1)
[2022-02-21 20:54] LABS: ALBUMIN 3.6 g/dl (3.4-5.0); BLOOD UREA NITROGEN 30.5 mg/dL (7-18); MAGNESIUM 1.9 mg/dL (1.8-2.4)
[2022-02-21 20:56] LABS: CREATININE 2.6 mg/dL (0.55-1.3); PHOSPHOROUS 3.1 mg/dL (2.5-4.9)
[2022-02-21 20:58] LABS: BILIRUBIN,TOTAL 0.4 mg/dL (0.2-1); TOT PROT 7.9 g/dl (6.4-8.2)
[2022-02-21 21:01] LABS: N-TERMINAL BNP 621.4 pg/ml (5-125)
[2022-02-21 23:38] LABS: CALCIUM 9.2 mg/dL (8.5-10.1)
[2022-02-21 23:39] LABS: BLOOD UREA NITROGEN 34.4 mg/dL (7-18)
[2022-02-21 23:42] LABS: CREATININE 2.7 mg/dL (0.55-1.3)
[2022-02-22] MEDS ORDERED: HEPARIN NA (PORCINE) 5,000 UNITS/ML 1ML VIAL ONE (05:47)
[2022-02-22] MEDS ORDERED: HEPARIN NA (PORCINE) 5,000 UNITS/ML 1ML VIAL SQ SCH (06:00)
[2022-02-22 07:48] LABS: BASO % 0.9 % (0-2.0); EOS % 2.3 % (0-4.5); HEMOGLOBIN 13.2 GM/dL (11.7-16.9); LYMPH % 31.4 % (8-40); MCH 31.4 pg (25.7-33.7); MCHC 33.1 g/dl (32.0-35.9); MEAN CELL VOLUME 94.9 fl (80-96); MONO % 9.6 % (3.8-10.2); NEUT % 55.8 % (42.8-82.8); PLATELET COUNT 292 10^3/uL (134-434); RBC 4.21 M/mm3 (4.00-5.60); RDW 14.4 % (11.9-15.9); WHITE BLOOD COUNT 5.7 K/mm3 (4.0-10.0)
[2022-02-22 08:06] LABS: ALBUMIN 3.2 g/dl (3.4-5.0); BLOOD UREA NITROGEN 36.4 mg/dL (7-18); MAGNESIUM 1.9 mg/dL (1.8-2.4)
[2022-02-22 08:10] LABS: CREATININE 2.7 mg/dL (0.55-1.3); PHOSPHOROUS 3.5 mg/dL (2.5-4.9)
[2022-02-22 08:11] LABS: BILIRUBIN,TOTAL 0.4 mg/dL (0.2-1)
[2022-02-22 08:23] LABS: CHOLESTEROL 120 mg/dL (50-200)
[2022-02-22 08:25] LABS: LDL CHOLESTEROL (ONLY SJRH) 72 mg/dL (5-100)
[2022-02-22 08:28] LABS: HDL CHOLESTEROL 33 mg/dL (40-60)
[2022-02-22 08:40] LABS: TRIGLYCERIDES 120 mg/dL (0-150)
[2022-02-22] MEDS ORDERED: ASPIRIN 81 MG CHEWABLE TABLETS ONE (08:54)
[2022-02-22] MEDS ORDERED: amLODIPine BESYLATE 2.5 MG TABLET (FP) ONE (10:03)
[2022-02-22] MEDS: levETIRAcetam 500 MG TABLET (FP) PO SCH ×2 (10:32→21:47)
[2022-02-22] MEDS: CLOPIDOGREL BISULFATE 75 MG TABLET (FP) PO SCH (10:32)
[2022-02-22] MEDS: ASPIRIN 81 MG CHEWABLE TABLETS PO SCH (10:32)
[2022-02-22] MEDS: amLODIPine BESYLATE 5 MG TABLET (FP) PO SCH (10:32)
[2022-02-22] MEDS ORDERED: ENOXAPARIN NA (PORCINE) 80 MG/0.8 ML DISP.SYRIN SQ SCH (11:00)
[2022-02-22] MEDS ORDERED: ENOXAPARIN NA (PORCINE) 80 MG/0.8 ML DISP.SYRIN SQ ONE (11:29)
[2022-02-22] MEDS: ALLOPURINOL 100 MG TABLET (FP) PO SCH (12:44)
[2022-02-22] MEDS ORDERED: hydrALAZINE HCL 25 MG TABLET (FP) ONE (14:19)
[2022-02-22] MEDS: hydrALAZINE HCL 25 MG TABLET (FP) PO SCH ×2 (14:32→21:47)
[2022-02-22] MEDS: ISOSORBIDE DINITRATE 20 MG TABLET PO SCH ×2 (14:32→18:23)
[2022-02-22] MEDS: SODIUM BICARBONATE 650 MG TABLET PO SCH ×2 (14:32→21:47)
[2022-02-22] MEDS ORDERED: SODIUM ZIRCONIUM CYCLOSILICATE (LOKELMA) 5 GM PACKET ONE (17:43)
[2022-02-22] MEDS: SODIUM ZIRCONIUM CYCLOSILICATE (LOKELMA) 5 GM PACKET PO SCH (17:50)
[2022-02-22] MEDS: ATORVASTATIN CA 20 MG TABLET (FP) PO SCH (21:47)
[2022-02-22 23:06] VITALS: BMI 25.5
[2022-02-23] MEDS: SODIUM BICARBONATE 650 MG TABLET PO SCH ×3 (05:39→22:09)
[2022-02-23] MEDS: hydrALAZINE HCL 25 MG TABLET (FP) PO SCH ×3 (05:39→22:08)
[2022-02-23] MEDS ORDERED: FAMOTIDINE 20 MG TABLET PO ONE (05:44)
[2022-02-23] MEDS: ASPIRIN 81 MG CHEWABLE TABLETS PO SCH (10:38)
[2022-02-23] MEDS: ALLOPURINOL 100 MG TABLET (FP) PO SCH (10:38)
[2022-02-23] MEDS: ISOSORBIDE DINITRATE 20 MG TABLET PO SCH ×3 (10:38→18:50)
[2022-02-23] MEDS: SODIUM ZIRCONIUM CYCLOSILICATE (LOKELMA) 5 GM PACKET PO SCH (10:39)
[2022-02-23] MEDS: CLOPIDOGREL BISULFATE 75 MG TABLET (FP) PO SCH (10:39)
[2022-02-23] MEDS: amLODIPine BESYLATE 5 MG TABLET (FP) PO SCH (10:39)
[2022-02-23] MEDS: levETIRAcetam 500 MG TABLET (FP) PO SCH ×2 (10:39→22:08)
[2022-02-23 16:43] LABS: METHADONE, UR NEGATIVE (NEGATIVE); PHENCYCLIDINE,URINE NEGATIVE (NEGATIVE); URINE BARBITURATES NEGATIVE (NEGATIVE)
[2022-02-23 16:46] LABS: COCAINE, UR NEGATIVE (NEGATIVE)
[2022-02-23 16:59] LABS: OPIATES, URI NEGATIVE (NEGATIVE); URINE AMPHETAMINES NEGATIVE (NEGATIVE); URINE BENZODIAZEPINES NEGATIVE (NEGATIVE)
[2022-02-23] MEDS: ATORVASTATIN CA 20 MG TABLET (FP) PO SCH (22:09)
[2022-02-24] MEDS: hydrALAZINE HCL 25 MG TABLET (FP) PO SCH ×3 (06:36→22:10)
[2022-02-24] MEDS: SODIUM BICARBONATE 650 MG TABLET PO SCH ×3 (06:36→22:10)
[2022-02-24] MEDS: CLOPIDOGREL BISULFATE 75 MG TABLET (FP) PO SCH (10:29)
[2022-02-24] MEDS: ISOSORBIDE DINITRATE 20 MG TABLET PO SCH ×3 (10:29→18:16)
[2022-02-24] MEDS: SODIUM ZIRCONIUM CYCLOSILICATE (LOKELMA) 5 GM PACKET PO SCH (10:30)
[2022-02-24] MEDS: ASPIRIN 81 MG CHEWABLE TABLETS PO SCH (10:30)
[2022-02-24] MEDS: levETIRAcetam 500 MG TABLET (FP) PO SCH ×2 (10:30→22:09)
[2022-02-24] MEDS: ALLOPURINOL 100 MG TABLET (FP) PO SCH (10:30)
[2022-02-24] MEDS: amLODIPine BESYLATE 5 MG TABLET (FP) PO SCH (10:30)
[2022-02-24] MEDS ORDERED: SODIUM ZIRCONIUM CYCLOSILICATE (LOKELMA) 5 GM PACKET PO ONE (12:00)
[2022-02-24] MEDS: HEPARIN NA (PORCINE) 5,000 UNITS/ML 1ML VIAL SQ SCH (22:10)
[2022-02-24] MEDS: ATORVASTATIN CA 20 MG TABLET (FP) PO SCH (22:10)
[2022-02-25] MEDS: SODIUM BICARBONATE 650 MG TABLET PO SCH ×3 (07:01→21:48)
[2022-02-25] MEDS: hydrALAZINE HCL 25 MG TABLET (FP) PO SCH ×3 (07:01→21:48)
[2022-02-25] MEDS: amLODIPine BESYLATE 5 MG TABLET (FP) PO SCH (09:02)
[2022-02-25] MEDS: CLOPIDOGREL BISULFATE 75 MG TABLET (FP) PO SCH (09:02)
[2022-02-25] MEDS: ASPIRIN 81 MG CHEWABLE TABLETS PO SCH (09:03)
[2022-02-25] MEDS: ALLOPURINOL 100 MG TABLET (FP) PO SCH (09:03)
[2022-02-25] MEDS: levETIRAcetam 500 MG TABLET (FP) PO SCH ×2 (09:03→21:48)
[2022-02-25] MEDS: ISOSORBIDE DINITRATE 20 MG TABLET PO SCH ×3 (09:04→17:10)
[2022-02-25] MEDS: HEPARIN NA (PORCINE) 5,000 UNITS/ML 1ML VIAL SQ SCH ×2 (09:04→21:48)
[2022-02-25] MEDS: SODIUM ZIRCONIUM CYCLOSILICATE (LOKELMA) 5 GM PACKET PO SCH (09:09)
[2022-02-25 11:03] LABS: BLOOD UREA NITROGEN 55.5 mg/dL (7-18)
[2022-02-25 11:07] LABS: PHOSPHOROUS 4.2 mg/dL (2.5-4.9)
[2022-02-25] MEDS: ATORVASTATIN CA 20 MG TABLET (FP) PO SCH (21:48)
[2022-02-26] MEDS: SODIUM BICARBONATE 650 MG TABLET PO SCH ×3 (07:03→21:54)
[2022-02-26] MEDS: hydrALAZINE HCL 25 MG TABLET (FP) PO SCH ×3 (07:03→21:54)
[2022-02-26 09:00] LABS: BASO % 0.6 % (0-2.0); HEMATOCRIT 38.2 % (35.4-49); HEMOGLOBIN 12.5 GM/dL (11.7-16.9); LYMPH % 34.9 % (8-40); MCHC 32.8 g/dl (32.0-35.9); MEAN CELL VOLUME 94.5 fl (80-96); MEAN PLT VOLUME 9.7 fl (7.5-11.1); MONO % 9.7 % (3.8-10.2); NEUT % 51.8 % (42.8-82.8); PLATELET COUNT 243 10^3/uL (134-434); RBC 4.04 M/mm3 (4.00-5.60); RDW 14.8 % (11.9-15.9); WHITE BLOOD COUNT 5.6 K/mm3 (4.0-10.0)
[2022-02-26 09:21] LABS: CALCIUM 8.8 mg/dL (8.5-10.1)
[2022-02-26 09:22] LABS: BLOOD UREA NITROGEN 50.2 mg/dL (7-18)
[2022-02-26 09:25] LABS: CREATININE 2.8 mg/dL (0.55-1.3)
[2022-02-26] MEDS: ALLOPURINOL 100 MG TABLET (FP) PO SCH (09:29)
[2022-02-26] MEDS: SODIUM ZIRCONIUM CYCLOSILICATE (LOKELMA) 5 GM PACKET PO SCH (09:29)
[2022-02-26] MEDS: levETIRAcetam 500 MG TABLET (FP) PO SCH ×2 (09:30→21:54)
[2022-02-26] MEDS: ASPIRIN 81 MG CHEWABLE TABLETS PO SCH (09:30)
[2022-02-26] MEDS: CLOPIDOGREL BISULFATE 75 MG TABLET (FP) PO SCH (09:31)
[2022-02-26] MEDS: HEPARIN NA (PORCINE) 5,000 UNITS/ML 1ML VIAL SQ SCH ×2 (09:31→21:54)
[2022-02-26] MEDS: ISOSORBIDE DINITRATE 20 MG TABLET PO SCH ×3 (09:32→17:34)
[2022-02-26] MEDS: ATORVASTATIN CA 20 MG TABLET (FP) PO SCH (21:54)
[2022-02-27] MEDS: SODIUM BICARBONATE 650 MG TABLET PO SCH ×3 (06:46→22:23)
[2022-02-27] MEDS: hydrALAZINE HCL 25 MG TABLET (FP) PO SCH ×3 (06:46→22:23)
[2022-02-27 08:53] LABS: BLOOD UREA NITROGEN 46.9 mg/dL (7-18); CALCIUM 9.1 mg/dL (8.5-10.1)
[2022-02-27 08:56] LABS: CREATININE 2.7 mg/dL (0.55-1.3)
[2022-02-27] MEDS: ASPIRIN 81 MG CHEWABLE TABLETS PO SCH (09:15)
[2022-02-27] MEDS: ISOSORBIDE DINITRATE 20 MG TABLET PO SCH ×3 (09:15→17:20)
[2022-02-27] MEDS: ALLOPURINOL 100 MG TABLET (FP) PO SCH (09:15)
[2022-02-27] MEDS: levETIRAcetam 500 MG TABLET (FP) PO SCH ×2 (09:15→22:23)
[2022-02-27] MEDS: CLOPIDOGREL BISULFATE 75 MG TABLET (FP) PO SCH (09:15)
[2022-02-27] MEDS: HEPARIN NA (PORCINE) 5,000 UNITS/ML 1ML VIAL SQ SCH ×2 (09:16→22:23)
[2022-02-27] MEDS: SODIUM ZIRCONIUM CYCLOSILICATE (LOKELMA) 5 GM PACKET PO SCH (09:16)
[2022-02-27] MEDS: ATORVASTATIN CA 20 MG TABLET (FP) PO SCH (22:23)
[2022-02-28] MEDS: SODIUM BICARBONATE 650 MG TABLET PO SCH ×2 (06:23→13:30)
[2022-02-28] MEDS: hydrALAZINE HCL 25 MG TABLET (FP) PO SCH ×2 (06:23→13:30)
[2022-02-28] MEDS: ISOSORBIDE DINITRATE 20 MG TABLET PO SCH ×2 (07:34→13:30)
[2022-02-28] MEDS: ASPIRIN 81 MG CHEWABLE TABLETS PO SCH (09:20)
[2022-02-28] MEDS: CLOPIDOGREL BISULFATE 75 MG TABLET (FP) PO SCH (09:20)
[2022-02-28] MEDS: ALLOPURINOL 100 MG TABLET (FP) PO SCH (09:20)
[2022-02-28] MEDS: levETIRAcetam 500 MG TABLET (FP) PO SCH (09:23)
[2022-02-28] MEDS: HEPARIN NA (PORCINE) 5,000 UNITS/ML 1ML VIAL SQ SCH (09:23)
[2022-02-28] MEDS: SODIUM ZIRCONIUM CYCLOSILICATE (LOKELMA) 5 GM PACKET PO SCH (09:23)
[2022-02-28 13:30] VITALS: BP 138/101; PULSE 68; TEMP 98.2
== END 2022-02-28 14:18 | disposition home or self-care (01) | DRG 312 ==
LOC: JER 15:22 → JERBED 22:14 → J4W 02-22 20:46 → OBSVTOIN 02-24 13:03
PROVIDERS: ADMIT Hospitalist; ATTEND Nurse Practitioner Family
DX: R55 Syncope and collapse (principal); I13.0 Hypertensive heart and chronic kidney disease with heart failure and stage 1 through stage 4 chronic kidney disease, or unspecified chronic kidney disease; I50.22 Chronic systolic (congestive) heart failure; I69.351 Hemiplegia and hemiparesis following cerebral infarction affecting right dominant side; N18.4 Chronic kidney disease, stage 4 (severe); E11.22 Type 2 diabetes mellitus with diabetic chronic kidney disease; I65.29 Occlusion and stenosis of unspecified carotid artery; F32.A Depression, unspecified; E78.5 Hyperlipidemia, unspecified; I25.10 Atherosclerotic heart disease of native coronary artery without angina pectoris; E87.5 Hyperkalemia; F17.210 Nicotine dependence, cigarettes, uncomplicated; Z98.61 Coronary angioplasty status
CPT/HCPCS: 36415; 70450-TC; 71045-TC-FY; 80048; 80053; 80061; 80177; 80307; 82550; 82962; 83735; 83880; 84100; 84443; 84484; 85025; 93005; 93010; 93306-TC; 93880-TC; 97116-GP; 97161-GP; 99285-25; C9803-CS; G0378; J1644; U0003; U0005

== ENCOUNTER 2022-06-26 15:33 | Inpatient (IN) | payer OTHER ==
[2022-06-26 16:53] LABS: BASO % 0.9 % (0-2.0); EOS % 2.8 % (0-4.5); HEMATOCRIT 44.7 % (35.4-49); HEMOGLOBIN 14.7 GM/dL (11.7-16.9); LYMPH % 33.2 % (8-40); MCH 31.9 pg (25.7-33.7); MEAN CELL VOLUME 96.6 fl (80-96); MONO % 8.4 % (3.8-10.2); NEUT % 54.7 % (42.8-82.8); PLATELET COUNT 138 10^3/uL (134-434); RBC 4.63 M/mm3 (4.00-5.60); RDW 14.7 % (11.9-15.9); WHITE BLOOD COUNT 4.5 K/mm3 (4.0-10.0)
[2022-06-26 17:03] LABS: CHLORIDE 113 mmol/L (98-107); SODIUM 144 mmol/L (136-145)
[2022-06-26 17:06] LABS: ALBUMIN 3.4 g/dl (3.4-5.0); BLOOD UREA NITROGEN 36.9 mg/dL (7-18); CALCIUM 9.2 mg/dL (8.5-10.1); CO2 26 mmol/L (21-32); GLUCOSE,RANDOM 132 mg/dL (74-106); LIPASE 293 U/L (73-393); MAGNESIUM 1.8 mg/dL (1.8-2.4)
[2022-06-26 17:09] LABS: SGOT/AST 19 U/L (15-37); SGPT/ALT 29 U/L (13-61)
[2022-06-26 17:10] LABS: BILIRUBIN,TOTAL 0.3 mg/dL (0.2-1)
[2022-06-26 17:11] LABS: TOT PROT 6.8 g/dl (6.4-8.2)
[2022-06-26 17:12] LABS: ALK PHOS 142 U/L (45-117)
[2022-06-26 17:14] LABS: N-TERMINAL BNP 1538.8 pg/ml (5-125)
[2022-06-26 17:19] LABS: ANION GAP 4 MMOL/L (8-16)
[2022-06-26] MEDS ORDERED: FUROSEMIDE 40 MG/4 ML INJECTABLE VIAL IVPUSH ONE (17:26)
[2022-06-26] MEDS ORDERED: INSULIN REGULAR HUMAN 100 UNITS/ML *VIAL IVPUSH ONE (17:26)
[2022-06-26] MEDS ORDERED: DEXTROSE 50%-WATER - 25 GM/50 ML VIAL IVPUSH ONE (17:28)
[2022-06-26] MEDS ORDERED: CALCIUM GLUCONATE 10% - 1,000 MG/10 ML VIAL IVPB ONE (17:28)
[2022-06-26] MEDS ORDERED: SODIUM BICARBONATE 8.4% 50 MEQ/50 ML DISP.SYRIN IVPUSH ONE (17:30)
[2022-06-26] MEDS ORDERED: SODIUM ZIRCONIUM CYCLOSILICATE (LOKELMA) 5 GM PACKET PO SCH (17:30)
[2022-06-26] MEDS: ALBUTEROL SO4 0.083% IH SOL 2.5 MG/3 ML VIAL.NEB. NEB SCH ×4 (17:45→18:08)
[2022-06-26] MEDS ORDERED: ALBUTEROL SO4 2.5/IPRATROPIUM 0.5 INH SOL 3 ML VIAL.NEB. NEB ONE (17:47)
[2022-06-26] MEDS ORDERED: DEXTROSE 50%-WATER 25 GM/50 ML DISP.SYRIN ONE (17:47)
[2022-06-26] MEDS ORDERED: SODIUM BICARBONATE 8.4% 10 MEQ/10 ML VIAL ONE (17:47)
[2022-06-26] MEDS ORDERED: ALBUTEROL SO4 0.083% IH SOL 2.5 MG/3 ML VIAL.NEB. NEB ONE ×2 (17:47→18:02)
[2022-06-26] MEDS ORDERED: SODIUM ZIRCONIUM CYCLOSILICATE (LOKELMA) 5 GM PACKET ONE (17:47)
[2022-06-26] MEDS ORDERED: CALCIUM GLUCONATE 10% - 1,000 MG/10 ML VIAL ONE (17:48)
[2022-06-26] MEDS ORDERED: FUROSEMIDE 40 MG/4 ML INJECTABLE VIAL ONE (17:48)
[2022-06-26 19:25] LABS: VENOUS BASE EXCESS -5.6 mmol/L (-2-2); VENOUS O2 SATURATION 28.7 % (70-80); VENOUS PCO2 61.3 mmHg (38-52); VENOUS PH 7.209 (7.310-7.410)
[2022-06-26] MEDS ORDERED: levETIRAcetam 500 MG/5 ML INJECTION VIAL IVPB ONE ×2 (20:01→21:09)
[2022-06-26 20:46] LABS: VENOUS BASE EXCESS -9.6 mmol/L (-2-2); VENOUS O2 SATURATION 59.5 % (70-80); VENOUS PCO2 50.7 mmHg (38-52)
[2022-06-26 20:48] LABS: VENOUS PH 7.19 (7.310-7.410)
[2022-06-26 20:54] LABS: PH,URINE 5.5 (5.0-8.0); URINE APPEARANCE CLEAR; URINE BILIRUBIN NEGATIVE (NEGATIVE); URINE COLOR YELLOW; URINE GLUCOSE (UA) 1+ (NEGATIVE); URINE KETONE NEGATIVE (NEGATIVE); URINE LEUK ESTERASE NEGATIVE (NEGATIVE); URINE NITRITE NEGATIVE (NEGATIVE); URINE PROTEIN NEGATIVE (NEGATIVE); URINE UROBILINOGEN 0.2 mg/dL (0.2-1.0)
[2022-06-26] MEDS ORDERED: SODIUM CHLORIDE 0.9% 500 ML INFUS.BAG IV ONE (21:10)
[2022-06-26 21:47] LABS: METHADONE, UR NEGATIVE (NEGATIVE)
[2022-06-26 21:48] LABS: OPIATES, URI NEGATIVE (NEGATIVE); PHENCYCLIDINE,URINE NEGATIVE (NEGATIVE); URINE BARBITURATES NEGATIVE (NEGATIVE); URINE BENZODIAZEPINES NEGATIVE (NEGATIVE)
[2022-06-26 21:49] LABS: COCAINE, UR NEGATIVE (NEGATIVE)
[2022-06-26 21:50] LABS: URINE AMPHETAMINES NEGATIVE (NEGATIVE)
[2022-06-26] MEDS ORDERED: HEPARIN NA (PORCINE) 5,000 UNITS/ML 1ML VIAL SQ SCH (22:00)
[2022-06-26] MEDS ORDERED: hydrALAZINE HCL 25 MG TABLET (FP) ONE (22:41)
[2022-06-26] MEDS: INSULIN SLIDING SCALE (NOVOLOG) 1 VIAL SQ SCH (22:41)
[2022-06-26] MEDS ORDERED: HEPARIN NA (PORCINE) 5,000 UNITS/ML 1ML VIAL ONE (22:42)
[2022-06-26] MEDS ORDERED: ATORVASTATIN CA 80 MG TABLET (FP) ONE (22:42)
[2022-06-26] MEDS: ATORVASTATIN CA 80 MG TABLET (FP) PO SCH (22:46)
[2022-06-26] MEDS: hydrALAZINE HCL 25 MG TABLET (FP) PO SCH (22:46)
[2022-06-26] MEDS: APIXABAN 2.5 MG TABLET PO SCH (23:05)
[2022-06-26 23:50] LABS: INR 1.1 (0.83-1.09); PROTHROMBIN TIME (PATIENT) 12.7 SEC (9.7-13.0)
[2022-06-26 23:52] LABS: ACTIVATED PTT 28.9 SECONDS (25.2-36.5)
[2022-06-27 00:46] LABS: ALBUMIN 3.5 g/dl (3.4-5.0); BILIRUBIN,TOTAL 0.7 mg/dL (0.2-1); BLOOD UREA NITROGEN 40.2 mg/dL (7-18); CALCIUM 9.6 mg/dL (8.5-10.1); CREATININE 2.9 mg/dL (0.55-1.3); TOT PROT 6.9 g/dl (6.4-8.2)
[2022-06-27 02:39] LABS: ARTERIAL BLD GAS O2 SATURATION 98.4 % (95-98); ARTERIAL BLOOD GAS BASE EXCESS -2.7 mmol/L (-2-2); ARTERIAL BLOOD GAS PO2 110.8 mmHg (80-100); ARTERIAL BLOOD GAS pH 7.479 (7.350-7.450)
[2022-06-27 02:41] LABS: ALLENS TEST POSITIVE
[2022-06-27 06:35] LABS: HEMATOCRIT 47.4 % (35.4-49); HEMOGLOBIN 15.7 GM/dL (11.7-16.9); MCH 31.5 pg (25.7-33.7); MCHC 33.1 g/dl (32.0-35.9); MEAN CELL VOLUME 95.1 fl (80-96); MEAN PLT VOLUME 9.6 fl (7.5-11.1); PLATELET COUNT 146 10^3/uL (134-434); RBC 4.99 M/mm3 (4.00-5.60); RDW 14.7 % (11.9-15.9); WHITE BLOOD COUNT 13.4 K/mm3 (4.0-10.0)
[2022-06-27 06:56] LABS: CHLORIDE 111 mmol/L (98-107); SODIUM 143 mmol/L (136-145)
[2022-06-27 06:58] LABS: CALCIUM 8.9 mg/dL (8.5-10.1)
[2022-06-27 06:59] LABS: ALBUMIN 3.5 g/dl (3.4-5.0); BLOOD UREA NITROGEN 41.5 mg/dL (7-18); CO2 23 mmol/L (21-32); GLUCOSE,RANDOM 104 mg/dL (74-106); MAGNESIUM 1.5 mg/dL (1.8-2.4)
[2022-06-27 07:02] LABS: CHOLESTEROL 152 mg/dL (50-200); CREATININE 3.1 mg/dL (0.55-1.3); PHOSPHOROUS 1.7 mg/dL (2.5-4.9); SGOT/AST 15 U/L (15-37); SGPT/ALT 25 U/L (13-61); TRIGLYCERIDES 91 mg/dL (0-150)
[2022-06-27 07:03] LABS: BILIRUBIN,TOTAL 0.8 mg/dL (0.2-1); LDL CHOLESTEROL (ONLY SJRH) 83 mg/dL (5-100); TOT PROT 7.2 g/dl (6.4-8.2)
[2022-06-27] MEDS: hydrALAZINE HCL 25 MG TABLET (FP) PO SCH ×3 (07:03→21:30)
[2022-06-27 07:04] LABS: ALK PHOS 141 U/L (45-117); HDL CHOLESTEROL 56 mg/dL (40-60)
[2022-06-27 07:12] LABS: ANION GAP 8 MMOL/L (8-16)
[2022-06-27] MEDS: INSULIN SLIDING SCALE (NOVOLOG) 1 VIAL SQ SCH ×4 (07:30→21:37)
[2022-06-27] MEDS ORDERED: SODIUM ZIRCONIUM CYCLOSILICATE (LOKELMA) 5 GM PACKET PO SCH (08:21)
[2022-06-27] MEDS: ISOSORBIDE DINITRATE 20 MG TABLET PO SCH ×3 (08:24→17:41)
[2022-06-27] MEDS ORDERED: PATIENT'S OWN MEDICATION (NON-FORMULARY) (Patiromer Calcium Sorbitex [Veltassa] 8.4 GM Pow PO SCH (10:00)
[2022-06-27] MEDS ORDERED: SODIUM CHLORIDE 500 ML IV STA (10:27)
[2022-06-27] MEDS ORDERED: SODIUM CHLORIDE 1,000 ML IV SCH (10:30)
[2022-06-27] MEDS ORDERED: SODIUM ZIRCONIUM CYCLOSILICATE (LOKELMA) 5 GM PACKET ONE (10:41)
[2022-06-27] MEDS ORDERED: APIXABAN 2.5 MG TABLET ONE (10:41)
[2022-06-27] MEDS ORDERED: CLOPIDOGREL BISULFATE 75 MG TABLET (FP) ONE (10:41)
[2022-06-27] MEDS ORDERED: levETIRAcetam 500 MG TABLET (FP) PO ONE (10:41)
[2022-06-27] MEDS: CITALOPRAM HYDROBROMIDE 20 MG TABLET PO SCH (10:55)
[2022-06-27] MEDS: APIXABAN 2.5 MG TABLET PO SCH ×2 (10:55→21:30)
[2022-06-27] MEDS: ALLOPURINOL 100 MG TABLET (FP) PO SCH (10:55)
[2022-06-27] MEDS: SODIUM ZIRCONIUM CYCLOSILICATE (LOKELMA) 5 GM PACKET PO SCH ×2 (10:55→21:31)
[2022-06-27] MEDS: levETIRAcetam 500 MG TABLET (FP) PO SCH ×2 (10:55→21:30)
[2022-06-27] MEDS: CLOPIDOGREL BISULFATE 75 MG TABLET (FP) PO SCH (10:55)
[2022-06-27] MEDS ORDERED: SODIUM PHOSPHATE - 45 MM in DEXTROSE 5%-WATER - 500 ML IVPB ONE (11:00)
[2022-06-27 11:32] LABS: N-TERMINAL BNP 1751.5 pg/ml (5-125)
[2022-06-27] MEDS ORDERED: MAGNESIUM SULFATE IN WATER 2 GM/50 ML IVPB IVPB ONE (13:19)
[2022-06-27] MEDS ORDERED: MAGNESIUM SULF 50% (8.12 MEQ/2 ML-1 GM VIAL) IVPB ONE (13:30)
[2022-06-27] MEDS ORDERED: hydrALAZINE HCL 25 MG TABLET (FP) ONE (16:06)
[2022-06-27 18:29] LABS: CALCIUM 8.7 mg/dL (8.5-10.1)
[2022-06-27 18:33] LABS: CREATININE 3.1 mg/dL (0.55-1.3)
[2022-06-27 18:50] VITALS: RESP 20
[2022-06-27] MEDS: ATORVASTATIN CA 80 MG TABLET (FP) PO SCH (21:30)
[2022-06-27 23:39] VITALS: BMI 25.1
[2022-06-28] MEDS: hydrALAZINE HCL 25 MG TABLET (FP) PO SCH ×3 (06:41→21:25)
[2022-06-28] MEDS: INSULIN SLIDING SCALE (NOVOLOG) 1 VIAL SQ SCH ×4 (06:41→21:30)
[2022-06-28 08:26] LABS: BASO % 0.8 % (0-2.0); EOS % 2.6 % (0-4.5); HEMATOCRIT 40.1 % (35.4-49); HEMOGLOBIN 13.1 GM/dL (11.7-16.9); LYMPH % 15.4 % (8-40); MCH 31.3 pg (25.7-33.7); MCHC 32.8 g/dl (32.0-35.9); MEAN CELL VOLUME 95.5 fl (80-96); MEAN PLT VOLUME 10.1 fl (7.5-11.1); NEUT % 72.2 % (42.8-82.8); PLATELET COUNT 127 10^3/uL (134-434); RBC 4.19 M/mm3 (4.00-5.60); RDW 14.4 % (11.9-15.9); WHITE BLOOD COUNT 8.8 K/mm3 (4.0-10.0)
[2022-06-28 09:08] LABS: CALCIUM 8.4 mg/dL (8.5-10.1); CREATININE 3.1 mg/dL (0.55-1.3); MAGNESIUM 1.7 mg/dL (1.8-2.4); PHOSPHOROUS 4.3 mg/dL (2.5-4.9)
[2022-06-28] MEDS: ALLOPURINOL 100 MG TABLET (FP) PO SCH (09:54)
[2022-06-28] MEDS: SODIUM ZIRCONIUM CYCLOSILICATE (LOKELMA) 5 GM PACKET PO SCH (09:54)
[2022-06-28] MEDS: APIXABAN 2.5 MG TABLET PO SCH ×2 (09:54→21:25)
[2022-06-28] MEDS: levETIRAcetam 500 MG TABLET (FP) PO SCH ×2 (09:54→21:25)
[2022-06-28] MEDS: CLOPIDOGREL BISULFATE 75 MG TABLET (FP) PO SCH (09:54)
[2022-06-28] MEDS: CITALOPRAM HYDROBROMIDE 20 MG TABLET PO SCH (09:54)
[2022-06-28] MEDS: ISOSORBIDE DINITRATE 20 MG TABLET PO SCH ×3 (09:54→18:12)
[2022-06-28] MEDS ORDERED: MAGNESIUM SULF 50% (8.12 MEQ/2 ML-1 GM VIAL) IVPB ONE (12:34)
[2022-06-28] MEDS: ATORVASTATIN CA 80 MG TABLET (FP) PO SCH (21:25)
[2022-06-29] MEDS: hydrALAZINE HCL 25 MG TABLET (FP) PO SCH ×2 (06:28→13:53)
[2022-06-29] MEDS: INSULIN SLIDING SCALE (NOVOLOG) 1 VIAL SQ SCH ×2 (06:29→11:30)
[2022-06-29 08:03] LABS: BASO % 0.6 % (0-2.0); EOS % 4.1 % (0-4.5); HEMATOCRIT 40.3 % (35.4-49); LYMPH % 21.8 % (8-40); MCH 31.2 pg (25.7-33.7); MCHC 32.1 g/dl (32.0-35.9); MEAN CELL VOLUME 97.2 fl (80-96); MEAN PLT VOLUME 9.6 fl (7.5-11.1); NEUT % 62.5 % (42.8-82.8); PLATELET COUNT 140 10^3/uL (134-434); RBC 4.15 M/mm3 (4.00-5.60); RDW 14.8 % (11.9-15.9); WHITE BLOOD COUNT 6.4 K/mm3 (4.0-10.0)
[2022-06-29 08:26] LABS: BLOOD UREA NITROGEN 52.8 mg/dL (7-18); CALCIUM 8.6 mg/dL (8.5-10.1)
[2022-06-29 08:27] LABS: MAGNESIUM 2.3 mg/dL (1.8-2.4)
[2022-06-29 08:29] LABS: PHOSPHOROUS 3.5 mg/dL (2.5-4.9)
[2022-06-29] MEDS: ISOSORBIDE DINITRATE 20 MG TABLET PO SCH ×2 (08:49→13:53)
[2022-06-29] MEDS: CLOPIDOGREL BISULFATE 75 MG TABLET (FP) PO SCH (09:48)
[2022-06-29] MEDS: APIXABAN 2.5 MG TABLET PO SCH (09:48)
[2022-06-29] MEDS: levETIRAcetam 500 MG TABLET (FP) PO SCH (09:48)
[2022-06-29] MEDS: CITALOPRAM HYDROBROMIDE 20 MG TABLET PO SCH (09:48)
[2022-06-29] MEDS: ALLOPURINOL 100 MG TABLET (FP) PO SCH (09:48)
[2022-06-29 15:30] VITALS: BP 125/78; PULSE 66; TEMP 98.6
[2022-06-29] MEDS ORDERED: ERGOCALCIFEROL (VIT D2) 50,000 UNIT (1.25 MG) CAPSULE PO SCH (22:00)
== END 2022-06-29 17:17 | DRG 292 ==
LOC: JER 15:33 → JERBED 18:54 → J4W 06-27 21:03
PROVIDERS: ADMIT Internal Medicine; ATTEND Internal Medicine
DX: I13.0 Hypertensive heart and chronic kidney disease with heart failure and stage 1 through stage 4 chronic kidney disease, or unspecified chronic kidney disease (principal); E87.29 Other acidosis; I50.32 Chronic diastolic (congestive) heart failure; N18.4 Chronic kidney disease, stage 4 (severe); R55 Syncope and collapse; I42.0 Dilated cardiomyopathy; I25.10 Atherosclerotic heart disease of native coronary artery without angina pectoris; R11.2 Nausea with vomiting, unspecified; E78.5 Hyperlipidemia, unspecified; E87.5 Hyperkalemia; R56.9 Unspecified convulsions; Z95.810 Presence of automatic (implantable) cardiac defibrillator; Z86.73 Personal history of transient ischemic attack (TIA), and cerebral infarction without residual deficits; Z95.5 Presence of coronary angioplasty implant and graft
CPT/HCPCS: 0241U-QW; 36415; 36600; 70450-TC; 71045-TC-FY; 76775-TC; 76856-TC; 80048; 80053; 80061; 80177; 80307; 81003; 82140; 82436; 82550; 82803; 82962; 83036; 83605; 83690; 83735; 83880; 84100; 84133; 84300; 84436; 84443; 84484; 85025; 85027; 85610; 85730; 86850; 86900; 86901; 87040; 93005; 93010; 93306-TC; 99291; C9803-CS; J1644; U0003; U0005

== ENCOUNTER 2023-04-02 21:30 | Inpatient (IN) | payer OTHER ==
[2023-04-02 23:07] LABS: BASO % 0.4 % (0-2.0); EOS % 0.9 % (0-4.5); HEMATOCRIT 50.3 % (35.4-49); HEMOGLOBIN 17.2 GM/dL (11.7-16.9); LYMPH % 26.4 % (8-40); MCH 33.3 pg (25.7-33.7); MCHC 34.1 g/dl (32.0-35.9); MEAN CELL VOLUME 97.5 fl (80-96); MONO % 7.3 % (3.8-10.2); PLATELET COUNT 168 10^3/uL (134-434); RBC 5.16 M/mm3 (4.00-5.60); RDW 14.5 % (11.9-15.9); WHITE BLOOD COUNT 5.5 K/mm3 (4.0-10.0)
[2023-04-02 23:28] LABS: CHLORIDE 104 mmol/L (98-107); SODIUM 130 mmol/L (136-145)
[2023-04-02 23:30] LABS: CALCIUM 9.3 mg/dL (8.5-10.1)
[2023-04-02 23:31] LABS: ALBUMIN 3.3 g/dl (3.4-5.0); BLOOD UREA NITROGEN 40.9 mg/dL (7-18); CO2 26 mmol/L (21-32); GLUCOSE,RANDOM 169 mg/dL (74-106); MAGNESIUM 2.2 mg/dL (1.8-2.4)
[2023-04-02 23:34] LABS: CREATININE 3.7 mg/dL (0.55-1.3)
[2023-04-02 23:36] LABS: ALK PHOS 183 U/L (45-117); TOT PROT 8.6 g/dl (6.4-8.2)
[2023-04-02 23:51] LABS: ANION GAP 1 MMOL/L (8-16); POTASSIUM > 10.0 mmol/L (3.5-5.1); SGOT/AST 99 U/L (15-37)
[2023-04-03 01:04] LABS: INR 1.22 (0.83-1.09); PROTHROMBIN TIME (PATIENT) 14.1 SEC (9.7-13.0)
[2023-04-03 01:06] LABS: ACTIVATED PTT 30.8 SECONDS (25.2-36.5)
[2023-04-03 01:47] LABS: CALCIUM 9.7 mg/dL (8.5-10.1)
[2023-04-03 01:48] LABS: ALBUMIN 3.8 g/dl (3.4-5.0); BLOOD UREA NITROGEN 40.4 mg/dL (7-18)
[2023-04-03 01:53] LABS: BILIRUBIN,TOTAL 0.6 mg/dL (0.2-1); CREATININE 3.6 mg/dL (0.55-1.3); TOT PROT 7.8 g/dl (6.4-8.2)
[2023-04-03] MEDS ORDERED: SODIUM CHLORIDE 0.9% 500 ML INFUS.BAG IV ONE (02:18)
[2023-04-03] MEDS ORDERED: ACETAMINOPHEN 325 MG TABLET (FP) PO PRN (03:04)
[2023-04-03] MEDS ORDERED: SODIUM CHLORIDE 1,000 ML IV SCH (03:15)
[2023-04-03 07:33] LABS: BASO % 0.3 % (0-2.0); HEMATOCRIT 52.7 % (35.4-49); LYMPH % 10.1 % (8-40); MCH 32.5 pg (25.7-33.7); MCHC 32.2 g/dl (32.0-35.9); MEAN CELL VOLUME 100.9 fl (80-96); MEAN PLT VOLUME 10.1 fl (7.5-11.1); MONO % 6.4 % (3.8-10.2); NEUT % 83.2 % (42.8-82.8); PLATELET COUNT 160 10^3/uL (134-434); RBC 5.23 M/mm3 (4.00-5.60); RDW 14.1 % (11.9-15.9); WHITE BLOOD COUNT 4.9 K/mm3 (4.0-10.0)
[2023-04-03] MEDS: INSULIN SLIDING SCALE (NOVOLOG) 1 VIAL SQ SCH ×4 (08:42→22:10)
[2023-04-03 08:54] LABS: BLOOD UREA NITROGEN 40.4 mg/dL (7-18); CALCIUM 9.3 mg/dL (8.5-10.1)
[2023-04-03 08:55] LABS: MAGNESIUM 1.7 mg/dL (1.8-2.4)
[2023-04-03 08:57] LABS: CREATININE 3.3 mg/dL (0.55-1.3); PHOSPHOROUS 2.1 mg/dL (2.5-4.9)
[2023-04-03] MEDS ORDERED: CLOPIDOGREL BISULFATE 75 MG TABLET (FP) PO SCH (10:00)
[2023-04-03] MEDS ORDERED: APIXABAN 2.5 MG TABLET PO SCH (10:00)
[2023-04-03] MEDS: levETIRAcetam 500 MG TABLET (FP) PO SCH ×2 (10:30→22:10)
[2023-04-03] MEDS: CITALOPRAM HYDROBROMIDE 10 MG TABLET PO SCH (10:30)
[2023-04-03] MEDS ORDERED: levETIRAcetam 500 MG TABLET (FP) PO ONE (10:50)
[2023-04-03] MEDS ORDERED: CITALOPRAM HYDROBROMIDE 10 MG TABLET ONE (10:51)
[2023-04-03] MEDS: ALLOPURINOL 100 MG TABLET (FP) PO SCH (12:57)
[2023-04-03] MEDS: ISOSORBIDE DINITRATE 20 MG TABLET PO SCH ×3 (13:44→18:34)
[2023-04-03] MEDS ORDERED: SODIUM CHLORIDE 0.45% 1,000 ML IV SCH (16:00)
[2023-04-03] MEDS: hydrALAZINE HCL 25 MG TABLET (FP) PO SCH ×2 (17:05→22:10)
[2023-04-03] MEDS ORDERED: SODIUM ZIRCONIUM CYCLOSILICATE (LOKELMA) 10 GM PACKET ONE (17:06)
[2023-04-03] MEDS: SODIUM ZIRCONIUM CYCLOSILICATE (LOKELMA) 5 GM PACKET PO SCH (17:08)
[2023-04-03] MEDS: ATORVASTATIN CA 80 MG TABLET (FP) PO SCH (22:10)
[2023-04-04] MEDS ORDERED: DONEPEZIL HCL 5 MG TABLET (FP) PO SCH (03:00)
[2023-04-04] MEDS: hydrALAZINE HCL 25 MG TABLET (FP) PO SCH ×3 (06:05→21:50)
[2023-04-04] MEDS: INSULIN SLIDING SCALE (NOVOLOG) 1 VIAL SQ SCH ×4 (06:05→21:56)
[2023-04-04 08:44] LABS: BASO % 0.2 % (0-2.0); EOS % 0.3 % (0-4.5); HEMATOCRIT 44.7 % (35.4-49); LYMPH % 10.8 % (8-40); MCH 32.9 pg (25.7-33.7); MCHC 33.6 g/dl (32.0-35.9); MEAN CELL VOLUME 97.9 fl (80-96); MEAN PLT VOLUME 10.1 fl (7.5-11.1); MONO % 5.6 % (3.8-10.2); NEUT % 83.1 % (42.8-82.8); PLATELET COUNT 138 10^3/uL (134-434); RBC 4.57 M/mm3 (4.00-5.60); RDW 14.2 % (11.9-15.9); WHITE BLOOD COUNT 12.5 K/mm3 (4.0-10.0)
[2023-04-04] MEDS: ISOSORBIDE DINITRATE 20 MG TABLET PO SCH ×3 (09:16→18:00)
[2023-04-04] MEDS: CITALOPRAM HYDROBROMIDE 10 MG TABLET PO SCH (10:54)
[2023-04-04] MEDS: SODIUM ZIRCONIUM CYCLOSILICATE (LOKELMA) 5 GM PACKET PO SCH (10:55)
[2023-04-04] MEDS: ALLOPURINOL 100 MG TABLET (FP) PO SCH (10:55)
[2023-04-04] MEDS: levETIRAcetam 500 MG TABLET (FP) PO SCH ×2 (10:55→21:50)
[2023-04-04] MEDS ORDERED: INSULIN (NOVOLOG) ASPART 100 UNITS/ML 10ML VIAL ONE ×2 (11:06→20:16)
[2023-04-04 12:14] LABS: POTASSIUM 4.8 mmol/L (3.5-5.1)
[2023-04-04 12:55] LABS: CALCIUM 9.3 mg/dL (8.5-10.1)
[2023-04-04 12:56] LABS: ALBUMIN 3.2 g/dl (3.4-5.0); BLOOD UREA NITROGEN 41.3 mg/dL (7-18)
[2023-04-04 12:57] LABS: CREATININE 3.1 mg/dL (0.55-1.3)
[2023-04-04 12:59] LABS: BILIRUBIN,TOTAL 1.1 mg/dL (0.2-1); TOT PROT 6.5 g/dl (6.4-8.2)
[2023-04-04 19:20] LABS: EPI CELLS 8 /uL (0-25.1); HYALINE CASTS 0 /uL (0-3.1); URINE APPEARANCE CLEAR; URINE BACTERIA 2 /uL (0-1359); URINE BILIRUBIN NEGATIVE (NEGATIVE); URINE COLOR YELLOW; URINE GLUCOSE (UA) NEGATIVE (NEGATIVE); URINE KETONE NEGATIVE (NEGATIVE); URINE LEUK ESTERASE NEGATIVE (NEGATIVE); URINE NITRITE NEGATIVE (NEGATIVE); URINE PROTEIN 1+ (NEGATIVE); URINE RBC 25 /uL (0-23.9); URINE WBC 6 /uL (0-25.8)
[2023-04-04 20:22] LABS: COCAINE, UR NEGATIVE (NEGATIVE); METHADONE, UR NEGATIVE (NEGATIVE); OPIATES, URI NEGATIVE (NEGATIVE); URINE BARBITURATES NEGATIVE (NEGATIVE)
[2023-04-04 20:23] LABS: PHENCYCLIDINE,URINE NEGATIVE (NEGATIVE); URINE AMPHETAMINES NEGATIVE (NEGATIVE)
[2023-04-04 20:25] LABS: URINE BENZODIAZEPINES NEGATIVE (NEGATIVE)
[2023-04-04] MEDS: CEFTRIAXONE 1 GM in DEXTROSE 5%-WATER - 50 ML IVPB SCH (21:49)
[2023-04-04] MEDS: ATORVASTATIN CA 80 MG TABLET (FP) PO SCH (21:50)
[2023-04-05] MEDS: INSULIN SLIDING SCALE (NOVOLOG) 1 VIAL SQ SCH ×4 (06:05→22:41)
[2023-04-05] MEDS: hydrALAZINE HCL 25 MG TABLET (FP) PO SCH ×3 (06:06→22:37)
[2023-04-05] MEDS: ISOSORBIDE DINITRATE 20 MG TABLET PO SCH ×3 (08:08→17:10)
[2023-04-05] MEDS: CEFTRIAXONE 1 GM in DEXTROSE 5%-WATER - 50 ML IVPB SCH (09:53)
[2023-04-05] MEDS: levETIRAcetam 500 MG TABLET (FP) PO SCH ×2 (09:53→22:37)
[2023-04-05] MEDS: SODIUM ZIRCONIUM CYCLOSILICATE (LOKELMA) 5 GM PACKET PO SCH (09:53)
[2023-04-05] MEDS: ALLOPURINOL 100 MG TABLET (FP) PO SCH (09:54)
[2023-04-05] MEDS: CITALOPRAM HYDROBROMIDE 10 MG TABLET PO SCH (10:46)
[2023-04-05 11:32] LABS: BASO % 0.3 % (0-2.0); EOS % 0.7 % (0-4.5); HEMATOCRIT 41.4 % (35.4-49); HEMOGLOBIN 13.7 GM/dL (11.7-16.9); LYMPH % 8.1 % (8-40); MEAN CELL VOLUME 99.9 fl (80-96); MEAN PLT VOLUME 10.2 fl (7.5-11.1); MONO % 5.8 % (3.8-10.2); NEUT % 85.1 % (42.8-82.8); PLATELET COUNT 145 10^3/uL (134-434); RBC 4.15 M/mm3 (4.00-5.60); RDW 13.8 % (11.9-15.9); WHITE BLOOD COUNT 10.8 K/mm3 (4.0-10.0)
[2023-04-05 11:44] LABS: POTASSIUM 4.3 mmol/L (3.5-5.1)
[2023-04-05 11:47] LABS: BLOOD UREA NITROGEN 40.1 mg/dL (7-18)
[2023-04-05 11:50] LABS: CREATININE 2.9 mg/dL (0.55-1.3)
[2023-04-05] MEDS: ASPIRIN 81 MG CHEWABLE TABLETS PO SCH (12:51)
[2023-04-05] MEDS: APIXABAN 2.5 MG TABLET PO SCH ×2 (14:18→22:37)
[2023-04-05] MEDS: ATORVASTATIN CA 80 MG TABLET (FP) PO SCH (22:37)
[2023-04-06] MEDS: INSULIN SLIDING SCALE (NOVOLOG) 1 VIAL SQ SCH ×4 (06:48→22:06)
[2023-04-06] MEDS: hydrALAZINE HCL 25 MG TABLET (FP) PO SCH (06:49)
[2023-04-06] MEDS: ISOSORBIDE DINITRATE 20 MG TABLET PO SCH (08:24)
[2023-04-06] MEDS: CEFTRIAXONE 1 GM in DEXTROSE 5%-WATER - 50 ML IVPB SCH (09:48)
[2023-04-06] MEDS: CITALOPRAM HYDROBROMIDE 10 MG TABLET PO SCH (09:50)
[2023-04-06] MEDS: APIXABAN 2.5 MG TABLET PO SCH (09:50)
[2023-04-06] MEDS: ASPIRIN 81 MG CHEWABLE TABLETS PO SCH (09:50)
[2023-04-06] MEDS: amLODIPine BESYLATE 10 MG TABLET (FP) PO SCH (09:56)
[2023-04-06] MEDS: SODIUM ZIRCONIUM CYCLOSILICATE (LOKELMA) 5 GM PACKET PO SCH (11:14)
[2023-04-06] MEDS ORDERED: TAMSULOSIN HCL 0.4 MG CAP PO ONE (12:43)
[2023-04-06 15:34] LABS: BASO % 0.8 % (0-2.0); EOS % 0.9 % (0-4.5); HEMATOCRIT 43.1 % (35.4-49); HEMOGLOBIN 14.1 GM/dL (11.7-16.9); LYMPH % 10.5 % (8-40); MCH 32.5 pg (25.7-33.7); MCHC 32.6 g/dl (32.0-35.9); MEAN CELL VOLUME 99.5 fl (80-96); MONO % 7.5 % (3.8-10.2); NEUT % 80.3 % (42.8-82.8); PLATELET COUNT 178 10^3/uL (134-434); RBC 4.34 M/mm3 (4.00-5.60); RDW 13.7 % (11.9-15.9); WHITE BLOOD COUNT 10.1 K/mm3 (4.0-10.0)
[2023-04-06 15:56] LABS: CALCIUM 9.3 mg/dL (8.5-10.1); POTASSIUM 4.2 mmol/L (3.5-5.1)
[2023-04-06 15:58] LABS: BLOOD UREA NITROGEN 40.7 mg/dL (7-18)
[2023-04-06 16:01] LABS: CREATININE 2.8 mg/dL (0.55-1.3)
[2023-04-06] MEDS: ATORVASTATIN CA 80 MG TABLET (FP) PO SCH (22:07)
[2023-04-07] MEDS: INSULIN SLIDING SCALE (NOVOLOG) 1 VIAL SQ SCH ×4 (06:09→22:56)
[2023-04-07 07:46] LABS: BASO % 0.9 % (0-2.0); EOS % 1.8 % (0-4.5); HEMATOCRIT 42.2 % (35.4-49); HEMOGLOBIN 13.8 GM/dL (11.7-16.9); LYMPH % 14.6 % (8-40); MCH 32.7 pg (25.7-33.7); MCHC 32.7 g/dl (32.0-35.9); MEAN CELL VOLUME 99.8 fl (80-96); MEAN PLT VOLUME 9.9 fl (7.5-11.1); MONO % 13.8 % (3.8-10.2); NEUT % 68.9 % (42.8-82.8); PLATELET COUNT 180 10^3/uL (134-434); RBC 4.23 M/mm3 (4.00-5.60); RDW 13.6 % (11.9-15.9); WHITE BLOOD COUNT 8.4 K/mm3 (4.0-10.0)
[2023-04-07 07:55] LABS: POTASSIUM 4.1 mmol/L (3.5-5.1)
[2023-04-07 08:01] LABS: BLOOD UREA NITROGEN 35.3 mg/dL (7-18); CALCIUM 9.4 mg/dL (8.5-10.1)
[2023-04-07 08:05] LABS: CREATININE 2.6 mg/dL (0.55-1.3)
[2023-04-07] MEDS: ASPIRIN 81 MG CHEWABLE TABLETS PO SCH (11:33)
[2023-04-07] MEDS: CITALOPRAM HYDROBROMIDE 10 MG TABLET PO SCH (11:33)
[2023-04-07] MEDS: CEFTRIAXONE 1 GM in DEXTROSE 5%-WATER - 50 ML IVPB SCH (11:33)
[2023-04-07] MEDS: amLODIPine BESYLATE 10 MG TABLET (FP) PO SCH (11:33)
[2023-04-07] MEDS ORDERED: INSULIN (NOVOLOG) ASPART 100 UNITS/ML 10ML VIAL ONE (11:50)
[2023-04-07] MEDS: SODIUM ZIRCONIUM CYCLOSILICATE (LOKELMA) 5 GM PACKET PO SCH (14:12)
[2023-04-07] MEDS: ATORVASTATIN CA 80 MG TABLET (FP) PO SCH (22:55)
[2023-04-08] MEDS: INSULIN SLIDING SCALE (NOVOLOG) 1 VIAL SQ SCH ×4 (06:37→22:19)
[2023-04-08] MEDS: CEFTRIAXONE 1 GM in DEXTROSE 5%-WATER - 50 ML IVPB SCH (10:58)
[2023-04-08] MEDS: ASPIRIN 81 MG CHEWABLE TABLETS PO SCH (10:59)
[2023-04-08] MEDS: amLODIPine BESYLATE 10 MG TABLET (FP) PO SCH (10:59)
[2023-04-08] MEDS: CITALOPRAM HYDROBROMIDE 10 MG TABLET PO SCH (10:59)
[2023-04-08] MEDS: SODIUM ZIRCONIUM CYCLOSILICATE (LOKELMA) 5 GM PACKET PO SCH (12:54)
[2023-04-08 13:10] LABS: BASO % 0.5 % (0-2.0); HEMATOCRIT 42.1 % (35.4-49); HEMOGLOBIN 14.1 GM/dL (11.7-16.9); MCH 32.7 pg (25.7-33.7); MCHC 33.4 g/dl (32.0-35.9); MEAN CELL VOLUME 97.7 fl (80-96); MEAN PLT VOLUME 8.7 fl (7.5-11.1); MONO % 14.7 % (3.8-10.2); NEUT % 69.8 % (42.8-82.8); PLATELET COUNT 216 10^3/uL (134-434); RBC 4.31 M/mm3 (4.00-5.60); RDW 13.7 % (11.9-15.9); WHITE BLOOD COUNT 10.5 K/mm3 (4.0-10.0)
[2023-04-08 13:55] LABS: CALCIUM 9.4 mg/dL (8.5-10.1); POTASSIUM 4.5 mmol/L (3.5-5.1)
[2023-04-08 13:56] LABS: BLOOD UREA NITROGEN 36.2 mg/dL (7-18)
[2023-04-08 13:59] LABS: CREATININE 2.7 mg/dL (0.55-1.3)
[2023-04-08] MEDS ORDERED: ACETAMINOPHEN 325 MG TABLET (FP) PO PRN (20:14)
[2023-04-08] MEDS: ATORVASTATIN CA 80 MG TABLET (FP) PO SCH (22:13)
[2023-04-08] MEDS: levETIRAcetam 500 MG TABLET (FP) PO SCH (22:13)
[2023-04-08] MEDS: APIXABAN 2.5 MG TABLET PO SCH (22:13)
[2023-04-09] MEDS: INSULIN SLIDING SCALE (NOVOLOG) 1 VIAL SQ SCH ×4 (06:07→22:13)
[2023-04-09] MEDS: ASPIRIN 81 MG CHEWABLE TABLETS PO SCH (10:02)
[2023-04-09] MEDS: levETIRAcetam 500 MG TABLET (FP) PO SCH ×2 (10:02→22:08)
[2023-04-09] MEDS: APIXABAN 2.5 MG TABLET PO SCH ×2 (10:02→22:09)
[2023-04-09] MEDS: CITALOPRAM HYDROBROMIDE 10 MG TABLET PO SCH (10:02)
[2023-04-09] MEDS: amLODIPine BESYLATE 10 MG TABLET (FP) PO SCH (10:02)
[2023-04-09] MEDS: SODIUM ZIRCONIUM CYCLOSILICATE (LOKELMA) 5 GM PACKET PO SCH (10:03)
[2023-04-09] MEDS: ATORVASTATIN CA 80 MG TABLET (FP) PO SCH (22:08)
[2023-04-10] MEDS: INSULIN SLIDING SCALE (NOVOLOG) 1 VIAL SQ SCH ×4 (06:18→21:44)
[2023-04-10] MEDS: CITALOPRAM HYDROBROMIDE 10 MG TABLET PO SCH (10:39)
[2023-04-10] MEDS: APIXABAN 2.5 MG TABLET PO SCH ×2 (10:39→21:44)
[2023-04-10] MEDS: ASPIRIN 81 MG CHEWABLE TABLETS PO SCH (10:39)
[2023-04-10] MEDS: levETIRAcetam 500 MG TABLET (FP) PO SCH ×2 (10:39→21:44)
[2023-04-10] MEDS: SODIUM ZIRCONIUM CYCLOSILICATE (LOKELMA) 5 GM PACKET PO SCH (10:39)
[2023-04-10] MEDS: amLODIPine BESYLATE 10 MG TABLET (FP) PO SCH (10:39)
[2023-04-10] MEDS: hydrALAZINE HCL 10 MG TABLET PO SCH ×2 (13:56→21:44)
[2023-04-10 16:01] VITALS: BMI 24.5
[2023-04-10] MEDS: ISOSORBIDE DINITRATE 5 MG TABLET PO SCH (16:38)
[2023-04-10 20:18] VITALS: PULSE 75; RESP 16; TEMP 99.1
[2023-04-10] MEDS: ATORVASTATIN CA 80 MG TABLET (FP) PO SCH (21:44)
[2023-04-11] MEDS: INSULIN SLIDING SCALE (NOVOLOG) 1 VIAL SQ SCH ×2 (06:03→12:30)
[2023-04-11 07:01] VITALS: BP 147/72
[2023-04-11] MEDS: APIXABAN 2.5 MG TABLET PO SCH (10:49)
[2023-04-11] MEDS: CITALOPRAM HYDROBROMIDE 10 MG TABLET PO SCH (10:49)
[2023-04-11] MEDS: SODIUM ZIRCONIUM CYCLOSILICATE (LOKELMA) 5 GM PACKET PO SCH (10:49)
[2023-04-11] MEDS: levETIRAcetam 500 MG TABLET (FP) PO SCH (10:49)
[2023-04-11] MEDS: ASPIRIN 81 MG CHEWABLE TABLETS PO SCH (10:49)
[2023-04-11] MEDS: hydrALAZINE HCL 10 MG TABLET PO SCH (10:49)
[2023-04-11] MEDS: ISOSORBIDE DINITRATE 5 MG TABLET PO SCH ×2 (11:02→14:11)
== END 2023-04-11 16:21 | disposition home or self-care (01) | DRG 312 ==
LOC: JER 21:30 → JERBED 04-03 03:03 → J4W 04-03 17:53 → OBSVTOIN 04-04 16:15 → J5S 04-08 19:28
PROVIDERS: ADMIT Internal Medicine; ATTEND Internal Medicine
DX: R55 Syncope and collapse (principal); G92.8 Other toxic encephalopathy; I13.0 Hypertensive heart and chronic kidney disease with heart failure and stage 1 through stage 4 chronic kidney disease, or unspecified chronic kidney disease; I50.22 Chronic systolic (congestive) heart failure; I42.0 Dilated cardiomyopathy; I25.10 Atherosclerotic heart disease of native coronary artery without angina pectoris; E78.5 Hyperlipidemia, unspecified; N18.31 Chronic kidney disease, stage 3a; D75.1 Secondary polycythemia; E87.5 Hyperkalemia; F17.210 Nicotine dependence, cigarettes, uncomplicated; R26.89 Other abnormalities of gait and mobility; M10.9 Gout, unspecified; G40.909 Epilepsy, unspecified, not intractable, without status epilepticus; I25.119 Atherosclerotic heart disease of native coronary artery with unspecified angina pectoris; I73.9 Peripheral vascular disease, unspecified; R31.9 Hematuria, unspecified; T42.6X5A Adverse effect of other antiepileptic and sedative-hypnotic drugs, initial encounter; F12.10 Cannabis abuse, uncomplicated; Z86.73 Personal history of transient ischemic attack (TIA), and cerebral infarction without residual deficits
CPT/HCPCS: 36415; 70450-TC; 71045-TC-FY; 72125-TC; 76775-TC; 76856-TC; 80048; 80053; 80177; 80307; 81003; 82962; 83735; 84100; 84484; 85025; 85610; 85730; 87635; 93005; 93010; 93306-TC; 94761; 97116-GP; 97161-GP; 99285-25; G0378

== ENCOUNTER 2023-05-20 09:13 | Inpatient (IN) | payer OTHER ==
[2023-05-20 10:04] VITALS: BMI 26.7
[2023-05-20 15:17] LABS: URINE APPEARANCE Clear; URINE BILIRUBIN Negative (NEGATIVE); URINE COLOR Yellow; URINE GLUCOSE (UA) 2+ (NEGATIVE); URINE KETONE Trace (NEGATIVE); URINE LEUK ESTERASE Negative (NEGATIVE); URINE NITRITE Negative (NEGATIVE); URINE PROTEIN Negative (NEGATIVE); URINE UROBILINOGEN 0.2 mg/dL (0.2-1.0)
[2023-05-20] MEDS ORDERED: ACETAMINOPHEN 500 MG TABLET (FP) PO ONE (16:46)
[2023-05-20 16:58] LABS: BASO % 0.4 % (0-2.0); HEMATOCRIT 39.5 % (35.4-49); HEMOGLOBIN 13.6 GM/dL (11.7-16.9); LYMPH % 15.6 % (8-40); MCH 32.9 pg (25.7-33.7); MCHC 34.4 g/dl (32.0-35.9); MEAN CELL VOLUME 95.6 fl (80-96); MEAN PLT VOLUME 8.8 fl (7.5-11.1); MONO % 7.2 % (3.8-10.2); NEUT % 76.8 % (42.8-82.8); PLATELET COUNT 139 10^3/uL (134-434); RBC 4.13 M/mm3 (4.00-5.60); WHITE BLOOD COUNT 12.9 K/mm3 (4.0-10.0)
[2023-05-20 17:10] LABS: POTASSIUM 4.7 mmol/L (3.5-5.1)
[2023-05-20 17:14] LABS: ALBUMIN 3.1 g/dl (3.4-5.0); BLOOD UREA NITROGEN 44.8 mg/dL (7-18)
[2023-05-20 17:17] LABS: CREATININE 3.2 mg/dL (0.55-1.3)
[2023-05-20 17:18] LABS: BILIRUBIN,TOTAL 0.2 mg/dL (0.2-1); TOT PROT 6.6 g/dl (6.4-8.2)
[2023-05-20] MEDS ORDERED: ACETAMINOPHEN 325 MG TABLET (FP) PO ONE (19:00)
[2023-05-20] MEDS: levETIRAcetam 500 MG TABLET (FP) PO SCH (21:42)
[2023-05-20] MEDS: ATORVASTATIN CA 80 MG TABLET (FP) PO SCH (21:42)
[2023-05-20] MEDS: APIXABAN 5 MG TABLET PO SCH (21:42)
[2023-05-21 08:32] LABS: BASO % 0.5 % (0-2.0); EOS % 0.8 % (0-4.5); HEMATOCRIT 41.1 % (35.4-49); HEMOGLOBIN 13.6 GM/dL (11.7-16.9); LYMPH % 31.4 % (8-40); MCH 32.2 pg (25.7-33.7); MEAN CELL VOLUME 97.7 fl (80-96); MEAN PLT VOLUME 8.5 fl (7.5-11.1); MONO % 7.6 % (3.8-10.2); NEUT % 59.7 % (42.8-82.8); PLATELET COUNT 138 10^3/uL (134-434); WHITE BLOOD COUNT 9.6 K/mm3 (4.0-10.0)
[2023-05-21 08:39] LABS: INR 1.05 (0.83-1.09); PROTHROMBIN TIME (PATIENT) 12.2 SEC (9.7-13.0)
[2023-05-21 08:41] LABS: ACTIVATED PTT 26.3 SECONDS (25.2-36.5)
[2023-05-21 09:16] LABS: CALCIUM 8.7 mg/dL (8.5-10.1)
[2023-05-21 09:17] LABS: BLOOD UREA NITROGEN 46.7 mg/dL (7-18); MAGNESIUM 1.8 mg/dL (1.8-2.4)
[2023-05-21 09:19] LABS: CREATININE 3.3 mg/dL (0.55-1.3)
[2023-05-21 09:20] LABS: PHOSPHOROUS 3.4 mg/dL (2.5-4.9)
[2023-05-21 09:21] LABS: BILIRUBIN,TOTAL 0.2 mg/dL (0.2-1); TOT PROT 6.2 g/dl (6.4-8.2)
[2023-05-21 09:25] LABS: N-TERMINAL BNP 820.5 pg/ml (5-125)
[2023-05-21] MEDS: APIXABAN 5 MG TABLET PO SCH ×2 (09:57→22:47)
[2023-05-21] MEDS: CITALOPRAM HYDROBROMIDE 20 MG TABLET PO SCH (09:57)
[2023-05-21] MEDS: amLODIPine BESYLATE 10 MG TABLET (FP) PO SCH (09:57)
[2023-05-21] MEDS: ASPIRIN COATED 81 MG TABLET.EC PO SCH (09:57)
[2023-05-21] MEDS: levETIRAcetam 500 MG TABLET (FP) PO SCH ×2 (09:57→22:48)
[2023-05-21] MEDS: ATORVASTATIN CA 80 MG TABLET (FP) PO SCH (22:48)
[2023-05-22] MEDS: CITALOPRAM HYDROBROMIDE 20 MG TABLET PO SCH (10:34)
[2023-05-22] MEDS: levETIRAcetam 500 MG TABLET (FP) PO SCH ×2 (10:34→21:59)
[2023-05-22] MEDS: APIXABAN 5 MG TABLET PO SCH ×2 (10:34→22:00)
[2023-05-22] MEDS: ASPIRIN COATED 81 MG TABLET.EC PO SCH (10:34)
[2023-05-22] MEDS: amLODIPine BESYLATE 10 MG TABLET (FP) PO SCH (10:34)
[2023-05-22] MEDS: ATORVASTATIN CA 80 MG TABLET (FP) PO SCH (21:59)
[2023-05-22 23:09] VITALS: PULSE 66; RESP 18
[2023-05-23] MEDS: ASPIRIN COATED 81 MG TABLET.EC PO SCH (09:37)
[2023-05-23] MEDS: CITALOPRAM HYDROBROMIDE 20 MG TABLET PO SCH (09:37)
[2023-05-23] MEDS: APIXABAN 5 MG TABLET PO SCH (09:37)
[2023-05-23] MEDS: amLODIPine BESYLATE 10 MG TABLET (FP) PO SCH (09:37)
[2023-05-23 14:48] VITALS: BP 113/69; TEMP 98.1
== END 2023-05-23 15:04 | DRG 92 ==
LOC: JER 09:13 → JERBED 15:53 → J7W 18:39 → OBSVTOIN 05-21 10:07
PROVIDERS: ADMIT Internal Medicine; ATTEND Internal Medicine
DX: R29.6 Repeated falls (principal); G81.91 Hemiplegia, unspecified affecting right dominant side; I13.0 Hypertensive heart and chronic kidney disease with heart failure and stage 1 through stage 4 chronic kidney disease, or unspecified chronic kidney disease; I50.22 Chronic systolic (congestive) heart failure; N18.4 Chronic kidney disease, stage 4 (severe); I25.10 Atherosclerotic heart disease of native coronary artery without angina pectoris; E78.00 Pure hypercholesterolemia, unspecified; F12.20 Cannabis dependence, uncomplicated; I25.5 Ischemic cardiomyopathy; R29.810 Facial weakness; Z86.718 Personal history of other venous thrombosis and embolism
CPT/HCPCS: 36415; 70450-TC; 71045-TC-FY; 72125-TC; 72170-TC-FY; 80053; 80061; 80177; 80307; 81003; 82550; 82962; 83036; 83735; 83880; 84100; 84484; 85025; 85610; 85730; 86850; 86900; 86901; 87086; 93005; 93010; 93880-TC; 97116-GP; 97162-GP; 99285-25; G0378; J1100

== ENCOUNTER 2024-06-26 12:34 | Emergency (ER) | payer OTHER ==
[2024-06-26 12:51] VITALS: BP 183/117; PULSE 64; RESP 19; TEMP 97.6; BMI 30.2
[2024-06-26 14:38] LABS: EOS % 2.3 % (0-4.5); HEMATOCRIT 48.3 % (35.4-49); LYMPH % 24.7 % (8-40); MCH 31.4 pg (25.7-33.7); MCHC 33.1 g/dl (32.0-35.9); MEAN PLT VOLUME 8.9 fl (7.5-11.1); MONO % 8.2 % (3.8-10.2); NEUT % 63.8 % (42.8-82.8); PLATELET COUNT 180 10^3/uL (134-434); RBC 5.08 M/mm3 (4.00-5.60); RDW 14.3 % (11.9-15.9); WHITE BLOOD COUNT 6.4 K/mm3 (4.0-10.0)
[2024-06-26] MEDS ORDERED: ACETAMINOPHEN 325 MG TABLET (FP) ONE (14:46)
[2024-06-26] MEDS: ACETAMINOPHEN 500 MG TABLET (FP) PO ONE (14:48)
[2024-06-26] MEDS: ACETAMINOPHEN 1000 MG/100 ML BAG IVPB ONE (15:04)
[2024-06-26 15:10] LABS: POTASSIUM 4.9 mmol/L (3.5-5.1)
[2024-06-26 15:12] LABS: ALBUMIN 3.9 g/dl (3.4-5.0); CALCIUM 10.6 mg/dL (8.5-10.1)
[2024-06-26 15:13] LABS: BLOOD UREA NITROGEN 43.1 mg/dL (7-18)
[2024-06-26 15:15] LABS: URIC ACID 9.2 mg/dL (2.6-7.2)
[2024-06-26 15:16] LABS: CREATININE 3.5 mg/dL (0.55-1.3)
[2024-06-26 15:17] LABS: BILIRUBIN,TOTAL 0.4 mg/dL (0.2-1); ERYTHROCYTE SEDIMENTATION RATE 12 mm/hr (0-20)
[2024-06-26 16:24] LABS: HIV INTERPRETATION NEGATIVE (NEGATIVE)
== END 2024-06-26 15:53 | disposition left against medical advice (07) ==
LOC: JER 12:34
DX: M10.9 Gout, unspecified (principal); M19.071 Primary osteoarthritis, right ankle and foot
CPT/HCPCS: 36415; 73630-TC-RT-FY; 80053; 84550; 85025; 85651; 86140; 86803; 87389; 99284-25